=== PATIENT | male | born 1940 | race Caucasian/White ===

== ENCOUNTER 2017-02-18 11:20 | Emergency (ER) | payer MEDICARE, BC ==
[2017-02-18 11:25] VITALS: RESP 18; TEMP 97.9
[2017-02-18] MEDS ORDERED: DIPH,PERTUS(ACELL)TETVAC-LF 0.5 ML VIAL IM ONE (11:29)
--- NOTE | 2017-02-18 11:38 | ED ---
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 Patient states he got up the lost balance and fell onto his left side. Patient states the corner of his head hit the marble table and there is some bleeding. Patient states she does know when he had his last tetanus. Patient states he did not lose consciousness he was not dizzy or lightheaded prior to the fall. Patient denies any chest pain palpitations difficulty breathing or shortness of breath. Patient states he just simply lost his balance. Patient has some left-sided neck pain as well. Patient complains of a little tenderness to his buttocks on the left side. Patient also complains of some mild lower back pain. Patient denies any upper extremity pain. Patient denies any pain to either side. Patient denies any abdominal pain. Patient denies any upper or mid back pain. - Related Data Home Medications Medication Instructions Recorded Confirmed Carvedilol [Carvedilol] 6.25 mg PO BID 01/25/16 02/18/17 Insulin NPH Hum/Reg Insulin Hm 50 units SQ AC-BID 01/25/16 02/18/17 [Humulin 70-30 Vial] Isosorbide Mononitrate [Isosorbide 30 mg PO DAILY 01/25/16 02/18/17 Mononitrate ER] Lisinopril [Prinivil] 10 mg PO BID 01/25/16 02/18/17 Pravastatin Sodium [Pravachol] 10 mg PO HS 01/25/16 02/18/17 ALPRAZolam [Xanax] 1 mg PO BID PRN 02/18/17 02/18/17 Aspirin [Adult Low Dose Aspirin EC] 81 mg PO DAILY 02/18/17 02/18/17 Baclofen 10 mg PO TID 02/18/17 02/18/17 Cholecalciferol [Vitamin D3] 1,000 unit PO DAILY 02/18/17 02/18/17 Ferrous Sulfate [Feosol] 325 mg PO DAILY 02/18/17 02/18/17 HYDROcodone/APAP 10-325MG [Orient 1 tab PO DAILY PRN 02/18/17 02/18/17 10-325] Allergies Allergy/AdvReac Type Severity Reaction Status Date / Time Penicillins Allergy Unknown Verified 02/18/17 12:15 Childhood pregabalin [From Lyrica] Allergy Rapid Verified 02/18/17 12:15 Heart Rate Review of Systems ROS Statement: Those systems with pertinent positive or pertinent negative responses have been documented in the HPI. ROS Other: All systems not noted in ROS Statement are negative. Past Medical History Past Medical History: Coronary Artery Disease (CAD), Chest Pain / Angina, COPD, Diabetes Mellitus, Hyperlipidemia, Hypertension, Myocardial Infarction ([place]), Vascular Disorder Additional Past Medical History / Comment(s): 'bleeding behind eyes" had laser sx Last Myocardial Infarction Date:: 2010 History of Any Multi-Drug Resistant Organisms: None Reported Past Surgical History: Coronary Bypass/CABG, Heart Catheterization With Stent, Tonsillectomy Additional Past Surgical History / Comment(s): blossom bka , blossom carotid endarterectomy, several heart caths stated he has 7 or 8 stents? ,blossom cataracts sx, laser eye sx for bleeding behind eyes, colonoscopyper past medical hx:,angiogram,fem-fem bypass,lt fem pop bypass. Past Anesthesia/Blood Transfusion Reactions: No Reported Reaction Additional Past Anesthesia/Blood Transfusion Reaction / Comment(s): clausterphobia Date of Last Stent Placement:: unk Past Psychological History: Anxiety Smoking Status: Former smoker Past Alcohol Use History: Occasional Additional Past Alcohol Use History / Comment(s): smoked x 40 years, quit 2008 Past Drug Use History: None Reported - Past Family History Father Family Medical History: Diabetes Mellitus Additional Family Medical History / Comment(s): heart problems Mother Family Medical History: Diabetes Mellitus Additional Family Medical History / Comment(s): heart problems General Exam - General Exam Comments Initial Comments: GENERAL: Patient is well-developed and well-nourished. Patient is nontoxic and well- hydrated and is in mild distress. There is a small laceration just above the left ear measuring about 1.5 cm. It appears to be approximated very nicely. ENT: Neck is soft and supple. No significant lymphadenopathy is noted. Oropharynx is clear. Moist mucous membranes. Neck has full range of motion without eliciting any pain. Patient has some slight tenderness to the left side of his neck posteriorly at about C5-C6 EYES: The sclera were anicteric and conjunctiva were pink and moist. Extraocular movements were intact and pupils were equal round and reactive to light. Eyelids were unremarkable. PULMONARY: Unlabored respirations. Good breath sounds bilaterally. No audible rales rhonchi or wheezing was noted. CARDIOVASCULAR: There is a regular rate and rhythm without any murmurs gallops or rubs. ABDOMEN: Soft and nontender with normal bowel sounds. No palpable organomegaly was noted. There is no palpable pulsatile mass. SKIN: Skin is clear with no lesions or rashes and otherwise unremarkable. NEUROLOGIC: Patient is alert and oriented x3. Cranial nerves II through XII are grossly intact. Motor and sensory are also intact. Normal speech, volume and content. Symmetrical smile. MUSCULOSKELETAL: Normal extremities with adequate strength and full range of motion. No lower extremity swelling or edema. No calf tenderness. Patient's left buttocks is tender to palpation but has full range of motion of that hip. LYMPHATICS: No significant lymphadenopathy is noted PSYCHIATRIC: Normal psychiatric evaluation. Normal interpersonal interactions appears functionally intact in deals appropriately with others. No signs of depression. No signs of anxiety. Limitations: no limitations Course Vital Signs 02/18/17 02/18/17 02/18/17 11:22 12:18 12:55 Temperature 97.9 F Pulse Rate 79 78 77 Respiratory 18 18 18 Rate Blood Pressure 246/119 207/90 178/79 O2 Sat by Pulse 94 L 93 L 94 L Oximetry Procedures - Laceration Laceration #1 Consent Obtained: verbal consent Time Out Performed: Yes Indication: laceration Site: scalp Description: flap Depth: simple, single layer Type of Sutures: other (Dermabond was used to close the wound) Medical Decision Making - Medical Decision Making I went back into the room the patient was ambulating at his baseline with a walker. Patient stated he did not want to stay in hospital he wanted to go back home he felt good enough to go home. is concerned he might fall again patient stated that he would be more careful home and stated he would refuse to stay or go to a correction. Disposition Clinical Impression: Scalp laceration, Fall, Contusion, hip, Hypertension Disposition: HOME SELF-CARE Condition: Good Instructions: Fall Prevention for Older Adults (ED), Hypertension (ED) Referrals: Benji Arrington DO [Primary Care Provider] - 1-2 days Time of Disposition: 14:30
--- NOTE | 2017-02-18 12:15 | XR ---
EXAMINATION TYPE: XR lumbosacral spine min 4V DATE OF EXAM: 02/18/2017 12:09 PM COMPARISON: NONE HISTORY: 76-year-old male with back pain for one week after fall TECHNIQUE: 5 views FINDINGS: Moderate to advanced discussion preliminary degenerative change throughout the lumbar spine. There i s minimal anterior wedging of L1 vertebral body. Alignment is maintained. Hypertrophic facet arthropa thy throughout. Some embolization coils are noted in the upper abdomen. Some calcifications may relat e to pancreatic calcifications in the setting of chronic pancreatitis. IMPRESSION: 1. Moderate to advanced multilevel disc/endplate degenerative change and facet arthropathy. 2. Mild anterior wedging of L1, age indeterminate mild compression deformity. Correlate for focal so n at this level. 3. Some calcifications in the upper abdomen could represent pancreatic calcifications in the setting of chronic pancreatitis. Clinically correlate.
--- NOTE | 2017-02-18 12:16 | CT ---
EXAMINATION TYPE: CT brain jose zayas DATE OF EXAM: 02/18/2017 11:59 AM COMPARISON: NONE HISTORY: Patient complains of headache post fall today with blow to head just superior to the left ea r. CT DLP: 487.3 mGycm. Automated Exposure Control for Dose Reduction was Utilized. TECHNIQUE: CT scan of the head and cervical spine are performed without contrast. FINDINGS: There is no acute intracranial hemorrhage or midline shift identified. There is ventricul ar and sulcal prominence consistent with diffuse cerebral atrophy. Low-attenuation in periventricular white matter is present. The globes are intact and the visualized sinuses are clear. The calvarium i s intact. Dense vascular calcification distal internal carotid arteries is present. Cervical spine is visualized in its entirety from C1 through upper thoracic levels and demonstrates s traightened without evidence of acute fracture or dislocation. Prevertebral soft tissue appears with in normal limits. The C1-C2 articulation is within normal limits on the coronal images. Vertebral body heights are maintained. There is moderate disc space narrowing C3-C4, C5-C6, and C6-C7 levels. Disc calcification C5-C6 level is seen. There is moderate to severe multilevel anterior and lateral spurring most prominent in the mid cervical spine. Posterior spur disc complex effaces anteri or thecal sac at C5-C6 and C6-C7 levels. Surgical clips bilateral neck are present near carotid vesse ls. Suspect calcified pleural plaques posteriorly right upper lung on axial image 91 and 84. IMPRESSION: 1. There is no acute fracture or dislocation evident in the cervical spine. 2. No acute intracranial hemorrhage or midline shift is seen. Mild to moderate diffuse cerebral atrop hy and chronic small vessel ischemic change is present.
--- NOTE | 2017-02-18 12:17 | XR ---
EXAMINATION TYPE: XR pelvis AP view DATE OF EXAM: 02/18/2017 12:09 PM COMPARISON: NONE HISTORY: 76 year-old male back pain for one week after fall FINDINGS: SI joints appear symmetric and intact. Bowel content obscures portions of the sacrum but the arcuate lines appear smooth and continuous. There is mild degenerative change at both hips. No displaced frac ture. Osteopenia. Vascular calcifications. Extensive vascular calcifications. IMPRESSION: Mild bilateral hip osteoarthrosis. There is osteopenia without displaced fracture.
[2017-02-18] MEDS ORDERED: hydrALAZINE HCL 20 MG/ML 1 ML VIAL IVP STA (12:32)
[2017-02-18] MEDS ORDERED: HYDROmorphone 1 MG/ML 1 ML SYRINGE IVP STA (13:36)
[2017-02-18 14:49] VITALS: BP 176/75; PULSE 72
== END 2017-02-18 14:50 | disposition home or self-care (01) ==
LOC: EC 11:20
DX: S01.01XA Laceration without foreign body of scalp, initial encounter (principal); S70.02XA Contusion of left hip, initial encounter; I10 Essential (primary) hypertension; E11.9 Type 2 diabetes mellitus without complications; E78.5 Hyperlipidemia, unspecified; Z88.0 Allergy status to penicillin; Z88.8 Allergy status to other drugs, medicaments and biological substances; Z79.82 Long term (current) use of aspirin; Z98.890 Other specified postprocedural states; Z87.891 Personal history of nicotine dependence; Z23 Encounter for immunization; Z79.4 Long term (current) use of insulin; Z79.899 Other long term (current) drug therapy; W18.09XA Striking against other object with subsequent fall, initial encounter
CPT/HCPCS: 99284; 12001; 90471; 96374; 96375; 72110; 72170; 72125; 70450; 90715; J0360; J1170

== ENCOUNTER → 2017-09-03 | Outpatient (CLI) | payer MEDICARE, BC ==
[2017-09-03 16:44] LABS: CH 33.8; CHCM 32.4; HCT 45.7 % (39.0-53.0); HDW 2.79; HGB 14.3 gm/dL (13.0-17.5); MCH 32.8 pg (25.0-35.0); MCHC 31.3 g/dL (31.0-37.0); MCV 104.9 fL (80.0-100.0); Macrocytosis Moderate; Mean Platelet Volume 8.2; RBC 4.35 m/uL (4.30-5.90); WBC 9.3 k/uL (3.8-10.6)
[2017-09-03 16:55] LABS: Anion Gap 6 mmol/L; Blood Urea Nitrogen 16 mg/dL (9-20); Carbon Dioxide 32 mmol/L (22-30); Chloride 103 mmol/L (98-107); Non-African American GFR(MDRD) >60 (>60 ml/min/1.73 sqM); Potassium 4.4 mmol/L (3.5-5.1); Sodium 141 mmol/L (137-145)
== END | disposition home or self-care (01) ==
LOC: LABWHC1 16:14
PROVIDERS: ATTEND Internal Medicine Cardiovascular Disease
DX: R07.2 Precordial pain (principal)
CPT/HCPCS: 36415; 80051; 82565; 84520; 85027

== ENCOUNTER 2017-12-05 13:25 | Inpatient (IN) | payer BC, MEDICARE ==
[2017-12-05] MEDS ORDERED: FAMOTIDINE 20 MG/2 ML VIAL IV STA (13:38)
[2017-12-05] MEDS ORDERED: ONDANSETRON 4 MG/2 ML VIAL IVP STA (13:38)
[2017-12-05] MEDS ORDERED: SODIUM CHLORIDE 0.9% 500 ML IV STA (13:39)
[2017-12-05] MEDS ORDERED: ACETAMINOPHEN IV (For NPO) 1,000 MG in EMPTY BAG 1 BAG IVPB STA (13:41)
--- NOTE | 2017-12-05 13:45 | ED ---
General Adult HPI - General Chief complaint: Weakness Stated complaint: Weakness Time Seen by Provider: 12/05/17 13:31 Source: patient, EMS, RN notes reviewed Mode of arrival: EMS Limitations: physical limitation - History of Present Illness Initial comments: Patient is a pleasant 77-year-old male presenting to emergency Department with generalized weakness. Patient has been vomiting all day today. Patient feels weak all over. No known fever. Patient does complain of some lower back pain which is chronic and unchanged. No constipation or diarrhea. Patient is worried about dehydration. - Related Data Home Medications Medication Instructions Recorded Confirmed Carvedilol [Carvedilol] 6.25 mg PO BID 01/25/16 12/05/17 Insulin NPH Hum/Reg Insulin Hm 55 units SQ AC-BID 01/25/16 12/05/17 [Humulin 70-30 Vial] Isosorbide Mononitrate [Isosorbide 30 mg PO DAILY 01/25/16 12/05/17 Mononitrate ER] Lisinopril [Prinivil] 10 mg PO BID 01/25/16 12/05/17 Pravastatin Sodium [Pravachol] 10 mg PO HS 01/25/16 12/05/17 ALPRAZolam [Xanax] 1 mg PO BID PRN 02/18/17 12/05/17 Aspirin [Adult Low Dose Aspirin EC] 81 mg PO DAILY 02/18/17 12/05/17 Baclofen 10 mg PO TID 02/18/17 12/05/17 Cholecalciferol [Vitamin D3] 1,000 unit PO DAILY 02/18/17 12/05/17 Ferrous Sulfate [Feosol] 325 mg PO DAILY 02/18/17 12/05/17 Allergies Allergy/AdvReac Type Severity Reaction Status Date / Time Penicillins Allergy Unknown Verified 12/05/17 14:23 Childhood pregabalin [From Lyrica] Allergy Rapid Verified 12/05/17 14:23 Heart Rate Review of Systems ROS Statement: Those systems with pertinent positive or pertinent negative responses have been documented in the HPI. ROS Other: All systems not noted in ROS Statement are negative. Constitutional: Denies: fever Eyes: Denies: eye pain ENT: Denies: ear pain Respiratory: Denies: cough Cardiovascular: Denies: chest pain Endocrine: Denies: fatigue Gastrointestinal: Reports: nausea, vomiting. Denies: abdominal pain Genitourinary: Denies: dysuria Musculoskeletal: Reports: back pain (Chronic and unchanged) Skin: Denies: rash Neurological: Denies: weakness Past Medical History Past Medical History: Coronary Artery Disease (CAD), Chest Pain / Angina, COPD, Diabetes Mellitus, Hyperlipidemia, Hypertension, Myocardial Infarction ([place]), Vascular Disorder Additional Past Medical History / Comment(s): 'bleeding behind eyes" had laser sx Last Myocardial Infarction Date:: 2010 History of Any Multi-Drug Resistant Organisms: None Reported Past Surgical History: Coronary Bypass/CABG, Heart Catheterization With Stent, Tonsillectomy Additional Past Surgical History / Comment(s): blossom bka , blossom carotid endarterectomy, several heart caths stated he has 7 or 8 stents? ,blossom cataracts sx, laser eye sx for bleeding behind eyes, colonoscopyper past medical hx:,angiogram,fem-fem bypass,lt fem pop bypass. Past Anesthesia/Blood Transfusion Reactions: No Reported Reaction Additional Past Anesthesia/Blood Transfusion Reaction / Comment(s): clausterphobia Date of Last Stent Placement:: unk Past Psychological History: Anxiety Smoking Status: Former smoker Past Alcohol Use History: Occasional Past Drug Use History: None Reported - Past Family History Father Family Medical History: Diabetes Mellitus Additional Family Medical History / Comment(s): heart problems Mother Family Medical History: Diabetes Mellitus Additional Family Medical History / Comment(s): heart problems General Exam Limitations: physical limitation General appearance: alert, in no apparent distress Head exam: Present: atraumatic Eye exam: Present: normal appearance, PERRL ENT exam: Present: normal oropharynx Neck exam: Present: normal inspection Respiratory exam: Present: normal lung sounds bilaterally Cardiovascular Exam: Present: tachycardia GI/Abdominal exam: Present: soft. Absent: tenderness Extremities exam: Present: other (Bilateral lower extremity amputation) Back exam: Present: normal inspection. Absent: tenderness Neurological exam: Present: alert. 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 IN 136. QRS 98. QT 380. QTC 507. Normal axis. Normal QRS. Lateral and inferior ST depression. Medical Decision Making - Medical Decision Making Patient reevaluated and resting comfortably in bed. Patient again confirms back discomfort is same as chronic back discomfort and no worse. No abdominal pain. Patient is unclear of any possible source of infection except for vomiting. Patient and family are updated on results and plan. Case was discussed in detail with Dr. Arrington, who will admit his patient. Patient has no source of infection and does not meet sepsis criteria at this time. Elevated white blood cell count can be attributed to vomiting. Elevated lactic acid can be attributed to vomiting and dehydration. - Lab Data Result diagrams: 12/05/17 13:50 12/05/17 13:50 Lab Results 12/05/17 12/05/17 12/05/17 Range/Units 13:50 13:50 13:50 WBC 15.1 H (3.8-10.6) k/uL RBC 4.75 (4.30-5.90) m/uL Hgb 15.7 (13.0-17.5) gm/dL Hct 46.5 (39.0-53.0) % MCV 97.9 (80.0-100.0) fL MCH 33.0 (25.0-35.0) pg MCHC 33.7 (31.0-37.0) g/dL RDW 14.0 (11.5-15.5) % Plt Count 236 (150-450) k/uL Neutrophils % 91 % Lymphocytes % 3 % Monocytes % 5 % Eosinophils % 1 % Basophils % 0 % Neutrophils # 13.8 H (1.3-7.7) k/uL Lymphocytes # 0.4 L (1.0-4.8) k/uL Monocytes # 0.7 (0-1.0) k/uL Eosinophils # 0.1 (0-0.7) k/uL Basophils # 0.0 (0-0.2) k/uL PT (9.0-12.0) sec INR (<1.2) APTT (22.0-30.0) sec Sodium 143 (137-145) mmol/L Potassium 4.1 (3.5-5.1) mmol/L Chloride 103 (98-107) mmol/L Carbon Dioxide 29 (22-30) mmol/L Anion Gap 11 mmol/L BUN 23 H (9-20) mg/dL Creatinine 0.98 (0.66-1.25) mg/dL Est GFR (MDRD) Af Amer >60 (>60 ml/min/1.73 sqM) Est GFR (MDRD) Non-Af >60 (>60 ml/min/1.73 sqM) Glucose 52 L (74-99) mg/dL POC Glucose (mg/dL) (75-99) mg/dL POC Glu Application Security Architect ID Plasma Lactic Acid James (0.7-2.0) mmol/L Calcium 9.7 (8.4-10.2) mg/dL Total Bilirubin 0.5 (0.2-1.3) mg/dL AST 34 (17-59) U/L ALT 30 (21-72) U/L Alkaline Phosphatase 75 (38-126) U/L Total Protein 6.3 (6.3-8.2) g/dL Albumin 3.7 (3.5-5.0) g/dL Urine Color Urine Appearance (Clear) Urine pH (5.0-8.0) Ur Specific Isabel (1.001-1.035) Urine Protein (Negative) Urine Glucose (UA) (Negative) Urine Ketones (Negative) Urine Blood (Negative) Urine Nitrite (Negative) Urine Bilirubin (Negative) Urine Urobilinogen (<2.0) mg/dL Ur Leukocyte Esterase (Negative) Urine RBC (0-5) /hpf Urine WBC (0-5) /hpf Amorphous Sediment (None) /hpf Hyaline Casts (0-2) /lpf Urine Mucus (None) /hpf Influenza Type A RNA Not Detected (Not Detectd) Influenza Type B (PCR) Not Detected (Not Detectd) 12/05/17 12/05/17 12/05/17 Range/Units 13:50 13:50 15:00 WBC (3.8-10.6) k/uL RBC (4.30-5.90) m/uL Hgb (13.0-17.5) gm/dL Hct (39.0-53.0) % MCV (80.0-100.0) fL MCH (25.0-35.0) pg MCHC (31.0-37.0) g/dL RDW (11.5-15.5) % Plt Count (150-450) k/uL Neutrophils % % Lymphocytes % % Monocytes % % Eosinophils % % Basophils % % Neutrophils # (1.3-7.7) k/uL Lymphocytes # (1.0-4.8) k/uL Monocytes # (0-1.0) k/uL Eosinophils # (0-0.7) k/uL Basophils # (0-0.2) k/uL PT 10.7 (9.0-12.0) sec INR 1.1 (<1.2) APTT 21.4 L (22.0-30.0) sec Sodium (137-145) mmol/L Potassium (3.5-5.1) mmol/L Chloride (98-107) mmol/L Carbon Dioxide (22-30) mmol/L Anion Gap mmol/L BUN (9-20) mg/dL Creatinine (0.66-1.25) mg/dL Est GFR (MDRD) Af Amer (>60 ml/min/1.73 sqM) Est GFR (MDRD) Non-Af (>60 ml/min/1.73 sqM) Glucose (74-99) mg/dL POC Glucose (mg/dL) (75-99) mg/dL POC Glu Application Security Architect ID Plasma Lactic Acid James 2.8 H* (0.7-2.0) mmol/L Calcium (8.4-10.2) mg/dL Total Bilirubin (0.2-1.3) mg/dL AST (17-59) U/L ALT (21-72) U/L Alkaline Phosphatase (38-126) U/L Total Protein (6.3-8.2) g/dL Albumin (3.5-5.0) g/dL Urine Color Yellow Urine Appearance Cloudy (Clear) Urine pH 5.5 (5.0-8.0) Ur Specific Isabel 1.021 (1.001-1.035) Urine Protein 1+ H (Negative) Urine Glucose (UA) Negative (Negative) Urine Ketones Trace H (Negative) Urine Blood Negative (Negative) Urine Nitrite Negative (Negative) Urine Bilirubin Negative (Negative) Urine Urobilinogen <2.0 (<2.0) mg/dL Ur Leukocyte Esterase Negative (Negative) Urine RBC 8 H (0-5) /hpf Urine WBC 3 (0-5) /hpf Amorphous Sediment Occasional H (None) /hpf Hyaline Casts 32 H (0-2) /lpf Urine Mucus Occasional H (None) /hpf Influenza Type A RNA (Not Detectd) Influenza Type B (PCR) (Not Detectd) 12/05/17 12/05/17 12/05/17 Range/Units 15:37 15:40 15:56 WBC (3.8-10.6) k/uL RBC (4.30-5.90) m/uL Hgb (13.0-17.5) gm/dL Hct (39.0-53.0) % MCV (80.0-100.0) fL MCH (25.0-35.0) pg MCHC (31.0-37.0) g/dL RDW (11.5-15.5) % Plt Count (150-450) k/uL Neutrophils % % Lymphocytes % % Monocytes % % Eosinophils % % Basophils % % Neutrophils # (1.3-7.7) k/uL Lymphocytes # (1.0-4.8) k/uL Monocytes # (0-1.0) k/uL Eosinophils # (0-0.7) k/uL Basophils # (0-0.2) k/uL PT (9.0-12.0) sec INR (<1.2) APTT (22.0-30.0) sec Sodium (137-145) mmol/L Potassium (3.5-5.1) mmol/L Chloride (98-107) mmol/L Carbon Dioxide (22-30) mmol/L Anion Gap mmol/L BUN (9-20) mg/dL Creatinine (0.66-1.25) mg/dL Est GFR (MDRD) Af Amer (>60 ml/min/1.73 sqM) Est GFR (MDRD) Non-Af (>60 ml/min/1.73 sqM) Glucose (74-99) mg/dL POC Glucose (mg/dL) 20 L <20 L 138 H (75-99) mg/dL POC Glu Application Security Architect Conchita Wilkes, Conchita Wright Plasma Lactic Acid James (0.7-2.0) mmol/L Calcium (8.4-10.2) mg/dL Total Bilirubin (0.2-1.3) mg/dL AST (17-59) U/L ALT (21-72) U/L Alkaline Phosphatase (38-126) U/L Total Protein (6.3-8.2) g/dL Albumin (3.5-5.0) g/dL Urine Color Urine Appearance (Clear) Urine pH (5.0-8.0) Ur Specific Isabel (1.001-1.035) Urine Protein (Negative) Urine Glucose (UA) (Negative) Urine Ketones (Negative) Urine Blood (Negative) Urine Nitrite (Negative) Urine Bilirubin (Negative) Urine Urobilinogen (<2.0) mg/dL Ur Leukocyte Esterase (Negative) Urine RBC (0-5) /hpf Urine WBC (0-5) /hpf Amorphous Sediment (None) /hpf Hyaline Casts (0-2) /lpf Urine Mucus (None) /hpf Influenza Type A RNA (Not Detectd) Influenza Type B (PCR) (Not Detectd) 12/05/17 Range/Units 16:09 WBC (3.8-10.6) k/uL RBC (4.30-5.90) m/uL Hgb (13.0-17.5) gm/dL Hct (39.0-53.0) % MCV (80.0-100.0) fL MCH (25.0-35.0) pg MCHC (31.0-37.0) g/dL RDW (11.5-15.5) % Plt Count (150-450) k/uL Neutrophils % % Lymphocytes % % Monocytes % % Eosinophils % % Basophils % % Neutrophils # (1.3-7.7) k/uL Lymphocytes # (1.0-4.8) k/uL Monocytes # (0-1.0) k/uL Eosinophils # (0-0.7) k/uL Basophils # (0-0.2) k/uL PT (9.0-12.0) sec INR (<1.2) APTT (22.0-30.0) sec Sodium (137-145) mmol/L Potassium (3.5-5.1) mmol/L Chloride (98-107) mmol/L Carbon Dioxide (22-30) mmol/L Anion Gap mmol/L BUN (9-20) mg/dL Creatinine (0.66-1.25) mg/dL Est GFR (MDRD) Af Amer (>60 ml/min/1.73 sqM) Est GFR (MDRD) Non-Af (>60 ml/min/1.73 sqM) Glucose (74-99) mg/dL POC Glucose (mg/dL) 99 (75-99) mg/dL POC Glu Application Security Architect ID Melissa Elizabeth Plasma Lactic Acid James (0.7-2.0) mmol/L Calcium (8.4-10.2) mg/dL Total Bilirubin (0.2-1.3) mg/dL AST (17-59) U/L ALT (21-72) U/L Alkaline Phosphatase (38-126) U/L Total Protein (6.3-8.2) g/dL Albumin (3.5-5.0) g/dL Urine Color Urine Appearance (Clear) Urine pH (5.0-8.0) Ur Specific Isabel (1.001-1.035) Urine Protein (Negative) Urine Glucose (UA) (Negative) Urine Ketones (Negative) Urine Blood (Negative) Urine Nitrite (Negative) Urine Bilirubin (Negative) Urine Urobilinogen (<2.0) mg/dL Ur Leukocyte Esterase (Negative) Urine RBC (0-5) /hpf Urine WBC (0-5) /hpf Amorphous Sediment (None) /hpf Hyaline Casts (0-2) /lpf Urine Mucus (None) /hpf Influenza Type A RNA (Not Detectd) Influenza Type B (PCR) (Not Detectd) - Radiology Data Radiology results: image reviewed (Chest x-ray shows no acute abnormality.) Disposition Clinical Impression: Acute vomiting, Fever Disposition: ADMITTED IP TO THIS [facility] Referrals: Benji Arrington DO [Primary Care Provider] - 1-2 days Time of Disposition: 16:30
[2017-12-05 14:09] LABS: Basophils % (A) 0 %; Eosinophils # (A) 0.1 k/uL (0-0.7); Eosinophils % (A) 1 %; HCT 46.5 % (39.0-53.0); HGB 15.7 gm/dL (13.0-17.5); Lymphocytes # (A) 0.4 k/uL (1.0-4.8); Lymphocytes % (A) 3 %; MCHC 33.7 g/dL (31.0-37.0); MCV 97.9 fL (80.0-100.0); Mean Platelet Volume 7.8; Monocytes # (A) 0.7 k/uL (0-1.0); Monocytes % (A) 5 %; Neutrophils # (A) 13.8 k/uL (1.3-7.7); Neutrophils % (A) 91 %; Platelet Count 236 k/uL (150-450); RBC 4.75 m/uL (4.30-5.90); WBC 15.1 k/uL (3.8-10.6)
[2017-12-05 14:19] LABS: ALT 30 U/L (21-72); AST 34 U/L (17-59); Albumin 3.7 g/dL (3.5-5.0); Alkaline Phosphatase 75 U/L (38-126); Anion Gap 11 mmol/L; Blood Urea Nitrogen 23 mg/dL (9-20); Calcium 9.7 mg/dL (8.4-10.2); Carbon Dioxide 29 mmol/L (22-30); Chloride 103 mmol/L (98-107); Glucose 52 mg/dL (74-99); Potassium 4.1 mmol/L (3.5-5.1); Sodium 143 mmol/L (137-145); Total Bilirubin 0.5 mg/dL (0.2-1.3); Total Protein 6.3 g/dL (6.3-8.2)
[2017-12-05 14:25] LABS: INR 1.1 (<1.2); Prothrombin Time 10.7 sec (9.0-12.0)
[2017-12-05 14:33] LABS: Partial Thromboplastin Time 21.4 sec (22.0-30.0)
--- NOTE | 2017-12-05 14:55 | XR ---
EXAMINATION TYPE: XR chest 2V DATE OF EXAM: 12/05/2017 COMPARISON: Prior chest x-ray 01/25/2016 HISTORY: Fever and vomiting TECHNIQUE: Frontal and lateral views of the chest are obtained. FINDINGS: Postprocedural changes are noted in the upper abdomen as on prior exam, patient is post me jamaal sternotomy. Coronary artery calcification and possible stents present. No evident airspace disea se, pneumothorax, or pleural effusion. Patient is rotated. Cardiac mediastinal silhouette, pulmonary vascularity and abby are stable, heart may be enlarged. There are overlying cardiac leads. IMPRESSION: Rotated exam, no acute abnormalities evident. Follow-up as indicated.
[2017-12-05] MEDS ORDERED: SODIUM CHLORIDE 0.9% 1,000 ML IV STA ×2 (15:25)
[2017-12-05] MEDS ORDERED: SODIUM CHLORIDE 0.9% 100 ML IV STA (15:25)
[2017-12-05] MEDS ORDERED: DEXTROSE 50%-WATER 50 ML SYRINGE IVP STA ×2 (15:41→17:59)
[2017-12-05 16:05] LABS: Amorphous Sediment,Urine Occasional /hpf; Appearance,Urine Cloudy (Clear); Bilirubin,Urine Negative (Negative); Blood,Urine Negative (Negative); Color,Urine Yellow; Glucose,Urine (UA) Negative (Negative); Hyaline Casts,Urine 32 /lpf (0-2); Ketones,Urine Trace (Negative); Leukocyte Esterase,Urine Negative (Negative); Mucus,Urine Occasional /hpf; Nitrite,Urine Negative (Negative); PH, Urine 5.5 (5.0-8.0); Protein,Urine 1+ (Negative); RBC,Urine 8 /hpf (0-5); Specific Gravity,Urine 1.021 (1.001-1.035); Urobilinogen,Urine <2.0 mg/dL (<2.0); WBC,Urine 3 /hpf (0-5)
[2017-12-05 16:23] LABS: Glucose,Whole Blood 138 mg/dL (75-99)
[2017-12-05 16:23] LABS: Glucose,Whole Blood <20 mg/dL (75-99)
[2017-12-05 16:23] LABS: Glucose,Whole Blood 99 mg/dL (75-99)
[2017-12-05 16:23] LABS: Glucose,Whole Blood 20 mg/dL (75-99)
[2017-12-05] MEDS ORDERED: ACETAMINOPHEN TAB 325 MG TAB PO PRN (16:30)
[2017-12-05] MEDS ORDERED: NALOXONE 0.4 MG/ML 1 ML VIAL IV PRN (16:30)
[2017-12-05] MEDS ORDERED: SODIUM CHLORIDE 0.9% 1,000 ML IV SCH (16:30)
[2017-12-05] MEDS ORDERED: IBUPROFEN 400 MG TAB PO PRN (16:30)
[2017-12-05] MEDS ORDERED: ONDANSETRON 4 MG/2 ML VIAL IVP PRN (16:30)
[2017-12-05 16:44] LABS: Glucose,Whole Blood 73 mg/dL (75-99)
[2017-12-05 17:12] LABS: Glucose,Whole Blood 74 mg/dL (75-99)
[2017-12-05 17:48] LABS: Glucose,Whole Blood 61 mg/dL (75-99)
[2017-12-05 18:21] LABS: Glucose,Whole Blood 101 mg/dL (75-99)
[2017-12-05 19:25] LABS: Glucose,Whole Blood 102 mg/dL (75-99)
[2017-12-05] MEDS ORDERED: ALPRAZolam 1 MG TAB PO PRN (20:50)
[2017-12-05 21:14] LABS: Glucose,Whole Blood 83 mg/dL (75-99)
[2017-12-05] MEDS: PRAVASTATIN SODIUM 20 MG TAB PO SCH (22:42)
[2017-12-05] MEDS: CARVEDILOL 6.25 MG TAB PO SCH (22:43)
[2017-12-05] MEDS: BACLOFEN 10 MG TAB PO SCH (22:43)
[2017-12-05] MEDS: LISINOPRIL 10 MG TAB PO SCH (22:43)
[2017-12-05 23:02] LABS: Glucose,Whole Blood 72 mg/dL (75-99)
[2017-12-05] MEDS: DEXTROSE 5%-0.45% NACL 1,000 ML IV SCH (23:07)
[2017-12-06 01:28] LABS: Glucose,Whole Blood 82 mg/dL (75-99)
[2017-12-06 01:42] LABS: Hemoglobin A1C 6.4 % (4.0-6.0)
[2017-12-06 06:11] LABS: Glucose,Whole Blood 118 mg/dL (75-99)
[2017-12-06 07:34] LABS: Glucose,Whole Blood 115 mg/dL (75-99)
[2017-12-06] MEDS: INSULIN ASPART 100 UNIT/ML 1 ML 10 ML VIAL SQ SCH ×4 (07:35→22:33)
--- NOTE | 2017-12-06 08:05 | XR ---
EXAMINATION TYPE: XR chest 2V DATE OF EXAM: 12/06/2017 COMPARISON: Chest x-ray from yesterday. HISTORY: Fever and vomiting. TECHNIQUE: Frontal and lateral views of the chest are obtained. FINDINGS: Sternal wires are redemonstrated, superior wire is broken. Mediastinal clips are again seen . There is chronic parenchymal change without suspicious new focal air space opacity, pleural effusio n, or pneumothorax seen. The cardiac silhouette size is stable and enlarged. Several coronary sten ts are identified on lateral view. There is multilevel spurring in the thoracic spine. Metallic coils are seen in the abdomen on lateral view. IMPRESSION: Cardiomegaly and chronic changes without acute pulmonary process. No significant change from prior.
[2017-12-06] MEDS: CHOLECALCIFEROL 1,000 UNIT TAB PO SCH (08:40)
[2017-12-06] MEDS: ISOSORBIDE MONONITRATE ER 30 MG TAB.ER.24H PO SCH (08:40)
[2017-12-06] MEDS: FERROUS SULFATE 325 MG TAB PO SCH (08:40)
[2017-12-06] MEDS: LISINOPRIL 10 MG TAB PO SCH ×2 (08:41→22:29)
[2017-12-06] MEDS: CARVEDILOL 6.25 MG TAB PO SCH ×2 (08:41→17:18)
[2017-12-06] MEDS: BACLOFEN 10 MG TAB PO SCH ×3 (08:41→22:29)
[2017-12-06] MEDS: DEXTROSE 5%-0.45% NACL 1,000 ML IV SCH (08:41)
[2017-12-06] MEDS: ASPIRIN 81 MG PO SCH (08:41)
[2017-12-06] MEDS: PANTOPRAZOLE 40 MG/10 ML VIAL IV SCH (08:41)
[2017-12-06] MEDS ORDERED: RX INFO: IV CONTRAST WAS GIVEN 1 EACH MISC MISCELLANE PRN (08:46)
[2017-12-06 09:11] LABS: Basophils % (A) 0 %; Eosinophils # (A) 0.1 k/uL (0-0.7); Eosinophils % (A) 1 %; HCT 40.1 % (39.0-53.0); HGB 12.9 gm/dL (13.0-17.5); Lymphocytes # (A) 1.2 k/uL (1.0-4.8); Lymphocytes % (A) 10 %; MCH 32.6 pg (25.0-35.0); MCHC 32.1 g/dL (31.0-37.0); MCV 101.3 fL (80.0-100.0); Macrocytosis Slight; Mean Platelet Volume 7.8; Monocytes # (A) 0.7 k/uL (0-1.0); Monocytes % (A) 6 %; Neutrophils # (A) 9.5 k/uL (1.3-7.7); Neutrophils % (A) 81 %; Platelet Count 191 k/uL (150-450); RBC 3.96 m/uL (4.30-5.90); RDW 14.2 % (11.5-15.5); WBC 11.7 k/uL (3.8-10.6)
[2017-12-06 09:33] LABS: ALT 28 U/L (21-72); AST 30 U/L (17-59); Albumin 2.9 g/dL (3.5-5.0); Alkaline Phosphatase 57 U/L (38-126); Anion Gap 7 mmol/L; Blood Urea Nitrogen 18 mg/dL (9-20); Calcium 8.3 mg/dL (8.4-10.2); Carbon Dioxide 28 mmol/L (22-30); Chloride 105 mmol/L (98-107); Glucose 164 mg/dL (74-99); Sodium 140 mmol/L (137-145); Total Bilirubin 0.5 mg/dL (0.2-1.3); Total Protein 5.1 g/dL (6.3-8.2)
--- NOTE | 2017-12-06 09:52 | XR ---
EXAMINATION TYPE: XR abdomen complete w decub DATE OF EXAM: 12/06/2017 CLINICAL HISTORY: Abdominal distention pain and vomiting. TECHNIQUE: Supine, upright, and left side down lateral decubitus views of the abdomen are obtained. COMPARISON: None. FINDINGS: Exam is suboptimal secondary to patient's large body habitus. Gas is seen in nondistended s tomach. There is some paucity of small bowel gas. Visualized gas is noted in nondistended small bowel loops. Gas is seen in non-distended colon. Sternal wires are present. No pneumoperitoneum is seen. I ntravascular Coils left upper quadrant are noted. Lung bases are clear. Moderate joint space loss in both hips is present. IMPRESSION: Overall nonspecific but suspected nonobstructive bowel gas pattern.
[2017-12-06] MEDS: IOHEXOL 350 MG/ML 25 ML BOTTLE (ORAL USE) PO PRN ×2 (09:53→11:32)
--- NOTE | 2017-12-06 10:42 | P.HPIM ---
History of Present Illness H&P Date: 12/06/17 Chief Complaint: vomiting 77-year-old male who presented to the emergency room with a chief complaint of vomiting 24 hours and generalized weakness. Patient denied shortness of breath or coughing. Denies chest pain or pressure. Denies diarrhea or constipation. Denies fever or chills. Family member at the bedside states that multiple family members have had gastroenteritis this week. The patient has a history of coronary artery disease, chronic objective pulmonary disease, diabetes mellitus, hyperlipidemia, hypertension, myocardial infarction with multiple stents, CABG, bilateral below the knee amputations, bilateral carotid enterectomy, and anxiety. He is a former cigarette smoker. Chest x-ray 12/05/2017: no acute abnormalities Chest x-ray 12/06/2017: Whitley chronic changes without acute pulmonary process. No significant change from prior exam Laboratory data: WBC 15.1. Hemoglobin 15.7. Platelet count 236. Sodium 143. Potassium 4.1. BUN 23. Creatinine 0.98. Glucose 52. Lactic acid: 2.8 Testing for influenza A and B was negative Urinalysis reveals: cloudy yellow urine, 1+ proteinuria, trace ketones with 32 hyaline casts, occasional mucus and sediment The patient was admitted to the hospital under the care of Dr. Arrington. Consultations were placed to Dr. Roche. Review of Systems GENERAL: positive for generalized weakness.Patient denies fever. Denies chills. EYES: Denies blurred vision. Denies vision changes. Denies eye pain. EARS, NOSE, MOUTH, & THROAT: Denies headache. Denies sore throat. Denies ear pain. RESPIRATORY: Denies cough. Denies shortness of breath. Denies sputum production. Denies hemoptysis. CARDIOVASCULAR: Denies chest pain or pressure. Denies palpitations. Denies arrhythmias. GASTROINTESTINAL: Positive for nausea and vomiting. Denies abdominal pain. Denies diarrhea. Denies constipation. Denies heartburn. Denies blood in the stool. GENITOURINARY: Denies urinary frequency. Denies burning. Denies dysuria. Denies cloudy urine. Denies blood in the urine. MUSCULOSKELETAL: Positive for bilateral [id number] amputations.Denies myalgias. Denies joint swelling. Denies decreased range of motion beyond patients baseline. INTEGUMENTARY: Denies pruitis. Denies rash. PSYCHIATRIC: Denies suicidal or homicial ideations. ENDOCRINE: Denies weight change. Denies polydipsia. Denies polyuria. HEMATOLOGIC: Denies bleeding disorders. Past Medical History Past Medical History: Coronary Artery Disease (CAD), Chest Pain / Angina, COPD, Diabetes Mellitus, Hyperlipidemia, Hypertension, Memory Impairment, Myocardial Infarction ([place]), Vascular Disorder Additional Past Medical History / Comment(s): falls. uses walker for short distance and w/c.wears blossom leg prothesis. 'bleeding behind eyes" had laser sx Last Myocardial Infarction Date:: 2010 History of Any Multi-Drug Resistant Organisms: None Reported Past Surgical History: Coronary Bypass/CABG, Heart Catheterization With Stent, Tonsillectomy Additional Past Surgical History / Comment(s): blossom bka , blossom carotid endarterectomy, several heart caths stated he has 7 or 8 stents? ,blossom cataracts sx, laser eye sx for bleeding behind eyes, colonoscopyper past medical hx:,angiogram,fem-fem bypass,lt fem pop bypass. Past Anesthesia/Blood Transfusion Reactions: No Reported Reaction Additional Past Anesthesia/Blood Transfusion Reaction / Comment(s): clausterphobia Date of Last Stent Placement:: unk Smoking Status: Former smoker - Past Family History Father Family Medical History: Diabetes Mellitus Additional Family Medical History / Comment(s): heart problems Mother Family Medical History: Diabetes Mellitus Additional Family Medical History / Comment(s): heart problems Medications and Allergies Home Medications Medication Instructions Recorded Confirmed Type Carvedilol [Carvedilol] 6.25 mg PO BID 01/25/16 12/05/17 History Insulin NPH Hum/Reg Insulin Hm 55 units SQ AC-BID 01/25/16 12/05/17 History [Humulin 70-30 Vial] Isosorbide Mononitrate [Isosorbide 30 mg PO DAILY 01/25/16 12/05/17 History Mononitrate ER] Lisinopril [Prinivil] 10 mg PO BID 01/25/16 12/05/17 History Pravastatin Sodium [Pravachol] 10 mg PO HS 01/25/16 12/05/17 History ALPRAZolam [Xanax] 1 mg PO BID PRN 02/18/17 12/05/17 History Aspirin [Adult Low Dose Aspirin EC] 81 mg PO DAILY 02/18/17 12/05/17 History Baclofen 10 mg PO TID 02/18/17 12/05/17 History Cholecalciferol [Vitamin D3] 1,000 unit PO DAILY 02/18/17 12/05/17 History Ferrous Sulfate [Feosol] 325 mg PO DAILY 02/18/17 12/05/17 History Allergies Allergy/AdvReac Type Severity Reaction Status Date / Time Penicillins Allergy Unknown Verified 12/05/17 14:23 Childhood pregabalin [From Lyrica] Allergy Rapid Verified 12/05/17 14:23 Heart Rate Physical Exam Vitals: Vital Signs Temp Pulse Pulse Pulse Resp BP BP 12/06/17 08:34 18 12/06/17 06:01 98.4 F 81 18 130/62 12/05/17 22:41 99.8 F H 82 18 130/68 12/05/17 21:00 98.6 F 99 16 135/78 12/05/17 18:43 97.4 F L 87 18 12/05/17 18:23 99.2 F 78 18 156/76 12/05/17 17:00 87 18 168/89 12/05/17 16:45 100.3 F H 90 18 166/60 12/05/17 16:00 101.0 F H 94 18 164/59 12/05/17 15:51 93 18 165/56 12/05/17 15:00 101.2 F H 92 18 221/101 12/05/17 14:27 104 H 12/05/17 13:30 102 H 18 142/63 12/05/17 13:27 100.6 F H 105 H 18 104/82 BP Pulse Ox 12/06/17 08:34 12/06/17 06:01 96 12/05/17 22:41 93 L 12/05/17 21:00 96 12/05/17 18:43 153/89 12/05/17 18:23 97 12/05/17 17:00 98 12/05/17 16:45 97 12/05/17 16:00 97 12/05/17 15:51 97 12/05/17 15:00 94 L 12/05/17 14:27 12/05/17 13:30 94 L 12/05/17 13:27 94 L Intake and Output 03/01/18 03/02/18 03/02/18 22:59 06:59 14:59 Output Total 300 300 Balance -300 -300 Output: Urine 300 300 Other: Voiding Method Urinal Urinal # Bowel Movements 1 Weight 86.183 kg Patient Weight 12/07/17 06:59 Weight 86.183 kg GENERAL: This is a 77-year-old male in no apparent distress at the time of examination. Pleasant and cooperative. HEENT: Head is atraumatic, normocephalic. Pupils are equal, round, and reactive to light. Sclerae anicteric. Conjunctivae are clear. Mucus membranes of the mouth are moist. Neck is supple. RESPIRATORY: Clear to ausculation, diminished at the bases. No wheezes, rales, or rhonchi. No use of accessory muscles. Patient maintaining oxygen saturation greater than 92%. No chest wall tenderness is noted on palpation or with deep breathing. CARDIOVASCULAR: Regular rate and rhythm. S1 and S2 noted. No JVD noted. No S3 or S4 noted. GASTROINTESTINAL: Obese. Abdomen distended but soft. Bowel sounds auscultated x 4 quadrants. No pain or tenderness noted upon palpation. INTEGUMENTARY: No cyanosis. No jaundice. No rashes noted. No cellulitis noted. EXTREMITIES: Bilateral [id number] amputations. NEUROLOGIC: Cranial nerves II-XII intact. PSYCHIATRIC: Awake, alert, and oriented X 3. Appropriate affect. Intact judgement and insight. Results CBC & Chem 7: 12/06/17 08:44 12/06/17 08:44 Labs: Abnormal Lab Results - Last 24 Hours (Table) 12/05/17 12/05/17 12/05/17 Range/Units 13:50 13:50 13:50 WBC 15.1 H (3.8-10.6) k/uL RBC (4.30-5.90) m/uL Hgb (13.0-17.5) gm/dL MCV (80.0-100.0) fL Neutrophils # 13.8 H (1.3-7.7) k/uL Lymphocytes # 0.4 L (1.0-4.8) k/uL APTT (22.0-30.0) sec BUN 23 H (9-20) mg/dL Glucose 52 L (74-99) mg/dL POC Glucose (mg/dL) (75-99) mg/dL Hemoglobin A1c (4.0-6.0) % Plasma Lactic Acid James 2.8 H* (0.7-2.0) mmol/L Calcium (8.4-10.2) mg/dL Total Protein (6.3-8.2) g/dL Albumin (3.5-5.0) g/dL Urine Protein (Negative) Urine Ketones (Negative) Urine RBC (0-5) /hpf Amorphous Sediment (None) /hpf Hyaline Casts (0-2) /lpf Urine Mucus (None) /hpf 12/05/17 12/05/17 12/05/17 Range/Units 13:50 13:50 15:00 WBC (3.8-10.6) k/uL RBC (4.30-5.90) m/uL Hgb (13.0-17.5) gm/dL MCV (80.0-100.0) fL Neutrophils # (1.3-7.7) k/uL Lymphocytes # (1.0-4.8) k/uL APTT 21.4 L (22.0-30.0) sec BUN (9-20) mg/dL Glucose (74-99) mg/dL POC Glucose (mg/dL) (75-99) mg/dL Hemoglobin A1c 6.4 H (4.0-6.0) % Plasma Lactic Acid James (0.7-2.0) mmol/L Calcium (8.4-10.2) mg/dL Total Protein (6.3-8.2) g/dL Albumin (3.5-5.0) g/dL Urine Protein 1+ H (Negative) Urine Ketones Trace H (Negative) Urine RBC 8 H (0-5) /hpf Amorphous Sediment Occasional H (None) /hpf Hyaline Casts 32 H (0-2) /lpf Urine Mucus Occasional H (None) /hpf 12/05/17 12/05/17 12/05/17 Range/Units 15:37 15:40 15:56 WBC (3.8-10.6) k/uL RBC (4.30-5.90) m/uL Hgb (13.0-17.5) gm/dL MCV (80.0-100.0) fL Neutrophils # (1.3-7.7) k/uL Lymphocytes # (1.0-4.8) k/uL APTT (22.0-30.0) sec BUN (9-20) mg/dL Glucose (74-99) mg/dL POC Glucose (mg/dL) 20 L <20 L 138 H (75-99) mg/dL Hemoglobin A1c (4.0-6.0) % Plasma Lactic Acid James (0.7-2.0) mmol/L Calcium (8.4-10.2) mg/dL Total Protein (6.3-8.2) g/dL Albumin (3.5-5.0) g/dL Urine Protein (Negative) Urine Ketones (Negative) Urine RBC (0-5) /hpf Amorphous Sediment (None) /hpf Hyaline Casts (0-2) /lpf Urine Mucus (None) /hpf 12/05/17 12/05/17 12/05/17 Range/Units 16:42 17:11 17:46 WBC (3.8-10.6) k/uL RBC (4.30-5.90) m/uL Hgb (13.0-17.5) gm/dL MCV (80.0-100.0) fL Neutrophils # (1.3-7.7) k/uL Lymphocytes # (1.0-4.8) k/uL APTT (22.0-30.0) sec BUN (9-20) mg/dL Glucose (74-99) mg/dL POC Glucose (mg/dL) 73 L 74 L 61 L (75-99) mg/dL Hemoglobin A1c (4.0-6.0) % Plasma Lactic Acid James (0.7-2.0) mmol/L Calcium (8.4-10.2) mg/dL Total Protein (6.3-8.2) g/dL Albumin (3.5-5.0) g/dL Urine Protein (Negative) Urine Ketones (Negative) Urine RBC (0-5) /hpf Amorphous Sediment (None) /hpf Hyaline Casts (0-2) /lpf Urine Mucus (None) /hpf 12/05/17 12/05/17 12/05/17 Range/Units 18:14 18:19 19:24 WBC (3.8-10.6) k/uL RBC (4.30-5.90) m/uL Hgb (13.0-17.5) gm/dL MCV (80.0-100.0) fL Neutrophils # (1.3-7.7) k/uL Lymphocytes # (1.0-4.8) k/uL APTT (22.0-30.0) sec BUN (9-20) mg/dL Glucose (74-99) mg/dL POC Glucose (mg/dL) 101 H 102 H (75-99) mg/dL Hemoglobin A1c (4.0-6.0) % Plasma Lactic Acid James 2.5 H* (0.7-2.0) mmol/L Calcium (8.4-10.2) mg/dL Total Protein (6.3-8.2) g/dL Albumin (3.5-5.0) g/dL Urine Protein (Negative) Urine Ketones (Negative) Urine RBC (0-5) /hpf Amorphous Sediment (None) /hpf Hyaline Casts (0-2) /lpf Urine Mucus (None) /hpf 12/05/17 12/06/17 12/06/17 Range/Units 22:49 06:09 07:32 WBC (3.8-10.6) k/uL RBC (4.30-5.90) m/uL Hgb (13.0-17.5) gm/dL MCV (80.0-100.0) fL Neutrophils # (1.3-7.7) k/uL Lymphocytes # (1.0-4.8) k/uL APTT (22.0-30.0) sec BUN (9-20) mg/dL Glucose (74-99) mg/dL POC Glucose (mg/dL) 72 L 118 H 115 H (75-99) mg/dL Hemoglobin A1c (4.0-6.0) % Plasma Lactic Acid James (0.7-2.0) mmol/L Calcium (8.4-10.2) mg/dL Total Protein (6.3-8.2) g/dL Albumin (3.5-5.0) g/dL Urine Protein (Negative) Urine Ketones (Negative) Urine RBC (0-5) /hpf Amorphous Sediment (None) /hpf Hyaline Casts (0-2) /lpf Urine Mucus (None) /hpf 12/06/17 12/06/17 Range/Units 08:44 08:44 WBC 11.7 H (3.8-10.6) k/uL RBC 3.96 L (4.30-5.90) m/uL Hgb 12.9 L (13.0-17.5) gm/dL MCV 101.3 H (80.0-100.0) fL Neutrophils # 9.5 H (1.3-7.7) k/uL Lymphocytes # (1.0-4.8) k/uL APTT (22.0-30.0) sec BUN (9-20) mg/dL Glucose 164 H (74-99) mg/dL POC Glucose (mg/dL) (75-99) mg/dL Hemoglobin A1c (4.0-6.0) % Plasma Lactic Acid James (0.7-2.0) mmol/L Calcium 8.3 L (8.4-10.2) mg/dL Total Protein 5.1 L (6.3-8.2) g/dL Albumin 2.9 L (3.5-5.0) g/dL Urine Protein (Negative) Urine Ketones (Negative) Urine RBC (0-5) /hpf Amorphous Sediment (None) /hpf Hyaline Casts (0-2) /lpf Urine Mucus (None) /hpf Microbiology - Last 24 Hours (Table) 12/05/17 15:00 Urine Culture - Preliminary Urine,Catheterized Thrombosis Risk Factor Assmnt - Choose All That Apply Any of the Below Risk Factors Present?: Yes Each Factor Represents 1 point: Abnormal pulmonary function (COPD), Medical pt on bed rest, Obesity (BMI >25) Other Risk Factors: Yes Each Risk Factor Represents 2 Points: Age 61-74 years Other congenital or acquired thrombophilia - If yes, enter type in comment: No Thrombosis Risk Factor Assessment Total Risk Factor Score: 5 Thrombosis Risk Factor Assessment Level: High Risk Assessment and Plan Plan: ASSESSMENT: Intractable nausea and vomiting with abdominal distention, possible gastroenteritis as multiple family members have had gastroenteritis this week, rule out ileus or obstruction, general surgery following Hypoglycemia, secondary to vomiting and decreased oral intake Leukocytosis and elevated lactic acid, may be secondary to vomiting and dehydration, no evidence of sepsis at this time, improving Coronary artery disease with multiple stent placements and CABG Bilateral below the 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 Roche on consult. appreciate recommendations and input Obtain abdominal x-ray Continue D5.45 at 100 mL an hour. When patient is able to tolerate PO intake better, will discontinue dextrose in IV fluids Capillary blood glucose accu-checks AC/HS NovoLog sliding scale insulin coverage AC/HS Continue clear liquid diet Await results of blood and urine cultures Home meds as appropriate Monitor labs GI prophylaxis: Protonix 40 mg IV Daily DVT prophylaxis: N/A: Patient with bilateral [id number] amputations Monitor vital signs and address as appropriate Discharge planning: Patient to return home when stable Further recommendations pending patient's course Nurse practitioner note has been reviewed by physician. Signing provider agrees with the documented findings, assessment, and plan of care.
[2017-12-06] MEDS: traMADol 50 MG TAB PO PRN ×2 (11:35→18:10)
[2017-12-06 11:54] LABS: Glucose,Whole Blood 167 mg/dL (75-99)
--- NOTE | 2017-12-06 12:48 | CT ---
EXAMINATION TYPE: CT abdomen pelvis w con DATE OF EXAM: 12/06/2017 COMPARISON: NONE HISTORY: Left-sided pain radiating to groin. CT DLP: 1652 mGycm, Automated Exposure Control for Dose Reduction was Utilized. CONTRAST: CT scan of the abdomen and pelvis is performed with oral and with IV Contrast, patient injected with 100 mL of Omnipaque 300. FINDINGS: LUNG BASES: There is tiny right-sided pleural effusion. There is basilar compressive atelectasis. The re is right coronary artery stent or calcification. LIVER/GB: Liver is diffusely low dense consistent with fatty infiltration. PANCREAS: There are some calcifications along mid to distal body of pancreas. There is nonspecific 1. 0 cm thin-walled cyst or cystic lesion anteriorly mid body level axial image 22. SPLEEN: There are surgical clips and lobulation around small spleen consistent with prior surgery or partial splenectomy. Tiny curvilinear fluid on axial image 16 is noted presumed postsurgical. There a re coils near hilum likely from prior vascular surgery possibly for aneurysm. ADRENALS: No significant abnormality is seen. KIDNEYS: There is retroaortic left renal vein which is normal variant. A few scattered pelvic phlebol iths are present. BOWEL: Normal contrast-filled appendix is incidentally seen. Oral contrast reaches level of rectum. T here is mild wall thickening in the rectum. There is no suspicious small or large bowel dilatation PROSTATE/SEMINAL VESICLES: No gross abnormality seen. LYMPH NODES: No greater than 1cm noncalcified abdominal or pelvic lymph nodes are appreciated. Promi nent rim calcified structure posterior to portal vein could reflect calcified lymph nodes. OSSEOUS STRUCTURES: There is moderate to severe multilevel spurring and disc space narrowing in the l umbar spine. Spine is straightened. There is mild height loss superior L1 endplate. There are multile augustin posterior spur disc complexes effacing anterior thecal sac most prominent L4-L5 level. There is m ultilevel facet arthropathy lower lumbar spine. There is moderate to severe axial joint space loss wi th mild spurring in both hips. OTHER: There is moderate calcified plaque in the abdominal aorta extending into pelvic branch vessels . More dense calcified plaque is seen in smaller groin vessels bilaterally. There is asymmetric skin thickening with fat stranding right pelvic anterior abdominal wall could ref lect pannus or scarring, correlate clinically to exclude acute cellulitis. Additional ill-defined par tially calcified fat stranding anterior mid pelvic wall axial image 73 favors scarring or pannus. IMPRESSION: No significant acute finding is seen to account for patient's clinical symptoms of left- sided pain into groin. Surgical changes left upper quadrant near splenic to be correlated clinically. Nonspecific 1.0 cm thin-walled pancreatic cyst or cystic lesion mid pancreatic body is to be correla nelson clinically, and minimally warrants annual surveillance.
--- NOTE | 2017-12-06 13:35 | P.GSCN ---
<Shira Loomis - Last Filed: 12/06/17 13:17> History of Present Illness Consult date: 12/06/17 History of present illness: 77-year-old male being seen by surgical service at the request of the attending for distention with abdominal pain with nausea patient is being seen at the bedside with his . The patient is adamant that he did not have any abdominal pain does not feel nauseated is tolerating a diet. And his abdomen is always "the size" according to the patient on the day of admission to the emergency room he had been trying to transfer from his wheelchair into the bathroom felt generalized weakness and started vomiting could not keep anything down when on all day felt weak all over. Did not have any fever but did not actually check his temperature at home came into the emergency room to be evaluated. Patient states no change in bowel habits. Did have a decrease appetite in the emergency room patient's temp was 100.6 heart rate was in the 100 100s. Blood pressure was elevated systolic 200 influenza a and B was negative. His was admitted to the services of the attending with a request for surgical eval. As mentioned patient is stating this morning he does not have any abdominal pain has resolved there's been no further episodes of nausea vomiting.. Patient does report that he has had symptoms of esophageal reflex at home and has taken [id number] Zantac for relief. Patient states his last colonoscopy was 6-7 years ago was told there were no acute findings CAT scan abdomen and pelvis report reviewed indicate no significant acute findings to account for patient's clinical symptoms . No suspicious small or large bowel dilatation noted. Review of Systems Essentially unremarkable except as mentioned in the present illness Past Medical History Past Medical History: Coronary Artery Disease (CAD), Chest Pain / Angina, COPD, Diabetes Mellitus, Hyperlipidemia, Hypertension, Memory Impairment, Myocardial Infarction ([place]), Vascular Disorder Additional Past Medical History / Comment(s): falls. uses walker for short distance and w/c.wears blossom leg prothesis. 'bleeding behind eyes" had laser sx Last Myocardial Infarction Date:: 2010 History of Any Multi-Drug Resistant Organisms: None Reported Past Surgical History: Coronary Bypass/CABG, Heart Catheterization With Stent, Tonsillectomy Additional Past Surgical History / Comment(s): blossom bka , blossom carotid endarterectomy, several heart caths stated he has 7 or 8 stents? ,blossom cataracts sx, laser eye sx for bleeding behind eyes, colonoscopyper past medical hx:,angiogram,fem-fem bypass,lt fem pop bypass. Past Anesthesia/Blood Transfusion Reactions: No Reported Reaction Additional Past Anesthesia/Blood Transfusion Reaction / Comm: clausterphobia Date of Last Stent Placement:: unk Smoking Status: Former smoker - Past Family History Father Family Medical History: Diabetes Mellitus Additional Family Medical History / Comment(s): heart problems Mother Family Medical History: Diabetes Mellitus Additional Family Medical History / Comment(s): heart problems Medications and Allergies Home Medications Medication Instructions Recorded Confirmed Type Carvedilol [Carvedilol] 6.25 mg PO BID 01/25/16 12/05/17 History Insulin NPH Hum/Reg Insulin Hm 55 units SQ AC-BID 01/25/16 12/05/17 History [Humulin 70-30 Vial] Isosorbide Mononitrate [Isosorbide 30 mg PO DAILY 01/25/16 12/05/17 History Mononitrate ER] Lisinopril [Prinivil] 10 mg PO BID 01/25/16 12/05/17 History Pravastatin Sodium [Pravachol] 10 mg PO HS 01/25/16 12/05/17 History ALPRAZolam [Xanax] 1 mg PO BID PRN 02/18/17 12/05/17 History Aspirin [Adult Low Dose Aspirin EC] 81 mg PO DAILY 02/18/17 12/05/17 History Baclofen 10 mg PO TID 02/18/17 12/05/17 History Cholecalciferol [Vitamin D3] 1,000 unit PO DAILY 02/18/17 12/05/17 History Ferrous Sulfate [Feosol] 325 mg PO DAILY 02/18/17 12/05/17 History Allergies Allergy/AdvReac Type Severity Reaction Status Date / Time Penicillins Allergy Unknown Verified 12/05/17 14:23 Childhood pregabalin [From Lyrica] Allergy Rapid Verified 12/05/17 14:23 Heart Rate Surgical - Exam Vital Signs Temp Pulse Resp BP Pulse Ox 100.6 F H 105 H 18 104/82 94 L 12/05/17 13:27 12/05/17 13:27 12/05/17 13:27 12/05/17 13:27 12/05/17 13:27 GENERAL APPEARANCE: 77-year-old male patient is alert, oriented, in no acute distress. Resting in bed talkative VITAL SIGNS: Reviewed HEENT: Head is normocephalic and atraumatic. Pupils are equal and reactive. The nares are patent. Oropharynx is clear without lesions. NECK: Supple without lymphadenopathy. Traches midline. HEART: S1, S2. Regular rate and rhythm. No murmur noted denying chest pain LUNGS: No crackles or wheezes are heard. Adequate air movement bilaterally ABDOMEN: Soft, nontender, slightly distended with good bowel sounds. No peritoneal signs. No palpable organomegaly or masses. No facial grimacing with palpitation to the abdominal wall well healed surgical scar mid abdomen noted EXTREMITIES: Normal skin color or extremities unremarkable bilateral lower extremity [id number] amputation NEUROLOGICAL: No focal deficits. Strength and sensation are grossly intact. Results - Labs 12/06/17 08:44 12/06/17 08:44 Abnormal Lab Results - Last 24 Hours (Table) 12/05/17 12/05/17 12/05/17 Range/Units 13:50 13:50 13:50 WBC 15.1 H (3.8-10.6) k/uL RBC (4.30-5.90) m/uL Hgb (13.0-17.5) gm/dL MCV (80.0-100.0) fL Neutrophils # 13.8 H (1.3-7.7) k/uL Lymphocytes # 0.4 L (1.0-4.8) k/uL APTT (22.0-30.0) sec BUN 23 H (9-20) mg/dL Glucose 52 L (74-99) mg/dL POC Glucose (mg/dL) (75-99) mg/dL Hemoglobin A1c (4.0-6.0) % Plasma Lactic Acid James 2.8 H* (0.7-2.0) mmol/L Calcium (8.4-10.2) mg/dL Total Protein (6.3-8.2) g/dL Albumin (3.5-5.0) g/dL Urine Protein (Negative) Urine Ketones (Negative) Urine RBC (0-5) /hpf Amorphous Sediment (None) /hpf Hyaline Casts (0-2) /lpf Urine Mucus (None) /hpf 12/05/17 12/05/1712/05/18 Range/Units 13:50 13:50 15:00 WBC (3.8-10.6) k/uL RBC (4.30-5.90) m/uL Hgb (13.0-17.5) gm/dL MCV (80.0-100.0) fL Neutrophils # (1.3-7.7) k/uL Lymphocytes # (1.0-4.8) k/uL APTT 21.4 L (22.0-30.0) sec BUN (9-20) mg/dL Glucose (74-99) mg/dL POC Glucose (mg/dL) (75-99) mg/dL Hemoglobin A1c 6.4 H (4.0-6.0) % Plasma Lactic Acid James (0.7-2.0) mmol/L Calcium (8.4-10.2) mg/dL Total Protein (6.3-8.2) g/dL Albumin (3.5-5.0) g/dL Urine Protein 1+ H (Negative) Urine Ketones Trace H (Negative) Urine RBC 8 H (0-5) /hpf Amorphous Sediment Occasional H (None) /hpf Hyaline Casts 32 H (0-2) /lpf Urine Mucus Occasional H (None) /hpf 12/05/17 12/05/17 12/05/17 Range/Units 15:37 15:40 15:56 WBC (3.8-10.6) k/uL RBC (4.30-5.90) m/uL Hgb (13.0-17.5) gm/dL MCV (80.0-100.0) fL Neutrophils # (1.3-7.7) k/uL Lymphocytes # (1.0-4.8) k/uL APTT (22.0-30.0) sec BUN (9-20) mg/dL Glucose (74-99) mg/dL POC Glucose (mg/dL) 20 L <20 L 138 H (75-99) mg/dL Hemoglobin A1c (4.0-6.0) % Plasma Lactic Acid James (0.7-2.0) mmol/L Calcium (8.4-10.2) mg/dL Total Protein (6.3-8.2) g/dL Albumin (3.5-5.0) g/dL Urine Protein (Negative) Urine Ketones (Negative) Urine RBC (0-5) /hpf Amorphous Sediment (None) /hpf Hyaline Casts (0-2) /lpf Urine Mucus (None) /hpf 12/05/17 12/05/17 12/05/17 Range/Units 16:42 17:11 17:46 WBC (3.8-10.6) k/uL RBC (4.30-5.90) m/uL Hgb (13.0-17.5) gm/dL MCV (80.0-100.0) fL Neutrophils # (1.3-7.7) k/uL Lymphocytes # (1.0-4.8) k/uL APTT (22.0-30.0) sec BUN (9-20) mg/dL Glucose (74-99) mg/dL POC Glucose (mg/dL) 73 L 74 L 61 L (75-99) mg/dL Hemoglobin A1c (4.0-6.0) % Plasma Lactic Acid James (0.7-2.0) mmol/L Calcium (8.4-10.2) mg/dL Total Protein (6.3-8.2) g/dL Albumin (3.5-5.0) g/dL Urine Protein (Negative) Urine Ketones (Negative) Urine RBC (0-5) /hpf Amorphous Sediment (None) /hpf Hyaline Casts (0-2) /lpf Urine Mucus (None) /hpf 12/05/17 12/05/17 12/05/17 Range/Units 18:14 18:19 19:24 WBC (3.8-10.6) k/uL RBC (4.30-5.90) m/uL Hgb (13.0-17.5) gm/dL MCV (80.0-100.0) fL Neutrophils # (1.3-7.7) k/uL Lymphocytes # (1.0-4.8) k/uL APTT (22.0-30.0) sec BUN (9-20) mg/dL Glucose (74-99) mg/dL POC Glucose (mg/dL) 101 H 102 H (75-99) mg/dL Hemoglobin A1c (4.0-6.0) % Plasma Lactic Acid James 2.5 H* (0.7-2.0) mmol/L Calcium (8.4-10.2) mg/dL Total Protein (6.3-8.2) g/dL Albumin (3.5-5.0) g/dL Urine Protein (Negative) Urine Ketones (Negative) Urine RBC (0-5) /hpf Amorphous Sediment (None) /hpf Hyaline Casts (0-2) /lpf Urine Mucus (None) /hpf 12/05/17 12/06/17 12/06/17 Range/Units 22:49 06:09 07:32 WBC (3.8-10.6) k/uL RBC (4.30-5.90) m/uL Hgb (13.0-17.5) gm/dL MCV (80.0-100.0) fL Neutrophils # (1.3-7.7) k/uL Lymphocytes # (1.0-4.8) k/uL APTT (22.0-30.0) sec BUN (9-20) mg/dL Glucose (74-99) mg/dL POC Glucose (mg/dL) 72 L 118 H 115 H (75-99) mg/dL Hemoglobin A1c (4.0-6.0) % Plasma Lactic Acid James (0.7-2.0) mmol/L Calcium (8.4-10.2) mg/dL Total Protein (6.3-8.2) g/dL Albumin (3.5-5.0) g/dL Urine Protein (Negative) Urine Ketones (Negative) Urine RBC (0-5) /hpf Amorphous Sediment (None) /hpf Hyaline Casts (0-2) /lpf Urine Mucus (None) /hpf 12/06/17 12/06/17 12/06/17 Range/Units 08:44 08:44 11:46 WBC 11.7 H (3.8-10.6) k/uL RBC 3.96 L (4.30-5.90) m/uL Hgb 12.9 L (13.0-17.5) gm/dL MCV 101.3 H (80.0-100.0) fL Neutrophils # 9.5 H (1.3-7.7) k/uL Lymphocytes # (1.0-4.8) k/uL APTT (22.0-30.0) sec BUN (9-20) mg/dL Glucose 164 H (74-99) mg/dL POC Glucose (mg/dL) 167 H (75-99) mg/dL Hemoglobin A1c (4.0-6.0) % Plasma Lactic Acid James (0.7-2.0) mmol/L Calcium 8.3 L (8.4-10.2) mg/dL Total Protein 5.1 L (6.3-8.2) g/dL Albumin 2.9 L (3.5-5.0) g/dL Urine Protein (Negative) Urine Ketones (Negative) Urine RBC (0-5) /hpf Amorphous Sediment (None) /hpf Hyaline Casts (0-2) /lpf Urine Mucus (None) /hpf Microbiology - Last 24 Hours (Table) 12/05/17 15:00 Urine Culture - Preliminary Urine,Catheterized Diabetes panel 12/05/17 12/05/17 12/06/17 Range/Units 13:50 13:50 08:44 Sodium 143 140 (137-145) mmol/L Potassium 4.1 4.0 (3.5-5.1) mmol/L Chloride 103 105 (98-107) mmol/L Carbon Dioxide 29 28 (22-30) mmol/L BUN 23 H 18 (9-20) mg/dL Creatinine 0.98 0.80 (0.66-1.25) mg/dL Glucose 52 L 164 H (74-99) mg/dL Hemoglobin A1c 6.4 H (4.0-6.0) % Calcium 9.7 8.3 L (8.4-10.2) mg/dL AST 34 30 (17-59) U/L ALT 30 28 (21-72) U/L Alkaline Phosphatase 75 57 (38-126) U/L Total Protein 6.3 5.1 L (6.3-8.2) g/dL Albumin 3.7 2.9 L (3.5-5.0) g/dL Calcium panel 12/05/17 12/06/17 Range/Units 13:50 08:44 Calcium 9.7 8.3 L (8.4-10.2) mg/dL Albumin 3.7 2.9 L (3.5-5.0) g/dL Pituitary panel 12/05/17 12/06/17 Range/Units 13:50 08:44 Sodium 143 140 (137-145) mmol/L Potassium 4.1 4.0 (3.5-5.1) mmol/L Chloride 103 105 (98-107) mmol/L Carbon Dioxide 29 28 (22-30) mmol/L BUN 23 H 18 (9-20) mg/dL Creatinine 0.98 0.80 (0.66-1.25) mg/dL Glucose 52 L 164 H (74-99) mg/dL Calcium 9.7 8.3 L (8.4-10.2) mg/dL Adrenal panel 12/05/17 12/06/17 Range/Units 13:50 08:44 Sodium 143 140 (137-145) mmol/L Potassium 4.1 4.0 (3.5-5.1) mmol/L Chloride 103 105 (98-107) mmol/L Carbon Dioxide 29 28 (22-30) mmol/L BUN 23 H 18 (9-20) mg/dL Creatinine 0.98 0.80 (0.66-1.25) mg/dL Glucose 52 L 164 H (74-99) mg/dL Calcium 9.7 8.3 L (8.4-10.2) mg/dL Total Bilirubin 0.5 0.5 (0.2-1.3) mg/dL AST 34 30 (17-59) U/L ALT 30 28 (21-72) U/L Alkaline Phosphatase 75 57 (38-126) U/L Total Protein 6.3 5.1 L (6.3-8.2) g/dL Albumin 3.7 2.9 L (3.5-5.0) g/dL Assessment and Plan Assessment: Impression Present on admission persistent nausea vomiting with abdominal pain suspect due to gastroenteritis Present on admission leukocytosis tachycardia suspect due to clinical dehydration CAT scan abdomen pelvis in summary showed no acute findings with no evidence of a small or large bowel obstruction Exposure to multiple family members with recent episode of gastroenteritis History of COPD stable no evidence of an exacerbation Known coronary artery disease with prior coronary artery bypass grafting with prior coronary stenting Bilateral below the knee amputation Esophageal reflux Plan No evidence of an acute surgical abdomen at this time IV fluid for hydration Home meds as appropriate DVT and GI prophylaxis Will follow with you Surgical consultation note dictated for Dr. mora The above impression and plan of care have been discussed and directed by signing physician. Shira Loomis nurse practitioner acting as scribe for signing physician. <Xander Mora - Last Filed: 12/06/17 15:55> Surgical - Exam Vital Signs Temp Pulse Resp BP Pulse Ox 100.6 F H 105 H 18 104/82 94 L 12/05/17 13:27 12/05/17 13:27 12/05/17 13:27 12/05/17 13:27 12/05/17 13:27 Results - Labs 12/06/17 08:44 12/06/17 08:44 Abnormal Lab Results - Last 24 Hours (Table) 12/05/17 12/05/17 12/05/17 Range/Units 13:50 15:00 15:37 WBC (3.8-10.6) k/uL RBC (4.30-5.90) m/uL Hgb (13.0-17.5) gm/dL MCV (80.0-100.0) fL Neutrophils # (1.3-7.7) k/uL Glucose (74-99) mg/dL POC Glucose (mg/dL) 20 L (75-99) mg/dL Hemoglobin A1c 6.4 H (4.0-6.0) % Plasma Lactic Acid James (0.7-2.0) mmol/L Calcium (8.4-10.2) mg/dL Total Protein (6.3-8.2) g/dL Albumin (3.5-5.0) g/dL Urine Protein 1+ H (Negative) Urine Ketones Trace H (Negative) Urine RBC 8 H (0-5) /hpf Amorphous Sediment Occasional H (None) /hpf Hyaline Casts 32 H (0-2) /lpf Urine Mucus Occasional H (None) /hpf 12/05/17 12/05/17 12/05/17 Range/Units 15:40 15:56 16:42 WBC (3.8-10.6) k/uL RBC (4.30-5.90) m/uL Hgb (13.0-17.5) gm/dL MCV (80.0-100.0) fL Neutrophils # (1.3-7.7) k/uL Glucose (74-99) mg/dL POC Glucose (mg/dL) <20 L 138 H 73 L (75-99) mg/dL Hemoglobin A1c (4.0-6.0) % Plasma Lactic Acid James (0.7-2.0) mmol/L Calcium (8.4-10.2) mg/dL Total Protein (6.3-8.2) g/dL Albumin (3.5-5.0) g/dL Urine Protein (Negative) Urine Ketones (Negative) Urine RBC (0-5) /hpf Amorphous Sediment (None) /hpf Hyaline Casts (0-2) /lpf Urine Mucus (None) /hpf 12/05/17 12/05/17 12/05/17 Range/Units 17:11 17:46 18:14 WBC (3.8-10.6) k/uL RBC (4.30-5.90) m/uL Hgb (13.0-17.5) gm/dL MCV (80.0-100.0) fL Neutrophils # (1.3-7.7) k/uL Glucose (74-99) mg/dL POC Glucose (mg/dL) 74 L 61 L (75-99) mg/dL Hemoglobin A1c (4.0-6.0) % Plasma Lactic Acid James 2.5 H* (0.7-2.0) mmol/L Calcium (8.4-10.2) mg/dL Total Protein (6.3-8.2) g/dL Albumin (3.5-5.0) g/dL Urine Protein (Negative) Urine Ketones (Negative) Urine RBC (0-5) /hpf Amorphous Sediment (None) /hpf Hyaline Casts (0-2) /lpf Urine Mucus (None) /hpf 12/05/17 12/05/17 12/05/17 Range/Units 18:19 19:24 22:49 WBC (3.8-10.6) k/uL RBC (4.30-5.90) m/uL Hgb (13.0-17.5) gm/dL MCV (80.0-100.0) fL Neutrophils # (1.3-7.7) k/uL Glucose (74-99) mg/dL POC Glucose (mg/dL) 101 H 102 H 72 L (75-99) mg/dL Hemoglobin A1c (4.0-6.0) % Plasma Lactic Acid James (0.7-2.0) mmol/L Calcium (8.4-10.2) mg/dL Total Protein (6.3-8.2) g/dL Albumin (3.5-5.0) g/dL Urine Protein (Negative) Urine Ketones (Negative) Urine RBC (0-5) /hpf Amorphous Sediment (None) /hpf Hyaline Casts (0-2) /lpf Urine Mucus (None) /hpf 12/06/17 12/06/17 12/06/17 Range/Units 06:09 07:32 08:44 WBC 11.7 H (3.8-10.6) k/uL RBC 3.96 L (4.30-5.90) m/uL Hgb 12.9 L (13.0-17.5) gm/dL MCV 101.3 H (80.0-100.0) fL Neutrophils # 9.5 H (1.3-7.7) k/uL Glucose (74-99) mg/dL POC Glucose (mg/dL) 118 H 115 H (75-99) mg/dL Hemoglobin A1c (4.0-6.0) % Plasma Lactic Acid James (0.7-2.0) mmol/L Calcium (8.4-10.2) mg/dL Total Protein (6.3-8.2) g/dL Albumin (3.5-5.0) g/dL Urine Protein (Negative) Urine Ketones (Negative) Urine RBC (0-5) /hpf Amorphous Sediment (None) /hpf Hyaline Casts (0-2) /lpf Urine Mucus (None) /hpf 12/06/17 12/06/17 Range/Units 08:44 11:46 WBC (3.8-10.6) k/uL RBC (4.30-5.90) m/uL Hgb (13.0-17.5) gm/dL MCV (80.0-100.0) fL Neutrophils # (1.3-7.7) k/uL Glucose 164 H (74-99) mg/dL POC Glucose (mg/dL) 167 H (75-99) mg/dL Hemoglobin A1c (4.0-6.0) % Plasma Lactic Acid James (0.7-2.0) mmol/L Calcium 8.3 L (8.4-10.2) mg/dL Total Protein 5.1 L (6.3-8.2) g/dL Albumin 2.9 L (3.5-5.0) g/dL Urine Protein (Negative) Urine Ketones (Negative) Urine RBC (0-5) /hpf Amorphous Sediment (None) /hpf Hyaline Casts (0-2) /lpf Urine Mucus (None) /hpf Microbiology - Last 24 Hours (Table) 12/05/17 15:00 Urine Culture - Preliminary Urine,Catheterized Diabetes panel 12/05/17 12/06/17 Range/Units 13:50 08:44 Sodium 140 (137-145) mmol/L Potassium 4.0 (3.5-5.1) mmol/L Chloride 105 (98-107) mmol/L Carbon Dioxide 28 (22-30) mmol/L BUN 18 (9-20) mg/dL Creatinine 0.80 (0.66-1.25) mg/dL Glucose 164 H (74-99) mg/dL Hemoglobin A1c 6.4 H (4.0-6.0) % Calcium 8.3 L (8.4-10.2) mg/dL AST 30 (17-59) U/L ALT 28 (21-72) U/L Alkaline Phosphatase 57 (38-126) U/L Total Protein 5.1 L (6.3-8.2) g/dL Albumin 2.9 L (3.5-5.0) g/dL Calcium panel 12/06/17 Range/Units 08:44 Calcium 8.3 L (8.4-10.2) mg/dL Albumin 2.9 L (3.5-5.0) g/dL Pituitary panel 12/06/17 Range/Units 08:44 Sodium 140 (137-145) mmol/L Potassium 4.0 (3.5-5.1) mmol/L Chloride 105 (98-107) mmol/L Carbon Dioxide 28 (22-30) mmol/L BUN 18 (9-20) mg/dL Creatinine 0.80 (0.66-1.25) mg/dL Glucose 164 H (74-99) mg/dL Calcium 8.3 L (8.4-10.2) mg/dL Adrenal panel 12/06/17 Range/Units 08:44 Sodium 140 (137-145) mmol/L Potassium 4.0 (3.5-5.1) mmol/L Chloride 105 (98-107) mmol/L Carbon Dioxide 28 (22-30) mmol/L BUN 18 (9-20) mg/dL Creatinine 0.80 (0.66-1.25) mg/dL Glucose 164 H (74-99) mg/dL Calcium 8.3 L (8.4-10.2) mg/dL Total Bilirubin 0.5 (0.2-1.3) mg/dL AST 30 (17-59) U/L ALT 28 (21-72) U/L Alkaline Phosphatase 57 (38-126) U/L Total Protein 5.1 L (6.3-8.2) g/dL Albumin 2.9 L (3.5-5.0) g/dL Assessment and Plan Plan: The patient's CAT scan shows no evidence of any small bowel traction or inflammatory disease. Patient will start on a full liquid diet. He'll be advanced as tolerated.
[2017-12-06] MEDS: SODIUM CHLORIDE 0.9% 1,000 ML IV SCH (15:23)
[2017-12-06 17:39] LABS: Glucose,Whole Blood 177 mg/dL (75-99)
[2017-12-06 20:50] LABS: Glucose,Whole Blood 161 mg/dL (75-99)
[2017-12-06] MEDS: MORPHINE SULFATE 4 MG/ML SYRINGE IVP PRN (22:27)
[2017-12-06] MEDS: PRAVASTATIN SODIUM 20 MG TAB PO SCH (22:29)
[2017-12-07] MEDS: SODIUM CHLORIDE 0.9% 1,000 ML IV SCH ×3 (06:11→19:10)
[2017-12-07 07:28] LABS: Glucose,Whole Blood 169 mg/dL (75-99)
[2017-12-07] MEDS ORDERED: FUROSEMIDE 10 MG/ML 4 ML VIAL IV STA (07:46)
--- NOTE | 2017-12-07 08:16 | XR ---
EXAMINATION TYPE: XR chest 1V portable DATE OF EXAM: 12/07/2017 COMPARISON: 12/06/2017, 11/21/2011 INDICATION: Dyspnea TECHNIQUE: Single frontal view of the chest is obtained. FINDINGS: The heart size is at the upper limits of normal.. The pulmonary vasculature is normal. There is a rounded density with indistinct borders measuring approximately 5 cm in size. This is an i nterval change from yesterday's exam. Additionally, there is now silhouetting of the left heart borde r. Findings can be compatible with atelectasis and pneumonia. Follow-up to clearing is recommended. IMPRESSION: 1. Interval development of a focal consolidation left perihilar region as well as infiltrate within t he lingula. Correlate for atelectasis and pneumonia. Follow-up to clearing is recommended.
[2017-12-07] MEDS ORDERED: IPRATROPIUM-ALBUTEROL 3 ML NEB INHALATION STA (08:26)
[2017-12-07 08:56] LABS: ABG Base Excess -0.5 mmol/L; ABG HCO3 28 mmol/L (21-25); ABG Oxygen Saturation 96.5 % (94-97); ABG PO2 96 mmHg (83-108); ABG TCO2 30 mmol/L (19-24)
[2017-12-07] MEDS ORDERED: IPRATROPIUM-ALBUTEROL 3 ML NEB INHALATION PRN ×2 (08:58)
[2017-12-07 09:00] LABS: ABG PH 7.17 (7.35-7.45)
[2017-12-07 09:01] LABS: ABG PCO2 76 mmHg (35-45)
[2017-12-07] MEDS ORDERED: PROPOFOL 10 MG/ML 20 ML VIAL IV ONE (09:05)
[2017-12-07] MEDS ORDERED: SUCCINYLCHOLINE CHLORIDE 100 MG/5 ML SYR IV ONE (09:05)
[2017-12-07] MEDS: methylPREDNISolone SOD SUCCI 125 MG/2 ML VIAL IV SCH ×3 (09:29→23:22)
[2017-12-07] MEDS ORDERED: AZITHROMYCIN 500 MG in SODIUM CHLORIDE 0.9% 250 ML IVPB SCH (09:30)
[2017-12-07 09:51] LABS: ALT 37 U/L (21-72); AST 32 U/L (17-59); Albumin 3.1 g/dL (3.5-5.0); Alkaline Phosphatase 64 U/L (38-126); Anion Gap 9 mmol/L; Blood Urea Nitrogen 15 mg/dL (9-20); Calcium 8.2 mg/dL (8.4-10.2); Carbon Dioxide 24 mmol/L (22-30); Chloride 106 mmol/L (98-107); Glucose 218 mg/dL (74-99); Magnesium 1.6 mg/dL (1.6-2.3); Potassium 5.8 mmol/L (3.5-5.1); Sodium 139 mmol/L (137-145); Total Bilirubin 0.5 mg/dL (0.2-1.3); Total Protein 5.4 g/dL (6.3-8.2)
[2017-12-07] MEDS ORDERED: DEXTROSE 50%-WATER 50 ML SYRINGE IVP STA (10:18)
[2017-12-07] MEDS ORDERED: INSULIN REGULAR 100 UNIT/ML VIAL IV ONE (10:18)
[2017-12-07 10:19] LABS: Basophils % (A) 0 %; Eosinophils # (A) 0.1 k/uL (0-0.7); Eosinophils % (A) 1 %; HCT 43.5 % (39.0-53.0); HGB 13.8 gm/dL (13.0-17.5); Lymphocytes # (A) 0.5 k/uL (1.0-4.8); Lymphocytes % (A) 4 %; MCH 32.5 pg (25.0-35.0); MCHC 31.6 g/dL (31.0-37.0); MCV 102.8 fL (80.0-100.0); Macrocytosis Slight; Monocytes # (A) 0.4 k/uL (0-1.0); Monocytes % (A) 4 %; Neutrophils % (A) 91 %; Platelet Count 205 k/uL (150-450); RBC 4.23 m/uL (4.30-5.90); RDW 13.9 % (11.5-15.5); WBC 12.1 k/uL (3.8-10.6)
[2017-12-07 10:25] LABS: Creatine Kinase MB 3.1 ng/mL (0.0-2.4); Troponin I 0.086 ng/mL (0.000-0.034)
--- NOTE | 2017-12-07 10:27 | XR ---
EXAMINATION TYPE: XR chest 1V portable DATE OF EXAM: 12/07/2017 COMPARISON: 12/07/2017 INDICATION: Postintubation, difficulty breathing TECHNIQUE: Single frontal view of the chest is obtained. FINDINGS: The heart size is normal. The pulmonary vasculature is normal. There is continued opacification to the left perihilar region. The lingular infiltrate has improved w ith improved visualization of the left heart border. There is placement of an endotracheal tube with the tip 6.5 cm above the elise. Nasogastric tube tra nsverses the thorax with tip out of the [id number]. IMPRESSION: 1. Persistent perihilar density. Lingular infiltrate has improved. 2. Placement of endotracheal tube and nasogastric tube.
[2017-12-07] MEDS ORDERED: SODIUM CHLORIDE 0.9% 2,000 ML IV ONE (10:57)
[2017-12-07] MEDS: BACLOFEN 10 MG TAB PO SCH ×3 (10:58→22:19)
[2017-12-07] MEDS: INSULIN ASPART 100 UNIT/ML 1 ML 10 ML VIAL SQ SCH ×2 (10:58→13:41)
[2017-12-07] MEDS: CARVEDILOL 6.25 MG TAB PO SCH ×2 (10:58→17:16)
[2017-12-07] MEDS: LISINOPRIL 10 MG TAB PO SCH ×2 (10:59→17:18)
[2017-12-07] MEDS: ISOSORBIDE MONONITRATE ER 30 MG TAB.ER.24H PO SCH ×2 (10:59→17:18)
[2017-12-07] MEDS: PANTOPRAZOLE 40 MG/10 ML VIAL IV SCH (11:00)
[2017-12-07] MEDS: ASPIRIN 81 MG PO SCH (11:00)
[2017-12-07] MEDS: cefTRIAXone IN SWFI 2,000 MG/20 ML SYRINGE IVP SCH (12:04)
[2017-12-07 12:05] LABS: Glucose,Whole Blood 262 mg/dL (75-99)
[2017-12-07] MEDS ORDERED: Magnesium Replacement Protocol 1 EACH MISC MISCELLANE PRN (12:11)
[2017-12-07] MEDS: IPRATROPIUM-ALBUTEROL 3 ML NEB INHALATION SCH ×3 (12:14→20:40)
[2017-12-07] MEDS ORDERED: NALOXONE 0.4 MG/ML 1 ML VIAL IV PRN (12:17)
--- NOTE | 2017-12-07 12:49 | P.CNPUL ---
History of Present Illness Consult date: 12/07/17 Reason for consult: other Chief complaint: Weakness, respiratory failure, pneumonia, History of present illness: Consult dated 12/07/2017 This is a 77-year-old male who apparently presented to the emergency department on December 05 with generalized weakness. He apparently been vomiting all day. Was feeling weak all over. The patient was also complaining of low back pain. The patient sometime today developed some respiratory distress. Arterial blood gases were done and they were poor and the decision was made to intubate the patient. It's really not clear as to what happened to the patient prior to this. The chest x-ray did show a new infiltrate in the left midlung. It could be pneumonia from aspiration or just hospital-acquired pneumonia. Anyway, the arterial blood gases are poor the patient was struggling to breathe he was retaining carbon dioxide and I made a decision to intubate the patient. Patient was managed on the floor by the ICU nurse until ICU bed was made available. I went to the floor to give orders and to evaluate the patient. Orders were put in by the ICU nurse. The patient has a history of CAD, angina, COPD, diabetes mellitus, hyperlipidemia, hypertension, myocardial infarction, peripheral vascular occlusive disease, eye past grafting, heart catheterization with stent, bilateral below the knee amputations, bilateral carotid endarterectomies, multiple heart caths and stents, bilateral cataract surgery, fem-pop bypass, as well as colonoscopy. The patient was started on propofol for sedation updrafts are added. The patient also received GI and DVT prophylaxis. Review of Systems ROS unobtainable: due to endotracheal tube Past Medical History Past Medical History: Coronary Artery Disease (CAD), Chest Pain / Angina, COPD, Diabetes Mellitus, Hyperlipidemia, Hypertension, Memory Impairment, Myocardial Infarction (CT), Vascular Disorder Additional Past Medical History / Comment(s): falls. uses walker for short distance and w/c.wears blossom leg prothesis. 'bleeding behind eyes" had laser sx Last Myocardial Infarction Date:: 2010 History of Any Multi-Drug Resistant Organisms: None Reported Past Surgical History: Coronary Bypass/CABG, Heart Catheterization With Stent, Tonsillectomy Additional Past Surgical History / Comment(s): blossom bka , blossom carotid endarterectomy, several heart caths stated he has 7 or 8 stents? ,blossom cataracts sx, laser eye sx for bleeding behind eyes, colonoscopyper past medical hx:,angiogram,fem-fem bypass,lt fem pop bypass. Past Anesthesia/Blood Transfusion Reactions: No Reported Reaction Additional Past Anesthesia/Blood Transfusion Reaction / Comment(s): clausterphobia Date of Last Stent Placement:: unk Smoking Status: Former smoker - Past Family History Father Family Medical History: Diabetes Mellitus Additional Family Medical History / Comment(s): heart problems Mother Family Medical History: Diabetes Mellitus Additional Family Medical History / Comment(s): heart problems Medications and Allergies Home Medications Medication Instructions Recorded Confirmed Type Carvedilol [Carvedilol] 6.25 mg PO BID 01/25/16 12/05/17 History Insulin NPH Hum/Reg Insulin Hm 55 units SQ AC-BID 01/25/16 12/05/17 History [Humulin 70-30 Vial] Isosorbide Mononitrate [Isosorbide 30 mg PO DAILY 01/25/16 12/05/17 History Mononitrate ER] Lisinopril [Prinivil] 10 mg PO BID 01/25/16 12/05/17 History Pravastatin Sodium [Pravachol] 10 mg PO HS 01/25/16 12/05/17 History ALPRAZolam [Xanax] 1 mg PO BID PRN 02/18/17 12/05/17 History Aspirin [Adult Low Dose Aspirin EC] 81 mg PO DAILY 02/18/17 12/05/17 History Baclofen 10 mg PO TID 02/18/17 12/05/17 History Cholecalciferol [Vitamin D3] 1,000 unit PO DAILY 02/18/17 12/05/17 History Ferrous Sulfate [Feosol] 325 mg PO DAILY 02/18/17 12/05/17 History Allergies Allergy/AdvReac Type Severity Reaction Status Date / Time Penicillins Allergy Unknown Verified 12/05/17 14:23 Childhood pregabalin [From Lyrica] Allergy Rapid Verified 12/05/17 14:23 Heart Rate Physical Exam Osteopathic Statement: *. No significant issues noted on an osteopathic structural exam other than those noted in the History and Physical/Consult. Vitals: Vital Signs Temp Pulse Pulse Pulse Resp BP BP 12/07/17 12:17 64 12/07/17 12:00 98.6 F 69 28 H 107/61 03/03/18 11:56 58 L 12/07/17 10:45 74 24 12/07/17 10:15 73 24 12/07/17 09:59 55 L 24 12/07/17 09:54 47 L 24 12/07/17 09:50 59 L 24 93/49 12/07/17 09:44 62 24 12/07/17 09:36 42 L 24 12/07/17 09:30 39 L 24 68/33 12/07/17 09:23 52 L 24 12/07/17 08:38 118 H 91 44 H 165/95 12/07/17 08:29 121 H 12/07/17 08:27 124 H 92 42 H 265/142 12/07/17 08:20 124 H 89 40 H 261/135 12/07/17 08:15 12/07/17 06:57 97.9 F 84 20 12/06/17 23:00 100.7 F H 85 22 12/06/17 16:19 70 20 12/06/17 15:00 97.8 F 70 20 132/63 BP Pulse Ox 12/07/17 12:17 12/07/17 12:00 99 12/07/17 11:56 98 12/07/17 10:45 108/62 99 12/07/17 10:15 106/54 12/07/17 09:59 87/46 99 12/07/17 09:54 90/44 97 12/07/17 09:50 99 12/07/17 09:44 82/39 97 12/07/17 09:36 78/51 97 12/07/17 09:30 96 12/07/17 09:23 95/59 95 12/07/17 08:38 91 L 12/07/17 08:29 12/07/17 08:27 92 L 12/07/17 08:20 12/07/17 08:15 90 L 12/07/17 06:57 159/82 91 L 12/06/17 23:00 173/84 91 L 12/06/17 16:19 12/06/17 15:00 88 L Intake and Output 12/06/17 12/07/17 12/07/17 22:59 06:59 14:59 Intake Total 2550 Output Total 450 400 Balance -450 -400 2550 Intake: IV 2550 0.9 Nacl 300 0.9 nacl bolus 2000 azithromycin 250 Output: Urine 450 400 Other: Voiding Method Urinal Urinal Urinal Weight 86.183 kg No acute distress. The patient is now sedated, and has orally placed endotracheal tube and NG tube. HEENT examination is grossly unremarkable. Mucous membranes are moist. Neck supple. Full range of motion. No adenopathy thyromegaly or neck vein distention. Cardiovascular examination reveals regular rhythm rate. S1-S2 normal. No S3 or S4. No discernible murmur noted. Lungs reveal coarse rhonchi. Breath sounds are diminished. Breath sounds are equal bilaterally. Some crackles are noted. Abdomen soft bowel sounds are heard. No masses or tenderness. Extremities reveal bilateral below knee amputations. Skin is without rash or lesion. Neurologic examination could not be assessed as the patient's currently sedated. Results - Laboratory Findings CBC and BMP: 12/07/17 09:33 12/07/17 09:33 ABG ABG pH 7.17 (7.35-7.45) L* 12/07/17 08:47 ABG pCO2 76 mmHg (35-45) H* 12/07/17 08:47 ABG pO2 96 mmHg (83-108) 12/07/17 08:47 ABG O2 Saturation 96.5 % (94-97) 12/07/17 08:47 PT/INR, D-dimer PT 10.7 sec (9.0-12.0) 12/05/17 13:50 INR 1.1 (<1.2) 12/05/17 13:50 Abnormal lab findings: Abnormal Labs 12/05/17 12/05/17 12/05/17 13:50 13:50 13:50 WBC 15.1 H RBC Hgb MCV Neutrophils # 13.8 H Lymphocytes # 0.4 L APTT ABG pH ABG pCO2 ABG HCO3 ABG Total CO2 Potassium BUN 23 H Glucose 52 L POC Glucose (mg/dL) Hemoglobin A1c Plasma Lactic Acid James 2.8 H* Calcium CK-MB (CK-2) Troponin I Total Protein Albumin Urine Protein Urine Ketones Urine RBC Amorphous Sediment Hyaline Casts Urine Mucus 12/05/17 12/05/17 12/05/17 13:50 13:50 15:00 WBC RBC Hgb MCV Neutrophils # Lymphocytes # APTT 21.4 L ABG pH ABG pCO2 ABG HCO3 ABG Total CO2 Potassium BUN Glucose POC Glucose (mg/dL) Hemoglobin A1c 6.4 H Plasma Lactic Acid James Calcium CK-MB (CK-2) Troponin I Total Protein Albumin Urine Protein 1+ H Urine Ketones Trace H Urine RBC 8 H Amorphous Sediment Occasional H Hyaline Casts 32 H Urine Mucus Occasional H 12/05/17 12/05/17 12/05/17 15:37 15:40 15:56 WBC RBC Hgb MCV Neutrophils # Lymphocytes # APTT ABG pH ABG pCO2 ABG HCO3 ABG Total CO2 Potassium BUN Glucose POC Glucose (mg/dL) 20 L <20 L 138 H Hemoglobin A1c Plasma Lactic Acid James Calcium CK-MB (CK-2) Troponin I Total Protein Albumin Urine Protein Urine Ketones Urine RBC Amorphous Sediment Hyaline Casts Urine Mucus 12/05/17 12/05/17 12/05/17 16:42 17:11 17:46 WBC RBC Hgb MCV Neutrophils # Lymphocytes # APTT ABG pH ABG pCO2 ABG HCO3 ABG Total CO2 Potassium BUN Glucose POC Glucose (mg/dL) 73 L 74 L 61 L Hemoglobin A1c Plasma Lactic Acid James Calcium CK-MB (CK-2) Troponin I Total Protein Albumin Urine Protein Urine Ketones Urine RBC Amorphous Sediment Hyaline Casts Urine Mucus 12/05/17 12/05/17 12/05/17 18:14 18:19 19:24 WBC RBC Hgb MCV Neutrophils # Lymphocytes # APTT ABG pH ABG pCO2 ABG HCO3 ABG Total CO2 Potassium BUN Glucose POC Glucose (mg/dL) 101 H 102 H Hemoglobin A1c Plasma Lactic Acid James 2.5 H* Calcium CK-MB (CK-2) Troponin I Total Protein Albumin Urine Protein Urine Ketones Urine RBC Amorphous Sediment Hyaline Casts Urine Mucus 12/05/17 12/06/17 12/06/17 22:49 06:09 07:32 WBC RBC Hgb MCV Neutrophils # Lymphocytes # APTT ABG pH ABG pCO2 ABG HCO3 ABG Total CO2 Potassium BUN Glucose POC Glucose (mg/dL) 72 L 118 H 115 H Hemoglobin A1c Plasma Lactic Acid James Calcium CK-MB (CK-2) Troponin I Total Protein Albumin Urine Protein Urine Ketones Urine RBC Amorphous Sediment Hyaline Casts Urine Mucus 12/06/17 12/06/17 12/06/17 08:44 08:44 11:46 WBC 11.7 H RBC 3.96 L Hgb 12.9 L MCV 101.3 H Neutrophils # 9.5 H Lymphocytes # APTT ABG pH ABG pCO2 ABG HCO3 ABG Total CO2 Potassium BUN Glucose 164 H POC Glucose (mg/dL) 167 H Hemoglobin A1c Plasma Lactic Acid James Calcium 8.3 L CK-MB (CK-2) Troponin I Total Protein 5.1 L Albumin 2.9 L Urine Protein Urine Ketones Urine RBC Amorphous Sediment Hyaline Casts Urine Mucus 12/06/17 12/06/17 12/07/17 17:37 20:49 07:24 WBC RBC Hgb MCV Neutrophils # Lymphocytes # APTT ABG pH ABG pCO2 ABG HCO3 ABG Total CO2 Potassium BUN Glucose POC Glucose (mg/dL) 177 H 161 H 169 H Hemoglobin A1c Plasma Lactic Acid James Calcium CK-MB (CK-2) Troponin I Total Protein Albumin Urine Protein Urine Ketones Urine RBC Amorphous Sediment Hyaline Casts Urine Mucus 12/07/17 12/07/17 12/07/17 08:47 09:33 09:33 WBC 12.1 H RBC 4.23 L Hgb MCV 102.8 H Neutrophils # 11.0 H Lymphocytes # 0.5 L APTT ABG pH 7.17 L* ABG pCO2 76 H* ABG HCO3 28 H ABG Total CO2 30 H Potassium BUN Glucose POC Glucose (mg/dL) Hemoglobin A1c Plasma Lactic Acid James Calcium CK-MB (CK-2) 3.1 H* Troponin I 0.086 H* Total Protein Albumin Urine Protein Urine Ketones Urine RBC Amorphous Sediment Hyaline Casts Urine Mucus 12/07/17 12/07/17 09:33 12:03 WBC RBC Hgb MCV Neutrophils # Lymphocytes # APTT ABG pH ABG pCO2 ABG HCO3 ABG Total CO2 Potassium 5.8 H BUN Glucose 218 H POC Glucose (mg/dL) 262 H Hemoglobin A1c Plasma Lactic Acid James Calcium 8.2 L CK-MB (CK-2) Troponin I Total Protein 5.4 L Albumin 3.1 L Urine Protein Urine Ketones Urine RBC Amorphous Sediment Hyaline Casts Urine Mucus - Diagnostic Findings Chest x-ray: image reviewed (Chest x-ray labs and medications are all reviewed. Many orders were written given to the nurse.) Assessment and Plan Assessment: Assessment Hypoxemic respiratory failure, possibly secondary to aspiration. New infiltrate, representing pneumonia, and the left midlung History of CAD with previous bypass grafting COPD by history Diabetes mellitus by history History of peripheral vascular occlusive disease History of myocardial infarction History of hypertension History of hyperlipidemia Multiple vascular procedures Plan: Plan dated 12/07/2017 Labs x-rays a medications are reviewed. The mechanical ventilator was properly manipulated and change. Updrafts were added. DVT and GI prophylaxis were added. Antibiotics were added. The patient's chest x-ray shows a new infiltrate in the left midlung likely representing pneumonia. There may have been aspiration as well. Cultures will be done. Tube feeds were restarted. Additional recommendations and suggestions are forthcoming. Prognosis is guarded. Time with Patient: Greater than 30
--- NOTE | 2017-12-07 13:31 | P.PN ---
Subjective Patient is a 77-year-old gentleman who presented to the emergency department on December 05 with some generalized weakness. There was some question as to some abdominal discomfort and a surgical consultation was obtained. At that time the patient was felt to have a benign abdomen with no evidence of acute surgical problems. Prior to intubation this morning the patient denied abdominal pain. The patient began developing some respiratory distress while on the regular surgical floor and it was determined that the patient should be intubated. Chest x-ray showed a new infiltrate in the left mid lung. The arterial blood gases were noted to be poor with the patient retaining carbon dioxide. The patient has a history of coronary artery disease, angina, COPD, diabetes, hyperlipidemia, hypertension, myocardial infarction, peripheral vascular occlusive disease, heart cath with stent, bilateral [id number] amputations, bilateral carotid endarterectomies, multiple hard cast, fem-pop bypass, as per the patient's chart. Objective - Vital Signs Vital signs: Vital Signs Temp 98.6 F 12/07/17 12:00 Pulse 65 12/07/17 12:46 Resp 28 H 12/07/17 12:00 BP 107/61 12/07/17 12:00 Pulse Ox 99 12/07/17 12:00 Intake & Output 12/06/17 12/07/17 12/07/17 18:59 06:59 18:59 Intake Total 950 2550 Output Total 600 850 Balance 350 -850 2550 Weight 86.183 kg Intake: IV 2550 0.9 Nacl 300 0.9 nacl bolus 2000 azithromycin 250 Intake, IV Titration 800 Amount Dextrose 5%-0.45% NaCl 1, 800 000 ml @ 100 mls/hr IV . Q10H [facility] Rx#:[id number] Oral 150 Output: Urine 600 850 Other: Voiding Method Urinal Urinal Urinal # Bowel Movements 1 - Constitutional General appearance: Present: obese - Respiratory Details: Markedly decreased breath sounds at the bases with rhonchi - Cardiovascular Rhythm: regular Heart sounds: normal: S1, S2 - Gastrointestinal Gastrointestinal Comment(s): Mildly distended No guarding or rebound Decreased bowel sounds General gastrointestinal: Present: soft - Psychiatric Psychiatric Comment(s): Patient anxious when evaluated with respiratory decompensation - Labs CBC & Chem 7: 12/07/17 09:33 12/07/17 09:33 Labs: Abnormal Lab Results - Last 24 Hours (Table) 03/11/2412/06/17 12/07/17 Range/Units 17:37 20:49 07:24 WBC (3.8-10.6) k/uL RBC (4.30-5.90) m/uL MCV (80.0-100.0) fL Neutrophils # (1.3-7.7) k/uL Lymphocytes # (1.0-4.8) k/uL ABG pH (7.35-7.45) ABG pCO2 (35-45) mmHg ABG HCO3 (21-25) mmol/L ABG Total CO2 (19-24) mmol/L Potassium (3.5-5.1) mmol/L Glucose (74-99) mg/dL POC Glucose (mg/dL) 177 H 161 H 169 H (75-99) mg/dL Calcium (8.4-10.2) mg/dL CK-MB (CK-2) (0.0-2.4) ng/mL Troponin I (0.000-0.034) ng/mL Total Protein (6.3-8.2) g/dL Albumin (3.5-5.0) g/dL 12/07/17 12/07/17 12/07/17 Range/Units 08:47 09:33 09:33 WBC 12.1 H (3.8-10.6) k/uL RBC 4.23 L (4.30-5.90) m/uL MCV 102.8 H (80.0-100.0) fL Neutrophils # 11.0 H (1.3-7.7) k/uL Lymphocytes # 0.5 L (1.0-4.8) k/uL ABG pH 7.17 L* (7.35-7.45) ABG pCO2 76 H* (35-45) mmHg ABG HCO3 28 H (21-25) mmol/L ABG Total CO2 30 H (19-24) mmol/L Potassium (3.5-5.1) mmol/L Glucose (74-99) mg/dL POC Glucose (mg/dL) (75-99) mg/dL Calcium (8.4-10.2) mg/dL CK-MB (CK-2) 3.1 H* (0.0-2.4) ng/mL Troponin I 0.086 H* (0.000-0.034) ng/mL Total Protein (6.3-8.2) g/dL Albumin (3.5-5.0) g/dL 12/07/17 12/07/17 Range/Units 09:33 12:03 WBC (3.8-10.6) k/uL RBC (4.30-5.90) m/uL MCV (80.0-100.0) fL Neutrophils # (1.3-7.7) k/uL Lymphocytes # (1.0-4.8) k/uL ABG pH (7.35-7.45) ABG pCO2 (35-45) mmHg ABG HCO3 (21-25) mmol/L ABG Total CO2 (19-24) mmol/L Potassium 5.8 H (3.5-5.1) mmol/L Glucose 218 H (74-99) mg/dL POC Glucose (mg/dL) 262 H (75-99) mg/dL Calcium 8.2 L (8.4-10.2) mg/dL CK-MB (CK-2) (0.0-2.4) ng/mL Troponin I (0.000-0.034) ng/mL Total Protein 5.4 L (6.3-8.2) g/dL Albumin 3.1 L (3.5-5.0) g/dL Microbiology - Last 24 Hours (Table) 12/05/17 15:00 Urine Culture - Final Urine,Catheterized 12/05/17 15:15 Blood Culture - Preliminary Blood No Growth after 24 hours 12/05/17 13:50 Blood Culture - Preliminary Blood No Growth after 24 hours Assessment and Plan Assessment: Impression/plan: 1. Acute exacerbation of respiratory compromise requiring intubation 2. Present on admission nausea and vomiting which appeared to have resolved 3. CAT scan performed which did not reveal any acute findings of small or large bowel obstruction 4. Possible pneumonia 5. Bilateral below the knee amputations 6. Peripheral vascular disease 7. History of coronary artery disease/angina 8. Diabetes 9. Hyperlipidemia 10. Hypertension Plan: 1. This time patient does not appear to have an acute surgical abdomen. We will follow as needed
[2017-12-07] MEDS: MAGNESIUM SULFATE-D5W PMX 1 GM in DEXTROSE/WATER 1 100ML.BAG IVPB SCH ×2 (13:41→15:05)
[2017-12-07] MEDS: CHOLECALCIFEROL 1,000 UNIT TAB PO SCH (13:41)
[2017-12-07] MEDS: PROPOFOL 1,000 MG in EMPTY BAG 1 BAG IV SCH ×2 (14:07→20:36)
[2017-12-07 16:08] LABS: Creatine Kinase MB 3.2 ng/mL (0.0-2.4); Troponin I 0.315 ng/mL (0.000-0.034)
[2017-12-07] MEDS: HEPARIN SODIUM,PORCINE 5,000 UNIT/ML 1 ML VIAL SQ SCH ×2 (17:19→23:22)
[2017-12-07 17:39] LABS: Glucose,Whole Blood 237 mg/dL (75-99)
[2017-12-07] MEDS ORDERED: INSULIN REGULAR BOLUS (FROM DRIP BAG) IV PRN (17:40)
[2017-12-07] MEDS: MORPHINE SULFATE 4 MG/ML SYRINGE IVP PRN ×2 (17:57→22:34)
[2017-12-07 18:13] LABS: Glucose,Whole Blood 241 mg/dL (75-99)
--- NOTE | 2017-12-07 18:15 | PN ---
PROGRESS NOTE DATE OF SERVICE: 12/07/2017 on the I am covering for Dr. Arrington. HISTORY OF PRESENT ILLNESS: This 77-year-old gentleman who was admitted with intractable nausea, abdominal distention, also has features of gastroenteritis. The patient also had evidence of pneumonia in the chest x-ray, the left upper lobe area. The possibility of aspiration is considered. This morning the patient had taken a turn for the worse and the patient had acute respiratory failure. Patient was , cold and subsequently transferred to ICU and patient mechanically intubated and ICU consultation has been sought. The pneumonic lesion is more prominent in the chest x-ray today. The patient started on broad-spectrum IV antibiotics. PAST MEDICAL HISTORY: Reviewed. REVIEW OF SYSTEM: Could not be taken because of the patient is mechanically ventilated and sedated at this time. CURRENT MEDICATIONS: 1. Tylenol 650 q.6h p.r.n. 2. DuoNeb q.i.d. and p.r.n. 3. Aspirin 81 mg. 4. Lioresal. 5. Coreg 6.25 mg b.i.d. 6. Peridex 15 mL. 7. Vitamin D3. 8. Heparin. 9. Imdur. 10.Zestril. 11.Solu-Medrol. 12.Narcan. 13.Protonix. 14.Propofol. PHYSICAL EXAM: Patient is mechanically ventilated and sedated. Pulse 59, blood pressure 170/77 , respiration 20, temperature normal, pulse ox 99% on mechanical ventilation, 80% FIO2. HEENT: Conjunctivae normal. Oral mucosa moist. NECK: No jugular venous distention. No carotid bruit. No lymph node enlargement. CARDIOVASCULAR: S1, S2. RESPIRATORY: Breath sounds diminished in the bases. A few scattered rhonchi and crackles. ABDOMEN: Soft, nontender. LEGS: No edema. NERVOUS SYSTEM: Patient mechanically ventilated and sedated. SKIN: No ulcers, rash, bleeding. LAB STUDIES: WBC 12.2, hemoglobin 13.8, 7.17. ASSESSMENT: 1. Acute left lower pneumonia possibly aspiration with sepsis and acute hypoxic hypercarbic respiratory failure on mechanical ventilation. 2. Troponin 0.0315 indeterminate. 3. Increased WBC. 4. History of chronic obstructive pulmonary disease. 5. Diabetes mellitus type 2. 6. Hyperlipidemia. 7. Hypertension. 8. History of myocardial infarction. 9. History of asthma. 10.History of coronary artery disease, CABG, stent. 11.History of anxiety. 12.Bilateral below-knee amputations because of peripheral vascular disease. RECOMMENDATION AND DISCUSSION: In this 77-year-old woman gentleman who presented with multiple complex medical issues, will monitor the patient closely. Continue the current management and symptomatic treatment. Otherwise at this time, I recommend to continue with mechanical ventilation, broad-spectrum IV antibiotics. Follow the cultures and continue the rest of medications. Bronchodilators. I would recommend to continue current medications. Prognosis guarded because of multiple complex medical issues. Further recommendations to follow. MMODL / IJN: [id number] / MTDD
[2017-12-07] MEDS: INSULIN REGULAR 100 UNIT in SODIUM CHLORIDE 0.9% 100 ML IV SCH (18:36)
[2017-12-07 19:11] LABS: Glucose,Whole Blood 207 mg/dL (75-99)
[2017-12-07 20:23] LABS: Glucose,Whole Blood 261 mg/dL (75-99)
[2017-12-07 20:23] LABS: Glucose,Whole Blood 192 mg/dL (75-99)
[2017-12-07] MEDS: CHLORHEXIDINE GLUCONATE 15 ML CUP MUCOUS MEM SCH (20:33)
[2017-12-07 21:37] LABS: Glucose,Whole Blood 177 mg/dL (75-99)
[2017-12-07] MEDS: LISINOPRIL 20 MG TAB PO SCH (22:19)
[2017-12-07 22:21] LABS: Creatine Kinase MB 2.2 ng/mL (0.0-2.4)
[2017-12-07 22:23] LABS: Troponin I 0.297 ng/mL (0.000-0.034)
[2017-12-07 22:31] LABS: Glucose,Whole Blood 172 mg/dL (75-99)
[2017-12-07 23:20] LABS: Glucose,Whole Blood 169 mg/dL (75-99)
[2017-12-08 00:36] LABS: Glucose,Whole Blood 174 mg/dL (75-99)
[2017-12-08] MEDS: IPRATROPIUM-ALBUTEROL 3 ML NEB INHALATION SCH ×6 (00:54→20:15)
[2017-12-08 01:39] LABS: Glucose,Whole Blood 189 mg/dL (75-99)
--- NOTE | 2017-12-08 01:44 | XR ---
EXAMINATION TYPE: XR chest 1V portable DATE OF EXAM: 12/08/2017 COMPARISON: Yesterday HISTORY: Check tube placement TECHNIQUE: Single frontal view of the chest is obtained. FINDINGS: There is patchy consolidation in the left lower lobe. There is blunting of left costophren ic angle. There is no gross heart failure. Endotracheal tube appears in good position. Nasogastric tu be appears to have tip in the stomach. There are chest leads. Endotracheal tube is 7 cm from the elise. IMPRESSION: Tubing is in fairly good position and unchanged compared to yesterday. There is increasi ng consolidation and pleural fluid in the left lower lobe compared to yesterday.
[2017-12-08] MEDS: hydrALAZINE HCL 20 MG/ML 1 ML VIAL IVP PRN ×2 (02:10→19:27)
[2017-12-08 02:18] LABS: Glucose,Whole Blood 166 mg/dL (75-99)
[2017-12-08] MEDS: PROPOFOL 1,000 MG in EMPTY BAG 1 BAG IV SCH ×4 (03:28→22:25)
[2017-12-08 03:36] LABS: Glucose,Whole Blood 190 mg/dL (75-99)
[2017-12-08 04:28] LABS: Glucose,Whole Blood 187 mg/dL (75-99)
[2017-12-08 04:40] LABS: ABG Base Excess -0.9 mmol/L; ABG HCO3 23 mmol/L (21-25); ABG Oxygen Saturation 96.7 % (94-97); ABG PCO2 32 mmHg (35-45); ABG PH 7.47 (7.35-7.45); ABG PO2 79 mmHg (83-108); ABG TCO2 24 mmol/L (19-24)
[2017-12-08 04:50] LABS: Basophils % (A) 0 %; Eosinophils % (A) 0 %; HCT 40.2 % (39.0-53.0); HGB 12.7 gm/dL (13.0-17.5); Lymphocytes # (A) 0.5 k/uL (1.0-4.8); Lymphocytes % (A) 5 %; MCH 32.2 pg (25.0-35.0); MCHC 31.5 g/dL (31.0-37.0); MCV 102.2 fL (80.0-100.0); Macrocytosis Slight; Mean Platelet Volume 7.9; Monocytes # (A) 0.4 k/uL (0-1.0); Monocytes % (A) 4 %; Neutrophils # (A) 8.8 k/uL (1.3-7.7); Neutrophils % (A) 91 %; Platelet Count 191 k/uL (150-450); RBC 3.93 m/uL (4.30-5.90); WBC 9.8 k/uL (3.8-10.6)
[2017-12-08 05:04] LABS: Anion Gap 11 mmol/L; Blood Urea Nitrogen 17 mg/dL (9-20); Carbon Dioxide 21 mmol/L (22-30); Chloride 109 mmol/L (98-107); Glucose 198 mg/dL (74-99); Phosphorus 2.3 mg/dL (2.5-4.5); Potassium 3.8 mmol/L (3.5-5.1); Sodium 141 mmol/L (137-145)
[2017-12-08] MEDS: methylPREDNISolone SOD SUCCI 125 MG/2 ML VIAL IV SCH ×3 (05:15→18:24)
[2017-12-08] MEDS: SODIUM CHLORIDE 0.9% 1,000 ML IV SCH ×2 (05:15→16:17)
[2017-12-08 05:18] LABS: Glucose,Whole Blood 195 mg/dL (75-99)
[2017-12-08] MEDS ORDERED: POTASSIUM PHOSPHATE 10 MMOL in SODIUM CHLORIDE 0.9% 250 ML IV ONE (05:42)
[2017-12-08 06:22] LABS: Glucose,Whole Blood 170 mg/dL (75-99)
[2017-12-08 07:05] LABS: Glucose,Whole Blood 184 mg/dL (75-99)
[2017-12-08 08:25] LABS: Glucose,Whole Blood 195 mg/dL (75-99)
[2017-12-08 09:28] LABS: Glucose,Whole Blood 196 mg/dL (75-99)
[2017-12-08] MEDS: HEPARIN SODIUM,PORCINE 5,000 UNIT/ML 1 ML VIAL SQ SCH ×2 (09:29→16:17)
[2017-12-08] MEDS: ISOSORBIDE MONONITRATE ER 30 MG TAB.ER.24H PO SCH (09:30)
[2017-12-08] MEDS: BACLOFEN 10 MG TAB PO SCH ×3 (09:30→20:26)
[2017-12-08] MEDS: CHLORHEXIDINE GLUCONATE 15 ML CUP MUCOUS MEM SCH ×2 (09:30→20:26)
[2017-12-08] MEDS: cefTRIAXone IN SWFI 2,000 MG/20 ML SYRINGE IVP SCH (09:30)
[2017-12-08] MEDS: ASPIRIN 81 MG PO SCH (09:30)
[2017-12-08] MEDS: PANTOPRAZOLE 40 MG/10 ML VIAL IV SCH (09:31)
[2017-12-08] MEDS: LISINOPRIL 20 MG TAB PO SCH ×2 (09:31→20:26)
[2017-12-08 11:12] LABS: Glucose,Whole Blood 226 mg/dL (75-99)
--- NOTE | 2017-12-08 11:43 | P.PN ---
Subjective Progress Note Date: 12/08/17 Patient is a 77-year-old gentleman who presented to the emergency department on December 05 with some generalized weakness. There was some question as to some abdominal discomfort and a surgical consultation was obtained. At that time the patient was felt to have a benign abdomen with no evidence of acute surgical problems. The patient subsequently developed respiratory distress and was intubated and transferred to the intensive care unit. The patient appears to be awake although intubated and when asked if he has abdominal discomfort denies it. Objective - Vital Signs Vital signs: Vital Signs Temp 97.7 F 12/08/17 08:00 Pulse 60 12/08/17 11:00 Resp 27 H 12/08/17 11:00 BP 180/76 12/08/17 11:00 Pulse Ox 96 12/08/17 11:00 Intake & Output 12/07/17 12/08/17 12/08/17 18:59 06:59 18:59 Intake Total 3250 1884.964 752.790 Output Total 450 404 290 Balance 2800 1480.964 462.790 Weight 86.183 kg 100.5 kg Intake: IV 3250 1230 500 0.9 Nacl 800 1230 500 0.9 nacl bolus 2000 azithromycin 250 magnesium 200 Intake, IV Titration 234.964 117.790 Amount Insulin Regular 100 unit 34.964 18.590 In Sodium Chloride 0.9% 100 ml @ Per Protocol IV .Q0M JAMES Rx#:[id number] Propofol 1,000 mg In 200 99.200 Empty Bag 1 bag @ Titrate IV .Q0M JAMES Rx#: [id number] Tube Feeding 420 135 Output: Urine 450 404 290 Other: Voiding Method Indwelling Catheter Indwelling Catheter # Bowel Movements 1 1 - Constitutional General appearance: Present: obese - Respiratory Details: Decreased breath sounds bilaterally - Cardiovascular Heart sounds: normal: S1, S2 - Gastrointestinal Gastrointestinal Comment(s): No guarding or rebound General gastrointestinal: Present: distended, soft - Labs CBC & Chem 7: 12/08/17 04:24 12/08/17 04:24 Labs: Abnormal Lab Results - Last 24 Hours (Table) 12/07/17 12/07/17 12/07/17 Range/Units 12:03 15:20 17:37 RBC (4.30-5.90) m/uL Hgb (13.0-17.5) gm/dL MCV (80.0-100.0) fL Neutrophils # (1.3-7.7) k/uL Lymphocytes # (1.0-4.8) k/uL ABG pH (7.35-7.45) ABG pCO2 (35-45) mmHg ABG pO2 (83-108) mmHg Chloride (98-107) mmol/L Carbon Dioxide (22-30) mmol/L Glucose (74-99) mg/dL POC Glucose (mg/dL) 262 H 237 H (75-99) mg/dL Calcium (8.4-10.2) mg/dL Phosphorus (2.5-4.5) mg/dL CK-MB (CK-2) 3.2 H* (0.0-2.4) ng/mL Troponin I 0.315 H* (0.000-0.034) ng/mL 12/07/17 12/07/17 12/07/17 Range/Units 18:11 19:08 20:20 RBC (4.30-5.90) m/uL Hgb (13.0-17.5) gm/dL MCV (80.0-100.0) fL Neutrophils # (1.3-7.7) k/uL Lymphocytes # (1.0-4.8) k/uL ABG pH (7.35-7.45) ABG pCO2 (35-45) mmHg ABG pO2 (83-108) mmHg Chloride (98-107) mmol/L Carbon Dioxide (22-30) mmol/L Glucose (74-99) mg/dL POC Glucose (mg/dL) 241 H 207 H 261 H (75-99) mg/dL Calcium (8.4-10.2) mg/dL Phosphorus (2.5-4.5) mg/dL CK-MB (CK-2) (0.0-2.4) ng/mL Troponin I (0.000-0.034) ng/mL 12/07/17 12/07/17 12/07/17 Range/Units 20:21 21:32 21:36 RBC (4.30-5.90) m/uL Hgb (13.0-17.5) gm/dL MCV (80.0-100.0) fL Neutrophils # (1.3-7.7) k/uL Lymphocytes # (1.0-4.8) k/uL ABG pH (7.35-7.45) ABG pCO2 (35-45) mmHg ABG pO2 (83-108) mmHg Chloride (98-107) mmol/L Carbon Dioxide (22-30) mmol/L Glucose (74-99) mg/dL POC Glucose (mg/dL) 192 H 177 H (75-99) mg/dL Calcium (8.4-10.2) mg/dL Phosphorus (2.5-4.5) mg/dL CK-MB (CK-2) (0.0-2.4) ng/mL Troponin I 0.297 H* (0.000-0.034) ng/mL 12/07/17 12/07/17 12/08/17 Range/Units 22:29 23:19 00:10 RBC (4.30-5.90) m/uL Hgb (13.0-17.5) gm/dL MCV (80.0-100.0) fL Neutrophils # (1.3-7.7) k/uL Lymphocytes # (1.0-4.8) k/uL ABG pH (7.35-7.45) ABG pCO2 (35-45) mmHg ABG pO2 (83-108) mmHg Chloride (98-107) mmol/L Carbon Dioxide (22-30) mmol/L Glucose (74-99) mg/dL POC Glucose (mg/dL) 172 H 169 H 174 H (75-99) mg/dL Calcium (8.4-10.2) mg/dL Phosphorus (2.5-4.5) mg/dL CK-MB (CK-2) (0.0-2.4) ng/mL Troponin I (0.000-0.034) ng/mL 12/08/17 12/08/17 12/08/17 Range/Units 01:25 02:15 03:33 RBC (4.30-5.90) m/uL Hgb (13.0-17.5) gm/dL MCV (80.0-100.0) fL Neutrophils # (1.3-7.7) k/uL Lymphocytes # (1.0-4.8) k/uL ABG pH (7.35-7.45) ABG pCO2 (35-45) mmHg ABG pO2 (83-108) mmHg Chloride (98-107) mmol/L Carbon Dioxide (22-30) mmol/L Glucose (74-99) mg/dL POC Glucose (mg/dL) 189 H 166 H 190 H (75-99) mg/dL Calcium (8.4-10.2) mg/dL Phosphorus (2.5-4.5) mg/dL CK-MB (CK-2) (0.0-2.4) ng/mL Troponin I (0.000-0.034) ng/mL 12/08/17 12/08/17 12/08/17 Range/Units 04:24 04:24 04:27 RBC 3.93 L (4.30-5.90) m/uL Hgb 12.7 L (13.0-17.5) gm/dL MCV 102.2 H (80.0-100.0) fL Neutrophils # 8.8 H (1.3-7.7) k/uL Lymphocytes # 0.5 L (1.0-4.8) k/uL ABG pH (7.35-7.45) ABG pCO2 (35-45) mmHg ABG pO2 (83-108) mmHg Chloride 109 H (98-107) mmol/L Carbon Dioxide 21 L (22-30) mmol/L Glucose 198 H (74-99) mg/dL POC Glucose (mg/dL) 187 H (75-99) mg/dL Calcium 8.0 L (8.4-10.2) mg/dL Phosphorus 2.3 L (2.5-4.5) mg/dL CK-MB (CK-2) (0.0-2.4) ng/mL Troponin I (0.000-0.034) ng/mL 12/08/17 12/08/17 12/08/17 Range/Units 04:38 05:17 06:20 RBC (4.30-5.90) m/uL Hgb (13.0-17.5) gm/dL MCV (80.0-100.0) fL Neutrophils # (1.3-7.7) k/uL Lymphocytes # (1.0-4.8) k/uL ABG pH 7.47 H (7.35-7.45) ABG pCO2 32 L (35-45) mmHg ABG pO2 79 L (83-108) mmHg Chloride (98-107) mmol/L Carbon Dioxide (22-30) mmol/L Glucose (74-99) mg/dL POC Glucose (mg/dL) 195 H 170 H (75-99) mg/dL Calcium (8.4-10.2) mg/dL Phosphorus (2.5-4.5) mg/dL CK-MB (CK-2) (0.0-2.4) ng/mL Troponin I (0.000-0.034) ng/mL 12/08/17 12/08/17 12/08/17 Range/Units 07:03 08:24 09:26 RBC (4.30-5.90) m/uL Hgb (13.0-17.5) gm/dL MCV (80.0-100.0) fL Neutrophils # (1.3-7.7) k/uL Lymphocytes # (1.0-4.8) k/uL ABG pH (7.35-7.45) ABG pCO2 (35-45) mmHg ABG pO2 (83-108) mmHg Chloride (98-107) mmol/L Carbon Dioxide (22-30) mmol/L Glucose (74-99) mg/dL POC Glucose (mg/dL) 184 H 195 H 196 H (75-99) mg/dL Calcium (8.4-10.2) mg/dL Phosphorus (2.5-4.5) mg/dL CK-MB (CK-2) (0.0-2.4) ng/mL Troponin I (0.000-0.034) ng/mL 12/08/17 Range/Units 11:10 RBC (4.30-5.90) m/uL Hgb (13.0-17.5) gm/dL MCV (80.0-100.0) fL Neutrophils # (1.3-7.7) k/uL Lymphocytes # (1.0-4.8) k/uL ABG pH (7.35-7.45) ABG pCO2 (35-45) mmHg ABG pO2 (83-108) mmHg Chloride (98-107) mmol/L Carbon Dioxide (22-30) mmol/L Glucose (74-99) mg/dL POC Glucose (mg/dL) 226 H (75-99) mg/dL Calcium (8.4-10.2) mg/dL Phosphorus (2.5-4.5) mg/dL CK-MB (CK-2) (0.0-2.4) ng/mL Troponin I (0.000-0.034) ng/mL Microbiology - Last 24 Hours (Table) 12/05/17 15:15 Blood Culture - Preliminary Blood No Growth after 48 hours 12/05/17 13:50 Blood Culture - Preliminary Blood No Growth after 48 hours - Imaging and Cardiology Chest x-ray: report reviewed Assessment and Plan Assessment: Impression/plan: 1. Acute exacerbation of respiratory compromise requiring intubation 2. Present on admission nausea and vomiting which appeared to have resolved 3. CAT scan performed which did not reveal any acute findings of small or large bowel obstruction 4. Possible pneumonia 5. Bilateral below the knee amputations 6. Peripheral vascular disease 7. History of coronary artery disease/angina 8. Diabetes 9. Hyperlipidemia 10. Hypertension Plan: 1. This time patient does not appear to have an acute surgical abdomen. We will follow as needed
--- NOTE | 2017-12-08 11:46 | P.PN ---
Subjective Progress Note Date: 12/08/17 Principal diagnosis: Acute hypoxic respiratory failure secondary to left lung pneumonia. Consult dated 12/07/2017 This is a 77-year-old male who apparently presented to the emergency department on December 05 with generalized weakness. He apparently been vomiting all day. Was feeling weak all over. The patient was also complaining of low back pain. The patient sometime today developed some respiratory distress. Arterial blood gases were done and they were poor and the decision was made to intubate the patient. It's really not clear as to what happened to the patient prior to this. The chest x-ray did show a new infiltrate in the left midlung. It could be pneumonia from aspiration or just hospital-acquired pneumonia. Anyway, the arterial blood gases are poor the patient was struggling to breathe he was retaining carbon dioxide and I made a decision to intubate the patient. Patient was managed on the floor by the ICU nurse until ICU bed was made available. I went to the floor to give orders and to evaluate the patient. Orders were put in by the ICU nurse. The patient has a history of CAD, angina, COPD, diabetes mellitus, hyperlipidemia, hypertension, myocardial infarction, peripheral vascular occlusive disease, eye past grafting, heart catheterization with stent, bilateral below the knee amputations, bilateral carotid endarterectomies, multiple heart caths and stents, bilateral cataract surgery, fem-pop bypass, as well as colonoscopy. The patient was started on propofol for sedation updrafts are added. The patient also received GI and DVT prophylaxis. The patient is seen again today 12/08/2017 in follow-up in the intensive care unit. He remains intubated on mechanical ventilator settings are assist- control 28, tidal volume 500, FiO2 50% and a PEEP of 8. Morning blood gases reveal pO2 79, pCO2 32 pH 7.47. Her chest x-ray shows left midlung pneumonia along with a new left lower lobe pneumonia. He is currently on ceftriaxone. He has a 0.9 normal saline at 100 MLS per hour. Propofol at 25 mcg/kg/m, insulin drip at 3.5 units per hour. He is being nourished with Vital HP at 45 mL per hour which is his goal. Blood and urine cultures reveal no growth to date. White count 9.8. Hemoglobin 12.7. Creatinine 0.77. Objective - Vital Signs Vital signs: Vital Signs Temp 97.7 F 12/08/17 08:00 Pulse 60 12/08/17 11:00 Resp 27 H 12/08/17 11:00 BP 180/76 12/08/17 11:00 Pulse Ox 96 12/08/17 11:00 Intake & Output 12/07/17 12/08/17 12/08/17 18:59 06:59 18:59 Intake Total 3250 1884.964 752.790 Output Total 450 404 290 Balance 2800 1480.964 462.790 Weight 86.183 kg 100.5 kg Intake: IV 3250 1230 500 0.9 Nacl 800 1230 500 0.9 nacl bolus 2000 azithromycin 250 magnesium 200 Intake, IV Titration 234.964 117.790 Amount Insulin Regular 100 unit 34.964 18.590 In Sodium Chloride 0.9% 100 ml @ Per Protocol IV .Q0M JAMES Rx#:[id number] Propofol 1,000 mg In 200 99.200 Empty Bag 1 bag @ Titrate IV .Q0M JAMES Rx#: [id number] Tube Feeding 420 135 Output: Urine 450 404 290 Other: Voiding Method Indwelling Catheter Indwelling Catheter # Bowel Movements 1 1 - Exam No acute distress. The patient is now sedated, and has orally placed endotracheal tube and NG tube. HEENT examination is grossly unremarkable. Mucous membranes are moist. Neck supple. Full range of motion. No adenopathy thyromegaly or neck vein distention. Cardiovascular examination reveals regular rhythm rate. S1-S2 normal. No S3 or S4. No discernible murmur noted. Lungs reveal coarse rhonchi. Breath sounds are diminished. Breath sounds are equal bilaterally. Some crackles are noted. Abdomen soft bowel sounds are heard. No masses or tenderness. Extremities reveal bilateral below knee amputations. Skin is without rash or lesion. Neurologic examination could not be assessed as the patient's currently sedated. - Labs CBC & Chem 7: 12/08/17 04:24 12/08/17 04:24 Labs: Abnormal Lab Results - Last 24 Hours (Table) 12/07/17 12/07/17 12/07/17 Range/Units 12:03 15:20 17:37 RBC (4.30-5.90) m/uL Hgb (13.0-17.5) gm/dL MCV (80.0-100.0) fL Neutrophils # (1.3-7.7) k/uL Lymphocytes # (1.0-4.8) k/uL ABG pH (7.35-7.45) ABG pCO2 (35-45) mmHg ABG pO2 (83-108) mmHg Chloride (98-107) mmol/L Carbon Dioxide (22-30) mmol/L Glucose (74-99) mg/dL POC Glucose (mg/dL) 262 H 237 H (75-99) mg/dL Calcium (8.4-10.2) mg/dL Phosphorus (2.5-4.5) mg/dL CK-MB (CK-2) 3.2 H* (0.0-2.4) ng/mL Troponin I 0.315 H* (0.000-0.034) ng/mL 12/07/17 12/07/17 12/07/17 Range/Units 18:11 19:08 20:20 RBC (4.30-5.90) m/uL Hgb (13.0-17.5) gm/dL MCV (80.0-100.0) fL Neutrophils # (1.3-7.7) k/uL Lymphocytes # (1.0-4.8) k/uL ABG pH (7.35-7.45) ABG pCO2 (35-45) mmHg ABG pO2 (83-108) mmHg Chloride (98-107) mmol/L Carbon Dioxide (22-30) mmol/L Glucose (74-99) mg/dL POC Glucose (mg/dL) 241 H 207 H 261 H (75-99) mg/dL Calcium (8.4-10.2) mg/dL Phosphorus (2.5-4.5) mg/dL CK-MB (CK-2) (0.0-2.4) ng/mL Troponin I (0.000-0.034) ng/mL 12/07/17 12/07/17 12/07/17 Range/Units 20:21 21:32 21:36 RBC (4.30-5.90) m/uL Hgb (13.0-17.5) gm/dL MCV (80.0-100.0) fL Neutrophils # (1.3-7.7) k/uL Lymphocytes # (1.0-4.8) k/uL ABG pH (7.35-7.45) ABG pCO2 (35-45) mmHg ABG pO2 (83-108) mmHg Chloride (98-107) mmol/L Carbon Dioxide (22-30) mmol/L Glucose (74-99) mg/dL POC Glucose (mg/dL) 192 H 177 H (75-99) mg/dL Calcium (8.4-10.2) mg/dL Phosphorus (2.5-4.5) mg/dL CK-MB (CK-2) (0.0-2.4) ng/mL Troponin I 0.297 H* (0.000-0.034) ng/mL 12/07/17 12/07/17 12/08/17 Range/Units 22:29 23:19 00:10 RBC (4.30-5.90) m/uL Hgb (13.0-17.5) gm/dL MCV (80.0-100.0) fL Neutrophils # (1.3-7.7) k/uL Lymphocytes # (1.0-4.8) k/uL ABG pH (7.35-7.45) ABG pCO2 (35-45) mmHg ABG pO2 (83-108) mmHg Chloride (98-107) mmol/L Carbon Dioxide (22-30) mmol/L Glucose (74-99) mg/dL POC Glucose (mg/dL) 172 H 169 H 174 H (75-99) mg/dL Calcium (8.4-10.2) mg/dL Phosphorus (2.5-4.5) mg/dL CK-MB (CK-2) (0.0-2.4) ng/mL Troponin I (0.000-0.034) ng/mL 12/08/17 12/08/17 12/08/17 Range/Units 01:25 02:15 03:33 RBC (4.30-5.90) m/uL Hgb (13.0-17.5) gm/dL MCV (80.0-100.0) fL Neutrophils # (1.3-7.7) k/uL Lymphocytes # (1.0-4.8) k/uL ABG pH (7.35-7.45) ABG pCO2 (35-45) mmHg ABG pO2 (83-108) mmHg Chloride (98-107) mmol/L Carbon Dioxide (22-30) mmol/L Glucose (74-99) mg/dL POC Glucose (mg/dL) 189 H 166 H 190 H (75-99) mg/dL Calcium (8.4-10.2) mg/dL Phosphorus (2.5-4.5) mg/dL CK-MB (CK-2) (0.0-2.4) ng/mL Troponin I (0.000-0.034) ng/mL 12/08/17 12/08/17 12/08/17 Range/Units 04:24 04:24 04:27 RBC 3.93 L (4.30-5.90) m/uL Hgb 12.7 L (13.0-17.5) gm/dL MCV 102.2 H (80.0-100.0) fL Neutrophils # 8.8 H (1.3-7.7) k/uL Lymphocytes # 0.5 L (1.0-4.8) k/uL ABG pH (7.35-7.45) ABG pCO2 (35-45) mmHg ABG pO2 (83-108) mmHg Chloride 109 H (98-107) mmol/L Carbon Dioxide 21 L (22-30) mmol/L Glucose 198 H (74-99) mg/dL POC Glucose (mg/dL) 187 H (75-99) mg/dL Calcium 8.0 L (8.4-10.2) mg/dL Phosphorus 2.3 L (2.5-4.5) mg/dL CK-MB (CK-2) (0.0-2.4) ng/mL Troponin I (0.000-0.034) ng/mL 12/08/17 12/08/17 12/08/17 Range/Units 04:38 05:17 06:20 RBC (4.30-5.90) m/uL Hgb (13.0-17.5) gm/dL MCV (80.0-100.0) fL Neutrophils # (1.3-7.7) k/uL Lymphocytes # (1.0-4.8) k/uL ABG pH 7.47 H (7.35-7.45) ABG pCO2 32 L (35-45) mmHg ABG pO2 79 L (83-108) mmHg Chloride (98-107) mmol/L Carbon Dioxide (22-30) mmol/L Glucose (74-99) mg/dL POC Glucose (mg/dL) 195 H 170 H (75-99) mg/dL Calcium (8.4-10.2) mg/dL Phosphorus (2.5-4.5) mg/dL CK-MB (CK-2) (0.0-2.4) ng/mL Troponin I (0.000-0.034) ng/mL 12/08/17 12/08/17 12/08/17 Range/Units 07:03 08:24 09:26 RBC (4.30-5.90) m/uL Hgb (13.0-17.5) gm/dL MCV (80.0-100.0) fL Neutrophils # (1.3-7.7) k/uL Lymphocytes # (1.0-4.8) k/uL ABG pH (7.35-7.45) ABG pCO2 (35-45) mmHg ABG pO2 (83-108) mmHg Chloride (98-107) mmol/L Carbon Dioxide (22-30) mmol/L Glucose (74-99) mg/dL POC Glucose (mg/dL) 184 H 195 H 196 H (75-99) mg/dL Calcium (8.4-10.2) mg/dL Phosphorus (2.5-4.5) mg/dL CK-MB (CK-2) (0.0-2.4) ng/mL Troponin I (0.000-0.034) ng/mL 12/08/17 Range/Units 11:10 RBC (4.30-5.90) m/uL Hgb (13.0-17.5) gm/dL MCV (80.0-100.0) fL Neutrophils # (1.3-7.7) k/uL Lymphocytes # (1.0-4.8) k/uL ABG pH (7.35-7.45) ABG pCO2 (35-45) mmHg ABG pO2 (83-108) mmHg Chloride (98-107) mmol/L Carbon Dioxide (22-30) mmol/L Glucose (74-99) mg/dL POC Glucose (mg/dL) 226 H (75-99) mg/dL Calcium (8.4-10.2) mg/dL Phosphorus (2.5-4.5) mg/dL CK-MB (CK-2) (0.0-2.4) ng/mL Troponin I (0.000-0.034) ng/mL Microbiology - Last 24 Hours (Table) 12/05/17 15:15 Blood Culture - Preliminary Blood No Growth after 48 hours 12/05/17 13:50 Blood Culture - Preliminary Blood No Growth after 48 hours Assessment and Plan Assessment: Assessment Hypoxemic respiratory failure, possibly secondary to aspiration. New infiltrate, representing pneumonia, and the left midlung History of CAD with previous bypass grafting COPD by history Diabetes mellitus by history History of peripheral vascular occlusive disease History of myocardial infarction History of hypertension History of hyperlipidemia Multiple vascular procedures Plan: The patient was seen and evaluated by Dr. Espana. His chest x-ray ABGs and labs were all reviewed. We will continue with daily interruption of sedation. We' ll continue with bronchodilators. Continue IV Solu-Medrol. We'll change his antibiotics from ceftriaxone over to vancomycin and Levaquin. He remains on heparin for DVT prophylaxis. We'll repeat his chest x-ray ABGs and labs in the a.m. We'll continue to follow make further recommendations based on his clinical status. Critical care time 38 minutes. I, the cosigning physician, performed a history & physical examination of the patient. Lungs sounds have bilateral crackles more so on the left with scattered rhonchi.. Maintaining good O2 saturations in the 90s on 50% FiO2 and a PEEP of 8. I discussed the assessment and plan of care with my nurse practitioner, Holly Justice. I attest to the above note as dictated by her.
--- NOTE | 2017-12-08 11:52 | CONS ---
CONSULTATION Mr. Real is a 77-year-old gentleman who is seen for the cardiac evaluation. The history was mostly obtained from the chart. The patient is currently intermittent. Patient was admitted to the hospital with a complaint of generalized weakness and fever and vomiting and subsequently patient developed acute respiratory distress. The patient was probably had aspirated pneumonia and has been intubated. The patient has a very complex cardiac history with coronary artery bypass surgery. Multiple stents and history of peripheral vascular disease as well as a history of bilateral below-knee amputation. The patient was not having any chest pain, during current admissions. We have been requested to see the patient because of mildly elevated troponin. PAST MEDICAL HISTORY: Includes a history of diabetes, history of coronary artery disease. Peripheral artery disease. Multiple stents, bilateral carotid endarterectomies history of fem-fem bypass. HOME MEDICATIONS: 1. Coreg twice a day. 2. Insulin. 3. Prinivil 10 mg b.i.d. 4. Xanax. 5. Pravachol 10 mg daily. 6. Ferrous sulfate. PHYSICAL EXAMINATION: At present reveals a 77-year-old gentleman who is intubated. Blood pressure is 159/65 mmHg. Heart rate is 76 per minute, intermittent patient has episodes of sinus bradycardia. HEENT examination is negative. NECK: Supple. There is no increase in jugular venous pressure. Heart: First and second heart sounds are normal. Lungs examination reveals bilateral scattered rhonchi. ABDOMEN: Soft. EXTREMITIES: There is evidence of bilateral below-knee amputation. LABORATORY DATA: The patient's initial blood gases yesterday showed pH of 7.17, pCO2 was 76. Arterial blood gases are improved. Chest x-ray suggestive of worsening pneumonia. Creatinine is 0.3. The patient's troponins are 0.086, 0.315 and 0.297. FINAL IMPRESSION: 1. This patient has developed acute respiratory distress and respiratory failure secondary to pneumonia. The patient was quite hypoxic. The mild elevation in the troponin is probably type 2 myocardial injury due to supply and demand mismatch. 2. The patient is status post coronary artery bypass surgery and multiple stents. Patient is stable cardiac sidhu. At present, we will order echo and Doppler study. Continue the current medications. The patient's Coreg has been on hold because of intermittent sinus bradycardia and junctional rhythm. MMODL / IJN: [id number] /
[2017-12-08] MEDS ORDERED: VANCOMYCIN IV PER PHARMACY 1 EACH MISC MISCELLANE PRN (11:56)
[2017-12-08] MEDS ORDERED: LEVOFLOXACIN 750MG-D5W PMX 750 MG in DEXTROSE/WATER 1 150ML.BAG IVPB SCH (12:00)
[2017-12-08 12:22] LABS: Glucose,Whole Blood 236 mg/dL (75-99)
[2017-12-08] MEDS ORDERED: VANCOMYCIN 2,000 MG in SODIUM CHLORIDE 0.9% 500 ML IVPB ONE (13:00)
[2017-12-08 13:29] LABS: Glucose,Whole Blood 226 mg/dL (75-99)
--- NOTE | 2017-12-08 13:29 | ECHOF ---
Referral Reason:elevated troponin MEASUREMENTS -------- HEIGHT: 182.9 cm WEIGHT: 100.2 kg BP: 159/65 IVSd: 1.5 cm (0.6 - 1.1) LVIDd: 4.7 cm (3.9 - 5.3) LVPWd: 1.5 cm (0.6 - 1.1) IVSs: 1.9 cm LVIDs: 2.7 cm LVPWs: 2.0 cm LAESV Index (A-L): 26.92 ml/m Ao Diam: 3.2 cm (2.0 - 3.7) AV Cusp: 1.6 cm (1.5 - 2.6) LA Diam: 3.3 cm (2.7 - 3.8) EPSS: 0.6 cm MV E Arash: 1.10 m/s MV DecT: 312 ms MV A Arash: 1.12 m/s MV E/A Ratio: 0.98 RAP: 5.00 mmHg RVSP: 11.62 mmHg MV EF SLOPE: 74.17 mm/s (70 - 150) MV EXCURSION: 1.43 cm (> 18.000) FINDINGS -------- Sinus rhythm. This was a technically adequate study. The left ventricular size is normal. There is moderate concentric left ventricular hypertrophy. O verall left ventricular systolic function is normal with, an EF between 55 - 60 %. The right ventricle is normal in size and function. Normal LA size by volume 22+/-6 ml/m2. The right atrium is normal in size. Aortic valve is trileaflet and is mildly thickened. There is no evidence of aortic regurgitation. There is no evidence of aortic stenosis. Mild mitral annular calcification present. There is trace to mild mitral regurgitation. Trace tricuspid regurgitation present. Right ventricular systolic pressure is normal at < 35 mmHg. There is no evidence of pulmonary hypertension. The pulmonic valve was not well visualized. The aortic root size is normal. Normal inferior vena cava with normal inspiratory collapse consistent with estimated right atrial pre ssure of 5 mmHg. There is a trivial pericardial effusion present. Small Pleural Effusion. CONCLUSIONS -------- 1. Sinus rhythm. 2. This was a technically adequate study. 3. The left ventricular size is normal. 4. There is moderate concentric left ventricular hypertrophy. 5. Overall left ventricular systolic function is normal with, an EF between 55 - 60 %. 6. Normal LA size by volume 22+/-6 ml/m2. 7. Aortic valve is trileaflet and is mildly thickened. 8. Mild mitral annular calcification present. 9. There is trace to mild mitral regurgitation. 10. Trace tricuspid regurgitation present. 11. Right ventricular systolic pressure is normal at < 35 mmHg. 12. There is no evidence of pulmonary hypertension. 13. The pulmonic valve was not well visualized. 14. The aortic root size is normal. 15. There is a trivial pericardial effusion present. 16. Small Pleural Effusion. LADLE HANDLER: Tom Harris RDCS
[2017-12-08] MEDS: CHOLECALCIFEROL 1,000 UNIT TAB PO SCH (13:33)
[2017-12-08] MEDS: INSULIN REGULAR 100 UNIT in SODIUM CHLORIDE 0.9% 100 ML IV SCH (15:11)
[2017-12-08 15:12] LABS: Glucose,Whole Blood 239 mg/dL (75-99)
[2017-12-08 16:14] LABS: Glucose,Whole Blood 195 mg/dL (75-99)
[2017-12-08] MEDS: MORPHINE SULFATE 4 MG/ML SYRINGE IVP PRN ×2 (17:10→22:26)
[2017-12-08 17:17] LABS: Glucose,Whole Blood 215 mg/dL (75-99)
[2017-12-08] MEDS: amLODIPine 5 MG TAB PO SCH (18:24)
[2017-12-08 18:36] LABS: Glucose,Whole Blood 175 mg/dL (75-99)
--- NOTE | 2017-12-08 18:58 | PN ---
PROGRESS NOTE DATE OF SERVICE: 12/08/2017 I am covering for Dr. Arrington. This 77-year-old gentleman who was admitted with acute left lower pneumonia possibly aspiration sepsis which is acute hypoxic respiratory failure. The patient is on mechanical ventilation this time. The patient is on broad-spectrum IV antibiotics. The patient will be monitored in ICU. PAST MEDICAL HISTORY: Reviewed. REVIEW OF SYSTEMS: Could not be taken. The patient mechanically ventilated and sedated. CURRENT MEDICATIONS: Reviewed and include: 1. Tylenol 650 q.6h p.r.n. 2. DuoNeb q.i.d. and p.r.n. 3. Aspirin 81 mg. 4. Lioresal 10 mg daily. 5. Cefepime 2 g b.i.d. 6. Peridex. 7. Vitamin D. 8. Heparin 5000 subcu q.8. 9. Apresoline 10 mg q.4. 10.Imdur 30 mg p.o. daily. 11.Zestril 20 mg p.o. daily. 12.Solu-Medrol 60 IV q.6. 13.Narcan 0.2 q.2h p.r.n. 14.Protonix 40 mg daily. 15.Propofol. 16.Vancomycin. PHYSICAL EXAM: Patient is alert. Patient is mechanically ventilated and sedated. Pulse 69, blood pressure 170/62, respiration 29, temperature 98 degrees, pulse ox 97% on 50% mechanical ventilation. HEENT: Conjunctivae normal. Oral mucosa moist. NECK: No jugular venous distention. No carotid bruit. No lymph node enlargement. CARDIOVASCULAR: S1, S2. No S3, no S4. RESPIRATORY: Breath sounds diminished in the bases. Bilateral scattered rhonchi and crackles. ABDOMEN: Soft, nontender. No mass palpable. LEGS: No edema. NERVOUS SYSTEM: Patient mechanically sedated. LABS: WBC 9.8, hemoglobin 12.7. PH of 7.47, otherwise troponin 0.297. Influenza is negative twice. Otherwise, cultures are negative so far. ASSESSMENT: 1. Acute left lower lobe pneumonia with possibly aspiration with sepsis and acute hypoxic respiratory failure on mechanical ventilation. 2. Troponin 0.0315 indeterminate. 3. Increased WBC. 4. History of chronic obstructive pulmonary disease. 5. Diabetes mellitus type 2. 6. Hyperlipidemia. 7. Hypertension. 8. History of myocardial infarction. 9. History of asthma. 10.History of coronary artery disease, CABG, stent. 11.Anxiety. 12.Bilateral below-knee amputation because of peripheral vascular disease. RECOMMENDATIONS AND DISCUSSION: I recommend to continue current management and symptomatic treatment. Otherwise at this time I recommend continue with broad-spectrum IV antibiotics. Otherwise closely follow with surgery and as well as Cardiology. The patient was vomiting and GI symptoms on presentation, which is improving at this time. A 2D echo was done which showed ejection fraction 50 to 60%. Cardiac arrhythmia also noted at this time too. Possible type 2 myocardial infarction due to supply demand mismatch is considered. The patient has history of coronary artery disease and stent. I also recommend infectious Disease evaluation. Closely follow. Dr. Arrington will follow. MMBURAKL / IJN: [id number] /
[2017-12-08 19:18] LABS: Glucose,Whole Blood 169 mg/dL (75-99)
[2017-12-08 19:58] LABS: Glucose,Whole Blood 188 mg/dL (75-99)
[2017-12-08] MEDS: CEFEPIME 2 GM in SODIUM CHLORIDE 0.9% 50 ML IVPB SCH (20:25)
[2017-12-08] MEDS: VANCOMYCIN 1,750 MG in SODIUM CHLORIDE 0.9% 250 ML IVPB SCH (20:25)
[2017-12-08] MEDS: ATORVASTATIN 40 MG TAB PO SCH (20:26)
[2017-12-08 20:55] LABS: Glucose,Whole Blood 171 mg/dL (75-99)
--- NOTE | 2017-12-08 21:09 | XR ---
EXAMINATION TYPE: XR chest 1V portable DATE OF EXAM: 12/08/2017 COMPARISON: NONE HISTORY: Intubation TECHNIQUE: Single frontal view of the chest is obtained. FINDINGS: There is mild pulmonary vascular congestion. There are chest leads. There is nasogastric t ube with the tip in the stomach. Endotracheal tube appears in good position and is 4.3 cm from the ca omar. There are sternal wires. IMPRESSION: There is improved aeration of the left lung compared to exam earlier today and consisten t with some clearing of atelectasis. There is probably mild heart failure.
[2017-12-08 21:58] LABS: Glucose,Whole Blood 181 mg/dL (75-99)
[2017-12-08 23:23] LABS: Glucose,Whole Blood 154 mg/dL (75-99)
--- NOTE | 2017-12-09 00:10 | CONS ---
CONSULTATION DATE OF CONSULTATION: 12/08/17. REASON FOR THE CONSULT: Sepsis and possible aspiration pneumonia. HISTORY OF PRESENT ILLNESS: The patient is a 77-year-old male who initially presented to the ER at [facility] on 12/05/2017 with a chief complaint of vomiting that has been going on for 24 hours. The patient did have multiple episodes of vomiting. The stated that he was having some cough and was vomiting bilious secretions, bilious like fluid with no hematemesis. The patient is feeling weak and tired, unable to stand up or move around with concern for possible dehydration. The patient was brought into the ER. There is no clear history of any fever or chills at home. However, on presentation to the ER, the patient was febrile with a fever of 101.2 degrees Fahrenheit. Subsequently down to 100.7 on 12/06/2017. The patient did have chest x-ray x2, which did not show any acute pulmonary process. CT abdomen and pelvis was negative as well. Yesterday morning while the patient was on the floor the patient became unresponsive for which the A team was called in on the floor. The patient has to be intubated to protect his airways. However, the RN who participated in the A-Team call did mention at the time of intubation the patient having some frothy secretion but not a lot of the purulent secretion. The patient did have slight hypotension that responded to the fluid and subsequent not required any pressor support or fluid. A x-ray repeating did shows increasing consolidation and pleural fluid in the left lower lobe compared to the day before. The patient however was on Rocephin initially. Antibiotic was adjusted to vancomycin and Levaquin today because of his PENICILLIN ALLERGY. Infectious Disease was consulted for further recommendation regarding antibiotic therapy. All of this information has been obtained from thorough review of the chart and talking to the present at bedside as the patient is currently intubated on the vent unable to provide any reliable history. REVIEW OF SYSTEMS: Could not be reliably obtained though the positive points have been mentioned in HPI. PAST MEDICAL HISTORY: Significant for coronary artery disease, COPD, diabetes mellitus, hypertension, hyperlipidemia, memory impairment, PAD. PAST SURGICAL HISTORY: Coronary artery bypass grafting, PTCA, stent, tonsillectomy, bilateral below-knee amputation, bilateral carotid endarterectomy. SOCIAL HISTORY: He is . Former smoker. No drinking or drug use. FAMILY HISTORY: Father history of diabetes and heart problems, same for the mother. ALLERGIES: PENICILLIN with no history of anaphylaxis, tolerated Rocephin without any problem, also ALLERGIC TO LYRICA. MEDICATIONS: Medication include the patient is currently on Tylenol, DuoNeb, Norvasc, aspirin, Lipitor, baclofen, Levaquin, vitamin D3, heparin, hydralazine, NovoLog sliding scale, Imdur, Zestril, morphine sulfate, Narcan, Zofran, Protonix, propofol and vancomycin pharmacy to dose. EXAMINATION: Blood pressure is a 120/54 with a pulse of 67, temperature is 97.7. He is 95% on 50% FiO2. General description is an elderly male lying in bed in no distress. No tachypnea or accessory muscles of respiration use. HEENT: Shows no pallor or scleral icterus. The patient is orally intubated. Unable to examine oral cavity. Neck trachea central. No thyromegaly. Lungs unlabored breathing, decreased breath sounds in the bases. No wheeze or crackles. Heart S1, S2. Regular rate and rhythm. No murmur. ABDOMEN: Soft, no tenderness. No organomegaly. Extremities: The patient did have bilateral BKA with looks clean with no evidence of any cellulitis or wound. Examination of the skin no rash or mass palpable. Neurologically: The patient is currently sedated on the vent. Neuro exam could not be completed. LABS: Hemoglobin 12.7, white count 9.8, admission white count 15.1 with a BUN of 17, creatinine 0.77, and electrolytes have been normal. Urine has been negative. Influenza serology was negative x2. Chest x-ray report as mentioned above. CT report as mentioned above. DIAGNOSTIC IMPRESSION AND PLAN: 1. Patient acute vent dependent respiratory failure which is likely multifactorial in a patient in the hospital with significant vomiting and dehydration with the patient initial chest x-ray reported to be negative for any acute infiltrate. However, the x-ray repeated this morning showed worsening left lower lobe consolidation likely pointing towards pneumonia of aspiration etiology with possible cirrhotic and worsening while in the hospital need to cover for resistant gram positive as well as gram-negative pathogen. 2. Patient do have PENICILLIN ALLERGY and that will limit number of antibiotic that could be safely used. PLAN: 1. Sputum has been obtained and blood cultures will be followed. 2. We will discontinue Levaquin and start the patient on cefepime and Flagyl to cover for possible gram-negative pneumonia and vancomycin pharmacy to dose target of 15. 3. Depending upon his clinical response as well as cultures we will adjust the medication further. However, we will need to monitor his kidney function very closely while on vancomycin to prevent any nephrotoxicity. 4. Plan of care discussed with the RN as well as the present at bedside, all her questions were answered. RADHA / ELISEO: [id number] /
[2017-12-09 00:27] LABS: Glucose,Whole Blood 161 mg/dL (75-99)
[2017-12-09] MEDS: IPRATROPIUM-ALBUTEROL 3 ML NEB INHALATION SCH ×6 (00:35→19:45)
[2017-12-09 02:16] LABS: Glucose,Whole Blood 159 mg/dL (75-99)
[2017-12-09] MEDS: SODIUM CHLORIDE 0.9% 1,000 ML IV SCH ×3 (02:18→23:39)
[2017-12-09] MEDS: MORPHINE SULFATE 4 MG/ML SYRINGE IVP PRN ×2 (04:03→21:03)
[2017-12-09 04:10] LABS: Glucose,Whole Blood 192 mg/dL (75-99)
[2017-12-09 04:32] LABS: ABG Base Excess -2.4 mmol/L; ABG HCO3 22 mmol/L (21-25); ABG PCO2 32 mmHg (35-45); ABG PH 7.44 (7.35-7.45); ABG PO2 79 mmHg (83-108); ABG TCO2 23 mmol/L (19-24)
[2017-12-09 05:18] LABS: Glucose,Whole Blood 170 mg/dL (75-99)
[2017-12-09] MEDS: PROPOFOL 1,000 MG in EMPTY BAG 1 BAG IV SCH ×3 (05:20→10:00)
[2017-12-09] MEDS: methylPREDNISolone SOD SUCCI 125 MG/2 ML VIAL IV SCH ×5 (05:21→23:35)
[2017-12-09 05:36] LABS: Basophils % (A) 0 %; Eosinophils # (A) 0.1 k/uL (0-0.7); Eosinophils % (A) 1 %; HCT 38.2 % (39.0-53.0); HGB 12.2 gm/dL (13.0-17.5); Lymphocytes # (A) 0.4 k/uL (1.0-4.8); Lymphocytes % (A) 3 %; MCHC 31.9 g/dL (31.0-37.0); MCV 100.2 fL (80.0-100.0); Macrocytosis Slight; Mean Platelet Volume 8.2; Monocytes # (A) 0.4 k/uL (0-1.0); Monocytes % (A) 4 %; Neutrophils # (A) 11.2 k/uL (1.3-7.7); Neutrophils % (A) 91 %; Platelet Count 206 k/uL (150-450); RBC 3.81 m/uL (4.30-5.90); RDW 14.2 % (11.5-15.5); WBC 12.3 k/uL (3.8-10.6)
[2017-12-09 05:46] LABS: Anion Gap 10 mmol/L; Blood Urea Nitrogen 27 mg/dL (9-20); Calcium 7.7 mg/dL (8.4-10.2); Carbon Dioxide 19 mmol/L (22-30); Chloride 113 mmol/L (98-107); Glucose 191 mg/dL (74-99); Phosphorus 2.3 mg/dL (2.5-4.5); Potassium 3.4 mmol/L (3.5-5.1); Sodium 142 mmol/L (137-145)
[2017-12-09] MEDS: amLODIPine 5 MG TAB PO SCH ×2 (06:29→17:03)
[2017-12-09 06:33] LABS: Glucose,Whole Blood 176 mg/dL (75-99)
[2017-12-09] MEDS ORDERED: POTASSIUM CHLORIDE 10 MEQ in SODIUM CHLORIDE 0.9% 100 ML IVPB SCH (07:00)
[2017-12-09] MEDS ORDERED: POTASSIUM PHOSPHATE 10 MMOL in SODIUM CHLORIDE 0.9% 250 ML IV ONE (07:00)
[2017-12-09] MEDS ORDERED: Potassium Replacement Protocol 1 EACH MISC MISCELLANE PRN (07:42)
[2017-12-09] MEDS: INSULIN ASPART 100 UNIT/ML 1 ML 10 ML VIAL SQ SCH (07:45)
[2017-12-09] MEDS: FERROUS SULFATE 325 MG TAB PO SCH (07:45)
[2017-12-09] MEDS: HEPARIN SODIUM,PORCINE 5,000 UNIT/ML 1 ML VIAL SQ SCH ×4 (07:47→23:38)
--- NOTE | 2017-12-09 08:13 | XR ---
EXAMINATION TYPE: XR chest 1V portable DATE OF EXAM: 12/09/2017 COMPARISON: 12/08/2017 HISTORY: Ventilatory dependent respiratory failure TECHNIQUE: Single frontal view of the chest is obtained. FINDINGS: Endotracheal tube and enteric tube are stable in position and satisfactory. Post CABG mac ges are seen of the chest with dehiscence of the most superior median sternotomy wire. There remains obscuration of the left hemidiaphragm and blunting of the left costophrenic angle with patchy left hi lar airspace disease. Remainder the lungs are clear. Cardiac silhouette is mildly enlarged. IMPRESSION: 1. Persistent retrocardiac opacity and patchy left perihilar opacity that may represent atelectasis o r pneumonia in the appropriate clinical setting. 2. Persistent trace pleural effusion. 3. Stable line and tube.
[2017-12-09 08:20] LABS: Glucose,Whole Blood 176 mg/dL (75-99)
[2017-12-09] MEDS: POTASSIUM BICARBONATE/CIT AC 20 MEQ TABLET.EFF NG-TUBE SCH ×2 (08:23→09:58)
[2017-12-09] MEDS: metroNIDAZOLE-NS PMX 500 MG in SALINE 1 100ML.BAG IVPB SCH ×3 (08:23→17:03)
[2017-12-09] MEDS: BACLOFEN 10 MG TAB PO SCH ×3 (08:23→21:02)
[2017-12-09] MEDS: CHLORHEXIDINE GLUCONATE 15 ML CUP MUCOUS MEM SCH ×2 (08:23→20:47)
[2017-12-09] MEDS: PANTOPRAZOLE 40 MG/10 ML VIAL IV SCH (08:24)
[2017-12-09] MEDS: LISINOPRIL 20 MG TAB PO SCH ×2 (08:24→21:02)
[2017-12-09] MEDS: CHOLECALCIFEROL 1,000 UNIT TAB PO SCH (08:24)
[2017-12-09] MEDS: ISOSORBIDE MONONITRATE ER 30 MG TAB.ER.24H PO SCH (08:24)
[2017-12-09] MEDS: ASPIRIN 81 MG PO SCH (08:24)
[2017-12-09] MEDS: CEFEPIME 2 GM in SODIUM CHLORIDE 0.9% 50 ML IVPB SCH ×2 (08:27→23:41)
[2017-12-09] MEDS: VANCOMYCIN 1,750 MG in SODIUM CHLORIDE 0.9% 250 ML IVPB SCH ×2 (09:58→21:12)
[2017-12-09] MEDS: NITROGLYCERIN OINT 1 INCH/GM PACKET TOPICAL SCH ×3 (10:00→23:41)
[2017-12-09 10:23] LABS: Glucose,Whole Blood 167 mg/dL (75-99)
--- NOTE | 2017-12-09 11:05 | P.PN ---
Subjective Progress Note Date: 12/09/17 A 77-year-old male patient, quite debilitated with multiple medical problems and comorbidities including coronary artery disease, bilateral above-knee amputation, diabetes mellitus, COPD, hypertension, hyperlipidemia, and peripheral vascular disease. The patient came into the hospital because of generalized weakness And respiratory distress. The patient had an extensive left lung pneumonia. Subsequently the patient went into respiratory failure. Apparently the patient had a D and I CODE STATUS. He never wanted to be intubated or placed on a mechanical ventilator. On the emergency conditions, the patient was intubated and the patient got moved to the intensive care unit. This morning, the patient is awake and alert. He is off sedation. He is still intubated. The chest x-ray showing clearing of the left lung pneumonia. The patient is a combination of cefepime and Flagyl and vancomycin. He is afebrile hemodynamically stable. I was able to cut down the PEEP down to 5 and drop the FiO2 down to 40%. Family came to the bedside. With a lengthy discussion with the family and they are very clear that the patient never want to be intubated and they insisted on extubating him and let nature take its course. I think the patient may fair well knowing that he has adequate clearing of the left lung pneumonia. He remains in sinus rhythm with multiple PACs. The patient is afebrile. Objective - Vital Signs Vital signs: Vital Signs Temp 98.7 F 12/09/17 08:00 Pulse 81 12/09/17 10:00 Resp 28 H 12/09/17 10:00 BP 129/51 12/09/17 10:00 Pulse Ox 95 12/09/17 10:00 Intake & Output 12/08/17 12/09/17 12/09/17 18:59 06:59 18:59 Intake Total 2431.109 2230.615 126.708 Output Total 790 630 Balance 5414.941 8262.615 126.708 Weight 101.4 kg Intake: IV 1850 1380 0.9 Nacl 1200 1030 levaquin 150 metroNIDAZOLE-NS PMX 500 100 mg In Saline 1 100ml.bag @ 100 mls/hr IVPB Q8HR JAMES Rx#:[id number] vancomysicn 500 250 Intake, IV Titration 311.109 175.615 81.708 Amount Insulin Regular 100 unit 61.384 67.782 In Sodium Chloride 0.9% 100 ml @ Per Protocol IV .Q0M JAMES Rx#:[id number] Propofol 1,000 mg In 249.725 107.833 81.708 Empty Bag 1 bag @ Titrate IV .Q0M JAMES Rx#: [id number] Tube Feeding 270 675 45 Output: Urine 790 630 Other: Voiding Method Indwelling Catheter Indwelling Catheter Indwelling Catheter # Bowel Movements 1 - Exam No acute distress. The patient is off sedation and the patient is following simple commands. He has 2 point restraints, and has orally placed endotracheal tube and NG tube. HEENT examination is grossly unremarkable. Mucous membranes are moist. Neck supple. Full range of motion. No adenopathy thyromegaly or neck vein distention. Cardiovascular examination reveals regular rhythm rate. S1-S2 normal. No S3 or S4. No discernible murmur noted. Lungs reveal coarse rhonchi. Breath sounds are diminished. Breath sounds are equal bilaterally. Some crackles are noted. Abdomen soft bowel sounds are heard. No masses or tenderness. Extremities reveal bilateral below knee amputations. Skin is without rash or lesion. Neurologic awake and moving upper extremities and following simple commands without any major difficulties. - Labs CBC & Chem 7: 12/09/17 05:23 12/09/17 05:23 Labs: Abnormal Lab Results - Last 24 Hours (Table) 12/08/17 12/08/17 12/08/17 Range/Units 11:10 12:21 13:17 WBC (3.8-10.6) k/uL RBC (4.30-5.90) m/uL Hgb (13.0-17.5) gm/dL Hct (39.0-53.0) % MCV (80.0-100.0) fL Neutrophils # (1.3-7.7) k/uL Lymphocytes # (1.0-4.8) k/uL ABG pCO2 (35-45) mmHg ABG pO2 (83-108) mmHg Potassium (3.5-5.1) mmol/L Chloride (98-107) mmol/L Carbon Dioxide (22-30) mmol/L BUN (9-20) mg/dL Glucose (74-99) mg/dL POC Glucose (mg/dL) 226 H 236 H 226 H (75-99) mg/dL Calcium (8.4-10.2) mg/dL Phosphorus (2.5-4.5) mg/dL 12/08/17 12/08/17 12/08/17 Range/Units 15:09 16:12 17:15 WBC (3.8-10.6) k/uL RBC (4.30-5.90) m/uL Hgb (13.0-17.5) gm/dL Hct (39.0-53.0) % MCV (80.0-100.0) fL Neutrophils # (1.3-7.7) k/uL Lymphocytes # (1.0-4.8) k/uL ABG pCO2 (35-45) mmHg ABG pO2 (83-108) mmHg Potassium (3.5-5.1) mmol/L Chloride (98-107) mmol/L Carbon Dioxide (22-30) mmol/L BUN (9-20) mg/dL Glucose (74-99) mg/dL POC Glucose (mg/dL) 239 H 195 H 215 H (75-99) mg/dL Calcium (8.4-10.2) mg/dL Phosphorus (2.5-4.5) mg/dL 12/08/17 12/08/17 12/08/17 Range/Units 18:33 19:17 19:56 WBC (3.8-10.6) k/uL RBC (4.30-5.90) m/uL Hgb (13.0-17.5) gm/dL Hct (39.0-53.0) % MCV (80.0-100.0) fL Neutrophils # (1.3-7.7) k/uL Lymphocytes # (1.0-4.8) k/uL ABG pCO2 (35-45) mmHg ABG pO2 (83-108) mmHg Potassium (3.5-5.1) mmol/L Chloride (98-107) mmol/L Carbon Dioxide (22-30) mmol/L BUN (9-20) mg/dL Glucose (74-99) mg/dL POC Glucose (mg/dL) 175 H 169 H 188 H (75-99) mg/dL Calcium (8.4-10.2) mg/dL Phosphorus (2.5-4.5) mg/dL 12/08/17 12/08/17 12/08/17 Range/Units 20:53 21:56 23:21 WBC (3.8-10.6) k/uL RBC (4.30-5.90) m/uL Hgb (13.0-17.5) gm/dL Hct (39.0-53.0) % MCV (80.0-100.0) fL Neutrophils # (1.3-7.7) k/uL Lymphocytes # (1.0-4.8) k/uL ABG pCO2 (35-45) mmHg ABG pO2 (83-108) mmHg Potassium (3.5-5.1) mmol/L Chloride (98-107) mmol/L Carbon Dioxide (22-30) mmol/L BUN (9-20) mg/dL Glucose (74-99) mg/dL POC Glucose (mg/dL) 171 H 181 H 154 H (75-99) mg/dL Calcium (8.4-10.2) mg/dL Phosphorus (2.5-4.5) mg/dL 12/09/17 12/09/17 12/09/17 Range/Units 00:25 02:14 04:08 WBC (3.8-10.6) k/uL RBC (4.30-5.90) m/uL Hgb (13.0-17.5) gm/dL Hct (39.0-53.0) % MCV (80.0-100.0) fL Neutrophils # (1.3-7.7) k/uL Lymphocytes # (1.0-4.8) k/uL ABG pCO2 (35-45) mmHg ABG pO2 (83-108) mmHg Potassium (3.5-5.1) mmol/L Chloride (98-107) mmol/L Carbon Dioxide (22-30) mmol/L BUN (9-20) mg/dL Glucose (74-99) mg/dL POC Glucose (mg/dL) 161 H 159 H 192 H (75-99) mg/dL Calcium (8.4-10.2) mg/dL Phosphorus (2.5-4.5) mg/dL 12/09/17 12/09/17 12/09/17 Range/Units 04:30 05:17 05:23 WBC 12.3 H (3.8-10.6) k/uL RBC 3.81 L (4.30-5.90) m/uL Hgb 12.2 L (13.0-17.5) gm/dL Hct 38.2 L (39.0-53.0) % MCV 100.2 H (80.0-100.0) fL Neutrophils # 11.2 H (1.3-7.7) k/uL Lymphocytes # 0.4 L (1.0-4.8) k/uL ABG pCO2 32 L (35-45) mmHg ABG pO2 79 L (83-108) mmHg Potassium (3.5-5.1) mmol/L Chloride (98-107) mmol/L Carbon Dioxide (22-30) mmol/L BUN (9-20) mg/dL Glucose (74-99) mg/dL POC Glucose (mg/dL) 170 H (75-99) mg/dL Calcium (8.4-10.2) mg/dL Phosphorus (2.5-4.5) mg/dL 12/09/17 12/09/17 12/09/17 Range/Units 05:23 06:31 08:18 WBC (3.8-10.6) k/uL RBC (4.30-5.90) m/uL Hgb (13.0-17.5) gm/dL Hct (39.0-53.0) % MCV (80.0-100.0) fL Neutrophils # (1.3-7.7) k/uL Lymphocytes # (1.0-4.8) k/uL ABG pCO2 (35-45) mmHg ABG pO2 (83-108) mmHg Potassium 3.4 L (3.5-5.1) mmol/L Chloride 113 H (98-107) mmol/L Carbon Dioxide 19 L (22-30) mmol/L BUN 27 H (9-20) mg/dL Glucose 191 H (74-99) mg/dL POC Glucose (mg/dL) 176 H 176 H (75-99) mg/dL Calcium 7.7 L (8.4-10.2) mg/dL Phosphorus 2.3 L (2.5-4.5) mg/dL 12/09/17 Range/Units 10:21 WBC (3.8-10.6) k/uL RBC (4.30-5.90) m/uL Hgb (13.0-17.5) gm/dL Hct (39.0-53.0) % MCV (80.0-100.0) fL Neutrophils # (1.3-7.7) k/uL Lymphocytes # (1.0-4.8) k/uL ABG pCO2 (35-45) mmHg ABG pO2 (83-108) mmHg Potassium (3.5-5.1) mmol/L Chloride (98-107) mmol/L Carbon Dioxide (22-30) mmol/L BUN (9-20) mg/dL Glucose (74-99) mg/dL POC Glucose (mg/dL) 167 H (75-99) mg/dL Calcium (8.4-10.2) mg/dL Phosphorus (2.5-4.5) mg/dL Microbiology - Last 24 Hours (Table) 12/05/17 15:15 Blood Culture - Preliminary Blood No Growth after 72 hours 12/08/17 01:21 Gram Stain - Preliminary Sputum Sputum Culture - Preliminary 12/05/17 13:50 Blood Culture - Preliminary Blood No Growth after 72 hours Assessment and Plan Plan: Assessment 1 acute left lung pneumonia with secondary acute hypoxic respiratory failure, intubation mechanical ventilation. The patient has a DNR/DNI CODE STATUS. The family is at the bedside and they are insisting to extubate the patient knowing that the intubation was again his wishes. We are going to proceed with extubation and consider comfort care only if he goes into respiratory distress or respiratory failure. He is currently on 50% FiO2 and 5 of PEEP and he'll be extubated to 100% nonrebreather facemask. On today's chest x-ray there is clearing of the left lung pulmonary infiltrates/pneumonia. 2 History of CAD with previous bypass grafting 3 COPD by history 4 Diabetes mellitus by history 5 History of peripheral vascular occlusive disease, with bilateral lower extremity amputations 6 History of myocardial infarction 7 History of hypertension 8 history of hyperlipidemia 9 Multiple vascular procedures Plan Extubated the patient on the percent nonrebreather facemask. Discussion was done with the family including the mother and brothers aggressive the family members. We are going to proceed with extubation with the intention of no reintubation should the patient go into respiratory failure. We'll titrate FiO2 to maintain a saturation above 90%. Continue antibiotic coverage. Continue aggressive supportive care. DO NOT RESUSCITATE per DO NOT INTUBATE CODE STATUS will be reinstated. We'll continue to follow. There is a critically care evaluation that was done in 31 minutes. Time with Patient: Greater than 30
[2017-12-09] MEDS: hydrALAZINE HCL 20 MG/ML 1 ML VIAL IVP PRN ×2 (12:17→23:37)
[2017-12-09 12:27] LABS: Glucose,Whole Blood 172 mg/dL (75-99)
[2017-12-09] MEDS: POTASSIUM CHLORIDE ER 20 MEQ TAB.ER PO SCH ×2 (12:27→13:48)
--- NOTE | 2017-12-09 14:41 | P.PN ---
Subjective Progress Note Date: 12/09/17 77-year-old male who presented to the emergency room with a chief complaint of vomiting 24 hours and generalized weakness. Patient denied shortness of breath or coughing. Denies chest pain or pressure. Denies diarrhea or constipation. Denies fever or chills. Family member at the bedside states that multiple family members have had gastroenteritis this week. The patient has a history of coronary artery disease, chronic objective pulmonary disease, diabetes mellitus, hyperlipidemia, hypertension, myocardial infarction with multiple stents, CABG, bilateral below the knee amputations, bilateral carotid enterectomy, and anxiety. He is a former cigarette smoker. Chest x-ray 12/05/2017: no acute abnormalities Chest x-ray 12/06/2017: Whitley chronic changes without acute pulmonary process. No significant change from prior exam Laboratory data: WBC 15.1. Hemoglobin 15.7. Platelet count 236. Sodium 143. Potassium 4.1. BUN 23. Creatinine 0.98. Glucose 52. Lactic acid: 2.8 Testing for influenza A and B was negative Urinalysis reveals: cloudy yellow urine, 1+ proteinuria, trace ketones with 32 hyaline casts, occasional mucus and sediment The patient was admitted to the hospital under the care of Dr. Arrington. Consultations were placed to Dr. Roche. 12/07/2017-Notes per covering provider 12/08/2017-Notes per covering provider 12/09/2017 Patient seen and examined at the bedside on rounds with Dr. Arrington. The patient went into respiratory distress and was intubated on 12/06/2017. He remains intubated in the intensive care unit. Chest x-ray from this morning reveals persistent retrocardiac opacity and patchy left perihilar opacity that may represent atelectasis or pneumonia and persistent trace pleural effusions. Infectious disease remains on consult. The patient is currently receiving cefepime, Flagyl, and vancomycin. Patient is a DNR and family is requesting to extubate patient. Objective - Vital Signs Vital signs: Vital Signs Temp 98.7 F 12/09/17 08:00 Pulse 100 12/09/17 12:11 Resp 28 H 12/09/17 11:00 BP 167/68 12/09/17 11:00 Pulse Ox 96 12/09/17 11:00 Intake & Output 12/08/17 12/09/17 12/09/17 18:59 06:59 18:59 Intake Total 2431.109 2230.615 1227.483 Output Total 790 630 140 Balance 9441.819 1300.615 1087.483 Weight 101.4 kg Intake: IV 1850 1380 500 0.9 Nacl 1200 1030 400 levaquin 150 metroNIDAZOLE-NS PMX 500 100 100 mg In Saline 1 100ml.bag @ 100 mls/hr IVPB Q8HR JAMES Rx#:[id number] vancomysicn 500 250 Intake, IV Titration 311.109 175.615 382.483 Amount Cefepime 2 gm In Sodium 50 Chloride 0.9% 50 ml @ 100 mls/hr IVPB Q12HR JAMES Rx #:[id number] Insulin Regular 100 unit 61.384 67.782 In Sodium Chloride 0.9% 100 ml @ Per Protocol IV .Q0M JAMES Rx#:[id number] Propofol 1,000 mg In 249.725 107.833 82.483 Empty Bag 1 bag @ Titrate IV .Q0M JAMES Rx#: [id number] Vancomycin 1,750 mg In 250 Sodium Chloride 0.9% 250 ml @ 125 mls/hr IVPB BID JAMES Rx#:[id number] Tube Feeding 270 675 225 Other 120 Output: Urine 790 630 140 Other: Voiding Method Indwelling Catheter Indwelling Catheter Indwelling Catheter # Bowel Movements 1 - Exam GENERAL: This is a 77-year-old male who remains on mechanical ventilation in the intensive care unit. HEENT: ET tube noted. Head is atraumatic, normocephalic. Pupils are equal, round, and reactive to light. Sclerae anicteric. Conjunctivae are clear. Mucus membranes of the mouth are moist. Neck is supple. RESPIRATORY: ET tube noted. Lungs coarse throughout with scattered rhonchi. Patient maintaining oxygen saturation greater than 92% on mechanical ventilation. CARDIOVASCULAR: Regular rate and rhythm. S1 and S2 noted. No systolic or diastolic murmur auscultated. No JVD noted. No S3 or S4 noted. GASTROINTESTINAL: NG tube in place. No distention noted. Abdomen soft and round. Normal active bowel sounds auscultated x 4 quadrants. No pain or tenderness noted upon palpation. INTEGUMENTARY: No cyanosis. No jaundice. No rashes noted. No cellulitis noted. EXTREMITIES: Patient with bilateral below the knee amputations. NEUROLOGIC/PSYCHIATRIC: Patient able to follow simple commands. Unable to complete thorough neurologic and psychiatric evaluation secondary to mechanical ventilation. - Labs CBC & Chem 7: 12/10/17 07:38 12/10/17 07:38 Labs: Abnormal Lab Results - Last 24 Hours (Table) 12/08/17 12/08/17 12/08/17 Range/Units 12:21 13:17 15:09 WBC (3.8-10.6) k/uL RBC (4.30-5.90) m/uL Hgb (13.0-17.5) gm/dL Hct (39.0-53.0) % MCV (80.0-100.0) fL Neutrophils # (1.3-7.7) k/uL Lymphocytes # (1.0-4.8) k/uL ABG pCO2 (35-45) mmHg ABG pO2 (83-108) mmHg Potassium (3.5-5.1) mmol/L Chloride (98-107) mmol/L Carbon Dioxide (22-30) mmol/L BUN (9-20) mg/dL Glucose (74-99) mg/dL POC Glucose (mg/dL) 236 H 226 H 239 H (75-99) mg/dL Calcium (8.4-10.2) mg/dL Phosphorus (2.5-4.5) mg/dL 12/08/17 12/08/17 12/08/17 Range/Units 16:12 17:15 18:33 WBC (3.8-10.6) k/uL RBC (4.30-5.90) m/uL Hgb (13.0-17.5) gm/dL Hct (39.0-53.0) % MCV (80.0-100.0) fL Neutrophils # (1.3-7.7) k/uL Lymphocytes # (1.0-4.8) k/uL ABG pCO2 (35-45) mmHg ABG pO2 (83-108) mmHg Potassium (3.5-5.1) mmol/L Chloride (98-107) mmol/L Carbon Dioxide (22-30) mmol/L BUN (9-20) mg/dL Glucose (74-99) mg/dL POC Glucose (mg/dL) 195 H 215 H 175 H (75-99) mg/dL Calcium (8.4-10.2) mg/dL Phosphorus (2.5-4.5) mg/dL 12/08/17 12/08/17 12/08/17 Range/Units 19:17 19:56 20:53 WBC (3.8-10.6) k/uL RBC (4.30-5.90) m/uL Hgb (13.0-17.5) gm/dL Hct (39.0-53.0) % MCV (80.0-100.0) fL Neutrophils # (1.3-7.7) k/uL Lymphocytes # (1.0-4.8) k/uL ABG pCO2 (35-45) mmHg ABG pO2 (83-108) mmHg Potassium (3.5-5.1) mmol/L Chloride (98-107) mmol/L Carbon Dioxide (22-30) mmol/L BUN (9-20) mg/dL Glucose (74-99) mg/dL POC Glucose (mg/dL) 169 H 188 H 171 H (75-99) mg/dL Calcium (8.4-10.2) mg/dL Phosphorus (2.5-4.5) mg/dL 12/08/17 12/08/17 12/09/17 Range/Units 21:56 23:21 00:25 WBC (3.8-10.6) k/uL RBC (4.30-5.90) m/uL Hgb (13.0-17.5) gm/dL Hct (39.0-53.0) % MCV (80.0-100.0) fL Neutrophils # (1.3-7.7) k/uL Lymphocytes # (1.0-4.8) k/uL ABG pCO2 (35-45) mmHg ABG pO2 (83-108) mmHg Potassium (3.5-5.1) mmol/L Chloride (98-107) mmol/L Carbon Dioxide (22-30) mmol/L BUN (9-20) mg/dL Glucose (74-99) mg/dL POC Glucose (mg/dL) 181 H 154 H 161 H (75-99) mg/dL Calcium (8.4-10.2) mg/dL Phosphorus (2.5-4.5) mg/dL 12/09/17 12/09/1712/09/18 Range/Units 02:14 04:08 04:30 WBC (3.8-10.6) k/uL RBC (4.30-5.90) m/uL Hgb (13.0-17.5) gm/dL Hct (39.0-53.0) % MCV (80.0-100.0) fL Neutrophils # (1.3-7.7) k/uL Lymphocytes # (1.0-4.8) k/uL ABG pCO2 32 L (35-45) mmHg ABG pO2 79 L (83-108) mmHg Potassium (3.5-5.1) mmol/L Chloride (98-107) mmol/L Carbon Dioxide (22-30) mmol/L BUN (9-20) mg/dL Glucose (74-99) mg/dL POC Glucose (mg/dL) 159 H 192 H (75-99) mg/dL Calcium (8.4-10.2) mg/dL Phosphorus (2.5-4.5) mg/dL 12/09/17 12/09/17 12/09/17 Range/Units 05:17 05:23 05:23 WBC 12.3 H (3.8-10.6) k/uL RBC 3.81 L (4.30-5.90) m/uL Hgb 12.2 L (13.0-17.5) gm/dL Hct 38.2 L (39.0-53.0) % MCV 100.2 H (80.0-100.0) fL Neutrophils # 11.2 H (1.3-7.7) k/uL Lymphocytes # 0.4 L (1.0-4.8) k/uL ABG pCO2 (35-45) mmHg ABG pO2 (83-108) mmHg Potassium 3.4 L (3.5-5.1) mmol/L Chloride 113 H (98-107) mmol/L Carbon Dioxide 19 L (22-30) mmol/L BUN 27 H (9-20) mg/dL Glucose 191 H (74-99) mg/dL POC Glucose (mg/dL) 170 H (75-99) mg/dL Calcium 7.7 L (8.4-10.2) mg/dL Phosphorus 2.3 L (2.5-4.5) mg/dL 12/09/17 12/09/17 12/09/17 Range/Units 06:31 08:18 10:21 WBC (3.8-10.6) k/uL RBC (4.30-5.90) m/uL Hgb (13.0-17.5) gm/dL Hct (39.0-53.0) % MCV (80.0-100.0) fL Neutrophils # (1.3-7.7) k/uL Lymphocytes # (1.0-4.8) k/uL ABG pCO2 (35-45) mmHg ABG pO2 (83-108) mmHg Potassium (3.5-5.1) mmol/L Chloride (98-107) mmol/L Carbon Dioxide (22-30) mmol/L BUN (9-20) mg/dL Glucose (74-99) mg/dL POC Glucose (mg/dL) 176 H 176 H 167 H (75-99) mg/dL Calcium (8.4-10.2) mg/dL Phosphorus (2.5-4.5) mg/dL 12/09/17 Range/Units 11:12 WBC (3.8-10.6) k/uL RBC (4.30-5.90) m/uL Hgb (13.0-17.5) gm/dL Hct (39.0-53.0) % MCV (80.0-100.0) fL Neutrophils # (1.3-7.7) k/uL Lymphocytes # (1.0-4.8) k/uL ABG pCO2 (35-45) mmHg ABG pO2 (83-108) mmHg Potassium 3.4 L (3.5-5.1) mmol/L Chloride (98-107) mmol/L Carbon Dioxide (22-30) mmol/L BUN (9-20) mg/dL Glucose (74-99) mg/dL POC Glucose (mg/dL) (75-99) mg/dL Calcium (8.4-10.2) mg/dL Phosphorus (2.5-4.5) mg/dL Microbiology - Last 24 Hours (Table) 12/05/17 15:15 Blood Culture - Preliminary Blood No Growth after 72 hours 12/08/17 01:21 Gram Stain - Preliminary Sputum Sputum Culture - Preliminary 03/01/18 13:50 Blood Culture - Preliminary Blood No Growth after 72 hours Assessment and Plan Plan: ASSESSMENT: Acute hypoxic respiratory failure requiring mechanical ventilation secondary to left lung pneumonia Intractable nausea and vomiting with abdominal distention, possible gastroenteritis as multiple family members have had gastroenteritis this week, ileus and obstruction ruled out Hypoglycemia, secondary to vomiting and decreased oral intake, improved with supplemental feeding Leukocytosis and elevated lactic acid, may be secondary to vomiting and dehydration and left lung pneumonia Coronary artery disease with multiple stent placements and CABG Bilateral below the 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 Lam Family is wishing to extubate patient as patients wishes were not to be on a ventilator Patient is a DNR Home meds as appropriate Monitor labs Monitor vital signs and address as appropriate Further recommendations pending patient's course Nurse practitioner note has been reviewed by physician. Signing provider agrees with the documented findings, assessment, and plan of care.
[2017-12-09] MEDS: INSULIN REGULAR 100 UNIT in SODIUM CHLORIDE 0.9% 100 ML IV SCH (15:46)
[2017-12-09 15:47] LABS: Glucose,Whole Blood 131 mg/dL (75-99)
[2017-12-09] MEDS ORDERED: POTASSIUM CHLORIDE ER 20 MEQ TAB.ER PO STA (15:57)
[2017-12-09] MEDS: CARVEDILOL 6.25 MG TAB PO SCH (17:02)
[2017-12-09 17:13] LABS: Glucose,Whole Blood 100 mg/dL (75-99)
[2017-12-09 18:05] LABS: Glucose,Whole Blood 152 mg/dL (75-99)
[2017-12-09 19:29] LABS: Glucose,Whole Blood 146 mg/dL (75-99)
[2017-12-09] MEDS: ATORVASTATIN 40 MG TAB PO SCH (21:02)
[2017-12-09 21:15] LABS: Glucose,Whole Blood 129 mg/dL (75-99)
[2017-12-09 22:30] LABS: Glucose,Whole Blood 165 mg/dL (75-99)
--- NOTE | 2017-12-09 23:02 | PN ---
PROGRESS NOTE DATE OF SERVICE: 12/09/2017. REASON FOR FOLLOWUP: Aspiration pneumonia. INTERVAL HISTORY: The patient is afebrile. He was extubated this morning. Hemodynamically stable. Not on any pressor support. No nausea, no vomiting or any diarrhea. EXAMINATION: Blood pressure 116/69 with a pulse of 100, temperature 97.9, he is 92% on 50% Ventimask. GENERAL DESCRIPTION: An elderly male lying in bed in no distress. Respiratory system, unlabored breathing. Some coarse breath sounds in the bases. No wheeze. Heart S1, S2. Regular rate and rhythm. Abdomen soft no tenderness. LABS: Hemoglobin 12.2, white count of 12.2. BUN is 27, creatinine 0.70. Sputum culture currently pending. Blood culture so far negative. DIAGNOSTIC IMPRESSION AND PLAN: Patient with acute dependent respiratory failure which is likely multifactorial, possible component of pneumonia aspiration in etiology. Currently covered with broad- spectrum antibiotics in the form of cefepime and vanc because of his PENICILLIN ALLERGY. That will be continued, adjusting it further based on the cultures. Continue supportive care. MMODL / IJN: [id number] /
[2017-12-10 00:18] LABS: Glucose,Whole Blood 143 mg/dL (75-99)
[2017-12-10] MEDS: IPRATROPIUM-ALBUTEROL 3 ML NEB INHALATION SCH ×6 (00:20→19:08)
[2017-12-10] MEDS: metroNIDAZOLE-NS PMX 500 MG in SALINE 1 100ML.BAG IVPB SCH ×4 (00:39→23:59)
[2017-12-10 02:08] LABS: Glucose,Whole Blood 130 mg/dL (75-99)
[2017-12-10 03:56] LABS: Glucose,Whole Blood 203 mg/dL (75-99)
[2017-12-10] MEDS ORDERED: FUROSEMIDE 10 MG/ML 2 ML VIAL IV STA (05:56)
[2017-12-10] MEDS ORDERED: SODIUM CHLORIDE 0.9% 1,000 ML IV SCH (06:00)
[2017-12-10] MEDS ORDERED: FUROSEMIDE 10 MG/ML 4 ML VIAL ONE ×2 (06:01→19:22)
[2017-12-10] MEDS: methylPREDNISolone SOD SUCCI 125 MG/2 ML VIAL IV SCH (06:05)
[2017-12-10] MEDS: CARVEDILOL 6.25 MG TAB PO SCH ×2 (06:05→17:31)
[2017-12-10] MEDS: amLODIPine 5 MG TAB PO SCH ×2 (06:05→17:31)
[2017-12-10 06:16] LABS: Glucose,Whole Blood 161 mg/dL (75-99)
[2017-12-10 07:57] LABS: Glucose,Whole Blood 143 mg/dL (75-99)
[2017-12-10] MEDS: CEFEPIME 2 GM in SODIUM CHLORIDE 0.9% 50 ML IVPB SCH ×2 (07:57→20:02)
[2017-12-10 07:58] LABS: Basophils # (A) 0.1 k/uL (0-0.2); Basophils % (A) 0 %; Eosinophils % (A) 0 %; HCT 41.1 % (39.0-53.0); HGB 13.2 gm/dL (13.0-17.5); Hypochromasia Slight; Lymphocytes # (A) 0.4 k/uL (1.0-4.8); Lymphocytes % (A) 3 %; MCH 32.9 pg (25.0-35.0); MCHC 32.2 g/dL (31.0-37.0); MCV 102.1 fL (80.0-100.0); Macrocytosis Slight; Monocytes # (A) 0.7 k/uL (0-1.0); Monocytes % (A) 5 %; Neutrophils # (A) 12.2 k/uL (1.3-7.7); Neutrophils % (A) 90 %; Platelet Count 206 k/uL (150-450); RBC 4.02 m/uL (4.30-5.90); RDW 14.5 % (11.5-15.5); WBC 13.6 k/uL (3.8-10.6)
[2017-12-10] MEDS ORDERED: VANCOMYCIN TROUGH DUE 1 EACH MISC MISCELLANE ONE (08:00)
[2017-12-10] MEDS: CHLORHEXIDINE GLUCONATE 15 ML CUP MUCOUS MEM SCH ×2 (08:06→19:56)
[2017-12-10] MEDS: ASPIRIN 81 MG PO SCH (08:06)
[2017-12-10] MEDS: BACLOFEN 10 MG TAB PO SCH ×3 (08:06→21:05)
[2017-12-10] MEDS: LISINOPRIL 20 MG TAB PO SCH ×2 (08:07→21:05)
[2017-12-10] MEDS: HEPARIN SODIUM,PORCINE 5,000 UNIT/ML 1 ML VIAL SQ SCH ×2 (08:07→15:29)
[2017-12-10] MEDS: PANTOPRAZOLE 40 MG/10 ML VIAL IV SCH (08:07)
[2017-12-10] MEDS: NITROGLYCERIN OINT 1 INCH/GM PACKET TOPICAL SCH ×3 (08:15→23:59)
[2017-12-10 08:18] LABS: Anion Gap 9 mmol/L; Blood Urea Nitrogen 29 mg/dL (9-20); Calcium 7.6 mg/dL (8.4-10.2); Carbon Dioxide 21 mmol/L (22-30); Chloride 116 mmol/L (98-107); Glucose 149 mg/dL (74-99); Magnesium 1.9 mg/dL (1.6-2.3); Sodium 146 mmol/L (137-145)
[2017-12-10 08:43] LABS: Potassium 4.3 mmol/L (3.5-5.1)
[2017-12-10] MEDS: VANCOMYCIN 1,750 MG in SODIUM CHLORIDE 0.9% 250 ML IVPB SCH (09:53)
[2017-12-10 10:03] LABS: Glucose,Whole Blood 123 mg/dL (75-99)
--- NOTE | 2017-12-10 11:13 | P.PN ---
Subjective Progress Note Date: 12/10/17 A 77-year-old male patient, quite debilitated with multiple medical problems and comorbidities including coronary artery disease, bilateral above-knee amputation, diabetes mellitus, COPD, hypertension, hyperlipidemia, and peripheral vascular disease. The patient came into the hospital because of generalized weakness and respiratory distress. The patient had an extensive left lung pneumonia. Subsequently the patient went into respiratory failure. Apparently the patient had a D and I CODE STATUS. He never wanted to be intubated or placed on a mechanical ventilator. On the emergency conditions, the patient was intubated and the patient got moved to the intensive care unit. This morning, the patient is awake and alert. He is off sedation. He is still intubated. The chest x-ray showing clearing of the left lung pneumonia. The patient is a combination of cefepime and Flagyl and vancomycin. He is afebrile hemodynamically stable. I was able to cut down the PEEP down to 5 and drop the FiO2 down to 40%. Family came to the bedside. With a lengthy discussion with the family and they are very clear that the patient never want to be intubated and they insisted on extubating him and let nature take its course. I think the patient may fair well knowing that he has adequate clearing of the left lung pneumonia. He remains in sinus rhythm with multiple PACs. The patient is afebrile. On 12/10/2017 I'm seeing this patient for a follow-up. As mentioned earlier the patient was being treated for a left lung pneumonia and acute respiratory failure requiring intubation mechanical ventilation. The patient was improving and upon the family's request the patient was extubated yesterday. Currently he is doing well. He is on the medical floor with telemetry. He is on 18th of oxygen by nasal cannula. He has a congested cough. No significant sputum production. He is taking some oral intake including some soft pudding. No fever. No chills. He remains on the same antibiotic coverage and the patient is on a combination of IV cefepime and Flagyl and vancomycin. He is on IV Solu Medrol which will be obviously tapered. His mental status is appropriate. He is following simple commands and answering questions. Final sputum sample that was collected in the intensive care unit while the patient was a intubated was negative. The blood cultures also negative. The white cell count from today 13.6. Hemoglobin stable at 13.2. Rest of the blood work shows no significant abnormalities. Objective - Vital Signs Vital signs: Vital Signs Temp 97.3 F L 12/10/17 07:44 Pulse 96 12/10/17 08:14 Resp 20 12/10/17 07:47 BP 179/85 12/10/17 07:44 Pulse Ox 91 L 12/10/17 07:44 Intake & Output 12/09/17 12/10/17 12/10/17 18:59 06:59 18:59 Intake Total 1740.000 33.041 134.257 Output Total 330 1200 850 Balance 1410.000 -1166.959 -715.743 Weight 101 kg Intake: IV 1000 0.9 Nacl 900 metroNIDAZOLE-NS PMX 500 100 mg In Saline 1 100ml.bag @ 100 mls/hr IVPB Q8HR JAMES Rx#:[id number] Intake, IV Titration 395.000 33.041 14.257 Amount Cefepime 2 gm In Sodium 50 Chloride 0.9% 50 ml @ 100 mls/hr IVPB Q12HR JAMES Rx #:[id number] Insulin Regular 100 unit 12.517 33.041 14.257 In Sodium Chloride 0.9% 100 ml @ Per Protocol IV .Q0M JAMES Rx#:[id number] Propofol 1,000 mg In 82.483 Empty Bag 1 bag @ Titrate IV .Q0M JAMES Rx#: [id number] Vancomycin 1,750 mg In 250 Sodium Chloride 0.9% 250 ml @ 125 mls/hr IVPB BID JAMES Rx#:[id number] Oral 120 Tube Feeding 225 Other 120 Output: Urine 330 1200 850 Straight 750 Other: Voiding Method Indwelling Catheter # Voids 2 # Bowel Movements 5 - Exam No acute distress. Patient is awake and alert. The patient is on 8 L of oxygen high flow. No apparent respirator distress. Communicating. Conversing.. HEENT examination is grossly unremarkable. Mucous membranes are moist. Neck supple. Full range of motion. No adenopathy thyromegaly or neck vein distention. Cardiovascular examination reveals regular rhythm rate. S1-S2 normal. No S3 or S4. No discernible murmur noted. Lungs reveal coarse rhonchi. Breath sounds are diminished. Breath sounds are equal bilaterally. Some crackles are noted. Abdomen soft bowel sounds are heard. No masses or tenderness. Extremities reveal bilateral below knee amputations. Skin is without rash or lesion. Neurologic awake and moving upper extremities and there is no focal neurological deficits. - Labs CBC & Chem 7: 12/10/17 07:38 12/10/17 07:38 Labs: Abnormal Lab Results - Last 24 Hours (Table) 12/09/17 12/09/17 12/09/17 Range/Units 11:12 12:25 15:45 WBC (3.8-10.6) k/uL RBC (4.30-5.90) m/uL MCV (80.0-100.0) fL Neutrophils # (1.3-7.7) k/uL Lymphocytes # (1.0-4.8) k/uL Sodium (137-145) mmol/L Potassium 3.4 L (3.5-5.1) mmol/L Chloride (98-107) mmol/L Carbon Dioxide (22-30) mmol/L BUN (9-20) mg/dL Glucose (74-99) mg/dL POC Glucose (mg/dL) 172 H 131 H (75-99) mg/dL Calcium (8.4-10.2) mg/dL 12/09/17 12/09/17 12/09/17 Range/Units 17:10 18:02 19:17 WBC (3.8-10.6) k/uL RBC (4.30-5.90) m/uL MCV (80.0-100.0) fL Neutrophils # (1.3-7.7) k/uL Lymphocytes # (1.0-4.8) k/uL Sodium (137-145) mmol/L Potassium (3.5-5.1) mmol/L Chloride (98-107) mmol/L Carbon Dioxide (22-30) mmol/L BUN (9-20) mg/dL Glucose (74-99) mg/dL POC Glucose (mg/dL) 100 H 152 H 146 H (75-99) mg/dL Calcium (8.4-10.2) mg/dL 12/09/17 12/09/17 12/10/17 Range/Units 21:07 22:10 00:11 WBC (3.8-10.6) k/uL RBC (4.30-5.90) m/uL MCV (80.0-100.0) fL Neutrophils # (1.3-7.7) k/uL Lymphocytes # (1.0-4.8) k/uL Sodium (137-145) mmol/L Potassium (3.5-5.1) mmol/L Chloride (98-107) mmol/L Carbon Dioxide (22-30) mmol/L BUN (9-20) mg/dL Glucose (74-99) mg/dL POC Glucose (mg/dL) 129 H 165 H 143 H (75-99) mg/dL Calcium (8.4-10.2) mg/dL 12/10/17 12/10/17 12/10/17 Range/Units 02:03 03:55 06:08 WBC (3.8-10.6) k/uL RBC (4.30-5.90) m/uL MCV (80.0-100.0) fL Neutrophils # (1.3-7.7) k/uL Lymphocytes # (1.0-4.8) k/uL Sodium (137-145) mmol/L Potassium (3.5-5.1) mmol/L Chloride (98-107) mmol/L Carbon Dioxide (22-30) mmol/L BUN (9-20) mg/dL Glucose (74-99) mg/dL POC Glucose (mg/dL) 130 H 203 H 161 H (75-99) mg/dL Calcium (8.4-10.2) mg/dL 12/10/17 12/10/17 12/10/17 Range/Units 07:38 07:38 07:53 WBC 13.6 H (3.8-10.6) k/uL RBC 4.02 L (4.30-5.90) m/uL MCV 102.1 H (80.0-100.0) fL Neutrophils # 12.2 H (1.3-7.7) k/uL Lymphocytes # 0.4 L (1.0-4.8) k/uL Sodium 146 H (137-145) mmol/L Potassium (3.5-5.1) mmol/L Chloride 116 H (98-107) mmol/L Carbon Dioxide 21 L (22-30) mmol/L BUN 29 H (9-20) mg/dL Glucose 149 H (74-99) mg/dL POC Glucose (mg/dL) 143 H (75-99) mg/dL Calcium 7.6 L (8.4-10.2) mg/dL 12/10/17 Range/Units 09:50 WBC (3.8-10.6) k/uL RBC (4.30-5.90) m/uL MCV (80.0-100.0) fL Neutrophils # (1.3-7.7) k/uL Lymphocytes # (1.0-4.8) k/uL Sodium (137-145) mmol/L Potassium (3.5-5.1) mmol/L Chloride (98-107) mmol/L Carbon Dioxide (22-30) mmol/L BUN (9-20) mg/dL Glucose (74-99) mg/dL POC Glucose (mg/dL) 123 H (75-99) mg/dL Calcium (8.4-10.2) mg/dL Microbiology - Last 24 Hours (Table) 12/08/17 01:21 Gram Stain - Final Sputum Sputum Culture - Final 12/05/17 15:15 Blood Culture - Preliminary Blood No Growth after 96 hours 12/05/17 13:50 Blood Culture - Preliminary Blood No Growth after 96 hours Assessment and Plan Plan: Assessment 1 acute left lung pneumonia with secondary acute hypoxic respiratory failure, intubation mechanical ventilation. The patient has a DNR/DNI CODE STATUS. The patient was extubated yesterday and today he is on 8 L high flow oxygen to maintain a saturation above 90%. No apparent respiratory distress. He has a decent cough. He is covered with triple antibiotic coverage including a combination of cefepime, Flagyl and vancomycin. No fever. No chills no significant leukocytosis. 2 History of CAD with previous bypass grafting 3 COPD by history 4 Diabetes mellitus by history 5 History of peripheral vascular occlusive disease, with bilateral lower extremity amputations 6 History of myocardial infarction 7 History of hypertension 8 history of hyperlipidemia 9 Multiple vascular procedures Plan Continue same antibiotic coverage. Wean down the FiO2 as tolerated to maintain a saturation above 90%. Repeat chest x-ray in the morning. Advance diet as tolerated. He remains a DNR/DNI CODE STATUS. We'll continue to follow make further recommendations based on his overall progress. The Solu-Medrol will be tapered to 40 mg every 12 hours. Continue the bronchodilators.
[2017-12-10] MEDS: CHOLECALCIFEROL 1,000 UNIT TAB PO SCH (11:18)
--- NOTE | 2017-12-10 11:36 | P.PN ---
Subjective Progress Note Date: 12/10/17 77-year-old male who presented to the emergency room with a chief complaint of vomiting 24 hours and generalized weakness. Patient denied shortness of breath or coughing. Denies chest pain or pressure. Denies diarrhea or constipation. Denies fever or chills. Family member at the bedside states that multiple family members have had gastroenteritis this week. The patient has a history of coronary artery disease, chronic objective pulmonary disease, diabetes mellitus, hyperlipidemia, hypertension, myocardial infarction with multiple stents, CABG, bilateral below the knee amputations, bilateral carotid enterectomy, and anxiety. He is a former cigarette smoker. Chest x-ray 12/05/2017: no acute abnormalities Chest x-ray 12/06/2017: Whitley chronic changes without acute pulmonary process. No significant change from prior exam Laboratory data: WBC 15.1. Hemoglobin 15.7. Platelet count 236. Sodium 143. Potassium 4.1. BUN 23. Creatinine 0.98. Glucose 52. Lactic acid: 2.8 Testing for influenza A and B was negative Urinalysis reveals: cloudy yellow urine, 1+ proteinuria, trace ketones with 32 hyaline casts, occasional mucus and sediment The patient was admitted to the hospital under the care of Dr. Arrington. Consultations were placed to Dr. Roche. 12/07/2017-Notes per covering provider 12/08/2017-Notes per covering provider 12/09/2017 Patient seen and examined at the bedside on rounds with Dr. Arrington. The patient went into respiratory distress and was intubated on 12/06/2017. He remains intubated in the intensive care unit. Chest x-ray from this morning reveals persistent retrocardiac opacity and patchy left perihilar opacity that may represent atelectasis or pneumonia and persistent trace pleural effusions. Infectious disease remains on consult. The patient is currently receiving cefepime, Flagyl, and vancomycin. Patient is a DNR and family is requesting to extubate patient. 12/10/2017 Patient seen and examined at the bedside. Family at the bedside. Patient was extubated yesterday and transferred to selective care unit. Patient remains DO NOT RESUSCITATE. Patient is on 8 L high flow nasal cannula. Oxygen saturation 91%. Patient remains on IV steroids per pulmonology. Dose decreased to 40 mg every 12 hours. Patient has been on an insulin drip secondary to hyperglycemia. Most recent blood sugar is 123. Previous glucose is 143. Patient did receive a dose of IV Lasix this morning per Dr. Arrington. Patient states he has been diuresing well. Patient is tolerating a full liquid diet and requesting his diet to be advanced. Patient also is requesting medication for insomnia tonight. Objective - Vital Signs Vital signs: Vital Signs Temp 97.3 F L 12/10/17 11:13 Pulse 92 12/10/17 11:13 Resp 18 12/10/17 11:13 BP 151/67 12/10/17 11:13 Pulse Ox 91 L 12/10/17 11:13 Intake & Output 12/09/17 12/10/17 12/10/17 18:59 06:59 18:59 Intake Total 1740.000 33.041 134.257 Output Total 330 1200 850 Balance 1410.000 -1166.959 -715.743 Weight 101 kg 101 kg Intake: IV 1000 0.9 Nacl 900 metroNIDAZOLE-NS PMX 500 100 mg In Saline 1 100ml.bag @ 100 mls/hr IVPB Q8HR JAMES Rx#:[id number] Intake, IV Titration 395.000 33.041 14.257 Amount Cefepime 2 gm In Sodium 50 Chloride 0.9% 50 ml @ 100 mls/hr IVPB Q12HR JAMES Rx #:[id number] Insulin Regular 100 unit 12.517 33.041 14.257 In Sodium Chloride 0.9% 100 ml @ Per Protocol IV .Q0M JAMES Rx#:[id number] Propofol 1,000 mg In 82.483 Empty Bag 1 bag @ Titrate IV .Q0M JAMES Rx#: [id number] Vancomycin 1,750 mg In 250 Sodium Chloride 0.9% 250 ml @ 125 mls/hr IVPB BID JAMES Rx#:[id number] Oral 120 Tube Feeding 225 Other 120 Output: Urine 330 1200 850 Straight 750 Other: Voiding Method Indwelling Catheter # Voids 2 # Bowel Movements 5 - Exam GENERAL: This is a 77-year-old male who appears in no acute distress. HEENT: Head is atraumatic, normocephalic. Pupils are equal, round, and reactive to light. Sclerae anicteric. Conjunctivae are clear. Mucus membranes of the mouth are moist. Neck is supple. RESPIRATORY: Lungs coarse throughout with scattered rhonchi. Rales present to bilateral bases. Patient remains on 8 L high flow nasal cannula with oxygen saturations around 90-92%. CARDIOVASCULAR: Regular rate and rhythm. S1 and S2 noted. No systolic or diastolic murmur auscultated. No JVD noted. No S3 or S4 noted. GASTROINTESTINAL: No distention noted. Abdomen soft and round. Normal active bowel sounds auscultated x 4 quadrants. No pain or tenderness noted upon palpation. INTEGUMENTARY: No cyanosis. No jaundice. No rashes noted. No cellulitis noted. EXTREMITIES: Patient with bilateral [id number]-[id number] amputations NEUROLOGIC: Cranial nerves intact. No deficits noted. PSYCHIATRIC: Patient is alert and oriented 2. Patient confused at times but reorients well. Affect appropriate. - Labs CBC & Chem 7: 12/10/17 07:38 12/10/17 07:38 Labs: Abnormal Lab Results - Last 24 Hours (Table) 12/09/17 12/09/17 12/09/17 Range/Units 11:12 12:25 15:45 WBC (3.8-10.6) k/uL RBC (4.30-5.90) m/uL MCV (80.0-100.0) fL Neutrophils # (1.3-7.7) k/uL Lymphocytes # (1.0-4.8) k/uL Sodium (137-145) mmol/L Potassium 3.4 L (3.5-5.1) mmol/L Chloride (98-107) mmol/L Carbon Dioxide (22-30) mmol/L BUN (9-20) mg/dL Glucose (74-99) mg/dL POC Glucose (mg/dL) 172 H 131 H (75-99) mg/dL Calcium (8.4-10.2) mg/dL 12/09/17 12/09/17 12/09/17 Range/Units 17:10 18:02 19:17 WBC (3.8-10.6) k/uL RBC (4.30-5.90) m/uL MCV (80.0-100.0) fL Neutrophils # (1.3-7.7) k/uL Lymphocytes # (1.0-4.8) k/uL Sodium (137-145) mmol/L Potassium (3.5-5.1) mmol/L Chloride (98-107) mmol/L Carbon Dioxide (22-30) mmol/L BUN (9-20) mg/dL Glucose (74-99) mg/dL POC Glucose (mg/dL) 100 H 152 H 146 H (75-99) mg/dL Calcium (8.4-10.2) mg/dL 12/09/17 12/09/17 12/10/17 Range/Units 21:07 22:10 00:11 WBC (3.8-10.6) k/uL RBC (4.30-5.90) m/uL MCV (80.0-100.0) fL Neutrophils # (1.3-7.7) k/uL Lymphocytes # (1.0-4.8) k/uL Sodium (137-145) mmol/L Potassium (3.5-5.1) mmol/L Chloride (98-107) mmol/L Carbon Dioxide (22-30) mmol/L BUN (9-20) mg/dL Glucose (74-99) mg/dL POC Glucose (mg/dL) 129 H 165 H 143 H (75-99) mg/dL Calcium (8.4-10.2) mg/dL 12/10/17 12/10/17 12/10/17 Range/Units 02:03 03:55 06:08 WBC (3.8-10.6) k/uL RBC (4.30-5.90) m/uL MCV (80.0-100.0) fL Neutrophils # (1.3-7.7) k/uL Lymphocytes # (1.0-4.8) k/uL Sodium (137-145) mmol/L Potassium (3.5-5.1) mmol/L Chloride (98-107) mmol/L Carbon Dioxide (22-30) mmol/L BUN (9-20) mg/dL Glucose (74-99) mg/dL POC Glucose (mg/dL) 130 H 203 H 161 H (75-99) mg/dL Calcium (8.4-10.2) mg/dL 12/10/17 12/10/17 12/10/17 Range/Units 07:38 07:38 07:53 WBC 13.6 H (3.8-10.6) k/uL RBC 4.02 L (4.30-5.90) m/uL MCV 102.1 H (80.0-100.0) fL Neutrophils # 12.2 H (1.3-7.7) k/uL Lymphocytes # 0.4 L (1.0-4.8) k/uL Sodium 146 H (137-145) mmol/L Potassium (3.5-5.1) mmol/L Chloride 116 H (98-107) mmol/L Carbon Dioxide 21 L (22-30) mmol/L BUN 29 H (9-20) mg/dL Glucose 149 H (74-99) mg/dL POC Glucose (mg/dL) 143 H (75-99) mg/dL Calcium 7.6 L (8.4-10.2) mg/dL 12/10/17 Range/Units 09:50 WBC (3.8-10.6) k/uL RBC (4.30-5.90) m/uL MCV (80.0-100.0) fL Neutrophils # (1.3-7.7) k/uL Lymphocytes # (1.0-4.8) k/uL Sodium (137-145) mmol/L Potassium (3.5-5.1) mmol/L Chloride (98-107) mmol/L Carbon Dioxide (22-30) mmol/L BUN (9-20) mg/dL Glucose (74-99) mg/dL POC Glucose (mg/dL) 123 H (75-99) mg/dL Calcium (8.4-10.2) mg/dL Microbiology - Last 24 Hours (Table) 12/08/17 01:21 Gram Stain - Final Sputum Sputum Culture - Final 12/05/17 15:15 Blood Culture - Preliminary Blood No Growth after 96 hours 12/05/17 13:50 Blood Culture - Preliminary Blood No Growth after 96 hours Assessment and Plan Plan: ASSESSMENT: Acute hypoxic respiratory failure requiring mechanical ventilation secondary to left lung pneumonia, s/p extubation on 12/09/2017 Intractable nausea and vomiting with abdominal distention, possible gastroenteritis as multiple family members have had gastroenteritis this week, ileus and obstruction ruled out, resolved Hypoglycemia, secondary to vomiting and decreased oral intake, resolved Leukocytosis and elevated lactic acid, may be secondary to vomiting and dehydration and left lung pneumonia Coronary artery disease with multiple stent placements and CABG Bilateral below the knee amputations secondary to vascular disease Diabetes mellitus, type II, hemoglobin A1c 6.4% History of bilateral carotid endarterectomy Chronic obstructive coronary disease, no evidence of acute exacerbation Essential hypertension Hyperlipidemia Anxiety, unspecified History of nicotine dependence, in remission, patient quit smoking in 2008 PLAN: Pulmonology on consult. Appreciate recommendations and input Continue IV steroids. Dose has been decreased to 40 mg every 12 hours Infectious disease on consult. Appreciate recommendations and input Antibiotic regimen per ID: Patient currently on Flagyl and cefepime Discontinue insulin drip Blood glucose Accu-Cheks before meals and at bedtime NovoLog sliding scale coverage before meals and at bedtime Resume patient's home dose of 70/30 insulin 55 units twice a day Advance diet to consistent carbohydrate and heart healthy Accurate I&O Repeat chest x-ray in a.m. Restoril 15 mg PRN at bedtime for insomnia per Dr. Arrington Patient is a DNR Home meds as appropriate GI prophylaxis: Protonix 40 mg PO daily DVT prophylaxis: Heparin 5000 units subcu every 8 hours Monitor labs Monitor vital signs and address as appropriate Further recommendations pending patient's course Nurse practitioner note has been reviewed by physician. Signing provider agrees with the documented findings, assessment, and plan of care.
[2017-12-10 12:10] LABS: Glucose,Whole Blood 159 mg/dL (75-99)
[2017-12-10] MEDS: INSULIN ASPART 100 UNIT/ML 1 ML 10 ML VIAL SQ SCH ×3 (12:47→21:07)
--- NOTE | 2017-12-10 15:22 | P.PN ---
Subjective Progress Note Date: 12/10/17 Principal diagnosis: Weakness, respiratory failure, pneumonia This is a 77-year-old male who apparently presented to the emergency department on December 05 with generalized weakness. Patient has a history of COPD, diabetes, hyperlipidemia, hypertension, peripheral vascular disease, coronary artery disease with prior bypass surgery and prior stent placement, bilateral below the knee amputations, bilateral carotid endarterectomies, fem-pop bypass. Prior to admission to the hospital,he apparently been vomiting all day. He was feeling weak all over. The patient was also complaining of low back pain. Patient apparently had gone into respiratory distress, the chest x-ray revealed a new infiltrate in the left midlung. Patient is currently receiving treatment for pneumonia. Neurologic consultation was initially requested because of abnormal troponin values. Echocardiogram with Doppler study was performed which revealed an ejection fraction of 55-60%. Upon review of the patient's rhythm strips it does appear that he had 1 episode of atrial fibrillation, we will not initiate anticoagulation unless the patient has any further episodes. Objective - Vital Signs Vital signs: Vital Signs Temp 97.3 F L 12/10/17 11:13 Pulse 92 12/10/17 12:00 Resp 18 12/10/17 12:00 BP 151/67 12/10/17 11:13 Pulse Ox 91 L 12/10/17 11:13 Intake & Output 12/09/17 12/10/17 12/10/17 18:59 06:59 18:59 Intake Total 1740.000 33.041 374.257 Output Total 330 1200 850 Balance 1410.000 -1166.959 -475.743 Weight 101 kg 101 kg Intake: IV 1000 0.9 Nacl 900 metroNIDAZOLE-NS PMX 500 100 mg In Saline 1 100ml.bag @ 100 mls/hr IVPB Q8HR JAMES Rx#:[id number] Intake, IV Titration 395.000 33.041 14.257 Amount Cefepime 2 gm In Sodium 50 Chloride 0.9% 50 ml @ 100 mls/hr IVPB Q12HR JAMES Rx #:[id number] Insulin Regular 100 unit 12.517 33.041 14.257 In Sodium Chloride 0.9% 100 ml @ Per Protocol IV .Q0M JAMES Rx#:[id number] Propofol 1,000 mg In 82.483 Empty Bag 1 bag @ Titrate IV .Q0M JAMES Rx#: [id number] Vancomycin 1,750 mg In 250 Sodium Chloride 0.9% 250 ml @ 125 mls/hr IVPB BID JAMES Rx#:[id number] Oral 360 Tube Feeding 225 Other 120 Output: Urine 330 1200 850 Straight 750 Other: Voiding Method Indwelling Catheter Indwelling Catheter # Voids 2 # Bowel Movements 5 - Exam No acute distress. The patient is now sedated, and has orally placed endotracheal tube and NG tube. HEENT examination is grossly unremarkable. Mucous membranes are moist. Neck supple. Full range of motion. No adenopathy thyromegaly or neck vein distention. Cardiovascular examination reveals regular rhythm rate. S1-S2 normal. No S3 or S4. No discernible murmur noted. Lungs reveal coarse rhonchi. Breath sounds are diminished. Breath sounds are equal bilaterally. Some crackles are noted. Abdomen soft bowel sounds are heard. No masses or tenderness. Extremities reveal bilateral below knee amputations. Skin is without rash or lesion. Neurologic examination could not be assessed as the patient's currently sedated. - Labs CBC & Chem 7: 12/10/17 07:38 12/10/17 07:38 Labs: Abnormal Lab Results - Last 24 Hours (Table) 12/09/17 12/09/17 12/09/17 Range/Units 15:45 17:10 18:02 WBC (3.8-10.6) k/uL RBC (4.30-5.90) m/uL MCV (80.0-100.0) fL Neutrophils # (1.3-7.7) k/uL Lymphocytes # (1.0-4.8) k/uL Sodium (137-145) mmol/L Chloride (98-107) mmol/L Carbon Dioxide (22-30) mmol/L BUN (9-20) mg/dL Glucose (74-99) mg/dL POC Glucose (mg/dL) 131 H 100 H 152 H (75-99) mg/dL Calcium (8.4-10.2) mg/dL 12/09/17 12/09/17 12/09/17 Range/Units 19:17 21:07 22:10 WBC (3.8-10.6) k/uL RBC (4.30-5.90) m/uL MCV (80.0-100.0) fL Neutrophils # (1.3-7.7) k/uL Lymphocytes # (1.0-4.8) k/uL Sodium (137-145) mmol/L Chloride (98-107) mmol/L Carbon Dioxide (22-30) mmol/L BUN (9-20) mg/dL Glucose (74-99) mg/dL POC Glucose (mg/dL) 146 H 129 H 165 H (75-99) mg/dL Calcium (8.4-10.2) mg/dL 12/10/17 12/10/17 12/10/17 Range/Units 00:11 02:03 03:55 WBC (3.8-10.6) k/uL RBC (4.30-5.90) m/uL MCV (80.0-100.0) fL Neutrophils # (1.3-7.7) k/uL Lymphocytes # (1.0-4.8) k/uL Sodium (137-145) mmol/L Chloride (98-107) mmol/L Carbon Dioxide (22-30) mmol/L BUN (9-20) mg/dL Glucose (74-99) mg/dL POC Glucose (mg/dL) 143 H 130 H 203 H (75-99) mg/dL Calcium (8.4-10.2) mg/dL 12/10/17 12/10/17 12/10/17 Range/Units 06:08 07:38 07:38 WBC 13.6 H (3.8-10.6) k/uL RBC 4.02 L (4.30-5.90) m/uL MCV 102.1 H (80.0-100.0) fL Neutrophils # 12.2 H (1.3-7.7) k/uL Lymphocytes # 0.4 L (1.0-4.8) k/uL Sodium 146 H (137-145) mmol/L Chloride 116 H (98-107) mmol/L Carbon Dioxide 21 L (22-30) mmol/L BUN 29 H (9-20) mg/dL Glucose 149 H (74-99) mg/dL POC Glucose (mg/dL) 161 H (75-99) mg/dL Calcium 7.6 L (8.4-10.2) mg/dL 12/10/17 12/10/17 12/10/17 Range/Units 07:53 09:50 11:59 WBC (3.8-10.6) k/uL RBC (4.30-5.90) m/uL MCV (80.0-100.0) fL Neutrophils # (1.3-7.7) k/uL Lymphocytes # (1.0-4.8) k/uL Sodium (137-145) mmol/L Chloride (98-107) mmol/L Carbon Dioxide (22-30) mmol/L BUN (9-20) mg/dL Glucose (74-99) mg/dL POC Glucose (mg/dL) 143 H 123 H 159 H (75-99) mg/dL Calcium (8.4-10.2) mg/dL Microbiology - Last 24 Hours (Table) 12/08/17 01:21 Gram Stain - Final Sputum Sputum Culture - Final 12/05/17 15:15 Blood Culture - Preliminary Blood No Growth after 96 hours 12/05/17 13:50 Blood Culture - Preliminary Blood No Growth after 96 hours Assessment and Plan Plan: Assessment Hypoxemic respiratory failure, possibly secondary to aspiration. New infiltrate, representing pneumonia, and the left midlung History of CAD with previous bypass grafting and stent placement COPD by history Diabetes mellitus by history History of peripheral vascular occlusive disease History of myocardial infarction History of hypertension History of hyperlipidemia Multiple vascular procedures Abnormal troponins, not consistent with acute coronary syndrome. Echo revealed normal left ventricular systolic function. Plan Cardiology's perspective, we'll follow this patient with you now on an as- needed basis only, please don't hesitate to call with any questions. We will not initiate anticoagulation as the patient only had 1 episode of atrial fibrillation. If he does have further episodes of A. fib we may consider anticoagulation at that time. Please don't hesitate to call us with any questions. DNP note has been reviewed, I agree with a documented findings and plan of care. Patient was seen and examined.
[2017-12-10] MEDS ORDERED: methylPREDNISolone SOD SUCCI 125 MG/2 ML VIAL IV SCH (16:00)
[2017-12-10 16:44] LABS: Glucose,Whole Blood 241 mg/dL (75-99)
[2017-12-10] MEDS: INSULIN NPH/REG INSULIN 70/30 300 UNIT/3 ML VIAL SQ SCH (17:30)
[2017-12-10] MEDS ORDERED: FUROSEMIDE 10 MG/ML 4 ML VIAL IV STA (19:21)
--- NOTE | 2017-12-10 20:02 | XR ---
EXAMINATION: XR chest 1V portable DATE AND TIME: 12/10/2017 7:36 PM ORDERING PROVIDER: Markell Lam CLINICAL INDICATION: LAMINE TECHNIQUE: AP upright portable COMPARISON: 12/09/2017 6:21 AM DESCRIPTION: Since the prior study the patient has been extubated and the NG tube is been removed. Sternal sutures and mediastinal clips and EKG leads are noted. The right lung appears clear and the right pleural space is negative. The left pleural space is negative for pneumothorax, but appears positive for pleural effusion depend ently. The left mid and lower lung zone shows partial airlessness, reasonably representing multifocal atelectasis. Mediastinum is midline. IMPRESSION: POST EXTUBATION.
[2017-12-10 20:14] LABS: Glucose,Whole Blood 270 mg/dL (75-99)
[2017-12-10 20:57] LABS: Glucose,Whole Blood 237 mg/dL (75-99)
[2017-12-10] MEDS ORDERED: LORazepam 2 MG/ML INJ IV PRN (20:59)
[2017-12-10] MEDS: ATORVASTATIN 40 MG TAB PO SCH (21:05)
[2017-12-10] MEDS: methylPREDNISolone SOD SUCCI 40 MG/ML 1 ML VIAL IV SCH (21:07)
--- NOTE | 2017-12-10 21:21 | PN ---
PROGRESS NOTE DATE OF SERVICE: 12/10/2017 REASON FOR FOLLOW UP: Pneumonia, aspiration etiology. INTERVAL HISTORY: The patient is afebrile. He seems to be breathing more comfortably. Denies having any chest pain. He did have some cough but did not bring up any sputum. No nausea, vomiting. No abdominal pain or diarrhea. PHYSICAL EXAMINATION: Blood pressure 187/85 with a pulse of 103, temperature of 98. He is 96% on 10 L high- flow oxygen. General description is an elderly male lying in bed in no distress. RESPIRATORY SYSTEM: Unlabored breathing. Decreased breath sounds in the bases. No wheeze. HEART: S1, S2. Regular rate and rhythm. ABDOMEN: Soft. No tenderness. LABS: Hemoglobin is 13.2, white count 13.6 with a BUN of 29, creatinine 0.67. Blood and sputum cultures so far negative for any resistant pathogen. DIAGNOSTIC IMPRESSION AND PLAN: Patient with acute vent-dependent respiratory failure, multifactorial, likely a component of pneumonia with a question of aspiration etiology. So far sputum has been negative for any resistant pathogen. Will discontinue the vancomycin to decrease the risk of nephrotoxicity. Keep the patient on cefepime and Flagyl with a plan to finish therapy with oral antibiotics. Continue with supportive care. MMODL / IJN: [id number] /
[2017-12-10] MEDS ORDERED: VANCOMYCIN 1,750 MG in SODIUM CHLORIDE 0.9% 250 ML IVPB SCH (22:00)
[2017-12-10] MEDS: TEMAZEPAM 15 MG CAP PO PRN (23:59)
[2017-12-11] MEDS: hydrALAZINE HCL 20 MG/ML 1 ML VIAL IVP PRN ×2 (00:26→21:24)
[2017-12-11] MEDS: HEPARIN SODIUM,PORCINE 5,000 UNIT/ML 1 ML VIAL SQ SCH ×4 (00:26→23:43)
[2017-12-11 06:30] LABS: Anion Gap 8 mmol/L; Blood Urea Nitrogen 33 mg/dL (9-20); Calcium 7.9 mg/dL (8.4-10.2); Carbon Dioxide 30 mmol/L (22-30); Chloride 108 mmol/L (98-107); Glucose 98 mg/dL (74-99); Magnesium 1.9 mg/dL (1.6-2.3); Phosphorus 3.1 mg/dL (2.5-4.5); Potassium 3.7 mmol/L (3.5-5.1); Sodium 146 mmol/L (137-145)
[2017-12-11 06:35] LABS: Glucose,Whole Blood 97 mg/dL (75-99)
[2017-12-11 06:43] LABS: Basophils % (A) 0 %; Eosinophils % (A) 0 %; HCT 38.9 % (39.0-53.0); HGB 13.1 gm/dL (13.0-17.5); Lymphocytes # (A) 0.5 k/uL (1.0-4.8); Lymphocytes % (A) 4 %; MCH 32.8 pg (25.0-35.0); MCHC 33.6 g/dL (31.0-37.0); MCV 97.7 fL (80.0-100.0); Monocytes # (A) 0.8 k/uL (0-1.0); Monocytes % (A) 7 %; Neutrophils # (A) 10.2 k/uL (1.3-7.7); Neutrophils % (A) 88 %; Platelet Count 216 k/uL (150-450); RBC 3.99 m/uL (4.30-5.90); RDW 14.1 % (11.5-15.5); WBC 11.6 k/uL (3.8-10.6)
[2017-12-11] MEDS: CARVEDILOL 6.25 MG TAB PO SCH ×2 (07:10→17:36)
[2017-12-11] MEDS: PANTOPRAZOLE 40 MG TABLET PO SCH (07:10)
[2017-12-11] MEDS: CEFEPIME 2 GM in SODIUM CHLORIDE 0.9% 50 ML IVPB SCH ×2 (07:10→17:56)
[2017-12-11] MEDS: amLODIPine 5 MG TAB PO SCH ×2 (07:11→17:36)
[2017-12-11] MEDS: INSULIN ASPART 100 UNIT/ML 1 ML 10 ML VIAL SQ SCH ×5 (07:26→21:18)
[2017-12-11] MEDS: metroNIDAZOLE-NS PMX 500 MG in SALINE 1 100ML.BAG IVPB SCH ×3 (08:16→23:43)
[2017-12-11] MEDS: IPRATROPIUM-ALBUTEROL 3 ML NEB INHALATION SCH ×4 (08:16→19:59)
[2017-12-11] MEDS: BACLOFEN 10 MG TAB PO SCH ×3 (08:17→19:57)
[2017-12-11] MEDS: CHLORHEXIDINE GLUCONATE 15 ML CUP MUCOUS MEM SCH ×2 (08:17→19:54)
[2017-12-11] MEDS: ASPIRIN 81 MG PO SCH (08:17)
[2017-12-11] MEDS: LISINOPRIL 20 MG TAB PO SCH ×2 (08:17→19:57)
[2017-12-11] MEDS: methylPREDNISolone SOD SUCCI 40 MG/ML 1 ML VIAL IV SCH (08:17)
[2017-12-11] MEDS: NITROGLYCERIN OINT 1 INCH/GM PACKET TOPICAL SCH ×3 (08:17→23:43)
[2017-12-11] MEDS: TAMSULOSIN 0.4 MG CAP.ER.24H PO SCH (09:15)
--- NOTE | 2017-12-11 09:30 | XR ---
EXAMINATION TYPE: XR chest 1V DATE OF EXAM: 12/11/2017 COMPARISON: 12/10/2017 HISTORY: 77-year-old male follow-up pneumonia TECHNIQUE: Single frontal view of the chest is obtained. FINDINGS: Median sternotomy wires are present with post-CABG clips. Heart upper limits of normal in size. Mild diffuse interstitial prominence relatively similar. Continued small left effusion and patchy airspace opacity left mid and lower lung. No significant change in this density. IMPRESSION: Continued small left effusion with prominent airspace disease left mid and lower lung.
--- NOTE | 2017-12-11 10:29 | P.PN ---
Subjective Progress Note Date: 12/11/17 77-year-old male who presented to the emergency room with a chief complaint of vomiting 24 hours and generalized weakness. Patient denied shortness of breath or coughing. Denies chest pain or pressure. Denies diarrhea or constipation. Denies fever or chills. Family member at the bedside states that multiple family members have had gastroenteritis this week. The patient has a history of coronary artery disease, chronic objective pulmonary disease, diabetes mellitus, hyperlipidemia, hypertension, myocardial infarction with multiple stents, CABG, bilateral below the knee amputations, bilateral carotid enterectomy, and anxiety. He is a former cigarette smoker. Chest x-ray 12/05/2017: no acute abnormalities Chest x-ray 12/06/2017: [place] chronic changes without acute pulmonary process. No significant change from prior exam Laboratory data: WBC 15.1. Hemoglobin 15.7. Platelet count 236. Sodium 143. Potassium 4.1. BUN 23. Creatinine 0.98. Glucose 52. Lactic acid: 2.8 Testing for influenza A and B was negative Urinalysis reveals: cloudy yellow urine, 1+ proteinuria, trace ketones with 32 hyaline casts, occasional mucus and sediment The patient was admitted to the hospital under the care of Dr. Arrington. Consultations were placed to Dr. Roche. 12/07/2017-Notes per covering provider 12/08/2017-Notes per covering provider 12/09/2017 Patient seen and examined at the bedside on rounds with Dr. Arrington. The patient went into respiratory distress and was intubated on 12/06/2017. He remains intubated in the intensive care unit. Chest x-ray from this morning reveals persistent retrocardiac opacity and patchy left perihilar opacity that may represent atelectasis or pneumonia and persistent trace pleural effusions. Infectious disease remains on consult. The patient is currently receiving cefepime, Flagyl, and vancomycin. Patient is a DNR and family is requesting to extubate patient. 12/10/2017 Patient seen and examined at the bedside. Family at the bedside. Patient was extubated yesterday and transferred to selective care unit. Patient remains DO NOT RESUSCITATE. Patient is on 8 L high flow nasal cannula. Oxygen saturation 91%. Patient remains on IV steroids per pulmonology. Dose decreased to 40 mg every 12 hours. Patient has been on an insulin drip secondary to hyperglycemia. Most recent blood sugar is 123. Previous glucose is 143. Patient did receive a dose of IV Lasix this morning per Dr. Arrington. Patient states he has been diuresing well. Patient is tolerating a full liquid diet and requesting his diet to be advanced. Patient also is requesting medication for insomnia tonight. 12/11/2017 Patient evaluated at the bedside on rounds with Dr. Arrington. Family at the bedside. Patient remains on 8 L high flow nasal cannula. Oxygen saturations are greater than 92%. Patient states he was short of breath last night. BiPAP was attempted but patient did not tolerate well. He did receive Lasix 40 mg IV per pulmonology. Chest x-ray was completed yesterday evening. Right lung appears clear. Left pleural space positive for pleural effusion dependently. Left mid and lower zone shows multifocal atelectasis. Nursing states patient has had 2 episodes of urinary retention that required straight cath for greater than 500 mL of urine. Blood pressure this morning is elevated at 200/87. Patient's blood pressures have been running on the higher side with systolics of 170s to 180s. Dr. Arrington did speak with the patient and his spouse regarding the possibility of hospice if the patient does improve or the possibility of subacute rehab at [facility]. Objective - Vital Signs Vital signs: Vital Signs Temp 97.6 F 12/11/17 08:00 Pulse 90 12/11/17 08:26 Resp 16 12/11/17 08:00 BP 200/87 12/11/17 08:00 Pulse Ox 94 L 12/11/17 08:00 Intake & Output 12/10/17 12/11/17 12/11/17 18:59 06:59 18:59 Intake Total 596.257 Output Total 1850 1750 Balance -1253.743 -1750 Weight 101 kg 91.5 kg Intake: Intake, IV Titration 14.257 Amount Insulin Regular 100 unit 14.257 In Sodium Chloride 0.9% 100 ml @ Per Protocol IV .Q0M [facility] Rx#:[id number] Oral 582 Output: Urine 1850 1750 Straight 600 Other: Voiding Method Indwelling Catheter Urinal Urinal # Voids 2 1 # Bowel Movements 1 - Exam GENERAL: This is a 77-year-old male who appears in no acute distress. HEENT: Head is atraumatic, normocephalic. Pupils are equal, round, and reactive to light. Sclerae anicteric. Conjunctivae are clear. Mucus membranes of the mouth are moist. Neck is supple. RESPIRATORY: Lungs coarse throughout with scattered rhonchi. Rales present to bilateral bases. Patient remains on 8 L high flow nasal cannula with oxygen saturations around 90-92%. CARDIOVASCULAR: Regular rate and rhythm. S1 and S2 noted. No systolic or diastolic murmur auscultated. No JVD noted. No S3 or S4 noted. GASTROINTESTINAL: No distention noted. Abdomen soft and round. Normal active bowel sounds auscultated x 4 quadrants. No pain or tenderness noted upon palpation. INTEGUMENTARY: No cyanosis. No jaundice. No rashes noted. No cellulitis noted. EXTREMITIES: Patient with bilateral [id number] amputations NEUROLOGIC: Cranial nerves intact. No deficits noted. PSYCHIATRIC: Patient is alert and oriented 2. Patient confused at times but reorients well. Affect appropriate. - Labs CBC & Chem 7: 12/11/17 05:47 12/11/17 05:47 Labs: Abnormal Lab Results - Last 24 Hours (Table) 12/10/17 12/10/17 12/10/17 Range/Units 07:38 09:50 11:59 WBC (3.8-10.6) k/uL RBC (4.30-5.90) m/uL Hct (39.0-53.0) % Neutrophils # (1.3-7.7) k/uL Lymphocytes # (1.0-4.8) k/uL Sodium 146 H (137-145) mmol/L Chloride 116 H (98-107) mmol/L Carbon Dioxide 21 L (22-30) mmol/L BUN 29 H (9-20) mg/dL Glucose 149 H (74-99) mg/dL POC Glucose (mg/dL) 123 H 159 H (75-99) mg/dL Calcium 7.6 L (8.4-10.2) mg/dL 12/10/17 12/10/17 12/10/17 Range/Units 16:30 19:49 20:46 WBC (3.8-10.6) k/uL RBC (4.30-5.90) m/uL Hct (39.0-53.0) % Neutrophils # (1.3-7.7) k/uL Lymphocytes # (1.0-4.8) k/uL Sodium (137-145) mmol/L Chloride (98-107) mmol/L Carbon Dioxide (22-30) mmol/L BUN (9-20) mg/dL Glucose (74-99) mg/dL POC Glucose (mg/dL) 241 H 270 H 237 H (75-99) mg/dL Calcium (8.4-10.2) mg/dL 12/11/17 12/11/17 Range/Units 05:47 05:47 WBC 11.6 H (3.8-10.6) k/uL RBC 3.99 L (4.30-5.90) m/uL Hct 38.9 L (39.0-53.0) % Neutrophils # 10.2 H (1.3-7.7) k/uL Lymphocytes # 0.5 L (1.0-4.8) k/uL Sodium 146 H (137-145) mmol/L Chloride 108 H (98-107) mmol/L Carbon Dioxide (22-30) mmol/L BUN 33 H (9-20) mg/dL Glucose (74-99) mg/dL POC Glucose (mg/dL) (75-99) mg/dL Calcium 7.9 L (8.4-10.2) mg/dL Microbiology - Last 24 Hours (Table) 12/05/17 15:15 Blood Culture - Preliminary Blood No Growth after 120 hours 12/05/17 13:50 Blood Culture - Preliminary Blood No Growth after 120 hours 12/08/17 01:21 Gram Stain - Final Sputum Sputum Culture - Final Assessment and Plan Plan: ASSESSMENT: Acute hypoxic respiratory failure requiring mechanical ventilation secondary to left lung pneumonia, s/p extubation on 12/09/2017 Intractable nausea and vomiting with abdominal distention, possible gastroenteritis as multiple family members have had gastroenteritis recently, ileus and obstruction ruled out, resolved Hypoglycemia, secondary to vomiting and decreased oral intake, resolved Leukocytosis and elevated lactic acid, may be secondary to vomiting and dehydration and left lung pneumonia Coronary artery disease with multiple stent placements and CABG 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 Appreciate recommendations and input Continue IV steroids. Dose has been decreased to 40 mg every 12 hours Infectious disease on consult. Appreciate recommendations and input Antibiotic regimen per ID: Patient currently on Flagyl and cefepime Continue Blood glucose Accu-Cheks before meals and at bedtime Continue NovoLog sliding scale coverage before meals and at bedtime Continue patient's home dose of 70/30 insulin 55 units twice a day Patient is a DNR Home meds as appropriate GI prophylaxis: Protonix 40 mg PO daily DVT prophylaxis: Bilateral BKA, patient on heparin subcu per pulmonary Monitor labs Monitor vital signs and address as appropriate Further recommendations pending patient's course Dr. Arrington did discuss the possibility of subacute rehab at [facility] or hospice if patient's condition does not improve Nurse practitioner note has been reviewed by physician. Signing provider agrees with the documented findings, assessment, and plan of care.
[2017-12-11] MEDS: hydrALAZINE HCL 25 MG TAB PO SCH ×3 (11:19→19:56)
[2017-12-11] MEDS: CHOLECALCIFEROL 1,000 UNIT TAB PO SCH (11:20)
[2017-12-11 11:35] LABS: Glucose,Whole Blood 137 mg/dL (75-99)
--- NOTE | 2017-12-11 14:01 | PN ---
PROGRESS NOTE DATE OF SERVICE: 12/11/2017 REASON FOR FOLLOWUP: Pneumonia, possible aspiration etiology. INTERVAL HISTORY: The patient is afebrile. Apparently, he did have a problem with shortness of breath last night for which the patient did have x-rays repeated this morning that shows pleural effusion with left airspace disease. Patient did mention a cough decreased in intensity and dry in nature. No chills. No nausea, no vomiting. No abdominal pain and no diarrhea. PHYSICAL EXAMINATION: Blood pressure is 188/80 with a pulse of 91, temperature 97.7, he is 93% on 8 L high- flow oxygen. General description is an elderly male lying in bed, in no distress. RESPIRATORY SYSTEM: Unlabored breathing. Decreased breath sounds at the base, no wheeze. HEART: S1, S2. Regular rate and rhythm. ABDOMEN: Soft, no tenderness. LABS: Hemoglobin is 13.1, white count of 11.6, with a BUN of 33, creatinine 0.70. DIAGNOSTIC IMPRESSION AND PLAN: Patient with left lobe pneumonia and likely from aspiration pneumonia which has been negative for resistant pathogen, currently cefepime and Flagyl. Will continue to transfer oral Avelox on discharge. Continue supportive care. MMODL / IJN: [id number] /
[2017-12-11] MEDS: FUROSEMIDE 10 MG/ML 4 ML VIAL IV SCH ×2 (14:03→19:54)
[2017-12-11] MEDS: methylPREDNISolone SOD SUCCI 125 MG/2 ML VIAL IV SCH ×3 (14:04→23:43)
[2017-12-11] MEDS: INSULIN NPH/REG INSULIN 70/30 300 UNIT/3 ML VIAL SQ SCH ×2 (14:05→21:11)
--- NOTE | 2017-12-11 15:51 | P.PN ---
Subjective Progress Note Date: 12/11/17 A 77-year-old male patient, quite debilitated with multiple medical problems and comorbidities including coronary artery disease, bilateral above-knee amputation, diabetes mellitus, COPD, hypertension, hyperlipidemia, and peripheral vascular disease. The patient came into the hospital because of generalized weakness and respiratory distress. The patient had an extensive left lung pneumonia. Subsequently the patient went into respiratory failure. Apparently the patient had a D and I CODE STATUS. He never wanted to be intubated or placed on a mechanical ventilator. On the emergency conditions, the patient was intubated and the patient got moved to the intensive care unit. This morning, the patient is awake and alert. He is off sedation. He is still intubated. The chest x-ray showing clearing of the left lung pneumonia. The patient is a combination of cefepime and Flagyl and vancomycin. He is afebrile hemodynamically stable. I was able to cut down the PEEP down to 5 and drop the FiO2 down to 40%. Family came to the bedside. With a lengthy discussion with the family and they are very clear that the patient never want to be intubated and they insisted on extubating him and let nature take its course. I think the patient may fair well knowing that he has adequate clearing of the left lung pneumonia. He remains in sinus rhythm with multiple PACs. The patient is afebrile. On 12/10/2017 I'm seeing this patient for a follow-up. As mentioned earlier the patient was being treated for a left lung pneumonia and acute respiratory failure requiring intubation mechanical ventilation. The patient was improving and upon the family's request the patient was extubated yesterday. Currently he is doing well. He is on the medical floor with telemetry. He is on 18th of oxygen by nasal cannula. He has a congested cough. No significant sputum production. He is taking some oral intake including some soft pudding. No fever. No chills. He remains on the same antibiotic coverage and the patient is on a combination of IV cefepime and Flagyl and vancomycin. He is on IV Solu Medrol which will be obviously tapered. His mental status is appropriate. He is following simple commands and answering questions. Final sputum sample that was collected in the intensive care unit while the patient was a intubated was negative. The blood cultures also negative. The white cell count from today 13.6. Hemoglobin stable at 13.2. Rest of the blood work shows no significant abnormalities. On 12/11/2017 I'm seeing this patient for a follow-up. Overnight the patient developed some increased shortness of breath. A repeat chest x-ray was done and it showed that the left pleural space was positive for a dependent effusion. There was a left mid and left lower lobe infiltrate and areas of multifocal atelectasis. Based on that, the patient was briefly placed on BiPAP and the patient was placed on a BiPAP pressure of 10/5. He was given Ativan to help him tolerate the BiPAP treatment. The patient was also given Lasix IV. The patient improved and this afternoon he is on 18th of oxygen nasal cannula. A repeat chest x-ray was done and showed stable findings. There is a small left -sided pleural effusion and continued airspace disease in the left midlung area. The patient was seen by infectious disease and the patient is on the same antibiotic coverage. No aspiration. He is taking some soft diet. No fever chills or night sweats. He is noted to be more broken spastic and wheezy on today's evaluation. Note that he has declared himself as a DNR/DNI CODE STATUS. The white cell count is 11.6. All of the cultures of been negative. Objective - Vital Signs Vital signs: Vital Signs Temp 97.1 F L 12/11/17 15:24 Pulse 100 12/11/17 15:44 Resp 18 12/11/17 15:44 BP 165/80 12/11/17 15:24 Pulse Ox 96 12/11/17 15:24 Intake & Output 12/10/17 12/11/17 12/11/17 18:59 06:59 18:59 Intake Total 596.257 570 Output Total 1850 1750 1100 Balance -1253.743 -1750 -530 Weight 101 kg 91.5 kg Intake: IV 150 0.9 Nacl 50 metroNIDAZOLE-NS PMX 500 100 mg In Saline 1 100ml.bag @ 100 mls/hr IVPB Q8HR [facility] Rx#:[id number] Intake, IV Titration 14.257 Amount Insulin Regular 100 unit 14.257 In Sodium Chloride 0.9% 100 ml @ Per Protocol IV .Q0M [facility] Rx#:[id number] Oral 582 420 Output: Urine 1850 1750 1100 Straight 600 Other: Voiding Method Indwelling Catheter Urinal Indwelling Catheter # Voids 2 1 # Bowel Movements 1 - Exam No acute distress. Patient is awake and alert. The patient is on 8 L of oxygen high flow. No apparent respirator distress. Communicating. Conversing.. HEENT examination is grossly unremarkable. Mucous membranes are moist. Neck supple. Full range of motion. No adenopathy thyromegaly or neck vein distention. Cardiovascular examination reveals regular rhythm rate. S1-S2 normal. No S3 or S4. No discernible murmur noted. Lungs reveal coarse rhonchi. Breath sounds are diminished. Breath sounds are equal bilaterally. Some crackles are noted. Abdomen soft bowel sounds are heard. No masses or tenderness. Extremities reveal bilateral below knee amputations. Skin is without rash or lesion. Neurologic awake and moving upper extremities and there is no focal neurological deficits. - Labs CBC & Chem 7: 12/11/17 05:47 12/11/17 05:47 Labs: Abnormal Lab Results - Last 24 Hours (Table) 12/10/17 12/10/17 12/10/17 Range/Units 16:30 19:49 20:46 WBC (3.8-10.6) k/uL RBC (4.30-5.90) m/uL Hct (39.0-53.0) % Neutrophils # (1.3-7.7) k/uL Lymphocytes # (1.0-4.8) k/uL Sodium (137-145) mmol/L Chloride (98-107) mmol/L BUN (9-20) mg/dL POC Glucose (mg/dL) 241 H 270 H 237 H (75-99) mg/dL Calcium (8.4-10.2) mg/dL 12/11/17 12/11/17 12/11/17 Range/Units 05:47 05:47 11:18 WBC 11.6 H (3.8-10.6) k/uL RBC 3.99 L (4.30-5.90) m/uL Hct 38.9 L (39.0-53.0) % Neutrophils # 10.2 H (1.3-7.7) k/uL Lymphocytes # 0.5 L (1.0-4.8) k/uL Sodium 146 H (137-145) mmol/L Chloride 108 H (98-107) mmol/L BUN 33 H (9-20) mg/dL POC Glucose (mg/dL) 137 H (75-99) mg/dL Calcium 7.9 L (8.4-10.2) mg/dL Microbiology - Last 24 Hours (Table) 12/05/17 15:15 Blood Culture - Preliminary Blood No Growth after 120 hours 12/05/17 13:50 Blood Culture - Preliminary Blood No Growth after 120 hours Assessment and Plan Plan: Assessment 1 acute left lung pneumonia with secondary acute hypoxic respiratory failure, intubation mechanical ventilation. The patient has a DNR/DNI CODE STATUS. The patient was extubated yesterday and today he is on 8 L high flow oxygen to maintain a saturation above 90%. No apparent respiratory distress. He has a decent cough. He is covered with triple antibiotic coverage including a combination of cefepime, Flagyl and vancomycin. No fever. No chills no significant leukocytosis. On 12/12/2007 and the patient is still having some difficulties in breathing. His COPD seems to have exacerbated. Based on that the patient was requiring high dose of steroids per chest x-ray findings are stable. There is small left- sided pleural effusion and persistent consolidation of the left midlung. The patient would benefit from further antibiotics and steroids and diuretics. He is currently off the BiPAP. 2 History of CAD with previous bypass grafting 3 COPD by history 4 Diabetes mellitus by history 5 History of peripheral vascular occlusive disease, with bilateral lower extremity amputations 6 History of myocardial infarction 7 History of hypertension 8 history of hyperlipidemia 9 Multiple vascular procedures Plan Continue same antibiotic coverage. Wean down the FiO2 as tolerated to maintain a saturation above 90%. Increase the Solu Medrol to 60 mg every 6 hours. Give the patient dose of Lasix 40 mg IV push every 12 hours. Repeat chest x-ray in the morning. Wean down the FiO2 as tolerated. BiPAP as needed overnight. We' ll continue to follow. We'll continue the antibiotic coverage. DNR/DNI CODE STATUS. ID is on the case.
[2017-12-11 16:37] LABS: Glucose,Whole Blood 272 mg/dL (75-99)
[2017-12-11] MEDS ORDERED: MORPHINE ORAL SOLN 10 MG/5 ML CUP PO PRN (17:22)
[2017-12-11] MEDS: ATORVASTATIN 40 MG TAB PO SCH (19:56)
[2017-12-11 20:54] LABS: Glucose,Whole Blood 224 mg/dL (75-99)
[2017-12-11] MEDS: TEMAZEPAM 15 MG CAP PO PRN (20:56)
[2017-12-12 05:57] LABS: Glucose,Whole Blood 199 mg/dL (75-99)
[2017-12-12] MEDS: amLODIPine 5 MG TAB PO SCH ×2 (06:14→19:15)
[2017-12-12] MEDS: INSULIN ASPART 100 UNIT/ML 1 ML 10 ML VIAL SQ SCH ×4 (06:15→21:06)
[2017-12-12] MEDS: CARVEDILOL 6.25 MG TAB PO SCH ×2 (06:15→17:58)
[2017-12-12] MEDS: CEFEPIME 2 GM in SODIUM CHLORIDE 0.9% 50 ML IVPB SCH ×2 (06:15→20:10)
[2017-12-12] MEDS: methylPREDNISolone SOD SUCCI 125 MG/2 ML VIAL IV SCH ×4 (06:15→23:34)
[2017-12-12] MEDS: PANTOPRAZOLE 40 MG TABLET PO SCH (06:16)
[2017-12-12 06:25] LABS: Basophils % (A) 0 %; Eosinophils % (A) 0 %; HCT 39.5 % (39.0-53.0); HGB 13.5 gm/dL (13.0-17.5); Lymphocytes # (A) 0.4 k/uL (1.0-4.8); Lymphocytes % (A) 5 %; MCHC 34.1 g/dL (31.0-37.0); MCV 96.7 fL (80.0-100.0); Mean Platelet Volume 7.5; Monocytes # (A) 0.4 k/uL (0-1.0); Monocytes % (A) 5 %; Neutrophils # (A) 7.1 k/uL (1.3-7.7); Neutrophils % (A) 89 %; Platelet Count 199 k/uL (150-450); RBC 4.08 m/uL (4.30-5.90); RDW 13.7 % (11.5-15.5)
[2017-12-12 06:38] LABS: Anion Gap 6 mmol/L; Blood Urea Nitrogen 40 mg/dL (9-20); Calcium 7.6 mg/dL (8.4-10.2); Carbon Dioxide 31 mmol/L (22-30); Chloride 105 mmol/L (98-107); Glucose 214 mg/dL (74-99); Phosphorus 3.5 mg/dL (2.5-4.5); Potassium 4.1 mmol/L (3.5-5.1); Sodium 142 mmol/L (137-145)
--- NOTE | 2017-12-12 08:01 | XR ---
EXAMINATION TYPE: XR chest 1V DATE OF EXAM: 12/12/2017 COMPARISON: 12/11/2017 INDICATION: Pneumonia TECHNIQUE: Single frontal view of the chest is obtained. FINDINGS: The heart size is normal. The pulmonary vasculature is normal. In the left lower lobe infiltrate. Some left perihilar infiltrate may be improving. Remaining portion s of the lungs are clear. IMPRESSION: 1. Slight improvement on the left perihilar infiltrate. Left lower lobe pneumonia is stable. Continue d follow-up is recommended.
--- NOTE | 2017-12-12 08:40 | P.PN ---
Subjective Progress Note Date: 12/12/17 77-year-old male who presented to the emergency room with a chief complaint of vomiting 24 hours and generalized weakness. Patient denied shortness of breath or coughing. Denies chest pain or pressure. Denies diarrhea or constipation. Denies fever or chills. Family member at the bedside states that multiple family members have had gastroenteritis this week. The patient has a history of coronary artery disease, chronic objective pulmonary disease, diabetes mellitus, hyperlipidemia, hypertension, myocardial infarction with multiple stents, CABG, bilateral below the knee amputations, bilateral carotid enterectomy, and anxiety. He is a former cigarette smoker. Chest x-ray 12/05/2017: no acute abnormalities Chest x-ray 12/06/2017: [place] chronic changes without acute pulmonary process. No significant change from prior exam Laboratory data: WBC 15.1. Hemoglobin 15.7. Platelet count 236. Sodium 143. Potassium 4.1. BUN 23. Creatinine 0.98. Glucose 52. Lactic acid: 2.8 Testing for influenza A and B was negative Urinalysis reveals: cloudy yellow urine, 1+ proteinuria, trace ketones with 32 hyaline casts, occasional mucus and sediment The patient was admitted to the hospital under the care of Dr. Arrington. Consultations were placed to Dr. Roche. 12/07/2017-Notes per covering provider 12/08/2017-Notes per covering provider 12/09/2017 Patient seen and examined at the bedside on rounds with Dr. Arrington. The patient went into respiratory distress and was intubated on 12/06/2017. He remains intubated in the intensive care unit. Chest x-ray from this morning reveals persistent retrocardiac opacity and patchy left perihilar opacity that may represent atelectasis or pneumonia and persistent trace pleural effusions. Infectious disease remains on consult. The patient is currently receiving cefepime, Flagyl, and vancomycin. Patient is a DNR and family is requesting to extubate patient. 12/10/2017 Patient seen and examined at the bedside. Family at the bedside. Patient was extubated yesterday and transferred to selective care unit. Patient remains DO NOT RESUSCITATE. Patient is on 8 L high flow nasal cannula. Oxygen saturation 91%. Patient remains on IV steroids per pulmonology. Dose decreased to 40 mg every 12 hours. Patient has been on an insulin drip secondary to hyperglycemia. Most recent blood sugar is 123. Previous glucose is 143. Patient did receive a dose of IV Lasix this morning per Dr. Arrington. Patient states he has been diuresing well. Patient is tolerating a full liquid diet and requesting his diet to be advanced. Patient also is requesting medication for insomnia tonight. 12/11/2017 Patient evaluated at the bedside on rounds with Dr. Arrington. Family at the bedside. Patient remains on 8 L high flow nasal cannula. Oxygen saturations are greater than 92%. Patient states he was short of breath last night. BiPAP was attempted but patient did not tolerate well. He did receive Lasix 40 mg IV per pulmonology. Chest x-ray was completed yesterday evening. Right lung appears clear. Left pleural space positive for pleural effusion dependently. Left mid and lower zone shows multifocal atelectasis. Nursing states patient has had 2 episodes of urinary retention that required straight cath for greater than 500 mL of urine. Blood pressure this morning is elevated at 200/87. Patient's blood pressures have been running on the higher side with systolics of 170s to 180s. Dr. Arrington did speak with the patient and his spouse regarding the possibility of hospice if the patient does improve or the possibility of subacute rehab at [facility]. 12/12/2017 Patient evaluated at the bedside on rounds with Dr. Arrington. Patient is awake and alert. The patient's mentation also seems to have improved. This morning he is oriented 3. Remains on 8L high flow nasal cannula. Oxygen saturations are greater than 92%. Chest x-ray reveals slight improvement on the left perihilar infiltrate. Left lower lobe pneumonia stable. Patient states he is using his incentive spirometer 10 times an hour. Patient was started on Lasix 40 mg IV every 12 hours per pulmonary. Patient steroids were also increased to 60 mg IV every 6 hours. Patient remains on Flagyl and cefepime. Blood sugars have been elevated in the 200s. Patient has 70/30 insulin 55 units ordered twice a day. Nursing states the patient only received 25 units last night because the patient 's appetite has been decreased and patient has not received his morning dose at this time. Objective - Vital Signs Vital signs: Vital Signs Temp 98.4 F 12/12/17 03:23 Pulse 80 12/12/17 03:23 Resp 16 12/12/17 03:23 BP 161/74 12/12/17 04:11 Pulse Ox 94 L 12/12/17 03:23 Intake & Output 12/11/17 12/12/17 12/12/17 18:59 06:59 18:59 Intake Total 690 190 0 Output Total 1100 2550 Balance -410 -2360 0 Weight 100.5 kg Intake: IV 150 190 0.9 10 0.9 Nacl 50 80 metroNIDAZOLE-NS PMX 500 100 100 mg In Saline 1 100ml.bag @ 100 mls/hr IVPB Q8HR JAMES Rx#:[id number] Oral 540 0 Output: Urine 1100 2550 Other: Voiding Method Indwelling Catheter Indwelling Catheter # Voids 1 # Bowel Movements 1 - Exam GENERAL: This is a 77-year-old male who appears in no acute distress. HEENT: Head is atraumatic, normocephalic. Pupils are equal, round, and reactive to light. Sclerae anicteric. Conjunctivae are clear. Mucus membranes of the mouth are moist. Neck is supple. RESPIRATORY: Lung sounds improved since yesterday. Diminished throughout with rhonchi present. No rales noted. Patient remains on 8 L high flow nasal cannula with oxygen saturations greater than 92%. CARDIOVASCULAR: Regular rate and rhythm. S1 and S2 noted. No systolic or diastolic murmur auscultated. No JVD noted. No S3 or S4 noted. GASTROINTESTINAL: No distention noted. Abdomen soft and round. Normal active bowel sounds auscultated x 4 quadrants. No pain or tenderness noted upon palpation. INTEGUMENTARY: No cyanosis. No jaundice. No rashes noted. No cellulitis noted. EXTREMITIES: Patient with bilateral hadcw-sax-ntmi amputations NEUROLOGIC: Cranial nerves intact. No deficits noted. PSYCHIATRIC: Patient is alert and oriented 3. Affect appropriate. - Labs CBC & Chem 7: 12/12/17 05:49 12/12/17 05:49 Labs: Abnormal Lab Results - Last 24 Hours (Table) 12/11/17 12/11/17 12/11/17 Range/Units 11:18 16:30 20:48 RBC (4.30-5.90) m/uL Lymphocytes # (1.0-4.8) k/uL Carbon Dioxide (22-30) mmol/L BUN (9-20) mg/dL Glucose (74-99) mg/dL POC Glucose (mg/dL) 137 H 272 H 224 H (75-99) mg/dL Calcium (8.4-10.2) mg/dL 12/12/17 12/12/17 12/12/17 Range/Units 05:49 05:49 05:54 RBC 4.08 L (4.30-5.90) m/uL Lymphocytes # 0.4 L (1.0-4.8) k/uL Carbon Dioxide 31 H (22-30) mmol/L BUN 40 H (9-20) mg/dL Glucose 214 H (74-99) mg/dL POC Glucose (mg/dL) 199 H (75-99) mg/dL Calcium 7.6 L (8.4-10.2) mg/dL Microbiology - Last 24 Hours (Table) 12/05/17 15:15 Blood Culture - Final Blood No Growth after 144 hours 12/05/17 13:50 Blood Culture - Final Blood No Growth after 144 hours Assessment and Plan Plan: ASSESSMENT: Acute left lung pneumonia, x-ray reveals persistent consolidation of left midlung, sputum culture negative Acute exacerbation of chronic obstructive pulmonary disease Acute hypoxic respiratory failure requiring mechanical ventilation secondary to left lung pneumonia, s/p extubation on 12/09/2017 Intractable nausea and vomiting with abdominal distention, possible gastroenteritis as multiple family members have had gastroenteritis recently, ileus and obstruction ruled out, resolved Hypoglycemia, secondary to vomiting and decreased oral intake, resolved Hyperglycemia, likely secondary to IV steroids Leukocytosis and elevated lactic acid, may be secondary to vomiting and dehydration and left lung pneumonia, resolved Coronary artery disease with multiple stent placements and CABG 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 Appreciate recommendations and input Continue IV steroids: Currently 60 mg every 6 hours. Taper per pulmonology Patient started on Lasix 40 mg every 12 hours yesterday per pulmonary. Continue indwelling urinary catheter Monitor blood pressure Infectious disease on consult. Appreciate recommendations and input Antibiotic regimen per ID: Patient currently on Flagyl and cefepime Continue Blood glucose Accu-Cheks before meals and at bedtime Continue NovoLog sliding scale coverage before meals and at bedtime Continue patient's home dose of 70/30 insulin 55 units twice a day Please give patient's full dose of scheduled insulin as he remains hyperglycemic even with decreased appetite secondary to high-dose IV steroids. If patient has hypoglycemic episodes will decrease dose and adjust accordingly. Patient is a DNR Home meds as appropriate GI prophylaxis: Protonix 40 mg PO daily DVT prophylaxis: Bilateral BKA, patient on heparin subcu per pulmonary Monitor labs Monitor vital signs and address as appropriate Further recommendations pending patient's course Dr. Arrington did discuss the possibility of subacute rehab at [facility] or hospice if patient's condition does not improve If patient continues to make improvements, possible discharge to subacute rehab early next week. Patient requesting [facility] Nurse practitioner note has been reviewed by physician. Signing provider agrees with the documented findings, assessment, and plan of care.
[2017-12-12 08:41] LABS: Glucose,Whole Blood 212 mg/dL (75-99)
[2017-12-12] MEDS: IPRATROPIUM-ALBUTEROL 3 ML NEB INHALATION SCH ×5 (08:55→20:00)
[2017-12-12] MEDS: INSULIN NPH/REG INSULIN 70/30 300 UNIT/3 ML VIAL SQ SCH ×2 (09:39→17:59)
[2017-12-12] MEDS: HEPARIN SODIUM,PORCINE 5,000 UNIT/ML 1 ML VIAL SQ SCH ×3 (09:40→23:33)
[2017-12-12] MEDS: NITROGLYCERIN OINT 1 INCH/GM PACKET TOPICAL SCH ×3 (09:40→23:34)
[2017-12-12] MEDS: metroNIDAZOLE-NS PMX 500 MG in SALINE 1 100ML.BAG IVPB SCH ×3 (09:40→23:34)
[2017-12-12] MEDS: ASPIRIN 81 MG PO SCH (09:41)
[2017-12-12] MEDS: BACLOFEN 10 MG TAB PO SCH ×3 (09:41→21:07)
[2017-12-12] MEDS: LISINOPRIL 20 MG TAB PO SCH ×2 (09:41→21:06)
[2017-12-12] MEDS: hydrALAZINE HCL 25 MG TAB PO SCH ×3 (09:41→21:07)
[2017-12-12] MEDS: TAMSULOSIN 0.4 MG CAP.ER.24H PO SCH (09:42)
[2017-12-12] MEDS: FUROSEMIDE 10 MG/ML 4 ML VIAL IV SCH (09:48)
[2017-12-12 11:57] LABS: Glucose,Whole Blood 260 mg/dL (75-99)
[2017-12-12] MEDS ORDERED: INSULIN ASPART 100 UNIT/ML 1 ML 10 ML VIAL SQ SCH (12:30)
[2017-12-12] MEDS: CHOLECALCIFEROL 1,000 UNIT TAB PO SCH (12:59)
--- NOTE | 2017-12-12 14:42 | P.PN ---
Subjective Progress Note Date: 12/12/17 A 77-year-old male patient, quite debilitated with multiple medical problems and comorbidities including coronary artery disease, bilateral above-knee amputation, diabetes mellitus, COPD, hypertension, hyperlipidemia, and peripheral vascular disease. The patient came into the hospital because of generalized weakness and respiratory distress. The patient had an extensive left lung pneumonia. Subsequently the patient went into respiratory failure. Apparently the patient had a D and I CODE STATUS. He never wanted to be intubated or placed on a mechanical ventilator. On the emergency conditions, the patient was intubated and the patient got moved to the intensive care unit. This morning, the patient is awake and alert. He is off sedation. He is still intubated. The chest x-ray showing clearing of the left lung pneumonia. The patient is a combination of cefepime and Flagyl and vancomycin. He is afebrile hemodynamically stable. I was able to cut down the PEEP down to 5 and drop the FiO2 down to 40%. Family came to the bedside. With a lengthy discussion with the family and they are very clear that the patient never want to be intubated and they insisted on extubating him and let nature take its course. I think the patient may fair well knowing that he has adequate clearing of the left lung pneumonia. He remains in sinus rhythm with multiple PACs. The patient is afebrile. On 12/10/2017 I'm seeing this patient for a follow-up. As mentioned earlier the patient was being treated for a left lung pneumonia and acute respiratory failure requiring intubation mechanical ventilation. The patient was improving and upon the family's request the patient was extubated yesterday. Currently he is doing well. He is on the medical floor with telemetry. He is on 18th of oxygen by nasal cannula. He has a congested cough. No significant sputum production. He is taking some oral intake including some soft pudding. No fever. No chills. He remains on the same antibiotic coverage and the patient is on a combination of IV cefepime and Flagyl and vancomycin. He is on IV Solu Medrol which will be obviously tapered. His mental status is appropriate. He is following simple commands and answering questions. Final sputum sample that was collected in the intensive care unit while the patient was a intubated was negative. The blood cultures also negative. The white cell count from today 13.6. Hemoglobin stable at 13.2. Rest of the blood work shows no significant abnormalities. On 12/11/2017 I'm seeing this patient for a follow-up. Overnight the patient developed some increased shortness of breath. A repeat chest x-ray was done and it showed that the left pleural space was positive for a dependent effusion. There was a left mid and left lower lobe infiltrate and areas of multifocal atelectasis. Based on that, the patient was briefly placed on BiPAP and the patient was placed on a BiPAP pressure of 10/5. He was given Ativan to help him tolerate the BiPAP treatment. The patient was also given Lasix IV. The patient improved and this afternoon he is on 18th of oxygen nasal cannula. A repeat chest x-ray was done and showed stable findings. There is a small left -sided pleural effusion and continued airspace disease in the left midlung area. The patient was seen by infectious disease and the patient is on the same antibiotic coverage. No aspiration. He is taking some soft diet. No fever chills or night sweats. He is noted to be more broken spastic and wheezy on today's evaluation. Note that he has declared himself as a DNR/DNI CODE STATUS. The white cell count is 11.6. All of the cultures of been negative. On 12/12/2017, I'm seeing this patient for a follow-up. Clinically improved compared to yesterday. Chest x-ray showing improvement in the left upper lobe consolidation and pneumonia. The patient is less focused spastic and wheezy compared to yesterday. Earlier this morning he was an 8 L and he was pulse oxing 96%. Based on that I was able to cut down his FiO2 down to 5 L/m nasal cannula. He is on IV steroids. He is also taking Lasix 40 g every 12 hours. Is producing adequate amount of urine output. No significant leukocytosis and the white cell count has dropped. Cultures of been all negative. He seems to be more interactive and awake. He is breathing has improved and is less focused spastic and wheezy compared to yesterday. He is still a DNR/DNI CODE STATUS. He is ultimately looking for an ECF transfer for further rehabilitation. Objective - Vital Signs Vital signs: Vital Signs Temp 98.4 F 12/12/17 03:23 Pulse 96 12/12/17 12:29 Resp 16 12/12/17 03:23 BP 161/74 12/12/17 04:11 Pulse Ox 95 12/12/17 08:57 Intake & Output 12/11/17 12/12/17 12/12/17 18:59 06:59 18:59 Intake Total 690 190 0 Output Total 1100 2550 Balance -410 -2360 0 Weight 100.5 kg 100.5 kg Intake: IV 150 190 0.9 10 0.9 Nacl 50 80 metroNIDAZOLE-NS PMX 500 100 100 mg In Saline 1 100ml.bag @ 100 mls/hr IVPB Q8HR JAMES Rx#:[id number] Oral 540 0 Output: Urine 1100 2550 Other: Voiding Method Indwelling Catheter Indwelling Catheter # Voids 1 # Bowel Movements 1 - Exam No acute distress. Patient is awake and alert. The patient is on 8 L of oxygen high flow. No apparent respirator distress. Communicating. Conversing.. HEENT examination is grossly unremarkable. Mucous membranes are moist. Neck supple. Full range of motion. No adenopathy thyromegaly or neck vein distention. Cardiovascular examination reveals regular rhythm rate. S1-S2 normal. No S3 or S4. No discernible murmur noted. Lungs reveal coarse rhonchi. Breath sounds are diminished. Breath sounds are equal bilaterally. Some crackles are noted. Abdomen soft bowel sounds are heard. No masses or tenderness. Extremities reveal bilateral below knee amputations. Skin is without rash or lesion. Neurologic awake and moving upper extremities and there is no focal neurological deficits. - Labs CBC & Chem 7: 12/12/17 05:49 12/12/17 05:49 Labs: Abnormal Lab Results - Last 24 Hours (Table) 12/11/17 12/11/17 12/12/17 Range/Units 16:30 20:48 05:49 RBC 4.08 L (4.30-5.90) m/uL Lymphocytes # 0.4 L (1.0-4.8) k/uL Carbon Dioxide (22-30) mmol/L BUN (9-20) mg/dL Glucose (74-99) mg/dL POC Glucose (mg/dL) 272 H 224 H (75-99) mg/dL Calcium (8.4-10.2) mg/dL 12/12/17 12/12/17 12/12/17 Range/Units 05:49 05:54 08:38 RBC (4.30-5.90) m/uL Lymphocytes # (1.0-4.8) k/uL Carbon Dioxide 31 H (22-30) mmol/L BUN 40 H (9-20) mg/dL Glucose 214 H (74-99) mg/dL POC Glucose (mg/dL) 199 H 212 H (75-99) mg/dL Calcium 7.6 L (8.4-10.2) mg/dL 12/12/17 Range/Units 11:55 RBC (4.30-5.90) m/uL Lymphocytes # (1.0-4.8) k/uL Carbon Dioxide (22-30) mmol/L BUN (9-20) mg/dL Glucose (74-99) mg/dL POC Glucose (mg/dL) 260 H (75-99) mg/dL Calcium (8.4-10.2) mg/dL Microbiology - Last 24 Hours (Table) 12/05/17 15:15 Blood Culture - Final Blood No Growth after 144 hours 12/05/17 13:50 Blood Culture - Final Blood No Growth after 144 hours Assessment and Plan Plan: Assessment 1 acute left lung pneumonia with secondary acute hypoxic respiratory failure, intubation mechanical ventilation. The patient has a DNR/DNI CODE STATUS. The patient was extubated yesterday and today he is on 8 L high flow oxygen to maintain a saturation above 90%. No apparent respiratory distress. He has a decent cough. He is covered with triple antibiotic coverage including a combination of cefepime, Flagyl and vancomycin. No fever. No chills no significant leukocytosis. On 12/12/2007 and the patient is still having some difficulties in breathing. His COPD seems to have exacerbated. Based on that the patient was requiring high dose of steroids per chest x-ray findings are stable. There is small left- sided pleural effusion and persistent consolidation of the left midlung. The patient would benefit from further antibiotics and steroids and diuretics. He is currently off the BiPAP. On 12/12/2017, patient is less short of breath compared to yesterday and the chest x-ray is showing improvement in the left upper lobe consolidation. We'll continue the bronchodilators. Continue steroids. Cut down the Lasix dose. Patient is off the BiPAP. Condition is been essentially stable and the family is at the bedside. 2 History of CAD with previous bypass grafting 3 COPD by history 4 Diabetes mellitus by history 5 History of peripheral vascular occlusive disease, with bilateral lower extremity amputations 6 History of myocardial infarction 7 History of hypertension 8 history of hyperlipidemia 9 Multiple vascular procedures Plan Continue same antibiotic coverage. Wean down the FiO2 as the patient has been able to tolerate 5 L of oxygen by nasal cannula. Continue same antibiotic coverage. Continued IV Solu Medrol. Kept on the Lasix to 40 mg every 24 hours. White cell count is not elevated. Cultures of been negative. We'll continue to follow and make further recommendations based on his overall progress.
[2017-12-12 16:52] LABS: Glucose,Whole Blood 277 mg/dL (75-99)
[2017-12-12 20:52] LABS: Glucose,Whole Blood 258 mg/dL (75-99)
[2017-12-12] MEDS ORDERED: INSULIN DETEMIR 100 UNIT/ML 10 ML VIAL SQ SCH (21:00)
[2017-12-12] MEDS: INSULIN DETEMIR 100 UNIT/ML 10 ML VIAL SQ SCH (21:06)
[2017-12-12] MEDS: ATORVASTATIN 40 MG TAB PO SCH (21:06)
[2017-12-12] MEDS: TEMAZEPAM 15 MG CAP PO PRN (21:07)
--- NOTE | 2017-12-12 23:08 | PN ---
PROGRESS NOTE DATE OF SERVICE: 12/12/2017 REASON FOR FOLLOWUP: Left lower lobe pneumonia, likely aspiration etiology. INTERVAL HISTORY: The patient is afebrile. He seems to be breathing more comfortably. The cough has decreased in intensity and is mostly dry in nature. No further nausea, vomiting or any diarrhea and no abdominal pain. FiO2 is down to 5 L nasal cannula. On examination, blood pressure is 173/77 with a pulse of 96, temperature of 98.3. He is 93% on 5 L nasal cannula. General description is an elderly male up in the bed in no distress. RESPIRATORY SYSTEM: Unlabored breathing with decreased breath sounds in the bases. No wheeze. HEART: S1, S2. Regular rate and rhythm. ABDOMEN: Soft. No tenderness. LABS: Hemoglobin is 13.5, white count 8.0 with a BUN of 40, creatinine 0.67. Blood and sputum culture has been negative. DIAGNOSTIC IMPRESSION AND PLAN: Patient admitted to hospital with sepsis with likely component of pneumonia, likely aspiration in etiology, currently responding to cefepime and Flagyl. Recommend finishing therapy with oral Avelox daily for another 7 to 10 days with close outpatient followup. Family was present at the bedside. Their questions were answered. MMODL / IJN: [id number] /
[2017-12-13 05:46] LABS: Glucose,Whole Blood 148 mg/dL (75-99)
[2017-12-13] MEDS: CARVEDILOL 6.25 MG TAB PO SCH ×2 (06:18→17:05)
[2017-12-13] MEDS: methylPREDNISolone SOD SUCCI 125 MG/2 ML VIAL IV SCH ×4 (06:18→23:36)
[2017-12-13] MEDS: amLODIPine 5 MG TAB PO SCH ×2 (06:18→17:05)
[2017-12-13] MEDS: INSULIN ASPART 100 UNIT/ML 1 ML 10 ML VIAL SQ SCH ×4 (06:19→21:14)
[2017-12-13] MEDS: PANTOPRAZOLE 40 MG TABLET PO SCH (06:19)
[2017-12-13] MEDS: CEFEPIME 2 GM in SODIUM CHLORIDE 0.9% 50 ML IVPB SCH ×2 (06:19→20:05)
[2017-12-13 06:45] LABS: Basophils % (A) 0 %; Eosinophils % (A) 0 %; HCT 40.5 % (39.0-53.0); HGB 13.3 gm/dL (13.0-17.5); Lymphocytes # (A) 0.4 k/uL (1.0-4.8); Lymphocytes % (A) 4 %; MCH 32.2 pg (25.0-35.0); MCHC 32.9 g/dL (31.0-37.0); Mean Platelet Volume 8.1; Monocytes # (A) 0.6 k/uL (0-1.0); Monocytes % (A) 6 %; Neutrophils # (A) 9.1 k/uL (1.3-7.7); Neutrophils % (A) 89 %; Platelet Count 209 k/uL (150-450); RBC 4.13 m/uL (4.30-5.90); RDW 13.4 % (11.5-15.5); WBC 10.3 k/uL (3.8-10.6)
[2017-12-13 06:52] LABS: Anion Gap 6 mmol/L; Blood Urea Nitrogen 41 mg/dL (9-20); Carbon Dioxide 38 mmol/L (22-30); Chloride 101 mmol/L (98-107); Glucose 147 mg/dL (74-99); Potassium 4.1 mmol/L (3.5-5.1); Sodium 145 mmol/L (137-145)
[2017-12-13] MEDS: metroNIDAZOLE-NS PMX 500 MG in SALINE 1 100ML.BAG IVPB SCH (08:14)
[2017-12-13] MEDS: INSULIN NPH/REG INSULIN 70/30 300 UNIT/3 ML VIAL SQ SCH ×2 (08:15→17:07)
[2017-12-13] MEDS: HEPARIN SODIUM,PORCINE 5,000 UNIT/ML 1 ML VIAL SQ SCH ×3 (08:15→23:38)
[2017-12-13] MEDS: hydrALAZINE HCL 25 MG TAB PO SCH ×3 (08:15→20:05)
[2017-12-13] MEDS: TAMSULOSIN 0.4 MG CAP.ER.24H PO SCH (08:15)
[2017-12-13] MEDS: BACLOFEN 10 MG TAB PO SCH ×3 (08:16→20:05)
[2017-12-13] MEDS: LISINOPRIL 20 MG TAB PO SCH ×2 (08:16→20:05)
[2017-12-13] MEDS: NITROGLYCERIN OINT 1 INCH/GM PACKET TOPICAL SCH ×3 (08:16→23:37)
[2017-12-13] MEDS: ASPIRIN 81 MG PO SCH (08:16)
[2017-12-13] MEDS: IPRATROPIUM-ALBUTEROL 3 ML NEB INHALATION SCH ×4 (08:18→19:56)
[2017-12-13] MEDS ORDERED: FUROSEMIDE 10 MG/ML 4 ML VIAL IV SCH (09:00)
[2017-12-13 11:16] LABS: Glucose,Whole Blood 213 mg/dL (75-99)
--- NOTE | 2017-12-13 11:26 | CDI ---
Last Revision, September 2017 Documentation Clarification Form Date: 12/13/2017 11:22 AM From: [place] [place] Admit Date: 12/05/2017 4:30:00 PM Patient Name: Brayan Real Visit Number: [id number] Discharge Date: ATTENTION: The Clinical Documentation Specialists (CDI) and [facility] Coding Staff appreciate your assistance in clarifying documentation. Please respond to the clarification below the line at the bottom and electronically sign. The CDI & [facility] Coding staff will review the response and follow-up if needed. Please note: Queries are made part of the Legal Health Record. If you have any questions, please contact the author of this message via ITS. Dr. Benji Arrington: Per the 12/06 H/P: "Leukocytosis and elevated lactic acid, may be secondary to vomiting and dehydration, no evidence of sepsis at this time, improving." Per Dr. Mireles's progress note on 12/08: "This 77-year-old gentleman who was admitted with acute left lower pneumonia possibly aspiration sepsis which is acute hypoxic respiratory failure." History: CAD, COPD, DM, Hyperlipidemia, Hypertension, [place] w/multi stents & CABG, former smoker. Clinical Indicators: Presented with gastroenteritis. Admitting VS: T 100.6, P 105, R 18, BP 104/82, PO 94 2Lnc LAB: WBC 15.1, Neut 13.8, Lactic Acid 2.8. Blood cultures x2 12/05: negative. Urine culture 12/05: negative. Treatment: IV fluid bolus x4, IV Zofran x2, IV Tylenol. IV antibiotics started 12/07. Consults: 12/06 Surgery. 12/07 Pulmonary, Cardiology. 12/08 ID In your professional opinion, please clarify if these findings signify one of the following conditions, whether the condition is POA, and cause, if known: Sepsis Severe Sepsis Septic Shock Other, please specify Unable to determine Present on Admission: Yes or No Please link any organ failure and/or shock. Please continue to document in your progress notes and discharge summary in order to capture severity of illness and risk of mortality. Include clinical findings that support your diagnosis. MTDD
[2017-12-13] MEDS: CHOLECALCIFEROL 1,000 UNIT TAB PO SCH (12:29)
[2017-12-13] MEDS: hydrALAZINE HCL 20 MG/ML 1 ML VIAL IVP PRN (12:31)
--- NOTE | 2017-12-13 14:38 | P.PN ---
Subjective Progress Note Date: 12/13/17 77-year-old male who presented to the emergency room with a chief complaint of vomiting 24 hours and generalized weakness. Patient denied shortness of breath or coughing. Denies chest pain or pressure. Denies diarrhea or constipation. Denies fever or chills. Family member at the bedside states that multiple family members have had gastroenteritis this week. The patient has a history of coronary artery disease, chronic objective pulmonary disease, diabetes mellitus, hyperlipidemia, hypertension, myocardial infarction with multiple stents, CABG, bilateral below the knee amputations, bilateral carotid enterectomy, and anxiety. He is a former cigarette smoker. Chest x-ray 12/05/2017: no acute abnormalities Chest x-ray 12/06/2017: [place] chronic changes without acute pulmonary process. No significant change from prior exam Laboratory data: WBC 15.1. Hemoglobin 15.7. Platelet count 236. Sodium 143. Potassium 4.1. BUN 23. Creatinine 0.98. Glucose 52. Lactic acid: 2.8 Testing for influenza A and B was negative Urinalysis reveals: cloudy yellow urine, 1+ proteinuria, trace ketones with 32 hyaline casts, occasional mucus and sediment The patient was admitted to the hospital under the care of Dr. Arrington. Consultations were placed to Dr. Roche. 12/07/2017-Notes per covering provider 12/08/2017-Notes per covering provider 12/09/2017 Patient seen and examined at the bedside on rounds with Dr. Arrington. The patient went into respiratory distress and was intubated on 12/06/2017. He remains intubated in the intensive care unit. Chest x-ray from this morning reveals persistent retrocardiac opacity and patchy left perihilar opacity that may represent atelectasis or pneumonia and persistent trace pleural effusions. Infectious disease remains on consult. The patient is currently receiving cefepime, Flagyl, and vancomycin. Patient is a DNR and family is requesting to extubate patient. 12/10/2017 Patient seen and examined at the bedside. Family at the bedside. Patient was extubated yesterday and transferred to selective care unit. Patient remains DO NOT RESUSCITATE. Patient is on 8 L high flow nasal cannula. Oxygen saturation 91%. Patient remains on IV steroids per pulmonology. Dose decreased to 40 mg every 12 hours. Patient has been on an insulin drip secondary to hyperglycemia. Most recent blood sugar is 123. Previous glucose is 143. Patient did receive a dose of IV Lasix this morning per Dr. Arrington. Patient states he has been diuresing well. Patient is tolerating a full liquid diet and requesting his diet to be advanced. Patient also is requesting medication for insomnia tonight. 12/11/2017 Patient evaluated at the bedside on rounds with Dr. Arrington. Family at the bedside. Patient remains on 8 L high flow nasal cannula. Oxygen saturations are greater than 92%. Patient states he was short of breath last night. BiPAP was attempted but patient did not tolerate well. He did receive Lasix 40 mg IV per pulmonology. Chest x-ray was completed yesterday evening. Right lung appears clear. Left pleural space positive for pleural effusion dependently. Left mid and lower zone shows multifocal atelectasis. Nursing states patient has had 2 episodes of urinary retention that required straight cath for greater than 500 mL of urine. Blood pressure this morning is elevated at 200/87. Patient's blood pressures have been running on the higher side with systolics of 170s to 180s. Dr. Arrington did speak with the patient and his spouse regarding the possibility of hospice if the patient does improve or the possibility of subacute rehab at [facility]. 12/12/2017 Patient evaluated at the bedside on rounds with Dr. Arrington. Patient is awake and alert. The patient's mentation also seems to have improved. This morning he is oriented 3. Remains on 8L high flow nasal cannula. Oxygen saturations are greater than 92%. Chest x-ray reveals slight improvement on the left perihilar infiltrate. Left lower lobe pneumonia stable. Patient states he is using his incentive spirometer 10 times an hour. Patient was started on Lasix 40 mg IV every 12 hours per pulmonary. Patient steroids were also increased to 60 mg IV every 6 hours. Patient remains on Flagyl and cefepime. Blood sugars have been elevated in the 200s. Patient has 70/30 insulin 55 units ordered twice a day. Nursing states the patient only received 25 units last night because the patient 's appetite has been decreased and patient has not received his morning dose at this time. 12/13/2017 Patient evaluated at the bedside on rounds with Dr. Arrington. Patient is awake and alert. patient is on 4 L nasal cannula with oxygen saturations greater than 92% . Patient states his breathing has significantly improved. He denies shortness of breath at this time. Blood pressure this morning is elevated at 190/84, but patient has not received his morning antihypertensives. patient's Lasix has been decreased to 40 mg IV daily. He remains on IV steroids 60 mg every 6 hours. patient's blood sugar this morning is 147. he was started on Levemir 25 units at at bedtime in addition to his 70/30 55 units twice a day. Objective - Vital Signs Vital signs: Vital Signs Temp 97.0 F L 12/13/17 08:00 Pulse 96 12/13/17 08:35 Resp 18 12/13/17 08:00 BP 190/84 12/13/17 08:00 Pulse Ox 95 12/13/17 08:00 Intake & Output 12/12/17 12/13/17 12/13/17 18:59 06:59 18:59 Intake Total 1200 360 360 Output Total 1800 850 Balance -600 -490 360 Weight 100.5 kg 98.5 kg Intake: IV 360 0.9 160 Cefepime 2 gm In Sodium 100 Chloride 0.9% 50 ml @ 100 mls/hr IVPB Q12H JAMES Rx# :[id number] metroNIDAZOLE-NS PMX 500 100 mg In Saline 1 100ml.bag @ 100 mls/hr IVPB Q8HR JAMES Rx#:[id number] Oral 1200 360 Output: Urine 1800 850 Other: Voiding Method Indwelling Catheter Indwelling Catheter # Voids 1 # Bowel Movements 1 1 - Exam GENERAL: This is a 77-year-old male who appears in no acute distress. HEENT: Head is atraumatic, normocephalic. Pupils are equal, round, and reactive to light. Sclerae anicteric. Conjunctivae are clear. Mucus membranes of the mouth are moist. Neck is supple. RESPIRATORY: Lung sounds improved since yesterday. Diminished throughout with rhonchi present. No rales noted. Patient remains on 4 L nasal cannula with oxygen saturations greater than 92%. CARDIOVASCULAR: Regular rate and rhythm. S1 and S2 noted. No systolic or diastolic murmur auscultated. No JVD noted. No S3 or S4 noted. GASTROINTESTINAL: No distention noted. Abdomen soft and round. Normal active bowel sounds auscultated x 4 quadrants. No pain or tenderness noted upon palpation. INTEGUMENTARY: No cyanosis. No jaundice. No rashes noted. No cellulitis noted. EXTREMITIES: Patient with bilateral [id number] amputations NEUROLOGIC: Cranial nerves intact. No deficits noted. PSYCHIATRIC: Patient is alert and oriented 3. Affect appropriate. - Labs CBC & Chem 7: 12/13/17 05:47 12/13/17 05:47 Labs: Abnormal Lab Results - Last 24 Hours (Table) 12/12/17 12/12/17 12/12/17 Range/Units 11:55 16:50 20:49 RBC (4.30-5.90) m/uL Neutrophils # (1.3-7.7) k/uL Lymphocytes # (1.0-4.8) k/uL Carbon Dioxide (22-30) mmol/L BUN (9-20) mg/dL Glucose (74-99) mg/dL POC Glucose (mg/dL) 260 H 277 H 258 H (75-99) mg/dL Calcium (8.4-10.2) mg/dL 12/13/17 12/13/17 12/13/17 Range/Units 05:44 05:47 05:47 RBC 4.13 L (4.30-5.90) m/uL Neutrophils # 9.1 H (1.3-7.7) k/uL Lymphocytes # 0.4 L (1.0-4.8) k/uL Carbon Dioxide 38 H (22-30) mmol/L BUN 41 H (9-20) mg/dL Glucose 147 H (74-99) mg/dL POC Glucose (mg/dL) 148 H (75-99) mg/dL Calcium 8.0 L (8.4-10.2) mg/dL Assessment and Plan Plan: ASSESSMENT: Acute left lung pneumonia, x-ray reveals persistent consolidation of left midlung, sputum culture negative Acute exacerbation of chronic obstructive pulmonary disease Acute hypoxic respiratory failure requiring mechanical ventilation secondary to left lung pneumonia, s/p extubation on 12/09/2017 Intractable nausea and vomiting with abdominal distention, possible gastroenteritis as multiple family members have had gastroenteritis recently, ileus and obstruction ruled out, resolved Hypoglycemia, secondary to vomiting and decreased oral intake, resolved Hyperglycemia, likely secondary to IV steroids, improving Leukocytosis and elevated lactic acid, may be secondary to vomiting and dehydration and left lung pneumonia, resolved Coronary artery disease with multiple stent placements and CABG 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 Appreciate recommendations and input Continue IV steroids: Currently 60 mg every 6 hours. Taper per pulmonology continue Lasix 40 mg IV daily. Wean per pulmonary Continue indwelling urinary catheter Monitor blood pressure Infectious disease on consult. Appreciate recommendations and input Antibiotic regimen per ID: Patient currently on Flagyl and cefepime Continue Blood glucose Accu-Cheks before meals and at bedtime Continue NovoLog sliding scale coverage before meals and at bedtime Continue patient's home dose of 70/30 insulin 55 units twice a day continue Levemir 25 units at night Patient is a DNR Home meds as appropriate GI prophylaxis: Protonix 40 mg PO daily DVT prophylaxis: Bilateral BKA, patient on heparin subcu per pulmonary Monitor labs Monitor vital signs and address as appropriate Further recommendations pending patient's course if patient remains stable, anticipate discharge to ECF on Saturday. Patient is requesting [facility] Nurse practitioner note has been reviewed by physician. Signing provider agrees with the documented findings, assessment, and plan of care.
--- NOTE | 2017-12-13 16:09 | PN ---
PROGRESS NOTE DATE OF SERVICE: 12/13/2017. REASON FOR FOLLOWUP: Pneumonia possible aspiration etiology. INTERVAL HISTORY: The patient is afebrile. He seems to be breathing comfortably. Denies having any chest pain or shortness of breath. Cough decreased in intensity. No nausea, vomiting, or abdominal pain and no diarrhea. EXAMINATION: Blood pressure 183/81 with a pulse of 83, temperature 97.1. She is 94% on 4 L nasal cannula. General description is an elderly male lying in bed in no distress. RESPIRATORY SYSTEM: Unlabored breathing with decreased breath sounds at the bases. No wheeze. HEART: S1, S2. Regular rate and rhythm. ABDOMEN: Soft, no tenderness. LABS: Hemoglobin 13.2, white count 10.3, BUN of 41, creatinine 0.81. DIAGNOSTIC IMPRESSION AND PLAN: Patient with left-sided pneumonia and concern for possible aspiration etiology. Currently responding to cefepime and Flagyl. Plan to finish therapy with oral. discharge. Continue supportive care. MMODL / IJN: [id number] /
[2017-12-13 16:30] LABS: Glucose,Whole Blood 134 mg/dL (75-99)
--- NOTE | 2017-12-13 16:46 | P.PN ---
Subjective Progress Note Date: 12/13/17 A 77-year-old male patient, quite debilitated with multiple medical problems and comorbidities including coronary artery disease, bilateral above-knee amputation, diabetes mellitus, COPD, hypertension, hyperlipidemia, and peripheral vascular disease. The patient came into the hospital because of generalized weakness and respiratory distress. The patient had an extensive left lung pneumonia. Subsequently the patient went into respiratory failure. Apparently the patient had a D and I CODE STATUS. He never wanted to be intubated or placed on a mechanical ventilator. On the emergency conditions, the patient was intubated and the patient got moved to the intensive care unit. This morning, the patient is awake and alert. He is off sedation. He is still intubated. The chest x-ray showing clearing of the left lung pneumonia. The patient is a combination of cefepime and Flagyl and vancomycin. He is afebrile hemodynamically stable. I was able to cut down the PEEP down to 5 and drop the FiO2 down to 40%. Family came to the bedside. With a lengthy discussion with the family and they are very clear that the patient never want to be intubated and they insisted on extubating him and let nature take its course. I think the patient may fair well knowing that he has adequate clearing of the left lung pneumonia. He remains in sinus rhythm with multiple PACs. The patient is afebrile. On 12/10/2017 I'm seeing this patient for a follow-up. As mentioned earlier the patient was being treated for a left lung pneumonia and acute respiratory failure requiring intubation mechanical ventilation. The patient was improving and upon the family's request the patient was extubated yesterday. Currently he is doing well. He is on the medical floor with telemetry. He is on 18th of oxygen by nasal cannula. He has a congested cough. No significant sputum production. He is taking some oral intake including some soft pudding. No fever. No chills. He remains on the same antibiotic coverage and the patient is on a combination of IV cefepime and Flagyl and vancomycin. He is on IV Solu Medrol which will be obviously tapered. His mental status is appropriate. He is following simple commands and answering questions. Final sputum sample that was collected in the intensive care unit while the patient was a intubated was negative. The blood cultures also negative. The white cell count from today 13.6. Hemoglobin stable at 13.2. Rest of the blood work shows no significant abnormalities. On 12/11/2017 I'm seeing this patient for a follow-up. Overnight the patient developed some increased shortness of breath. A repeat chest x-ray was done and it showed that the left pleural space was positive for a dependent effusion. There was a left mid and left lower lobe infiltrate and areas of multifocal atelectasis. Based on that, the patient was briefly placed on BiPAP and the patient was placed on a BiPAP pressure of 10/5. He was given Ativan to help him tolerate the BiPAP treatment. The patient was also given Lasix IV. The patient improved and this afternoon he is on 18th of oxygen nasal cannula. A repeat chest x-ray was done and showed stable findings. There is a small left -sided pleural effusion and continued airspace disease in the left midlung area. The patient was seen by infectious disease and the patient is on the same antibiotic coverage. No aspiration. He is taking some soft diet. No fever chills or night sweats. He is noted to be more broken spastic and wheezy on today's evaluation. Note that he has declared himself as a DNR/DNI CODE STATUS. The white cell count is 11.6. All of the cultures of been negative. On 12/12/2017, I'm seeing this patient for a follow-up. Clinically improved compared to yesterday. Chest x-ray showing improvement in the left upper lobe consolidation and pneumonia. The patient is less focused spastic and wheezy compared to yesterday. Earlier this morning he was an 8 L and he was pulse oxing 96%. Based on that I was able to cut down his FiO2 down to 5 L/m nasal cannula. He is on IV steroids. He is also taking Lasix 40 g every 12 hours. Is producing adequate amount of urine output. No significant leukocytosis and the white cell count has dropped. Cultures of been all negative. He seems to be more interactive and awake. He is breathing has improved and is less focused spastic and wheezy compared to yesterday. He is still a DNR/DNI CODE STATUS. He is ultimately looking for an ECF transfer for further rehabilitation. On 12/13/2017 I'm seeing this patient for a follow-up. Doing well. Still on same antibiotic coverage. FiO2 has been drop down to 3 L of oxygen nasal cannula. No active bronchospasm or wheezing at this point. The patient's white cell count is at 10.3. The patient is on IV Solu-Medrol. The patient is also receiving Lasix 40 mg IV every 24 hours. The neck fluid balance -2.7 L 4 yesterday and 2.9 L for today. The patient is producing adequate amount of urine output. The patient has developed some degree of metabolic alkalosis. Bicarb level is up to 38. The BUN is up to 41 with a creatinine of 0.8. I'm going to stop the IV Lasix. Otherwise, the patient is weak and he is looking to go to [facility] for further rehabilitation. All of the cultures of been negative. We'll repeat a chest x-ray in a.m. Objective - Vital Signs Vital signs: Vital Signs Temp 97.1 F L 12/13/17 12:00 Pulse 90 12/13/17 16:00 Resp 18 12/13/17 12:00 BP 183/81 12/13/17 12:00 Pulse Ox 94 L 12/13/17 12:00 Intake & Output 12/12/17 12/13/17 12/13/17 18:59 06:59 18:59 Intake Total 1200 360 600 Output Total 3650 850 2300 Balance -2450 -490 -1700 Weight 100.5 kg 98.5 kg Intake: IV 360 0.9 160 Cefepime 2 gm In Sodium 100 Chloride 0.9% 50 ml @ 100 mls/hr IVPB Q12H JAMES Rx# :[id number] metroNIDAZOLE-NS PMX 500 100 mg In Saline 1 100ml.bag @ 100 mls/hr IVPB Q8HR JAMES Rx#:[id number] Oral 1200 600 Output: Urine 3650 850 2300 Straight 1850 1100 Other: Voiding Method Indwelling Catheter Indwelling Catheter Indwelling Catheter # Voids 1 # Bowel Movements 1 1 - Exam No acute distress. Patient is awake and alert. The patient is on 8 L of oxygen high flow. No apparent respirator distress. Communicating. Conversing.. HEENT examination is grossly unremarkable. Mucous membranes are moist. Neck supple. Full range of motion. No adenopathy thyromegaly or neck vein distention. Cardiovascular examination reveals regular rhythm rate. S1-S2 normal. No S3 or S4. No discernible murmur noted. Lungs reveal coarse rhonchi. Breath sounds are diminished. Breath sounds are equal bilaterally. Some crackles are noted. Abdomen soft bowel sounds are heard. No masses or tenderness. Extremities reveal bilateral below knee amputations. Skin is without rash or lesion. Neurologic awake and moving upper extremities and there is no focal neurological deficits. - Labs CBC & Chem 7: 12/13/17 05:47 12/13/17 05:47 Labs: Abnormal Lab Results - Last 24 Hours (Table) 12/12/17 12/12/17 12/13/17 Range/Units 16:50 20:49 05:44 RBC (4.30-5.90) m/uL Neutrophils # (1.3-7.7) k/uL Lymphocytes # (1.0-4.8) k/uL Carbon Dioxide (22-30) mmol/L BUN (9-20) mg/dL Glucose (74-99) mg/dL POC Glucose (mg/dL) 277 H 258 H 148 H (75-99) mg/dL Calcium (8.4-10.2) mg/dL 12/13/17 12/13/17 12/13/17 Range/Units 05:47 05:47 11:09 RBC 4.13 L (4.30-5.90) m/uL Neutrophils # 9.1 H (1.3-7.7) k/uL Lymphocytes # 0.4 L (1.0-4.8) k/uL Carbon Dioxide 38 H (22-30) mmol/L BUN 41 H (9-20) mg/dL Glucose 147 H (74-99) mg/dL POC Glucose (mg/dL) 213 H (75-99) mg/dL Calcium 8.0 L (8.4-10.2) mg/dL 12/13/17 Range/Units 16:08 RBC (4.30-5.90) m/uL Neutrophils # (1.3-7.7) k/uL Lymphocytes # (1.0-4.8) k/uL Carbon Dioxide (22-30) mmol/L BUN (9-20) mg/dL Glucose (74-99) mg/dL POC Glucose (mg/dL) 134 H (75-99) mg/dL Calcium (8.4-10.2) mg/dL Assessment and Plan Plan: Assessment 1 acute left lung pneumonia with secondary acute hypoxic respiratory failure, intubation mechanical ventilation. The patient has a DNR/DNI CODE STATUS. The patient was extubated yesterday and today he is on 8 L high flow oxygen to maintain a saturation above 90%. No apparent respiratory distress. He has a decent cough. He is covered with triple antibiotic coverage including a combination of cefepime, Flagyl and vancomycin. No fever. No chills no significant leukocytosis. On 12/12/2007 and the patient is still having some difficulties in breathing. His COPD seems to have exacerbated. Based on that the patient was requiring high dose of steroids per chest x-ray findings are stable. There is small left- sided pleural effusion and persistent consolidation of the left midlung. The patient would benefit from further antibiotics and steroids and diuretics. He is currently off the BiPAP. On 12/12/2017, patient is less short of breath compared to yesterday and the chest x-ray is showing improvement in the left upper lobe consolidation. We'll continue the bronchodilators. Continue steroids. Cut down the Lasix dose. Patient is off the BiPAP. Condition is been essentially stable and the family is at the bedside. On 12/13/2017, there has been further improvement in the patient's breathing status. Patient is on weaned down to 3 L of oxygen nasal cannula. He is on the same combination antibiotics which included vancomycin cefepime and Flagyl. The patient has been diuresed and the neck fluid balance is negative more than 5 L. The patient is also on IV Solu Medrol. 2 History of CAD with previous bypass grafting 3 COPD by history 4 Diabetes mellitus by history 5 History of peripheral vascular occlusive disease, with bilateral lower extremity amputations 6 History of myocardial infarction 7 History of hypertension 8 history of hyperlipidemia 9 Multiple vascular procedures Plan Continue same antibiotic coverage. Wean down the FiO2 below 3 L if possible. Patient has been on antibiotics. I'm going to stop the IV Lasix. Continued IV Solu-Medrol. Repeat chest x-ray in the morning. ECF transfer once again by the rest of the consultants.
[2017-12-13] MEDS: metroNIDAZOLE 500 MG TAB PO SCH ×2 (17:30→20:06)
[2017-12-13] MEDS: ATORVASTATIN 40 MG TAB PO SCH (20:05)
[2017-12-13 20:47] LABS: Glucose,Whole Blood 145 mg/dL (75-99)
[2017-12-13] MEDS: INSULIN DETEMIR 100 UNIT/ML 10 ML VIAL SQ SCH (21:16)
[2017-12-13] MEDS: TEMAZEPAM 15 MG CAP PO PRN (23:38)
[2017-12-14 05:43] LABS: Glucose,Whole Blood 32 mg/dL (75-99)
[2017-12-14] MEDS: INSULIN ASPART 100 UNIT/ML 1 ML 10 ML VIAL SQ SCH ×4 (05:48→21:03)
[2017-12-14] MEDS: INSULIN NPH/REG INSULIN 70/30 300 UNIT/3 ML VIAL SQ SCH ×2 (05:49→17:55)
[2017-12-14 06:02] LABS: Glucose,Whole Blood 37 mg/dL (75-99)
[2017-12-14] MEDS ORDERED: DEXTROSE 50%-WATER 50 ML SYRINGE IVP ONE (06:04)
[2017-12-14] MEDS: methylPREDNISolone SOD SUCCI 125 MG/2 ML VIAL IV SCH ×2 (06:14→15:52)
[2017-12-14] MEDS: amLODIPine 5 MG TAB PO SCH ×2 (06:14→17:56)
[2017-12-14] MEDS: PANTOPRAZOLE 40 MG TABLET PO SCH (06:14)
[2017-12-14] MEDS: CARVEDILOL 6.25 MG TAB PO SCH ×2 (06:14→17:56)
[2017-12-14] MEDS: CEFEPIME 2 GM in SODIUM CHLORIDE 0.9% 50 ML IVPB SCH ×2 (06:17→18:46)
[2017-12-14 06:41] LABS: Glucose,Whole Blood 150 mg/dL (75-99)
[2017-12-14] MEDS: IPRATROPIUM-ALBUTEROL 3 ML NEB INHALATION SCH ×4 (08:17→20:21)
[2017-12-14] MEDS: metroNIDAZOLE 500 MG TAB PO SCH ×3 (08:37→19:52)
[2017-12-14] MEDS: hydrALAZINE HCL 25 MG TAB PO SCH ×3 (08:37→19:52)
[2017-12-14] MEDS: LISINOPRIL 20 MG TAB PO SCH ×2 (08:37→19:52)
[2017-12-14] MEDS: HEPARIN SODIUM,PORCINE 5,000 UNIT/ML 1 ML VIAL SQ SCH ×3 (08:37→22:36)
[2017-12-14] MEDS: ASPIRIN 81 MG PO SCH (08:37)
[2017-12-14] MEDS: NITROGLYCERIN OINT 1 INCH/GM PACKET TOPICAL SCH ×3 (08:37→22:35)
[2017-12-14] MEDS: TAMSULOSIN 0.4 MG CAP.ER.24H PO SCH (08:38)
[2017-12-14] MEDS: BACLOFEN 10 MG TAB PO SCH ×3 (08:38→19:52)
[2017-12-14] MEDS: CHOLECALCIFEROL 1,000 UNIT TAB PO SCH (08:39)
--- NOTE | 2017-12-14 09:05 | XR ---
EXAMINATION TYPE: XR chest 1V DATE OF EXAM: 12/14/2017 CLINICAL HISTORY: Difficulty breathing and pneumonia progress study. TECHNIQUE: Single AP portable upright view of the chest is obtained. COMPARISON: Chest x-ray from 2 days earlier and older studies. FINDINGS: Sternal wires and mediastinal clips are redemonstrated. There is cardiomegaly with atheros clerotic thoracic aorta. There is chronic parenchymal change with persistent left basilar opacity. Ri ght lung is clear. No pleural effusion or pneumothorax is seen bilaterally. Osseous structures are in tact. IMPRESSION: Overall stable findings, chronic parenchymal change and cardiomegaly with persistent le ft basilar atelectasis and/or infiltrate.
[2017-12-14 11:46] LABS: Glucose,Whole Blood 179 mg/dL (75-99)
[2017-12-14] MEDS ORDERED: FUROSEMIDE 40 MG TAB PO STA (15:26)
--- NOTE | 2017-12-14 15:26 | P.PN ---
Subjective Progress Note Date: 12/14/17 A 77-year-old male patient, quite debilitated with multiple medical problems and comorbidities including coronary artery disease, bilateral above-knee amputation, diabetes mellitus, COPD, hypertension, hyperlipidemia, and peripheral vascular disease. The patient came into the hospital because of generalized weakness and respiratory distress. The patient had an extensive left lung pneumonia. Subsequently the patient went into respiratory failure. Apparently the patient had a D and I CODE STATUS. He never wanted to be intubated or placed on a mechanical ventilator. On the emergency conditions, the patient was intubated and the patient got moved to the intensive care unit. This morning, the patient is awake and alert. He is off sedation. He is still intubated. The chest x-ray showing clearing of the left lung pneumonia. The patient is a combination of cefepime and Flagyl and vancomycin. He is afebrile hemodynamically stable. I was able to cut down the PEEP down to 5 and drop the FiO2 down to 40%. Family came to the bedside. With a lengthy discussion with the family and they are very clear that the patient never want to be intubated and they insisted on extubating him and let nature take its course. I think the patient may fair well knowing that he has adequate clearing of the left lung pneumonia. He remains in sinus rhythm with multiple PACs. The patient is afebrile. On 12/10/2017 I'm seeing this patient for a follow-up. As mentioned earlier the patient was being treated for a left lung pneumonia and acute respiratory failure requiring intubation mechanical ventilation. The patient was improving and upon the family's request the patient was extubated yesterday. Currently he is doing well. He is on the medical floor with telemetry. He is on 18th of oxygen by nasal cannula. He has a congested cough. No significant sputum production. He is taking some oral intake including some soft pudding. No fever. No chills. He remains on the same antibiotic coverage and the patient is on a combination of IV cefepime and Flagyl and vancomycin. He is on IV Solu Medrol which will be obviously tapered. His mental status is appropriate. He is following simple commands and answering questions. Final sputum sample that was collected in the intensive care unit while the patient was a intubated was negative. The blood cultures also negative. The white cell count from today 13.6. Hemoglobin stable at 13.2. Rest of the blood work shows no significant abnormalities. On 12/11/2017 I'm seeing this patient for a follow-up. Overnight the patient developed some increased shortness of breath. A repeat chest x-ray was done and it showed that the left pleural space was positive for a dependent effusion. There was a left mid and left lower lobe infiltrate and areas of multifocal atelectasis. Based on that, the patient was briefly placed on BiPAP and the patient was placed on a BiPAP pressure of 10/5. He was given Ativan to help him tolerate the BiPAP treatment. The patient was also given Lasix IV. The patient improved and this afternoon he is on 18th of oxygen nasal cannula. A repeat chest x-ray was done and showed stable findings. There is a small left -sided pleural effusion and continued airspace disease in the left midlung area. The patient was seen by infectious disease and the patient is on the same antibiotic coverage. No aspiration. He is taking some soft diet. No fever chills or night sweats. He is noted to be more broken spastic and wheezy on today's evaluation. Note that he has declared himself as a DNR/DNI CODE STATUS. The white cell count is 11.6. All of the cultures of been negative. On 12/12/2017, I'm seeing this patient for a follow-up. Clinically improved compared to yesterday. Chest x-ray showing improvement in the left upper lobe consolidation and pneumonia. The patient is less focused spastic and wheezy compared to yesterday. Earlier this morning he was an 8 L and he was pulse oxing 96%. Based on that I was able to cut down his FiO2 down to 5 L/m nasal cannula. He is on IV steroids. He is also taking Lasix 40 g every 12 hours. Is producing adequate amount of urine output. No significant leukocytosis and the white cell count has dropped. Cultures of been all negative. He seems to be more interactive and awake. He is breathing has improved and is less focused spastic and wheezy compared to yesterday. He is still a DNR/DNI CODE STATUS. He is ultimately looking for an ECF transfer for further rehabilitation. On 12/13/2017 I'm seeing this patient for a follow-up. Doing well. Still on same antibiotic coverage. FiO2 has been drop down to 3 L of oxygen nasal cannula. No active bronchospasm or wheezing at this point. The patient's white cell count is at 10.3. The patient is on IV Solu-Medrol. The patient is also receiving Lasix 40 mg IV every 24 hours. The neck fluid balance -2.7 L 4 yesterday and 2.9 L for today. The patient is producing adequate amount of urine output. The patient has developed some degree of metabolic alkalosis. Bicarb level is up to 38. The BUN is up to 41 with a creatinine of 0.8. I'm going to stop the IV Lasix. Otherwise, the patient is weak and he is looking to go to [facility] for further rehabilitation. All of the cultures of been negative. We'll repeat a chest x-ray in a.m. On 12/14/2017, the patient is looking much improved. As mentioned earlier the chest x-ray from yesterday shows significant improvement of the left upper lobe consolidation/pneumonia. Patient is awake and alert and following commands and answering questions. No significant respiratory distress. Cough and congestion is improved and the patient is doing better on incentive spirometer. He is still on IV cefepime and Flagyl. IV Lasix was discontinued and despite that the patient is still producing adequate amount of urine output and he remains in a negative fluid balance. The white cell count is not elevated at 10.3. Renal function is stable with a creatinine of 0.8 and these are labs from yesterday. Objective - Vital Signs Vital signs: Vital Signs Temp 96.8 F L 12/14/17 08:00 Pulse 82 12/14/17 12:12 Resp 18 12/14/17 12:00 BP 146/67 12/14/17 12:00 Pulse Ox 90 L 12/14/17 12:00 Intake & Output 12/13/17 12/14/17 12/14/17 18:59 06:59 18:59 Intake Total 840 260 780 Output Total 2300 450 0 Balance -1460 -190 780 Weight 99 kg Intake: IV 260 0.9 160 Cefepime 2 gm In Sodium 100 Chloride 0.9% 50 ml @ 100 mls/hr IVPB Q12H [facility] Rx# :[id number] Oral 840 780 Output: Urine 2300 450 0 Straight 1100 Stool 0 Other: Voiding Method Indwelling Catheter Indwelling Catheter Indwelling Catheter # Voids 0 # Bowel Movements 0 - Exam No acute distress. Patient is awake and alert. The patient is on 8 L of oxygen high flow. No apparent respirator distress. Communicating. Conversing.. HEENT examination is grossly unremarkable. Mucous membranes are moist. Neck supple. Full range of motion. No adenopathy thyromegaly or neck vein distention. Cardiovascular examination reveals regular rhythm rate. S1-S2 normal. No S3 or S4. No discernible murmur noted. Lungs reveal coarse rhonchi. Breath sounds are diminished. Breath sounds are equal bilaterally. Some crackles are noted. Abdomen soft bowel sounds are heard. No masses or tenderness. Extremities reveal bilateral below knee amputations. Skin is without rash or lesion. Neurologic awake and moving upper extremities and there is no focal neurological deficits. - Labs CBC & Chem 7: 12/13/17 05:47 12/13/17 05:47 Labs: Abnormal Lab Results - Last 24 Hours (Table) 12/13/17 12/13/17 12/14/17 Range/Units 16:08 20:42 05:41 POC Glucose (mg/dL) 134 H 145 H 32 L (75-99) mg/dL 12/14/17 12/14/17 12/14/17 Range/Units 06:01 06:24 11:37 POC Glucose (mg/dL) 37 L 150 H 179 H (75-99) mg/dL Assessment and Plan Plan: Assessment 1 acute left lung pneumonia with secondary acute hypoxic respiratory failure, intubation mechanical ventilation. The patient has a DNR/DNI CODE STATUS. The patient was extubated yesterday and today he is on 8 L high flow oxygen to maintain a saturation above 90%. No apparent respiratory distress. He has a decent cough. He is covered with triple antibiotic coverage including a combination of cefepime, Flagyl and vancomycin. No fever. No chills no significant leukocytosis. On 12/12/2007 and the patient is still having some difficulties in breathing. His COPD seems to have exacerbated. Based on that the patient was requiring high dose of steroids per chest x-ray findings are stable. There is small left- sided pleural effusion and persistent consolidation of the left midlung. The patient would benefit from further antibiotics and steroids and diuretics. He is currently off the BiPAP. On 12/12/2017, patient is less short of breath compared to yesterday and the chest x-ray is showing improvement in the left upper lobe consolidation. We'll continue the bronchodilators. Continue steroids. Cut down the Lasix dose. Patient is off the BiPAP. Condition is been essentially stable and the family is at the bedside. On 12/13/2017, there has been further improvement in the patient's breathing status. Patient is on weaned down to 3 L of oxygen nasal cannula. He is on the same combination antibiotics which included vancomycin cefepime and Flagyl. The patient has been diuresed and the neck fluid balance is negative more than 5 L. The patient is also on IV Solu Medrol. On 12/14/2017, the patient is looking well and has no specific complaints of these of oxygen by nasal cannula. Current antibiotic coverage continued to be combination of cefepime and Flagyl. IV Solu Medrol will be tapered down to oral prednisone. He has noticed to be improving and there is no significant respiratory distress at this point. 2 History of CAD with previous bypass grafting 3 COPD by history 4 Diabetes mellitus by history 5 History of peripheral vascular occlusive disease, with bilateral lower extremity amputations 6 History of myocardial infarction 7 History of hypertension 8 history of hyperlipidemia 9 Multiple vascular procedures Plan Continue same antibiotic coverage. Wean down the FiO2 below 3 L if possible. Patient has been on antibiotics. Put the patient on oral Lasix 40 mg on a daily basis. Put the patient on IV prednisone and stop the IV Solu-Medrol. ECF transfer with the next 24-48 hours and the patient is looking forward to go to monitor with manner. Cultures of been all negative. Repeat labs in a.m. We 'll continue to follow.
[2017-12-14] MEDS: predniSONE 20 MG TAB PO SCH (16:18)
[2017-12-14 16:59] LABS: Glucose,Whole Blood 226 mg/dL (75-99)
[2017-12-14] MEDS: ATORVASTATIN 40 MG TAB PO SCH (19:52)
[2017-12-14] MEDS: INSULIN DETEMIR 100 UNIT/ML 10 ML VIAL SQ SCH (20:42)
[2017-12-14 21:01] LABS: Glucose,Whole Blood 208 mg/dL (75-99)
--- NOTE | 2017-12-14 21:30 | P.PN ---
Subjective Progress Note Date: 12/14/17 Principal diagnosis: Pneumonia 77-year-old male who presented to the emergency room with a chief complaint of vomiting 24 hours and generalized weakness. Patient denied shortness of breath or coughing. Denies chest pain or pressure. Denies diarrhea or constipation. Denies fever or chills. Family member at the bedside states that multiple family members have had gastroenteritis this week. The patient has a history of coronary artery disease, chronic objective pulmonary disease, diabetes mellitus, hyperlipidemia, hypertension, myocardial infarction with multiple stents, CABG, bilateral below the knee amputations, bilateral carotid enterectomy, and anxiety. He is a former cigarette smoker. Chest x-ray 12/05/2017: no acute abnormalities Chest x-ray 12/06/2017: [place] chronic changes without acute pulmonary process. No significant change from prior exam Laboratory data: WBC 15.1. Hemoglobin 15.7. Platelet count 236. Sodium 143. Potassium 4.1. BUN 23. Creatinine 0.98. Glucose 52. Lactic acid: 2.8 Testing for influenza A and B was negative Urinalysis reveals: cloudy yellow urine, 1+ proteinuria, trace ketones with 32 hyaline casts, occasional mucus and sediment The patient was admitted to the hospital under the care of Dr. Arrington. Consultations were placed to Dr. Roche. 12/07/2017-Notes per covering provider 12/08/2017-Notes per covering provider 12/09/2017 Patient seen and examined at the bedside on rounds with Dr. Arrington. The patient went into respiratory distress and was intubated on 12/06/2017. He remains intubated in the intensive care unit. Chest x-ray from this morning reveals persistent retrocardiac opacity and patchy left perihilar opacity that may represent atelectasis or pneumonia and persistent trace pleural effusions. Infectious disease remains on consult. The patient is currently receiving cefepime, Flagyl, and vancomycin. Patient is a DNR and family is requesting to extubate patient. 12/10/2017 Patient seen and examined at the bedside. Family at the bedside. Patient was extubated yesterday and transferred to selective care unit. Patient remains DO NOT RESUSCITATE. Patient is on 8 L high flow nasal cannula. Oxygen saturation 91%. Patient remains on IV steroids per pulmonology. Dose decreased to 40 mg every 12 hours. Patient has been on an insulin drip secondary to hyperglycemia. Most recent blood sugar is 123. Previous glucose is 143. Patient did receive a dose of IV Lasix this morning per Dr. Arrington. Patient states he has been diuresing well. Patient is tolerating a full liquid diet and requesting his diet to be advanced. Patient also is requesting medication for insomnia tonight. 12/11/2017 Patient evaluated at the bedside on rounds with Dr. Arrington. Family at the bedside. Patient remains on 8 L high flow nasal cannula. Oxygen saturations are greater than 92%. Patient states he was short of breath last night. BiPAP was attempted but patient did not tolerate well. He did receive Lasix 40 mg IV per pulmonology. Chest x-ray was completed yesterday evening. Right lung appears clear. Left pleural space positive for pleural effusion dependently. Left mid and lower zone shows multifocal atelectasis. Nursing states patient has had 2 episodes of urinary retention that required straight cath for greater than 500 mL of urine. Blood pressure this morning is elevated at 200/87. Patient's blood pressures have been running on the higher side with systolics of 170s to 180s. Dr. Arrington did speak with the patient and his spouse regarding the possibility of hospice if the patient does improve or the possibility of subacute rehab at [facility]. 12/12/2017 Patient evaluated at the bedside on rounds with Dr. Arrington. Patient is awake and alert. The patient's mentation also seems to have improved. This morning he is oriented 3. Remains on 8L high flow nasal cannula. Oxygen saturations are greater than 92%. Chest x-ray reveals slight improvement on the left perihilar infiltrate. Left lower lobe pneumonia stable. Patient states he is using his incentive spirometer 10 times an hour. Patient was started on Lasix 40 mg IV every 12 hours per pulmonary. Patient steroids were also increased to 60 mg IV every 6 hours. Patient remains on Flagyl and cefepime. Blood sugars have been elevated in the 200s. Patient has 70/30 insulin 55 units ordered twice a day. Nursing states the patient only received 25 units last night because the patient 's appetite has been decreased and patient has not received his morning dose at this time. 12/13/2017 Patient evaluated at the bedside on rounds with Dr. Arrington. Patient is awake and alert. patient is on 4 L nasal cannula with oxygen saturations greater than 92% . Patient states his breathing has significantly improved. He denies shortness of breath at this time. Blood pressure this morning is elevated at 190/84, but patient has not received his morning antihypertensives. patient's Lasix has been decreased to 40 mg IV daily. He remains on IV steroids 60 mg every 6 hours. patient's blood sugar this morning is 147. he was started on Levemir 25 units at at bedtime in addition to his 70/30 55 units twice a day. 12/14/2017 Patient says that he is feeling better. Chest x-ray showed stable findings with left basilar infiltrate/atelectasis. Otherwise patient is being continued on incentive spirometry and continue with antibiotics in the form of Vanco plus cefepime plus Flagyl. Lasix discontinued. Continue the prednisone. Pulmonary is following. Overall patient is clinically improving. Discussed with his at bedside in detail. All other review of systems negative except the above Active Medications Acetaminophen (Tylenol Tab) 650 mg PO Q6HR PRN PRN Reason: Mild Pain or Fever > 100.5 Last Admin: 12/06/17 22:32 Dose: 650 mg Albuterol/Ipratropium (Duoneb 0.5 Mg-3 Mg/3 Ml Soln) 3 ml INHALATION RT-Q1H PRN PRN Reason: Shortness Of Breath Or Wheezing Last Admin: 12/10/17 23:22 Dose: 3 ml Albuterol/Ipratropium (Duoneb 0.5 Mg-3 Mg/3 Ml Soln) 3 ml INHALATION RT-QID [facility] Last Admin: 12/14/17 20:21 Dose: Not Given Amlodipine Besylate (Norvasc) 5 mg PO Q12H [facility] Last Admin: 12/14/17 17:56 Dose: 5 mg Aspirin (Aspirin) 81 mg PO DAILY [facility] Last Admin: 12/14/17 08:37 Dose: 81 mg Atorvastatin Calcium (Lipitor) 40 mg PO HS [facility] Last Admin: 12/14/17 19:52 Dose: 40 mg Baclofen (Lioresal) 10 mg PO TID [facility] Last Admin: 12/14/17 19:52 Dose: 10 mg Carvedilol (Coreg) 6.25 mg PO BID-W/MEALS [facility] Last Admin: 12/14/17 17:56 Dose: 6.25 mg Cholecalciferol (Vitamin D3) 1,000 unit PO 1200 [facility] Last Admin: 12/14/17 08:39 Dose: 1,000 unit Heparin Sodium (Porcine) (Heparin) 5,000 unit SQ Q8HR [facility] Last Admin: 12/14/17 16:19 Dose: 5,000 unit Hydralazine HCl (Apresoline) 10 mg IVP Q4HR PRN PRN Reason: Blood Pressure - High Last Admin: 12/13/17 12:31 Dose: 10 mg Hydralazine HCl (Apresoline) 25 mg PO TID [facility] Last Admin: 12/14/17 19:52 Dose: 25 mg Cefepime HCl 2 gm/ Sodium (Chloride) 50 mls @ 100 mls/hr IVPB Q12H [facility] Last Admin: 12/14/17 18:46 Dose: 100 mls/hr Insulin Aspart (Novolog) 0 unit SQ ACHS [facility] PRN Reason: Protocol Last Admin: 12/14/17 21:03 Dose: 6 unit Insulin Detemir (Levemir) 25 unit SQ HS [facility] Last Admin: 12/14/17 20:42 Dose: Not Given Insulin Human Isoph/Insulin Regular (Humulin 70/30 Vial) 55 unit SQ AC-BID [facility] Last Admin: 12/14/17 17:55 Dose: 55 unit Lisinopril (Zestril) 20 mg PO BID [facility] Last Admin: 12/14/17 19:52 Dose: 20 mg Lorazepam (Ativan) 1 mg IV Q4HR PRN PRN Reason: Anxiety Last Admin: 12/10/17 21:08 Dose: 1 mg Metronidazole (Flagyl) 500 mg PO TID [facility] Last Admin: 12/14/17 19:52 Dose: 500 mg Miscellaneous Information (Magnesium Per Protocol) 1 each MISCELLANE DAILY PRN ; Protocol PRN Reason: Per Protocol Miscellaneous Information (Potassium Per Protocol) 1 each MISCELLANE DAILY PRN ; Protocol PRN Reason: Per Protocol Morphine Sulfate (Morphine Oral Roxana 2mg/Ml) 6 mg PO Q4HR PRN PRN Reason: Pain Naloxone HCl (Narcan) 0.2 mg IV Q2M PRN PRN Reason: Opioid Reversal Nitroglycerin (Nitro-Bid Oint) 0.5 inch TOPICAL Q8HR [facility] Last Admin: 12/14/17 16:19 Dose: 0.5 inch Ondansetron HCl (Zofran) 4 mg IVP Q8HR PRN PRN Reason: Nausea And Vomiting Pantoprazole Sodium (Protonix) 40 mg PO AC-BRKFST [facility] Last Admin: 12/14/17 06:14 Dose: 40 mg Prednisone () 40 mg PO DAILY [facility] Last Admin: 12/14/17 16:18 Dose: 40 mg Sodium Chloride (Saline Flush) 10 ml IV Q12HR [facility] Last Admin: 12/14/17 19:45 Dose: Not Given Tamsulosin HCl (Flomax) 0.4 mg PO PC-BRKFST [facility] Last Admin: 12/14/17 08:38 Dose: 0.4 mg Temazepam (Restoril) 15 mg PO HS PRN PRN Reason: Insomnia Last Admin: 12/13/17 23:38 Dose: 15 mg Objective - Vital Signs Vital signs: Vital Signs Temp 98.5 F 12/14/17 19:46 Pulse 102 H 12/14/17 19:46 Resp 16 12/14/17 19:46 BP 162/72 12/14/17 19:46 Pulse Ox 92 L 12/14/17 19:46 Intake & Output 12/14/17 12/14/17 12/15/17 06:59 18:59 07:59 Intake Total 260 1120 Output Total 450 600 Balance -190 520 Weight 99 kg Intake: IV 260 0.9 160 Cefepime 2 gm In Sodium 100 Chloride 0.9% 50 ml @ 100 mls/hr IVPB Q12H [facility] Rx# :[id number] Intake, IV Titration 100 Amount Cefepime 2 gm In Sodium 100 Chloride 0.9% 50 ml @ 100 mls/hr IVPB Q12H [facility] Rx# :[id number] Oral 1020 Output: Urine 450 600 Stool 0 Other: Voiding Method Indwelling Catheter Indwelling Catheter Indwelling Catheter # Voids 0 # Bowel Movements 1 - Exam GENERAL: This is a 77-year-old male who appears in no acute distress. HEENT: Head is atraumatic, normocephalic. Pupils are equal, round, and reactive to light. Sclerae anicteric. Conjunctivae are clear. Mucus membranes of the mouth are moist. Neck is supple. RESPIRATORY: Lung sounds improved since yesterday. Diminished throughout with rhonchi present. No rales noted. Patient remains on 4 L nasal cannula with oxygen saturations greater than 92%. CARDIOVASCULAR: Regular rate and rhythm. S1 and S2 noted. No systolic or diastolic murmur auscultated. No JVD noted. No S3 or S4 noted. GASTROINTESTINAL: No distention noted. Abdomen soft and round. Normal active bowel sounds auscultated x 4 quadrants. No pain or tenderness noted upon palpation. INTEGUMENTARY: No cyanosis. No jaundice. No rashes noted. No cellulitis noted. EXTREMITIES: Patient with bilateral [id number] amputations NEUROLOGIC: Cranial nerves intact. No deficits noted. PSYCHIATRIC: Patient is alert and oriented 3. Affect appropriate. - Labs CBC & Chem 7: 12/13/17 05:47 12/13/17 05:47 Labs: Abnormal Lab Results - Last 24 Hours (Table) 12/14/17 12/14/17 12/14/17 Range/Units 05:41 06:01 06:24 POC Glucose (mg/dL) 32 L 37 L 150 H (75-99) mg/dL 12/14/17 12/14/17 12/14/17 Range/Units 11:37 16:57 20:26 POC Glucose (mg/dL) 179 H 226 H 208 H (75-99) mg/dL Assessment and Plan Assessment: Acute left lung pneumonia, x-ray reveals persistent consolidation of left midlung, sputum culture negative. Acute exacerbation of chronic obstructive pulmonary disease Acute hypoxic respiratory failure requiring mechanical ventilation secondary to left lung pneumonia, s/p extubation on 12/09/2017 Intractable nausea and vomiting with abdominal distention, possible gastroenteritis as multiple family members have had gastroenteritis recently, ileus and obstruction ruled out, resolved Hypoglycemia, secondary to vomiting and decreased oral intake, resolved Hyperglycemia, likely secondary to IV steroids, improving Leukocytosis and elevated lactic acid, may be secondary to vomiting and dehydration and left lung pneumonia, resolved Coronary artery disease with multiple stent placements and CABG Bilateral below the knee 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 IV steroids changed to prednisone 40 mg daily. Lasix has been discontinued. Continue with insulin dose. PT OT Continue with current management and follow closely GI prophylaxis: Protonix 40 mg PO daily DVT prophylaxis: Bilateral BKA, patient on heparin subcu per pulmonary Further recommendations based on clinical course. Time with Patient: Greater than 30
[2017-12-14] MEDS: TEMAZEPAM 15 MG CAP PO PRN (22:35)
[2017-12-15 04:26] LABS: Glucose,Whole Blood 109 mg/dL (75-99)
[2017-12-15] MEDS: amLODIPine 5 MG TAB PO SCH ×2 (06:07→17:36)
[2017-12-15] MEDS: CARVEDILOL 6.25 MG TAB PO SCH ×2 (06:07→17:35)
[2017-12-15] MEDS: INSULIN ASPART 100 UNIT/ML 1 ML 10 ML VIAL SQ SCH ×4 (06:07→22:35)
[2017-12-15] MEDS: PANTOPRAZOLE 40 MG TABLET PO SCH (06:08)
[2017-12-15] MEDS: CEFEPIME 2 GM in SODIUM CHLORIDE 0.9% 50 ML IVPB SCH ×2 (06:09→20:50)
[2017-12-15] MEDS: INSULIN NPH/REG INSULIN 70/30 300 UNIT/3 ML VIAL SQ SCH ×2 (06:13→17:34)
[2017-12-15 06:17] LABS: Glucose,Whole Blood 99 mg/dL (75-99)
[2017-12-15 06:26] LABS: Basophils % (A) 0 %; Eosinophils % (A) 0 %; HCT 41.1 % (39.0-53.0); Lymphocytes # (A) 0.6 k/uL (1.0-4.8); Lymphocytes % (A) 4 %; MCH 32.5 pg (25.0-35.0); MCHC 34.2 g/dL (31.0-37.0); MCV 95.2 fL (80.0-100.0); Monocytes # (A) 0.7 k/uL (0-1.0); Monocytes % (A) 5 %; Neutrophils # (A) 12.8 k/uL (1.3-7.7); Neutrophils % (A) 90 %; Platelet Count 187 k/uL (150-450); RBC 4.32 m/uL (4.30-5.90); RDW 13.1 % (11.5-15.5); WBC 14.2 k/uL (3.8-10.6)
[2017-12-15 06:52] LABS: Anion Gap 6 mmol/L; Blood Urea Nitrogen 43 mg/dL (9-20); Calcium 7.9 mg/dL (8.4-10.2); Carbon Dioxide 37 mmol/L (22-30); Chloride 100 mmol/L (98-107); Glucose 114 mg/dL (74-99); Potassium 3.4 mmol/L (3.5-5.1); Sodium 143 mmol/L (137-145)
[2017-12-15] MEDS: IPRATROPIUM-ALBUTEROL 3 ML NEB INHALATION SCH ×5 (06:59→19:57)
[2017-12-15] MEDS: TAMSULOSIN 0.4 MG CAP.ER.24H PO SCH (08:29)
[2017-12-15] MEDS: NITROGLYCERIN OINT 1 INCH/GM PACKET TOPICAL SCH ×3 (08:29→23:59)
[2017-12-15] MEDS: metroNIDAZOLE 500 MG TAB PO SCH ×3 (08:29→22:34)
[2017-12-15] MEDS: LISINOPRIL 20 MG TAB PO SCH ×2 (08:29→22:34)
[2017-12-15] MEDS: HEPARIN SODIUM,PORCINE 5,000 UNIT/ML 1 ML VIAL SQ SCH ×3 (08:29→23:59)
[2017-12-15] MEDS: ASPIRIN 81 MG PO SCH (08:30)
[2017-12-15] MEDS: CHOLECALCIFEROL 1,000 UNIT TAB PO SCH (08:30)
[2017-12-15] MEDS: BACLOFEN 10 MG TAB PO SCH ×3 (08:30→22:34)
[2017-12-15] MEDS: predniSONE 20 MG TAB PO SCH (08:30)
[2017-12-15] MEDS: hydrALAZINE HCL 25 MG TAB PO SCH ×3 (08:30→22:33)
[2017-12-15 12:27] LABS: Glucose,Whole Blood 151 mg/dL (75-99)
--- NOTE | 2017-12-15 15:10 | P.PN ---
Subjective Progress Note Date: 12/15/17 A 77-year-old male patient, quite debilitated with multiple medical problems and comorbidities including coronary artery disease, bilateral above-knee amputation, diabetes mellitus, COPD, hypertension, hyperlipidemia, and peripheral vascular disease. The patient came into the hospital because of generalized weakness and respiratory distress. The patient had an extensive left lung pneumonia. Subsequently the patient went into respiratory failure. Apparently the patient had a D and I CODE STATUS. He never wanted to be intubated or placed on a mechanical ventilator. On the emergency conditions, the patient was intubated and the patient got moved to the intensive care unit. This morning, the patient is awake and alert. He is off sedation. He is still intubated. The chest x-ray showing clearing of the left lung pneumonia. The patient is a combination of cefepime and Flagyl and vancomycin. He is afebrile hemodynamically stable. I was able to cut down the PEEP down to 5 and drop the FiO2 down to 40%. Family came to the bedside. With a lengthy discussion with the family and they are very clear that the patient never want to be intubated and they insisted on extubating him and let nature take its course. I think the patient may fair well knowing that he has adequate clearing of the left lung pneumonia. He remains in sinus rhythm with multiple PACs. The patient is afebrile. On 12/10/2017 I'm seeing this patient for a follow-up. As mentioned earlier the patient was being treated for a left lung pneumonia and acute respiratory failure requiring intubation mechanical ventilation. The patient was improving and upon the family's request the patient was extubated yesterday. Currently he is doing well. He is on the medical floor with telemetry. He is on 18th of oxygen by nasal cannula. He has a congested cough. No significant sputum production. He is taking some oral intake including some soft pudding. No fever. No chills. He remains on the same antibiotic coverage and the patient is on a combination of IV cefepime and Flagyl and vancomycin. He is on IV Solu Medrol which will be obviously tapered. His mental status is appropriate. He is following simple commands and answering questions. Final sputum sample that was collected in the intensive care unit while the patient was a intubated was negative. The blood cultures also negative. The white cell count from today 13.6. Hemoglobin stable at 13.2. Rest of the blood work shows no significant abnormalities. On 12/11/2017 I'm seeing this patient for a follow-up. Overnight the patient developed some increased shortness of breath. A repeat chest x-ray was done and it showed that the left pleural space was positive for a dependent effusion. There was a left mid and left lower lobe infiltrate and areas of multifocal atelectasis. Based on that, the patient was briefly placed on BiPAP and the patient was placed on a BiPAP pressure of 10/5. He was given Ativan to help him tolerate the BiPAP treatment. The patient was also given Lasix IV. The patient improved and this afternoon he is on 18th of oxygen nasal cannula. A repeat chest x-ray was done and showed stable findings. There is a small left -sided pleural effusion and continued airspace disease in the left midlung area. The patient was seen by infectious disease and the patient is on the same antibiotic coverage. No aspiration. He is taking some soft diet. No fever chills or night sweats. He is noted to be more broken spastic and wheezy on today's evaluation. Note that he has declared himself as a DNR/DNI CODE STATUS. The white cell count is 11.6. All of the cultures of been negative. On 12/12/2017, I'm seeing this patient for a follow-up. Clinically improved compared to yesterday. Chest x-ray showing improvement in the left upper lobe consolidation and pneumonia. The patient is less focused spastic and wheezy compared to yesterday. Earlier this morning he was an 8 L and he was pulse oxing 96%. Based on that I was able to cut down his FiO2 down to 5 L/m nasal cannula. He is on IV steroids. He is also taking Lasix 40 g every 12 hours. Is producing adequate amount of urine output. No significant leukocytosis and the white cell count has dropped. Cultures of been all negative. He seems to be more interactive and awake. He is breathing has improved and is less focused spastic and wheezy compared to yesterday. He is still a DNR/DNI CODE STATUS. He is ultimately looking for an ECF transfer for further rehabilitation. On 12/13/2017 I'm seeing this patient for a follow-up. Doing well. Still on same antibiotic coverage. FiO2 has been drop down to 3 L of oxygen nasal cannula. No active bronchospasm or wheezing at this point. The patient's white cell count is at 10.3. The patient is on IV Solu-Medrol. The patient is also receiving Lasix 40 mg IV every 24 hours. The neck fluid balance -2.7 L 4 yesterday and 2.9 L for today. The patient is producing adequate amount of urine output. The patient has developed some degree of metabolic alkalosis. Bicarb level is up to 38. The BUN is up to 41 with a creatinine of 0.8. I'm going to stop the IV Lasix. Otherwise, the patient is weak and he is looking to go to [facility] for further rehabilitation. All of the cultures of been negative. We'll repeat a chest x-ray in a.m. On 12/14/2017, the patient is looking much improved. As mentioned earlier the chest x-ray from yesterday shows significant improvement of the left upper lobe consolidation/pneumonia. Patient is awake and alert and following commands and answering questions. No significant respiratory distress. Cough and congestion is improved and the patient is doing better on incentive spirometer. He is still on IV cefepime and Flagyl. IV Lasix was discontinued and despite that the patient is still producing adequate amount of urine output and he remains in a negative fluid balance. The white cell count is not elevated at 10.3. Renal function is stable with a creatinine of 0.8 and these are labs from yesterday. On 12/15/2017, the patient is doing well and the patient has no specific complaints. He is progressively getting more strong and active. He hasn't ambulated as the patient has bilateral amputation the lower extremities and the patient has prosthesis which we are going to obtain from home. The patient is still on same antibiotic coverage. No fever chills or night sweats. There is on oxygen at 3 L/m nasal cannula. All of the cultures of been negative. The patient is still on a combination of cefepime and Flagyl. We will discuss with infectious disease the possibility of simplifying the patient antibiotics. IV fluids are being cut down. Renal function is stable. The patient is on a prednisone burst taper. We'll continue to follow. Objective - Vital Signs Vital signs: Vital Signs Temp 98 F 12/15/17 08:00 Pulse 92 12/15/17 12:00 Resp 18 12/15/17 12:00 BP 161/74 12/15/17 12:00 Pulse Ox 91 L 12/15/17 12:00 Intake & Output 12/14/17 12/15/17 12/15/17 17:59 06:59 18:59 Intake Total 200 Output Total 500 Balance -300 Weight Intake: IV 0.9 Cefepime 2 gm In Sodium Chloride 0.9% 50 ml @ 100 mls/hr IVPB Q12H JAMES Rx# :[id number] Intake, IV Titration Amount Cefepime 2 gm In Sodium Chloride 0.9% 50 ml @ 100 mls/hr IVPB Q12H JAMES Rx# :[id number] Oral 200 Output: Urine 500 Stool Other: Voiding Method Indwelling Catheter # Voids # Bowel Movements - Exam No acute distress. Patient is awake and alert. The patient is on 8 L of oxygen high flow. No apparent respirator distress. Communicating. Conversing.. HEENT examination is grossly unremarkable. Mucous membranes are moist. Neck supple. Full range of motion. No adenopathy thyromegaly or neck vein distention. Cardiovascular examination reveals regular rhythm rate. S1-S2 normal. No S3 or S4. No discernible murmur noted. Lungs reveal coarse rhonchi. Breath sounds are diminished. Breath sounds are equal bilaterally. Some crackles are noted. Abdomen soft bowel sounds are heard. No masses or tenderness. Extremities reveal bilateral below knee amputations. Skin is without rash or lesion. Neurologic awake and moving upper extremities and there is no focal neurological deficits. - Labs CBC & Chem 7: 12/15/17 05:52 12/15/17 05:52 Labs: Abnormal Lab Results - Last 24 Hours (Table) 12/14/17 12/14/17 12/15/17 Range/Units 16:57 20:26 04:14 WBC (3.8-10.6) k/uL Neutrophils # (1.3-7.7) k/uL Lymphocytes # (1.0-4.8) k/uL Potassium (3.5-5.1) mmol/L Carbon Dioxide (22-30) mmol/L BUN (9-20) mg/dL Glucose (74-99) mg/dL POC Glucose (mg/dL) 226 H 208 H 109 H (75-99) mg/dL Calcium (8.4-10.2) mg/dL 12/15/17 12/15/17 12/15/17 Range/Units 05:52 05:52 12:11 WBC 14.2 H (3.8-10.6) k/uL Neutrophils # 12.8 H (1.3-7.7) k/uL Lymphocytes # 0.6 L (1.0-4.8) k/uL Potassium 3.4 L (3.5-5.1) mmol/L Carbon Dioxide 37 H (22-30) mmol/L BUN 43 H (9-20) mg/dL Glucose 114 H (74-99) mg/dL POC Glucose (mg/dL) 151 H (75-99) mg/dL Calcium 7.9 L (8.4-10.2) mg/dL Assessment and Plan Plan: Assessment 1 acute left lung pneumonia with secondary acute hypoxic respiratory failure, intubation mechanical ventilation. The patient has a DNR/DNI CODE STATUS. The patient was extubated yesterday and today he is on 8 L high flow oxygen to maintain a saturation above 90%. No apparent respiratory distress. He has a decent cough. He is covered with triple antibiotic coverage including a combination of cefepime, Flagyl and vancomycin. No fever. No chills no significant leukocytosis. On 12/12/2007 and the patient is still having some difficulties in breathing. His COPD seems to have exacerbated. Based on that the patient was requiring high dose of steroids per chest x-ray findings are stable. There is small left- sided pleural effusion and persistent consolidation of the left midlung. The patient would benefit from further antibiotics and steroids and diuretics. He is currently off the BiPAP. On 12/12/2017, patient is less short of breath compared to yesterday and the chest x-ray is showing improvement in the left upper lobe consolidation. We'll continue the bronchodilators. Continue steroids. Cut down the Lasix dose. Patient is off the BiPAP. Condition is been essentially stable and the family is at the bedside. On 12/13/2017, there has been further improvement in the patient's breathing status. Patient is on weaned down to 3 L of oxygen nasal cannula. He is on the same combination antibiotics which included vancomycin cefepime and Flagyl. The patient has been diuresed and the neck fluid balance is negative more than 5 L. The patient is also on IV Solu Medrol. On 12/14/2017, the patient is looking well and has no specific complaints of these of oxygen by nasal cannula. Current antibiotic coverage continued to be combination of cefepime and Flagyl. IV Solu Medrol will be tapered down to oral prednisone. He has noticed to be improving and there is no significant respiratory distress at this point. On 12/15/2017, the patient's condition is stable and the patient is improving and that the pneumonia and sepsis improved considerably to the point where the patient states of oxygen by nasal cannula and does not have any respiratory distress. At the same time the patient is getting stronger and more interactive and his cough and her breathing is also improved. 2 History of CAD with previous bypass grafting 3 COPD by history 4 Diabetes mellitus by history 5 History of peripheral vascular occlusive disease, with bilateral lower extremity amputations 6 History of myocardial infarction 7 History of hypertension 8 history of hyperlipidemia 9 Multiple vascular procedures Plan Continue same antibiotic coverage. Wean down the FiO2 below 3 L if possible. Patient has been on antibiotics. Put the patient on oral Lasix 40 mg on a daily basis. Continue prednisone burst taper. Allow this patient to get his prosthesis for lower extremities from home to help with a combination of mobility. Monitor blood sugars. Advance diet. ECF transfer possibly by Saturday.
[2017-12-15] MEDS ORDERED: Potassium Replacement Protocol 1 EACH MISC MISCELLANE PRN (16:27)
[2017-12-15 17:13] LABS: Glucose,Whole Blood 246 mg/dL (75-99)
[2017-12-15] MEDS: POTASSIUM CHLORIDE ER 20 MEQ TAB.ER PO SCH ×2 (17:33→18:57)
[2017-12-15 20:53] LABS: Glucose,Whole Blood 242 mg/dL (75-99)
[2017-12-15] MEDS: ATORVASTATIN 40 MG TAB PO SCH (22:33)
[2017-12-15] MEDS: TEMAZEPAM 15 MG CAP PO PRN (22:34)
[2017-12-15] MEDS: INSULIN DETEMIR 100 UNIT/ML 10 ML VIAL SQ SCH (22:35)
--- NOTE | 2017-12-16 00:17 | P.PN ---
Subjective Progress Note Date: 12/15/17 Principal diagnosis: Pneumonia 77-year-old male who presented to the emergency room with a chief complaint of vomiting 24 hours and generalized weakness. Patient denied shortness of breath or coughing. Denies chest pain or pressure. Denies diarrhea or constipation. Denies fever or chills. Family member at the bedside states that multiple family members have had gastroenteritis this week. The patient has a history of coronary artery disease, chronic objective pulmonary disease, diabetes mellitus, hyperlipidemia, hypertension, myocardial infarction with multiple stents, CABG, bilateral below the knee amputations, bilateral carotid enterectomy, and anxiety. He is a former cigarette smoker. Chest x-ray 12/05/2017: no acute abnormalities Chest x-ray 12/06/2017: [place] chronic changes without acute pulmonary process. No significant change from prior exam Laboratory data: WBC 15.1. Hemoglobin 15.7. Platelet count 236. Sodium 143. Potassium 4.1. BUN 23. Creatinine 0.98. Glucose 52. Lactic acid: 2.8 Testing for influenza A and B was negative Urinalysis reveals: cloudy yellow urine, 1+ proteinuria, trace ketones with 32 hyaline casts, occasional mucus and sediment The patient was admitted to the hospital under the care of Dr. Arrington. Consultations were placed to Dr. Roche. 12/07/2017-Notes per covering provider 12/08/2017-Notes per covering provider 12/09/2017 Patient seen and examined at the bedside on rounds with Dr. Arrington. The patient went into respiratory distress and was intubated on 12/06/2017. He remains intubated in the intensive care unit. Chest x-ray from this morning reveals persistent retrocardiac opacity and patchy left perihilar opacity that may represent atelectasis or pneumonia and persistent trace pleural effusions. Infectious disease remains on consult. The patient is currently receiving cefepime, Flagyl, and vancomycin. Patient is a DNR and family is requesting to extubate patient. 12/10/2017 Patient seen and examined at the bedside. Family at the bedside. Patient was extubated yesterday and transferred to selective care unit. Patient remains DO NOT RESUSCITATE. Patient is on 8 L high flow nasal cannula. Oxygen saturation 91%. Patient remains on IV steroids per pulmonology. Dose decreased to 40 mg every 12 hours. Patient has been on an insulin drip secondary to hyperglycemia. Most recent blood sugar is 123. Previous glucose is 143. Patient did receive a dose of IV Lasix this morning per Dr. Arrington. Patient states he has been diuresing well. Patient is tolerating a full liquid diet and requesting his diet to be advanced. Patient also is requesting medication for insomnia tonight. 12/11/2017 Patient evaluated at the bedside on rounds with Dr. Arrington. Family at the bedside. Patient remains on 8 L high flow nasal cannula. Oxygen saturations are greater than 92%. Patient states he was short of breath last night. BiPAP was attempted but patient did not tolerate well. He did receive Lasix 40 mg IV per pulmonology. Chest x-ray was completed yesterday evening. Right lung appears clear. Left pleural space positive for pleural effusion dependently. Left mid and lower zone shows multifocal atelectasis. Nursing states patient has had 2 episodes of urinary retention that required straight cath for greater than 500 mL of urine. Blood pressure this morning is elevated at 200/87. Patient's blood pressures have been running on the higher side with systolics of 170s to 180s. Dr. Arrington did speak with the patient and his spouse regarding the possibility of hospice if the patient does improve or the possibility of subacute rehab at [facility]. 12/12/2017 Patient evaluated at the bedside on rounds with Dr. Arrington. Patient is awake and alert. The patient's mentation also seems to have improved. This morning he is oriented 3. Remains on 8L high flow nasal cannula. Oxygen saturations are greater than 92%. Chest x-ray reveals slight improvement on the left perihilar infiltrate. Left lower lobe pneumonia stable. Patient states he is using his incentive spirometer 10 times an hour. Patient was started on Lasix 40 mg IV every 12 hours per pulmonary. Patient steroids were also increased to 60 mg IV every 6 hours. Patient remains on Flagyl and cefepime. Blood sugars have been elevated in the 200s. Patient has 70/30 insulin 55 units ordered twice a day. Nursing states the patient only received 25 units last night because the patient 's appetite has been decreased and patient has not received his morning dose at this time. 12/13/2017 Patient evaluated at the bedside on rounds with Dr. Arrington. Patient is awake and alert. patient is on 4 L nasal cannula with oxygen saturations greater than 92% . Patient states his breathing has significantly improved. He denies shortness of breath at this time. Blood pressure this morning is elevated at 190/84, but patient has not received his morning antihypertensives. patient's Lasix has been decreased to 40 mg IV daily. He remains on IV steroids 60 mg every 6 hours. patient's blood sugar this morning is 147. he was started on Levemir 25 units at at bedtime in addition to his 70/30 55 units twice a day. 12/14/2017 Patient says that he is feeling better. Chest x-ray showed stable findings with left basilar infiltrate/atelectasis. Otherwise patient is being continued on incentive spirometry and continue with antibiotics in the form of cefepime plus Flagyl. Lasix discontinued. Continue the prednisone. Pulmonary is following. Overall patient is clinically improving. Discussed with his at bedside in detail. 12/15/2017 Patient is more awake and oriented today. Says he feels much better. Patient got his prosthetic legs from home. Otherwise patient is being continued on cefepime and Flagyl. No other acute overnight issues. No fever no chills. Patient is tolerating oral diet. All other review of systems negative except the above Active Medications Acetaminophen (Tylenol Tab) 650 mg PO Q6HR PRN PRN Reason: Mild Pain or Fever > 100.5 Last Admin: 12/06/17 22:32 Dose: 650 mg Albuterol/Ipratropium (Duoneb 0.5 Mg-3 Mg/3 Ml Soln) 3 ml INHALATION RT-Q1H PRN PRN Reason: Shortness Of Breath Or Wheezing Last Admin: 12/10/17 23:22 Dose: 3 ml Albuterol/Ipratropium (Duoneb 0.5 Mg-3 Mg/3 Ml Soln) 3 ml INHALATION RT-QID [facility] Last Admin: 12/14/17 20:21 Dose: Not Given Amlodipine Besylate (Norvasc) 5 mg PO Q12H [facility] Last Admin: 12/14/17 17:56 Dose: 5 mg Aspirin (Aspirin) 81 mg PO DAILY [facility] Last Admin: 12/14/17 08:37 Dose: 81 mg Atorvastatin Calcium (Lipitor) 40 mg PO HS [facility] Last Admin: 12/14/17 19:52 Dose: 40 mg Baclofen (Lioresal) 10 mg PO TID [facility] Last Admin: 12/14/17 19:52 Dose: 10 mg Carvedilol (Coreg) 6.25 mg PO BID-W/MEALS [facility] Last Admin: 12/14/17 17:56 Dose: 6.25 mg Cholecalciferol (Vitamin D3) 1,000 unit PO 1200 [facility] Last Admin: 12/14/17 08:39 Dose: 1,000 unit Heparin Sodium (Porcine) (Heparin) 5,000 unit SQ Q8HR [facility] Last Admin: 12/14/17 16:19 Dose: 5,000 unit Hydralazine HCl (Apresoline) 10 mg IVP Q4HR PRN PRN Reason: Blood Pressure - High Last Admin: 12/13/17 12:31 Dose: 10 mg Hydralazine HCl (Apresoline) 25 mg PO TID [facility] Last Admin: 12/14/17 19:52 Dose: 25 mg Cefepime HCl 2 gm/ Sodium (Chloride) 50 mls @ 100 mls/hr IVPB Q12H [facility] Last Admin: 12/14/17 18:46 Dose: 100 mls/hr Insulin Aspart (Novolog) 0 unit SQ ACHS [facility] PRN Reason: Protocol Last Admin: 12/14/17 21:03 Dose: 6 unit Insulin Detemir (Levemir) 25 unit SQ HS [facility] Last Admin: 12/14/17 20:42 Dose: Not Given Insulin Human Isoph/Insulin Regular (Humulin 70/30 Vial) 55 unit SQ AC-BID [facility] Last Admin: 12/14/17 17:55 Dose: 55 unit Lisinopril (Zestril) 20 mg PO BID [facility] Last Admin: 12/14/17 19:52 Dose: 20 mg Lorazepam (Ativan) 1 mg IV Q4HR PRN PRN Reason: Anxiety Last Admin: 12/10/17 21:08 Dose: 1 mg Metronidazole (Flagyl) 500 mg PO TID [facility] Last Admin: 12/14/17 19:52 Dose: 500 mg Miscellaneous Information (Magnesium Per Protocol) 1 each MISCELLANE DAILY PRN ; Protocol PRN Reason: Per Protocol Miscellaneous Information (Potassium Per Protocol) 1 each MISCELLANE DAILY PRN ; Protocol PRN Reason: Per Protocol Morphine Sulfate (Morphine Oral Roxana 2mg/Ml) 6 mg PO Q4HR PRN PRN Reason: Pain Naloxone HCl (Narcan) 0.2 mg IV Q2M PRN PRN Reason: Opioid Reversal Nitroglycerin (Nitro-Bid Oint) 0.5 inch TOPICAL Q8HR [facility] Last Admin: 12/14/17 16:19 Dose: 0.5 inch Ondansetron HCl (Zofran) 4 mg IVP Q8HR PRN PRN Reason: Nausea And Vomiting Pantoprazole Sodium (Protonix) 40 mg PO AC-BRKFST [facility] Last Admin: 12/14/17 06:14 Dose: 40 mg Prednisone () 40 mg PO DAILY [facility] Last Admin: 12/14/17 16:18 Dose: 40 mg Sodium Chloride (Saline Flush) 10 ml IV Q12HR [facility] Last Admin: 12/14/17 19:45 Dose: Not Given Tamsulosin HCl (Flomax) 0.4 mg PO PC-BRKFST [facility] Last Admin: 12/14/17 08:38 Dose: 0.4 mg Temazepam (Restoril) 15 mg PO HS PRN PRN Reason: Insomnia Last Admin: 12/13/17 23:38 Dose: 15 mg Objective - Vital Signs Vital signs: Vital Signs Temp 97.8 F 12/15/17 20:25 Pulse 97 12/15/17 20:25 Resp 19 12/15/17 20:25 BP 147/69 12/15/17 20:25 Pulse Ox 95 12/15/17 20:25 Intake & Output 12/15/17 12/15/17 12/16/17 06:59 18:59 06:59 Intake Total 740 Output Total 1200 Balance -460 Weight Intake: IV 100 0.9 Cefepime 2 gm In Sodium 100 Chloride 0.9% 50 ml @ 100 mls/hr IVPB Q12H [facility] Rx# :[id number] Oral 640 Output: Urine 1200 Other: Voiding Method Indwelling Catheter Indwelling Catheter # Voids 2 - Exam GENERAL: This is a 77-year-old male who appears in no acute distress. HEENT: Head is atraumatic, normocephalic. Pupils are equal, round, and reactive to light. Sclerae anicteric. Conjunctivae are clear. Mucus membranes of the mouth are moist. Neck is supple. RESPIRATORY: Lung sounds improved since yesterday. Diminished throughout with rhonchi present. No rales noted. Patient remains on 4 L nasal cannula with oxygen saturations greater than 92%. CARDIOVASCULAR: Regular rate and rhythm. S1 and S2 noted. No systolic or diastolic murmur auscultated. No JVD noted. No S3 or S4 noted. GASTROINTESTINAL: No distention noted. Abdomen soft and round. Normal active bowel sounds auscultated x 4 quadrants. No pain or tenderness noted upon palpation. INTEGUMENTARY: No cyanosis. No jaundice. No rashes noted. No cellulitis noted. EXTREMITIES: Patient with bilateral [id number] amputations NEUROLOGIC: Cranial nerves intact. No deficits noted. PSYCHIATRIC: Patient is alert and oriented 3. Affect appropriate. - Labs CBC & Chem 7: 12/15/17 05:52 12/15/17 05:52 Labs: Abnormal Lab Results - Last 24 Hours (Table) 12/14/17 12/15/17 12/15/17 Range/Units 20:26 04:14 05:52 WBC 14.2 H (3.8-10.6) k/uL Neutrophils # 12.8 H (1.3-7.7) k/uL Lymphocytes # 0.6 L (1.0-4.8) k/uL Potassium (3.5-5.1) mmol/L Carbon Dioxide (22-30) mmol/L BUN (9-20) mg/dL Glucose (74-99) mg/dL POC Glucose (mg/dL) 208 H 109 H (75-99) mg/dL Calcium (8.4-10.2) mg/dL 12/15/17 12/15/17 12/15/17 Range/Units 05:52 12:11 17:09 WBC (3.8-10.6) k/uL Neutrophils # (1.3-7.7) k/uL Lymphocytes # (1.0-4.8) k/uL Potassium 3.4 L (3.5-5.1) mmol/L Carbon Dioxide 37 H (22-30) mmol/L BUN 43 H (9-20) mg/dL Glucose 114 H (74-99) mg/dL POC Glucose (mg/dL) 151 H 246 H (75-99) mg/dL Calcium 7.9 L (8.4-10.2) mg/dL 12/15/17 Range/Units 20:35 WBC (3.8-10.6) k/uL Neutrophils # (1.3-7.7) k/uL Lymphocytes # (1.0-4.8) k/uL Potassium (3.5-5.1) mmol/L Carbon Dioxide (22-30) mmol/L BUN (9-20) mg/dL Glucose (74-99) mg/dL POC Glucose (mg/dL) 242 H (75-99) mg/dL Calcium (8.4-10.2) mg/dL Assessment and Plan Assessment: Acute left lung pneumonia, x-ray reveals persistent consolidation of left midlung, sputum culture negative. Acute exacerbation of chronic obstructive pulmonary disease Acute hypoxic respiratory failure requiring mechanical ventilation secondary to left lung pneumonia, s/p extubation on 12/09/2017 Intractable nausea and vomiting with abdominal distention, possible gastroenteritis as multiple family members have had gastroenteritis recently, ileus and obstruction ruled out, resolved Hypoglycemia, secondary to vomiting and decreased oral intake, resolved Hyperglycemia, likely secondary to IV steroids, improving Leukocytosis and elevated lactic acid, may be secondary to vomiting and dehydration and left lung pneumonia, resolved Coronary artery disease with multiple stent placements and CABG Bilateral below the knee 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 IV steroids changed to prednisone 40 mg daily. Lasix has been discontinued. Continue with insulin dose. PT OT Continue with current management and follow closely GI prophylaxis: Protonix 40 mg PO daily DVT prophylaxis: Bilateral BKA, patient on heparin subcu per pulmonary Further recommendations based on clinical course. Time with Patient: Greater than 30
--- NOTE | 2017-12-16 05:20 | PN ---
PROGRESS NOTE DATE OF SERVICE: 12/15/2017. REASON FOR FOLLOW UP: Aspiration pneumonia. INTERVAL HISTORY: The patient is afebrile. He seems to be breathing comfortably. Denies having any chest pain. Did have some cough not bringing up any sputum. No nausea, no vomiting. No abdominal pain. No diarrhea. EXAMINATION: Blood pressure 147/69 with a pulse of 97, temperature 97.8. He is 95% on 3 L nasal cannula. General description is an elderly male lying in bed in no distress. Respiratory system unlabored, , decreased breath sounds. No wheeze. Heart S1, S2. Regular rate and rhythm. Abdomen soft. No tenderness. No organomegaly. LABS: Hemoglobin is 14, white count 14.2 with a BUN of 43, creatinine 0.70. Blood culture has been negative. Sputum is so far negative. DIAGNOSTIC IMPRESSION AND PLAN: Patient with a component of aspiration pneumonia. Sputum has been negative for resistant pathogen. Currently on cefepime and Flagyl. We will transition. Will recommend Avelox on discharge for another 5-7 days because of his PENICILLIN ALLERGY. Continue supportive care. MMODL / IJN: [id number] /
[2017-12-16 06:11] LABS: Basophils % (A) 0 %; Eosinophils % (A) 0 %; HCT 39.3 % (39.0-53.0); HGB 13.3 gm/dL (13.0-17.5); Lymphocytes # (A) 1.3 k/uL (1.0-4.8); Lymphocytes % (A) 9 %; MCH 32.9 pg (25.0-35.0); MCHC 33.9 g/dL (31.0-37.0); Mean Platelet Volume 8.5; Monocytes # (A) 0.7 k/uL (0-1.0); Monocytes % (A) 5 %; Neutrophils # (A) 11.7 k/uL (1.3-7.7); Neutrophils % (A) 84 %; Platelet Count 162 k/uL (150-450); RBC 4.06 m/uL (4.30-5.90); RDW 13.3 % (11.5-15.5); WBC 13.9 k/uL (3.8-10.6)
[2017-12-16] MEDS: INSULIN ASPART 100 UNIT/ML 1 ML 10 ML VIAL SQ SCH ×2 (06:27→12:06)
[2017-12-16 06:39] LABS: Anion Gap 4 mmol/L; Blood Urea Nitrogen 38 mg/dL (9-20); Carbon Dioxide 36 mmol/L (22-30); Chloride 103 mmol/L (98-107); Glucose 72 mg/dL (74-99); Potassium 3.7 mmol/L (3.5-5.1); Sodium 143 mmol/L (137-145)
[2017-12-16 06:51] LABS: Glucose,Whole Blood 61 mg/dL (75-99)
[2017-12-16 06:51] LABS: Glucose,Whole Blood 61 mg/dL (75-99)
[2017-12-16] MEDS: CARVEDILOL 6.25 MG TAB PO SCH (07:03)
[2017-12-16] MEDS: amLODIPine 5 MG TAB PO SCH (07:03)
[2017-12-16] MEDS: PANTOPRAZOLE 40 MG TABLET PO SCH (07:03)
[2017-12-16] MEDS: CEFEPIME 2 GM in SODIUM CHLORIDE 0.9% 50 ML IVPB SCH (07:03)
[2017-12-16] MEDS: IPRATROPIUM-ALBUTEROL 3 ML NEB INHALATION SCH ×3 (07:04→15:14)
[2017-12-16 07:09] LABS: Glucose,Whole Blood 96 mg/dL (75-99)
[2017-12-16] MEDS: TAMSULOSIN 0.4 MG CAP.ER.24H PO SCH (08:17)
[2017-12-16] MEDS: metroNIDAZOLE 500 MG TAB PO SCH ×2 (08:17→16:51)
[2017-12-16] MEDS: BACLOFEN 10 MG TAB PO SCH ×2 (08:17→16:51)
[2017-12-16] MEDS: INSULIN NPH/REG INSULIN 70/30 300 UNIT/3 ML VIAL SQ SCH (08:18)
[2017-12-16] MEDS: NITROGLYCERIN OINT 1 INCH/GM PACKET TOPICAL SCH ×2 (08:18→16:44)
[2017-12-16] MEDS: ASPIRIN 81 MG PO SCH (08:18)
[2017-12-16] MEDS: LISINOPRIL 20 MG TAB PO SCH (08:18)
[2017-12-16] MEDS: predniSONE 20 MG TAB PO SCH (08:18)
[2017-12-16] MEDS: hydrALAZINE HCL 25 MG TAB PO SCH ×2 (08:18→16:51)
[2017-12-16] MEDS: HEPARIN SODIUM,PORCINE 5,000 UNIT/ML 1 ML VIAL SQ SCH ×2 (08:18→16:43)
[2017-12-16] MEDS ORDERED: BISACODYL 10 MG SUPP RECTAL STA (08:35)
--- NOTE | 2017-12-16 08:52 | P.PN ---
Subjective Progress Note Date: 12/16/17 77-year-old male who presented to the emergency room with a chief complaint of vomiting 24 hours and generalized weakness. Patient denied shortness of breath or coughing. Denies chest pain or pressure. Denies diarrhea or constipation. Denies fever or chills. Family member at the bedside states that multiple family members have had gastroenteritis this week. The patient has a history of coronary artery disease, chronic objective pulmonary disease, diabetes mellitus, hyperlipidemia, hypertension, myocardial infarction with multiple stents, CABG, bilateral below the knee amputations, bilateral carotid enterectomy, and anxiety. He is a former cigarette smoker. Chest x-ray 12/05/2017: no acute abnormalities Chest x-ray 12/06/2017: [place] chronic changes without acute pulmonary process. No significant change from prior exam Laboratory data: WBC 15.1. Hemoglobin 15.7. Platelet count 236. Sodium 143. Potassium 4.1. BUN 23. Creatinine 0.98. Glucose 52. Lactic acid: 2.8 Testing for influenza A and B was negative Urinalysis reveals: cloudy yellow urine, 1+ proteinuria, trace ketones with 32 hyaline casts, occasional mucus and sediment The patient was admitted to the hospital under the care of Dr. Arrington. Consultations were placed to Dr. Roche. 12/07/2017-Notes per covering provider 12/08/2017-Notes per covering provider 12/09/2017 Patient seen and examined at the bedside on rounds with Dr. Arrington. The patient went into respiratory distress and was intubated on 12/06/2017. He remains intubated in the intensive care unit. Chest x-ray from this morning reveals persistent retrocardiac opacity and patchy left perihilar opacity that may represent atelectasis or pneumonia and persistent trace pleural effusions. Infectious disease remains on consult. The patient is currently receiving cefepime, Flagyl, and vancomycin. Patient is a DNR and family is requesting to extubate patient. 12/10/2017 Patient seen and examined at the bedside. Family at the bedside. Patient was extubated yesterday and transferred to selective care unit. Patient remains DO NOT RESUSCITATE. Patient is on 8 L high flow nasal cannula. Oxygen saturation 91%. Patient remains on IV steroids per pulmonology. Dose decreased to 40 mg every 12 hours. Patient has been on an insulin drip secondary to hyperglycemia. Most recent blood sugar is 123. Previous glucose is 143. Patient did receive a dose of IV Lasix this morning per Dr. Arrington. Patient states he has been diuresing well. Patient is tolerating a full liquid diet and requesting his diet to be advanced. Patient also is requesting medication for insomnia tonight. 12/11/2017 Patient evaluated at the bedside on rounds with Dr. Arrington. Family at the bedside. Patient remains on 8 L high flow nasal cannula. Oxygen saturations are greater than 92%. Patient states he was short of breath last night. BiPAP was attempted but patient did not tolerate well. He did receive Lasix 40 mg IV per pulmonology. Chest x-ray was completed yesterday evening. Right lung appears clear. Left pleural space positive for pleural effusion dependently. Left mid and lower zone shows multifocal atelectasis. Nursing states patient has had 2 episodes of urinary retention that required straight cath for greater than 500 mL of urine. Blood pressure this morning is elevated at 200/87. Patient's blood pressures have been running on the higher side with systolics of 170s to 180s. Dr. Arrington did speak with the patient and his spouse regarding the possibility of hospice if the patient does improve or the possibility of subacute rehab at [facility]. 12/12/2017 Patient evaluated at the bedside on rounds with Dr. Arrington. Patient is awake and alert. The patient's mentation also seems to have improved. This morning he is oriented 3. Remains on 8L high flow nasal cannula. Oxygen saturations are greater than 92%. Chest x-ray reveals slight improvement on the left perihilar infiltrate. Left lower lobe pneumonia stable. Patient states he is using his incentive spirometer 10 times an hour. Patient was started on Lasix 40 mg IV every 12 hours per pulmonary. Patient steroids were also increased to 60 mg IV every 6 hours. Patient remains on Flagyl and cefepime. Blood sugars have been elevated in the 200s. Patient has 70/30 insulin 55 units ordered twice a day. Nursing states the patient only received 25 units last night because the patient 's appetite has been decreased and patient has not received his morning dose at this time. 12/13/2017 Patient evaluated at the bedside on rounds with Dr. Arrington. Patient is awake and alert. patient is on 4 L nasal cannula with oxygen saturations greater than 92% . Patient states his breathing has significantly improved. He denies shortness of breath at this time. Blood pressure this morning is elevated at 190/84, but patient has not received his morning antihypertensives. patient's Lasix has been decreased to 40 mg IV daily. He remains on IV steroids 60 mg every 6 hours. patient's blood sugar this morning is 147. he was started on Levemir 25 units at at bedtime in addition to his 70/30 55 units twice a day. 12/14/2017-Notes per covering provider 12/15/2017-Notes per covering provider 12/16/2017 Patient evaluated at the bedside on rounds with Dr. Arrington. Patient awake and alert. Complains of constipation and mild sore throat. Encouraged patient to drink prune juice this AM. Infectious disease recommends Avelox at the time of discharge for 5-7 days. His IV steroids have been transitioned to oral per pulmonary. he was hypoglycemic this morning which may be secondary to Levemir administration of 25 units. Patient was previously hyperglycemic secondary to IV steroids. Objective - Vital Signs Vital signs: Vital Signs Temp 98.1 F 12/16/17 03:57 Pulse 84 12/16/17 07:19 Resp 19 12/16/17 03:59 BP 142/73 12/16/17 03:57 Pulse Ox 93 L 12/16/17 07:04 Intake & Output 12/15/17 12/16/17 12/16/17 18:59 06:59 18:59 Intake Total 740 1090 180 Output Total 1200 450 Balance -460 640 180 Weight 103 kg Intake: IV 100 370 0.9 320 Cefepime 2 gm In Sodium 100 50 Chloride 0.9% 50 ml @ 100 mls/hr IVPB Q12H [facility] Rx# :[id number] Oral 640 720 180 Output: Urine 1200 450 Stool 0 Other: Voiding Method Indwelling Catheter Indwelling Catheter # Voids 2 - Exam GENERAL: This is a 77-year-old male who appears in no acute distress. HEENT: Head is atraumatic, normocephalic. Pupils are equal, round, and reactive to light. Sclerae anicteric. Conjunctivae are clear. Mucus membranes of the mouth are moist. Mild oral thrush noted. Neck is supple. RESPIRATORY: Lung sounds diminished throughout. No rales noted. Patient remains on 3 L nasal cannula with oxygen saturations greater than 92%. CARDIOVASCULAR: Regular rate and rhythm. S1 and S2 noted. No systolic or diastolic murmur auscultated. No JVD noted. No S3 or S4 noted. GASTROINTESTINAL: No distention noted. Abdomen soft and round. Normal active bowel sounds auscultated x 4 quadrants. No pain or tenderness noted upon palpation. INTEGUMENTARY: No cyanosis. No jaundice. No rashes noted. No cellulitis noted. EXTREMITIES: Patient with bilateral [id number] amputations NEUROLOGIC: Cranial nerves intact. No deficits noted. PSYCHIATRIC: Patient is alert and oriented 3. Affect appropriate. - Labs CBC & Chem 7: 12/16/17 05:22 12/16/17 05:22 Labs: Abnormal Lab Results - Last 24 Hours (Table) 12/15/17 12/15/17 12/15/17 Range/Units 12:11 17:09 20:35 WBC (3.8-10.6) k/uL RBC (4.30-5.90) m/uL Neutrophils # (1.3-7.7) k/uL Carbon Dioxide (22-30) mmol/L BUN (9-20) mg/dL Creatinine (0.66-1.25) mg/dL Glucose (74-99) mg/dL POC Glucose (mg/dL) 151 H 246 H 242 H (75-99) mg/dL Calcium (8.4-10.2) mg/dL 12/16/17 12/16/17 12/16/17 Range/Units 05:22 05:22 06:15 WBC 13.9 H (3.8-10.6) k/uL RBC 4.06 L (4.30-5.90) m/uL Neutrophils # 11.7 H (1.3-7.7) k/uL Carbon Dioxide 36 H (22-30) mmol/L BUN 38 H (9-20) mg/dL Creatinine 0.64 L (0.66-1.25) mg/dL Glucose 72 L (74-99) mg/dL POC Glucose (mg/dL) 61 L (75-99) mg/dL Calcium 8.0 L (8.4-10.2) mg/dL 12/16/17 Range/Units 06:39 WBC (3.8-10.6) k/uL RBC (4.30-5.90) m/uL Neutrophils # (1.3-7.7) k/uL Carbon Dioxide (22-30) mmol/L BUN (9-20) mg/dL Creatinine (0.66-1.25) mg/dL Glucose (74-99) mg/dL POC Glucose (mg/dL) 61 L (75-99) mg/dL Calcium (8.4-10.2) mg/dL Assessment and Plan Plan: ASSESSMENT: Acute left lung pneumonia, x-ray reveals persistent consolidation of left midlung, sputum culture negative Acute exacerbation of chronic obstructive pulmonary disease Acute hypoxic respiratory failure requiring mechanical ventilation secondary to left lung pneumonia, s/p extubation on 12/09/2017 Intractable nausea and vomiting with abdominal distention, possible gastroenteritis as multiple family members have had gastroenteritis recently, ileus and obstruction ruled out, resolved Hypoglycemia, secondary to vomiting and decreased oral intake, resolved Hyperglycemia, likely secondary to IV steroids, improving Leukocytosis and elevated lactic acid, may be secondary to vomiting and dehydration and left lung pneumonia, resolved Coronary artery disease with multiple stent placements and CABG 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 Patient also encouraged to drink prune juice this morning Continue indwelling urinary catheter. May remove next week at ECF Possible discharge this afternoon to ECF Nurse practitioner note has been reviewed by physician. Signing provider agrees with the documented findings, assessment, and plan of care.
[2017-12-16 10:58] VITALS: RESP 18
--- NOTE | 2017-12-16 11:45 | XR ---
EXAMINATION TYPE: XR abdomen 1V DATE OF EXAM: 12/16/2017 CLINICAL DATA: 77 year-old male abdominal distention, [facility] COMPARISON: None FINDINGS: Supine imaging limited for assessment of free air. RF vascular calcifications right paramedian upper abdomen. Surgical material in the expected region of the pancreatic tail. No significant stool burden. Mild stool is present in the cecum. No dilated small bowel loops. Vascular calcifications in the pelvis. IMPRESSION: Nonobstructive bowel gas pattern. Mild stool in the cecum. Vascular calcifications and surgical mater ial in the mid abdomen.
[2017-12-16] MEDS: CHOLECALCIFEROL 1,000 UNIT TAB PO SCH (12:06)
[2017-12-16] MEDS: NYSTATIN 100,000 UNIT/ML SUSP 500,000 UNIT/5 ML CUP PO SCH ×2 (12:06→12:09)
[2017-12-16 12:09] LABS: Glucose,Whole Blood 129 mg/dL (75-99)
[2017-12-16 13:21] VITALS: BP 148/78; PULSE 78; TEMP 97.8
--- NOTE | 2017-12-16 14:29 | P.PN ---
Subjective Progress Note Date: 12/16/17 Principal diagnosis: Acute left lung pneumonia and secondary hypoxic respiratory failure, acute. A 77-year-old male patient, quite debilitated with multiple medical problems and comorbidities including coronary artery disease, bilateral above-knee amputation, diabetes mellitus, COPD, hypertension, hyperlipidemia, and peripheral vascular disease. The patient came into the hospital because of generalized weakness and respiratory distress. The patient had an extensive left lung pneumonia. Subsequently the patient went into respiratory failure. Apparently the patient had a D and I CODE STATUS. He never wanted to be intubated or placed on a mechanical ventilator. On the emergency conditions, the patient was intubated and the patient got moved to the intensive care unit. This morning, the patient is awake and alert. He is off sedation. He is still intubated. The chest x-ray showing clearing of the left lung pneumonia. The patient is a combination of cefepime and Flagyl and vancomycin. He is afebrile hemodynamically stable. I was able to cut down the PEEP down to 5 and drop the FiO2 down to 40%. Family came to the bedside. With a lengthy discussion with the family and they are very clear that the patient never want to be intubated and they insisted on extubating him and let nature take its course. I think the patient may fair well knowing that he has adequate clearing of the left lung pneumonia. He remains in sinus rhythm with multiple PACs. The patient is afebrile. On 12/10/2017 I'm seeing this patient for a follow-up. As mentioned earlier the patient was being treated for a left lung pneumonia and acute respiratory failure requiring intubation mechanical ventilation. The patient was improving and upon the family's request the patient was extubated yesterday. Currently he is doing well. He is on the medical floor with telemetry. He is on 18th of oxygen by nasal cannula. He has a congested cough. No significant sputum production. He is taking some oral intake including some soft pudding. No fever. No chills. He remains on the same antibiotic coverage and the patient is on a combination of IV cefepime and Flagyl and vancomycin. He is on IV Solu Medrol which will be obviously tapered. His mental status is appropriate. He is following simple commands and answering questions. Final sputum sample that was collected in the intensive care unit while the patient was a intubated was negative. The blood cultures also negative. The white cell count from today 13.6. Hemoglobin stable at 13.2. Rest of the blood work shows no significant abnormalities. On 12/11/2017 I'm seeing this patient for a follow-up. Overnight the patient developed some increased shortness of breath. A repeat chest x-ray was done and it showed that the left pleural space was positive for a dependent effusion. There was a left mid and left lower lobe infiltrate and areas of multifocal atelectasis. Based on that, the patient was briefly placed on BiPAP and the patient was placed on a BiPAP pressure of 10/5. He was given Ativan to help him tolerate the BiPAP treatment. The patient was also given Lasix IV. The patient improved and this afternoon he is on 18th of oxygen nasal cannula. A repeat chest x-ray was done and showed stable findings. There is a small left -sided pleural effusion and continued airspace disease in the left midlung area. The patient was seen by infectious disease and the patient is on the same antibiotic coverage. No aspiration. He is taking some soft diet. No fever chills or night sweats. He is noted to be more broken spastic and wheezy on today's evaluation. Note that he has declared himself as a DNR/DNI CODE STATUS. The white cell count is 11.6. All of the cultures of been negative. On 12/12/2017, I'm seeing this patient for a follow-up. Clinically improved compared to yesterday. Chest x-ray showing improvement in the left upper lobe consolidation and pneumonia. The patient is less focused spastic and wheezy compared to yesterday. Earlier this morning he was an 8 L and he was pulse oxing 96%. Based on that I was able to cut down his FiO2 down to 5 L/m nasal cannula. He is on IV steroids. He is also taking Lasix 40 g every 12 hours. Is producing adequate amount of urine output. No significant leukocytosis and the white cell count has dropped. Cultures of been all negative. He seems to be more interactive and awake. He is breathing has improved and is less focused spastic and wheezy compared to yesterday. He is still a DNR/DNI CODE STATUS. He is ultimately looking for an ECF transfer for further rehabilitation. On 12/13/2017 I'm seeing this patient for a follow-up. Doing well. Still on same antibiotic coverage. FiO2 has been drop down to 3 L of oxygen nasal cannula. No active bronchospasm or wheezing at this point. The patient's white cell count is at 10.3. The patient is on IV Solu-Medrol. The patient is also receiving Lasix 40 mg IV every 24 hours. The neck fluid balance -2.7 L 4 yesterday and 2.9 L for today. The patient is producing adequate amount of urine output. The patient has developed some degree of metabolic alkalosis. Bicarb level is up to 38. The BUN is up to 41 with a creatinine of 0.8. I'm going to stop the IV Lasix. Otherwise, the patient is weak and he is looking to go to [facility] for further rehabilitation. All of the cultures of been negative. We'll repeat a chest x-ray in a.m. On 12/14/2017, the patient is looking much improved. As mentioned earlier the chest x-ray from yesterday shows significant improvement of the left upper lobe consolidation/pneumonia. Patient is awake and alert and following commands and answering questions. No significant respiratory distress. Cough and congestion is improved and the patient is doing better on incentive spirometer. He is still on IV cefepime and Flagyl. IV Lasix was discontinued and despite that the patient is still producing adequate amount of urine output and he remains in a negative fluid balance. The white cell count is not elevated at 10.3. Renal function is stable with a creatinine of 0.8 and these are labs from yesterday. On 12/15/2017, the patient is doing well and the patient has no specific complaints. He is progressively getting more strong and active. He hasn't ambulated as the patient has bilateral amputation the lower extremities and the patient has prosthesis which we are going to obtain from home. The patient is still on same antibiotic coverage. No fever chills or night sweats. There is on oxygen at 3 L/m nasal cannula. All of the cultures of been negative. The patient is still on a combination of cefepime and Flagyl. We will discuss with infectious disease the possibility of simplifying the patient antibiotics. IV fluids are being cut down. Renal function is stable. The patient is on a prednisone burst taper. We'll continue to follow. Reevaluated today on 12/16/2017, patient seems to be doing well, discharge planning or rehab referral is in progress. No cough no wheezing no shortness of breath. Feels much better today. CBC is relatively normal. Basic metabolic profile is normal BUN is 38 creatinine 0.64. Objective - Vital Signs Vital signs: Vital Signs Temp 97.8 F 12/16/17 12:00 Pulse 78 12/16/17 12:00 Resp 18 12/16/17 12:00 BP 148/78 12/16/17 12:00 Pulse Ox 93 L 12/16/17 12:00 Intake & Output 12/15/17 12/16/17 12/16/17 18:59 06:59 18:59 Intake Total 740 1090 360 Output Total 1200 450 0 Balance -460 640 360 Weight 103 kg Intake: IV 100 370 0.9 320 Cefepime 2 gm In Sodium 100 50 Chloride 0.9% 50 ml @ 100 mls/hr IVPB Q12H [facility] Rx# :[id number] Oral 640 720 360 Output: Urine 1200 450 Stool 0 0 Other: Voiding Method Indwelling Catheter Indwelling Catheter Indwelling Catheter # Voids 2 # Bowel Movements 2 - Exam No acute distress. Patient is awake and alert. On 6 L nasal cannula HEENT examination is grossly unremarkable. Mucous membranes are moist. Neck supple. Full range of motion. No adenopathy thyromegaly or neck vein distention. Cardiovascular examination reveals regular rhythm rate. S1-S2 normal. No S3 or S4. No discernible murmur noted. Lungs reveal coarse rhonchi. Breath sounds are diminished. Breath sounds are equal bilaterally. Some crackles are noted. Abdomen soft bowel sounds are heard. No masses or tenderness. Extremities reveal bilateral below knee amputations. Skin is without rash or lesion. Neurologic awake and moving upper extremities and there is no focal neurological deficits. - Labs CBC & Chem 7: 12/16/17 05:22 12/16/17 05:22 Labs: Abnormal Lab Results - Last 24 Hours (Table) 12/15/17 12/15/17 12/16/17 Range/Units 17:09 20:35 05:22 WBC 13.9 H (3.8-10.6) k/uL RBC 4.06 L (4.30-5.90) m/uL Neutrophils # 11.7 H (1.3-7.7) k/uL Carbon Dioxide (22-30) mmol/L BUN (9-20) mg/dL Creatinine (0.66-1.25) mg/dL Glucose (74-99) mg/dL POC Glucose (mg/dL) 246 H 242 H (75-99) mg/dL Calcium (8.4-10.2) mg/dL 12/16/17 12/16/17 12/16/17 Range/Units 05:22 06:15 06:39 WBC (3.8-10.6) k/uL RBC (4.30-5.90) m/uL Neutrophils # (1.3-7.7) k/uL Carbon Dioxide 36 H (22-30) mmol/L BUN 38 H (9-20) mg/dL Creatinine 0.64 L (0.66-1.25) mg/dL Glucose 72 L (74-99) mg/dL POC Glucose (mg/dL) 61 L 61 L (75-99) mg/dL Calcium 8.0 L (8.4-10.2) mg/dL 12/16/17 Range/Units 12:00 WBC (3.8-10.6) k/uL RBC (4.30-5.90) m/uL Neutrophils # (1.3-7.7) k/uL Carbon Dioxide (22-30) mmol/L BUN (9-20) mg/dL Creatinine (0.66-1.25) mg/dL Glucose (74-99) mg/dL POC Glucose (mg/dL) 129 H (75-99) mg/dL Calcium (8.4-10.2) mg/dL Assessment and Plan Assessment: 1 acute left lung pneumonia with secondary acute hypoxic respiratory failure, intubation mechanical ventilation. The patient has a DNR/DNI CODE STATUS. The patient was extubated yesterday and today he is on 8 L high flow oxygen to maintain a saturation above 90%. No apparent respiratory distress. He has a decent cough. He is covered with triple antibiotic coverage including a combination of cefepime, Flagyl and vancomycin. No fever. No chills no significant leukocytosis. On 12/12/2007 and the patient is still having some difficulties in breathing. His COPD seems to have exacerbated. Based on that the patient was requiring high dose of steroids per chest x-ray findings are stable. There is small left- sided pleural effusion and persistent consolidation of the left midlung. The patient would benefit from further antibiotics and steroids and diuretics. He is currently off the BiPAP. On 12/12/2017, patient is less short of breath compared to yesterday and the chest x-ray is showing improvement in the left upper lobe consolidation. We'll continue the bronchodilators. Continue steroids. Cut down the Lasix dose. Patient is off the BiPAP. Condition is been essentially stable and the family is at the bedside. On 12/13/2017, there has been further improvement in the patient's breathing status. Patient is on weaned down to 3 L of oxygen nasal cannula. He is on the same combination antibiotics which included vancomycin cefepime and Flagyl. The patient has been diuresed and the neck fluid balance is negative more than 5 L. The patient is also on IV Solu Medrol. On 12/14/2017, the patient is looking well and has no specific complaints of these of oxygen by nasal cannula. Current antibiotic coverage continued to be combination of cefepime and Flagyl. IV Solu Medrol will be tapered down to oral prednisone. He has noticed to be improving and there is no significant respiratory distress at this point. On 12/15/2017, the patient's condition is stable and the patient is improving and that the pneumonia and sepsis improved considerably to the point where the patient states of oxygen by nasal cannula and does not have any respiratory distress. At the same time the patient is getting stronger and more interactive and his cough and her breathing is also improved. On 12/16/2017, patient's condition continues to improve, discharge planning to rehab is in progress. 2 History of CAD with previous bypass grafting 3 COPD by history 4 Diabetes mellitus by history 5 History of peripheral vascular occlusive disease, with bilateral lower extremity amputations 6 History of myocardial infarction 7 History of hypertension 8 history of hyperlipidemia 9 Multiple vascular procedures Recommendation: Continue to titrate FiO2 down, continue antibiotics, diuretics, and prednisone. ECF transfer likely today. Time with Patient: Less than 30
[2017-12-16 14:37] VITALS: BMI 30.8
--- NOTE | 2017-12-16 14:51 | P.DS ---
Providers Date of admission: 12/05/17 16:30 Expected date of discharge: 12/16/17 Attending physician: Benji Arrington Consults: 12/06/17 08:26 Consult Physician Routine Consulting Provider: Xander Roche Consult Reason/Comments: vomiting, abdominal distention Do you want consulting provider notified?: Yes 12/07/17 08:45 Consult Physician Stat Consulting Provider: Andrey Espana Consult Reason/Comments: sob Do you want consulting provider notified?: Yes 12/07/17 14:55 Consult Physician Routine Consulting Provider: Panda Milan Consult Reason/Comments: elevated troponin Do you want consulting provider notified?: Yes 12/08/17 15:53 Consult Physician Routine Consulting Provider: Anjelica San Consult Reason/Comments: sepsis Do you want consulting provider notified?: Yes Primary care physician: Benji Arrington [facility] Course: 77-year-old male who presented to the emergency room with a chief complaint of vomiting 24 hours and generalized weakness. Patient denied shortness of breath or coughing. Denies chest pain or pressure. Denies diarrhea or constipation. Denies fever or chills. Family member at the bedside states that multiple family members have had gastroenteritis this week. The patient has a history of coronary artery disease, chronic objective pulmonary disease, diabetes mellitus, hyperlipidemia, hypertension, myocardial infarction with multiple stents, CABG, bilateral below the knee amputations, bilateral carotid enterectomy, and anxiety. He is a former cigarette smoker. Chest x-ray 12/05/2017: no acute abnormalities Laboratory data: WBC 15.1. Hemoglobin 15.7. Platelet count 236. Sodium 143. Potassium 4.1. BUN 23. Creatinine 0.98. Glucose 52. Lactic acid: 2.8 Testing for influenza A and B was negative Urinalysis reveals: cloudy yellow urine, 1+ proteinuria, trace ketones with 32 hyaline casts, occasional mucus and sediment The patient was admitted to the hospital under the care of Dr. Arrington. Consultations were placed to Dr. Roche. The patient was evaluated by general surgery. Ileus and obstruction were ruled out. Likely gastroenteritis as patients other family members were also having similiar GI symptoms recently. The patient developed acute pulmonary edema and went into cardiac arrest on 2017. He was intubated and transferred to the ICU. Chest x-ray from 12/06/2017 revealed retrocardiac opacity and patchy left perihilar opacity that may represent atelectasis or pneumonia and persistent trace pleural effusions. The patients family stated that the patient never wanted to be intubated and requested extubation. The patient was extubated and was transferred to selective care unit. Patient remained on high flow cannula for a few days. He attempted to wear a bipap but did not tolerate it well. He also received IV steroid per pulmonary that have since been transitioned to oral. He did require an insulin drip for a short period of time secondary to hyperglycemia. The patient did receive IV lasix during hospitalization for fluid overload, which has since been discontinued. The patient had multiple episodes of urinary retention during hospitalization. He was straight cathed a few times and ultimately an indwelling urinary catheter was inserted. The patient was also started on Flomax. Chest x-ray from 12/12/2017 reveals slight improvement on the left perihilar infiltrate. Left lower lobe pneumonia stable. Infectious disease followed the patient during hospitalization. Urine culture negative. Blood cultures negative. Sputum culture negative. There was thought that maybe the patient aspirated, but pulmonary evaluated the patient and ruled out aspiration. The patient was placed on cefepime and flagyl. Infectious disease recommends Avelox at the time of discharge. The patient was deemed stable for discharge per Dr. Murphy Aguila. Discharge diagnosis: Acute left lung pneumonia, x-ray reveals persistent consolidation of left midlung, sputum culture negative Acute exacerbation of chronic obstructive pulmonary disease, resolved Acute hypoxic respiratory failure requiring mechanical ventilation secondary to left lung pneumonia, s/p extubation on 12/09/2017 Intractable nausea and vomiting with abdominal distention, possible gastroenteritis as multiple family members have had gastroenteritis recently, ileus and obstruction ruled out, resolved Hypoglycemia, secondary to vomiting and decreased oral intake, resolved Hyperglycemia, likely secondary to IV steroids, improving Sepsis, secondary to left lung pneumonia, not present on admission as first chest xray was negative, elevated lactic acid and leukocytosis on admission secondary to vomiting and dehydration not pneumonia, resolved Coronary artery disease with multiple stent placements and CABG 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 Signing provider agrees with the documented findings, assessment, and plan of care. Plan - Discharge Summary Discharge Rx Participant: No New Discharge Prescriptions: New RX: Acetaminophen Tab [Tylenol] 650 mg PO Q6HR PRN tab PRN Reason: Mild Pain Or Fever > 100.5 RX: amLODIPine [Norvasc] 5 mg PO Q12H tab RX: Aspirin 81 mg PO DAILY chew RX: Atorvastatin [Lipitor] 40 mg PO HS tab RX: hydrALAZINE HCL [Apresoline] 25 mg PO TID tab RX: Insulin Aspart [NovoLOG (formulary)] 0 unit SQ ACHS vial RX: Ipratropium-Albuterol Nebulize [Duoneb 0.5 mg-3 mg/3 ml Soln] 3 ml INHALATION RT-QID ampul.neb RX: Ipratropium-Albuterol Nebulize [Duoneb 0.5 mg-3 mg/3 ml Soln] 3 ml INHALATION RT-Q1H PRN ampul.neb PRN Reason: Shortness Of Breath Or Wheezing RX: Lisinopril [Zestril] 20 mg PO BID tab Moxifloxacin HCl [Avelox] 400 mg PO DAILY #7 tablet RX: Nystatin 100,000 Unit/ml Susp [Mycostatin Oral Susp] 500,000 unit PO QID cup RX: Pantoprazole [Protonix] 40 mg PO AC-BRKFST tablet. RX: predniSONE See Taper PO DAILY #30 tab RX: Tamsulosin [Flomax] 0.4 mg PO PC-BRKFST cap.er.24h RX: Temazepam [Restoril] 15 mg PO HS PRN cap PRN Reason: Insomnia Continue RX: Carvedilol 6.25 mg PO BID RX: Isosorbide Mononitrate [Isosorbide Mononitrate ER] 30 mg PO DAILY RX: Insulin NPH Hum/Reg Insulin Hm [Humulin 70-30 Vial] 55 units SQ AC-BID RX: Baclofen 10 mg PO TID RX: ALPRAZolam [Xanax] 1 mg PO BID PRN PRN Reason: Anxiety RX: Cholecalciferol [Vitamin D3] 1,000 unit PO DAILY RX: Ferrous Sulfate [Iron (65 MG Elemental)] 325 mg PO DAILY Discontinued RX: Pravastatin Sodium [Pravachol] 10 mg PO HS Lisinopril [Prinivil] 10 mg PO BID Aspirin [Adult Low Dose Aspirin EC] 81 mg PO DAILY Discharge Medication List RX: Carvedilol 6.25 mg PO BID 01/25/16 [History] RX: Insulin NPH Hum/Reg Insulin Hm [Humulin 70-30 Vial] 55 units SQ AC-BID 01/24 [History] RX: Isosorbide Mononitrate [Isosorbide Mononitrate ER] 30 mg PO DAILY 01/25/16 [ History] RX: ALPRAZolam [Xanax] 1 mg PO BID PRN 02/18/17 [History] RX: Baclofen 10 mg PO TID 02/18/17 [History] RX: Cholecalciferol [Vitamin D3] 1,000 unit PO DAILY 02/18/17 [History] RX: Ferrous Sulfate [Iron (65 MG Elemental)] 325 mg PO DAILY 02/18/17 [History] Moxifloxacin HCl [Avelox] 400 mg PO DAILY #7 tablet 12/16/17 [Rx] RX: Acetaminophen Tab [Tylenol] 650 mg PO Q6HR PRN tab 12/16/17 [Rx] RX: Aspirin 81 mg PO DAILY chew 12/16/17 [Rx] RX: Atorvastatin [Lipitor] 40 mg PO HS tab 12/16/17 [Rx] RX: Insulin Aspart [NovoLOG (formulary)] 0 unit SQ ACHS vial 12/16/17 [Rx] RX: Ipratropium-Albuterol Nebulize [Duoneb 0.5 mg-3 mg/3 ml Soln] 3 ml INHALATION RT-Q1H PRN ampul.neb 12/16/17 [Rx] RX: Ipratropium-Albuterol Nebulize [Duoneb 0.5 mg-3 mg/3 ml Soln] 3 ml INHALATION RT-QID ampul.neb 12/16/17 [Rx] RX: Lisinopril [Zestril] 20 mg PO BID tab 12/16/17 [Rx] RX: Nystatin 100,000 Unit/ml Susp [Mycostatin Oral Susp] 500,000 unit PO QID cup 12/16/17 [Rx] RX: Pantoprazole [Protonix] 40 mg PO AC-BRKFST tablet. 12/16/17 [Rx] RX: Tamsulosin [Flomax] 0.4 mg PO PC-BRKFST cap.er.24h 12/16/17 [Rx] RX: Temazepam [Restoril] 15 mg PO HS PRN cap 12/16/17 [Rx] RX: amLODIPine [Norvasc] 5 mg PO Q12H tab 12/16/17 [Rx] RX: hydrALAZINE HCL [Apresoline] 25 mg PO TID tab 12/16/17 [Rx] RX: predniSONE See Taper PO DAILY #30 tab 12/16/17 [Rx] Follow up Appointment(s)/Referral(s): Benji Arrington DO [Primary Care Provider] - 1 Week (1 week after DC from ECF) Markell Lam MD [STAFF PHYSICIAN] - 2 Weeks Activity/Diet/Wound Care/Special Instructions: Activity as tolerated. Patient with BKA and has bilateral prosthetic legs. Heart healthy diet. Consistent carbohydrate. Discontinue urinary catheter on December 22, 2017 and attempt voiding trial Discharge Disposition: TRANSFER TO SNF/ECF
[2017-12-16 17:11] LABS: Glucose,Whole Blood 120 mg/dL (75-99)
--- NOTE | 2017-12-16 22:18 | PN ---
PROGRESS NOTE DATE OF SERVICE: 12/16/17 REASON FOR FOLLOWUP: Aspiration pneumonia. INTERVAL HISTORY: The patient was seen on rounds this morning. The patient has been afebrile. He is breathing comfortably. The cough has decreased in intensity. No chest pain. No abdominal pain. No diarrhea. EXAMINATION: Blood pressure is 148/78 with a pulse of 78, temperature of 97.8. He is 93% on 3 L nasal cannula. General description is an elderly male lying in bed in no distress. Respiratory system: Unlabored breathing, decreased breath sounds in the bases. No wheeze. Heart S1, S2. Regular rate and rhythm. Abdomen soft, no tenderness. LABS: BUN of 38, creatinine 0.64. DIAGNOSTIC IMPRESSION/PLAN: 1. Patient admitted to the hospital with nausea, vomiting following acute respiratory failure, likely a component of aspiration pneumonia. The patient has been shown overall clinical improvement to finish therapy with oral Avelox for about a week. 2. Continue supportive care. MMODL / IJN: [id number] /
== END 2017-12-16 17:16 | DRG 391 ==
LOC: EC 13:25 → 4MS4W 16:30 → 6ICU 12-07 11:49 → 6SEL 12-09 18:43
PROVIDERS: ADMIT Family Medicine; ATTEND Family Medicine
PROC: 0BH17EZ Insertion of Endotracheal Airway into Trachea, Via Natural or Artificial Opening (ICD-10-PCS; principal; 2017-12-07)
PROC: 5A1945Z Respiratory Ventilation, 24-96 Consecutive Hours (ICD-10-PCS; principal; 2017-12-07)
DX: K52.9 Noninfective gastroenteritis and colitis, unspecified (principal); A41.9 Sepsis, unspecified organism; J69.0 Pneumonitis due to inhalation of food and vomit; J96.01 Acute respiratory failure with hypoxia; E87.3 Alkalosis; J90 Pleural effusion, not elsewhere classified; J44.1 Chronic obstructive pulmonary disease with (acute) exacerbation; E86.0 Dehydration; I48.91 Unspecified atrial fibrillation; E11.51 Type 2 diabetes mellitus with diabetic peripheral angiopathy without gangrene; J98.11 Atelectasis; E11.649 Type 2 diabetes mellitus with hypoglycemia without coma; E78.5 Hyperlipidemia, unspecified; F41.9 Anxiety disorder, unspecified; I10 Essential (primary) hypertension; I25.10 Atherosclerotic heart disease of native coronary artery without angina pectoris; I25.2 Old myocardial infarction; K21.9 Gastro-esophageal reflux disease without esophagitis; Z66 Do not resuscitate; Z79.4 Long term (current) use of insulin; Z79.82 Long term (current) use of aspirin; Z79.899 Other long term (current) drug therapy; Z82.5 Family history of asthma and other chronic lower respiratory diseases; Z83.3 Family history of diabetes mellitus; Z87.891 Personal history of nicotine dependence; Z88.0 Allergy status to penicillin; Z95.1 Presence of aortocoronary bypass graft; Z95.5 Presence of coronary angioplasty implant and graft; Z89.511 Acquired absence of right leg below knee; Z89.512 Acquired absence of left leg below knee; R33.9 Retention of urine, unspecified; T38.0X5A Adverse effect of glucocorticoids and synthetic analogues, initial encounter; E11.65 Type 2 diabetes mellitus with hyperglycemia
CPT/HCPCS: 36415; 36600; 71045; 71046; 74018; 74021; 74177; 80048; 80053; 80202; 81001; 82550; 82553; 82805; 83036; 83605; 83735; 84100; 84132; 84484; 85025; 85610; 85730; 87040; 87070; 87086; 87205; 87502; 93005; 93306; 94002; 94003; 94640; 94660; 94760; 96360; 96361; 96374; 96375; 96376; 99285

== ENCOUNTER 2018-03-02 13:38 | Emergency (ER) | payer MEDICARE ==
[2018-03-02 13:45] LABS: Glucose,Whole Blood 106 mg/dL (75-99)
[2018-03-02 13:50] VITALS: RESP 18
[2018-03-02] MEDS ORDERED: SODIUM CHLORIDE 0.9% 1,000 ML IV STA (14:11)
[2018-03-02 14:50] LABS: Basophils % (A) 0 %; Eosinophils # (A) 0.2 k/uL (0-0.7); Eosinophils % (A) 1 %; HGB 14.4 gm/dL (13.0-17.5); Lymphocytes # (A) 1.4 k/uL (1.0-4.8); Lymphocytes % (A) 13 %; MCH 31.5 pg (25.0-35.0); MCHC 33.4 g/dL (31.0-37.0); MCV 94.3 fL (80.0-100.0); Mean Platelet Volume 7.7; Monocytes # (A) 0.7 k/uL (0-1.0); Monocytes % (A) 7 %; Neutrophils # (A) 8.3 k/uL (1.3-7.7); Neutrophils % (A) 77 %; Platelet Count 262 k/uL (150-450); RBC 4.56 m/uL (4.30-5.90); RDW 14.1 % (11.5-15.5); WBC 10.8 k/uL (3.8-10.6)
[2018-03-02 14:54] LABS: ALT 44 U/L (21-72); AST 41 U/L (17-59); Albumin 3.7 g/dL (3.5-5.0); Alkaline Phosphatase 62 U/L (38-126); Anion Gap 11 mmol/L; Blood Urea Nitrogen 16 mg/dL (9-20); Calcium 9.5 mg/dL (8.4-10.2); Carbon Dioxide 33 mmol/L (22-30); Chloride 102 mmol/L (98-107); Glucose 92 mg/dL (74-99); Magnesium 1.8 mg/dL (1.6-2.3); Potassium 3.8 mmol/L (3.5-5.1); Sodium 146 mmol/L (137-145); Total Bilirubin 0.5 mg/dL (0.2-1.3); Total Protein 5.9 g/dL (6.3-8.2)
[2018-03-02 14:55] LABS: Partial Thromboplastin Time 22.1 sec (22.0-30.0); Prothrombin Time 9.7 sec (9.0-12.0)
[2018-03-02] MEDS ORDERED: amLODIPine 5 MG TAB PO STA (15:12)
[2018-03-02 15:17] VITALS: PULSE 77
[2018-03-02 15:17] LABS: Creatine Kinase MB 2.1 ng/mL (0.0-2.4); Troponin I 0.012 ng/mL (0.000-0.034)
--- NOTE | 2018-03-02 15:42 | XR ---
EXAMINATION TYPE: XR chest 2V DATE OF EXAM: 03/02/2018 COMPARISON: 12/14/2017 INDICATION: Chest pain TECHNIQUE: Frontal and lateral views of the chest are obtained. FINDINGS: The heart size is normal. Sternotomy wires are present from prior CABG. Stents within cardiac vessel s. Present on the lateral projection. The pulmonary vasculature is normal. The lungs are clear. IMPRESSION: 1. No acute pulmonary process.
--- NOTE | 2018-03-02 15:51 | ED ---
Recheck HPI - General Chief Complaint: Recheck/Abnormal Lab/Rx Stated Complaint: Diabetic-hypoglycemia Time Seen by Provider: 03/02/18 14:06 Source: patient, EMS Mode of arrival: EMS Limitations: no limitations - History of Present Illness Initial Comments: 77 years old male at home he was found unresponsive was unable to wake him up she checked her sugar was quite low embolus was called and they noticed that sugar was quite low and less than 50 the care were ampule of D50 that woke him up pain on arrival to the ER he was awake alert he has no headache he had no complaints but considering his comorbidities we did basic blood work and EKG. System is unremarkable for any headaches no chest pain no shortness of breath no pleuritic chest pain no symptoms of TIA or CVA - Related Data Home Medications Medication Instructions Recorded Confirmed Carvedilol 6.25 mg PO BID 01/25/16 03/02/18 Insulin NPH Hum/Reg Insulin Hm 55 units SQ AC-BID 01/25/16 03/02/18 [Humulin 70-30 Vial] Isosorbide Mononitrate [Isosorbide 30 mg PO DAILY 01/25/16 03/02/18 Mononitrate ER] ALPRAZolam [Xanax] 1 mg PO BID PRN 02/18/17 03/02/18 Baclofen 10 mg PO TID 02/18/17 03/02/18 Cholecalciferol [Vitamin D3] 1,000 unit PO DAILY 02/18/17 03/02/18 Ferrous Sulfate [Iron (65 MG 325 mg PO DAILY 02/18/17 03/02/18 Elemental)] Previous Rx's Medication Instructions Recorded Acetaminophen Tab [Tylenol] 650 mg PO Q6HR PRN tab 12/16/17 Aspirin 81 mg PO DAILY chew 12/16/17 Atorvastatin [Lipitor] 40 mg PO HS tab 12/16/17 Insulin Aspart [NovoLOG 0 unit SQ ACHS vial 12/16/17 (formulary)] Ipratropium-Albuterol Nebulize 3 ml INHALATION RT-Q1H PRN 12/16/17 [Duoneb 0.5 mg-3 mg/3 ml Soln] ampul.neb Ipratropium-Albuterol Nebulize 3 ml INHALATION RT-QID ampul.neb 12/16/17 [Duoneb 0.5 mg-3 mg/3 ml Soln] Lisinopril [Zestril] 20 mg PO BID tab 12/16/17 Tamsulosin [Flomax] 0.4 mg PO PC-BRKFST cap.er.24h 12/16/17 amLODIPine [Norvasc] 5 mg PO Q12H tab 12/16/17 hydrALAZINE HCL [Apresoline] 25 mg PO TID tab 12/16/17 Allergies Allergy/AdvReac Type Severity Reaction Status Date / Time Penicillins Allergy Unknown Verified 03/02/18 13:49 Childhood pregabalin [From Lyrica] Allergy Rapid Verified 03/02/18 13:49 Heart Rate Review of Systems ROS Statement: Those systems with pertinent positive or pertinent negative responses have been documented in the HPI. ROS Other: All systems not noted in ROS Statement are negative. Past Medical History Past Medical History: Coronary Artery Disease (CAD), Chest Pain / Angina, COPD, Diabetes Mellitus, Hyperlipidemia, Hypertension, Memory Impairment, Myocardial Infarction (NM), Vascular Disorder Additional Past Medical History / Comment(s): falls. uses walker for short distance and w/c.wears blossom leg prothesis. 'bleeding behind eyes" had laser sx Last Myocardial Infarction Date:: 2010 History of Any Multi-Drug Resistant Organisms: None Reported Past Surgical History: Coronary Bypass/CABG, Heart Catheterization With Stent, Tonsillectomy Additional Past Surgical History / Comment(s): blossom bka , blossom carotid endarterectomy, several heart caths stated he has 7 or 8 stents? ,blossom cataracts sx, laser eye sx for bleeding behind eyes, colonoscopyper past medical hx:,angiogram,fem-fem bypass,lt fem pop bypass. Past Anesthesia/Blood Transfusion Reactions: No Reported Reaction Additional Past Anesthesia/Blood Transfusion Reaction / Comment(s): clausterphobia Date of Last Stent Placement:: unk Past Psychological History: Anxiety Smoking Status: Former smoker Past Alcohol Use History: None Reported Past Drug Use History: None Reported - Past Family History Father Family Medical History: Diabetes Mellitus Additional Family Medical History / Comment(s): heart problems Mother Family Medical History: Diabetes Mellitus Additional Family Medical History / Comment(s): heart problems General Exam Limitations: no limitations Course Vital Signs 03/02/18 03/02/18 13:40 15:16 Temperature 97.4 F L Pulse Rate 80 77 Respiratory 18 18 Rate Blood Pressure 167/90 179/77 O2 Sat by Pulse 92 L 96 Oximetry EKG is normal sinus rhythm ventricular rate 78 NC interval is 146 QRS duration is 1 of 4 QT/QTc is 410/467 review of this EKG does not reveal any ST elevation noticed some T-wave inversions I compared this EKG with EKG from October and now there were no adverse finding Is reassessed at 1548, he is feeling back to normal and he was to go home, his labs were discussed with him, CBC, INR, troponin, EKG are within normal range Medical Decision Making - Lab Data Result diagrams: 03/02/18 14:00 03/02/18 14:00 Lab Results 03/02/18 03/02/18 03/02/18 Range/Units 13:40 14:00 14:00 WBC 10.8 H (3.8-10.6) k/uL RBC 4.56 (4.30-5.90) m/uL Hgb 14.4 (13.0-17.5) gm/dL Hct 43.0 (39.0-53.0) % MCV 94.3 (80.0-100.0) fL MCH 31.5 (25.0-35.0) pg MCHC 33.4 (31.0-37.0) g/dL RDW 14.1 (11.5-15.5) % Plt Count 262 (150-450) k/uL Neutrophils % 77 % Lymphocytes % 13 % Monocytes % 7 % Eosinophils % 1 % Basophils % 0 % Neutrophils # 8.3 H (1.3-7.7) k/uL Lymphocytes # 1.4 (1.0-4.8) k/uL Monocytes # 0.7 (0-1.0) k/uL Eosinophils # 0.2 (0-0.7) k/uL Basophils # 0.0 (0-0.2) k/uL PT (9.0-12.0) sec INR (<1.2) APTT (22.0-30.0) sec Sodium (137-145) mmol/L Potassium (3.5-5.1) mmol/L Chloride (98-107) mmol/L Carbon Dioxide (22-30) mmol/L Anion Gap mmol/L BUN (9-20) mg/dL Creatinine (0.66-1.25) mg/dL Est GFR (CKD-EPI)AfAm (>60 ml/min/1.73 sqM) Est GFR (CKD-EPI)NonAf (>60 ml/min/1.73 sqM) Glucose (74-99) mg/dL POC Glucose (mg/dL) 106 H (75-99) mg/dL POC Glu [employer] Agent Chel Schwartz Calcium (8.4-10.2) mg/dL Magnesium (1.6-2.3) mg/dL Total Bilirubin (0.2-1.3) mg/dL AST (17-59) U/L ALT (21-72) U/L Alkaline Phosphatase (38-126) U/L Total Creatine Kinase 102 (55-170) U/L CK-MB (CK-2) 2.1 (0.0-2.4) ng/mL CK-MB (CK-2) Rel Index 2.1 Troponin I 0.012 (0.000-0.034) ng/mL Total Protein (6.3-8.2) g/dL Albumin (3.5-5.0) g/dL 03/02/18 03/02/18 Range/Units 14:00 14:00 WBC (3.8-10.6) k/uL RBC (4.30-5.90) m/uL Hgb (13.0-17.5) gm/dL Hct (39.0-53.0) % MCV (80.0-100.0) fL MCH (25.0-35.0) pg MCHC (31.0-37.0) g/dL RDW (11.5-15.5) % Plt Count (150-450) k/uL Neutrophils % % Lymphocytes % % Monocytes % % Eosinophils % % Basophils % % Neutrophils # (1.3-7.7) k/uL Lymphocytes # (1.0-4.8) k/uL Monocytes # (0-1.0) k/uL Eosinophils # (0-0.7) k/uL Basophils # (0-0.2) k/uL PT 9.7 (9.0-12.0) sec INR 1.0 (<1.2) APTT 22.1 (22.0-30.0) sec Sodium 146 H (137-145) mmol/L Potassium 3.8 (3.5-5.1) mmol/L Chloride 102 (98-107) mmol/L Carbon Dioxide 33 H (22-30) mmol/L Anion Gap 11 mmol/L BUN 16 (9-20) mg/dL Creatinine 0.70 (0.66-1.25) mg/dL Est GFR (CKD-EPI)AfAm >90 (>60 ml/min/1.73 sqM) Est GFR (CKD-EPI)NonAf >90 (>60 ml/min/1.73 sqM) Glucose 92 (74-99) mg/dL POC Glucose (mg/dL) (75-99) mg/dL POC Glu J[employer] Agent ID Calcium 9.5 (8.4-10.2) mg/dL Magnesium 1.8 (1.6-2.3) mg/dL Total Bilirubin 0.5 (0.2-1.3) mg/dL AST 41 (17-59) U/L ALT 44 (21-72) U/L Alkaline Phosphatase 62 (38-126) U/L Total Creatine Kinase (55-170) U/L CK-MB (CK-2) (0.0-2.4) ng/mL CK-MB (CK-2) Rel Index Troponin I (0.000-0.034) ng/mL Total Protein 5.9 L (6.3-8.2) g/dL Albumin 3.7 (3.5-5.0) g/dL Disposition Clinical Impression: Hypoglycemia Disposition: HOME SELF-CARE Condition: Good Is patient prescribed a controlled substance at d/c from ED?: No When asked, does pt state using other controlled substances?: No If prescribed controlled substance>3 days was MAPS reviewed?: No If opioid is for acute pain is fill amount 7 days or less?: No If Rx opioid, was Start Talking consent form obtained?: No Referrals: Benji Arrington DO [Primary Care Provider] - 1-2 days
[2018-03-02 16:56] VITALS: BP 178/84; TEMP 98.2
== END 2018-03-02 16:10 | disposition home or self-care (01) ==
LOC: EC 13:38
DX: E11.649 Type 2 diabetes mellitus with hypoglycemia without coma (principal); I25.119 Atherosclerotic heart disease of native coronary artery with unspecified angina pectoris; I10 Essential (primary) hypertension; I25.2 Old myocardial infarction; F41.9 Anxiety disorder, unspecified; Z87.891 Personal history of nicotine dependence; Z79.4 Long term (current) use of insulin; Z79.899 Other long term (current) drug therapy; Z88.0 Allergy status to penicillin; Z88.8 Allergy status to other drugs, medicaments and biological substances; Z95.1 Presence of aortocoronary bypass graft; Z95.5 Presence of coronary angioplasty implant and graft; Z83.3 Family history of diabetes mellitus; Z53.29 Procedure and treatment not carried out because of patient's decision for other reasons
CPT/HCPCS: 36415; 71046; 80053; 82550; 82553; 83735; 84484; 85025; 85610; 85730; 93005; 99285

== ENCOUNTER 2019-03-18 05:09 | Inpatient (IN) | payer MEDICARE ==
[2019-03-18 05:21] LABS: Glucose,Whole Blood 116 mg/dL (75-99)
[2019-03-18] MEDS ORDERED: HYDROcodone/APAP 5-325MG 1 EACH TAB PO STA (05:38)
[2019-03-18 05:55] LABS: Basophils % (A) 0 %; Eosinophils # (A) 0.2 k/uL (0-0.7); Eosinophils % (A) 2 %; HCT 47.4 % (39.0-53.0); HGB 15.3 gm/dL (13.0-17.5); Lymphocytes # (A) 1.4 k/uL (1.0-4.8); Lymphocytes % (A) 14 %; MCH 30.7 pg (25.0-35.0); MCHC 32.2 g/dL (31.0-37.0); MCV 95.3 fL (80.0-100.0); Monocytes # (A) 0.6 k/uL (0-1.0); Monocytes % (A) 6 %; Neutrophils # (A) 8.1 k/uL (1.3-7.7); Neutrophils % (A) 77 %; Platelet Count 234 k/uL (150-450); RBC 4.98 m/uL (4.30-5.90); RDW 13.3 % (11.5-15.5); WBC 10.6 k/uL (3.8-10.6)
[2019-03-18 06:22] LABS: African American GFR (CKD) >90 (>60 ml/min/1.73 sqM); Anion Gap 7 mmol/L; Blood Urea Nitrogen 9 mg/dL (9-20); Calcium 9.8 mg/dL (8.4-10.2); Carbon Dioxide 30 mmol/L (22-30); Chloride 105 mmol/L (98-107); Glucose 119 mg/dL (74-99); Potassium 3.7 mmol/L (3.5-5.1); Sodium 142 mmol/L (137-145)
--- NOTE | 2019-03-18 06:38 | ED ---
Fall HPI - General Chief Complaint: Fall Stated Complaint: Fall Time Seen by Provider: 03/18/19 05:12 Source: patient, EMS Mode of arrival: EMS - History of Present Illness Initial Comments: This patient is 78-year-old man who presents to be evaluated after he had a fall from bed. Patient states that he was in bed and felt like he had to urinate. He attempted to slide himself to the edge bed to put his leg prostheses on. He notes that he slid to close to the edge and fell landing on leg prosthesis. EMS was summoned to help get him up, and found his blood sugar to be 48. His give dextrose brought here. The patient states he is noting that he feels better. He is denying any injury from the fall. MD Complaint: fall Onset/Timin -: hour(s) Fall From: out of bed When Fall Occurred: [address] Fall Occurred: home Loss of Consciousness: none Prolonged Down Time?: no Symptoms Prior to Fall: lightheadedness Severity: mild Quality: dull Context: tripped/slipped - Related Data Home Medications Medication Instructions Recorded Confirmed Carvedilol 6.25 mg PO BID 01/25/16 03/02/18 Insulin NPH Hum/Reg Insulin Hm 55 units SQ AC-BID 01/25/16 03/02/18 [Humulin 70-30 Vial] Isosorbide Mononitrate [Isosorbide 30 mg PO DAILY 01/25/16 03/02/18 Mononitrate ER] ALPRAZolam [Xanax] 1 mg PO BID PRN 02/18/17 03/02/18 Baclofen 10 mg PO TID 02/18/17 03/02/18 Cholecalciferol [Vitamin D3 (25 1,000 unit PO DAILY 02/18/17 03/02/18 Mcg = 1000 Iu)] Ferrous Sulfate [Iron (65 MG 325 mg PO DAILY 02/18/17 03/02/18 Elemental)] Previous Rx's Medication Instructions Recorded Acetaminophen Tab [Tylenol] 650 mg PO Q6HR PRN tab 12/16/17 Aspirin 81 mg PO DAILY chew 12/16/17 Atorvastatin [Lipitor] 40 mg PO HS tab 12/16/17 INSULIN ASPART (NovoLOG) [NovoLOG 0 unit SQ ACHS vial 12/16/17 (formulary)] Ipratropium-Albuterol Nebulize 3 ml INHALATION RT-Q1H PRN 12/16/17 [Duoneb 0.5 mg-3 mg/3 ml Soln] ampul.neb Ipratropium-Albuterol Nebulize 3 ml INHALATION RT-QID ampul.neb 12/16/17 [Duoneb 0.5 mg-3 mg/3 ml Soln] Lisinopril [Zestril] 20 mg PO BID tab 12/16/17 Tamsulosin [Flomax] 0.4 mg PO PC-BRKFST cap.er.24h 12/16/17 amLODIPine [Norvasc] 5 mg PO Q12H tab 12/16/17 hydrALAZINE HCL [Apresoline] 25 mg PO TID tab 12/16/17 Allergies Allergy/AdvReac Type Severity Reaction Status Date / Time Penicillins Allergy Unknown Verified 03/18/19 05:20 Childhood pregabalin [From Lyrica] Allergy Rapid Verified 03/18/19 05:20 Heart Rate Review of Systems ROS Statement: Those systems with pertinent positive or pertinent negative responses have been documented in the HPI. ROS Other: All systems not noted in ROS Statement are negative. Constitutional: Denies: fever, chills, weakness Respiratory: Denies: cough, dyspnea Cardiovascular: Denies: chest pain, palpitations Gastrointestinal: Denies: abdominal pain, vomiting, diarrhea Genitourinary: Denies: dysuria, hematuria Musculoskeletal: Denies: back pain Skin: Denies: rash Neurological: Denies: headache, weakness, numbness Past Medical History Past Medical History: Coronary Artery Disease (CAD), Chest Pain / Angina, COPD, Diabetes Mellitus, Hyperlipidemia, Hypertension, Memory Impairment, Myocardial Infarction (ID), Vascular Disorder Additional Past Medical History / Comment(s): falls. uses walker for short distance and w/c.wears blossom leg prothesis. 'bleeding behind eyes" had laser sx Last Myocardial Infarction Date:: 2010 History of Any Multi-Drug Resistant Organisms: None Reported Past Surgical History: Coronary Bypass/CABG, Heart Catheterization With Stent, Tonsillectomy Additional Past Surgical History / Comment(s): blossom bka , blossom carotid endarterectomy, several heart caths stated he has 7 or 8 stents? ,blossom cataracts sx, laser eye sx for bleeding behind eyes, colonoscopyper past medical hx:,angiogram,fem-fem bypass,lt fem pop bypass. Past Anesthesia/Blood Transfusion Reactions: No Reported Reaction Additional Past Anesthesia/Blood Transfusion Reaction / Comment(s): clausterphobia Date of Last Stent Placement:: unk Smoking Status: Former smoker Past Alcohol Use History: None Reported Past Drug Use History: None Reported - Past Family History Father Family Medical History: Diabetes Mellitus Additional Family Medical History / Comment(s): heart problems Mother Family Medical History: Diabetes Mellitus Additional Family Medical History / Comment(s): heart problems General Exam General appearance: alert, in no apparent distress Head exam: Present: atraumatic, normocephalic Eye exam: Present: normal appearance. Absent: scleral icterus, conjunctival injection ENT exam: Present: normal oropharynx Neck exam: Present: normal inspection, full ROM. Absent: tenderness Respiratory exam: Present: normal lung sounds bilaterally. Absent: respiratory distress, wheezes, rales, rhonchi, stridor, chest wall tenderness Cardiovascular Exam: Present: regular rate, normal rhythm, normal heart sounds. Absent: systolic murmur, diastolic murmur, rubs, gallop GI/Abdominal exam: Present: soft. Absent: distended, tenderness, guarding, rebound, rigid, mass Course Vital Signs 03/18/19 03/18/19 03/18/19 05:13 05:30 07:07 Temperature 97.3 F L 97.5 F L Pulse Rate 65 67 Respiratory 18 17 Rate Blood Pressure 190/149 202/95 O2 Sat by Pulse 94 L 94 L Oximetry Medical Decision Making - Medical Decision Making Patient is 78-year-old man brought to be evaluated after he had a fall and was found to have hypoglycemia. The patient's ECG does have changes, there now appears to be second-degree AV block. Patient will be admitted to have serial cardiac enzymes. Patient states that otherwise he is feeling - Lab Data Result diagrams: 03/18/19 05:25 03/18/19 05:25 Lab Results 03/18/19 03/18/19 03/18/19 Range/Units 05:20 05:25 05:25 WBC 10.6 (3.8-10.6) k/uL RBC 4.98 (4.30-5.90) m/uL Hgb 15.3 (13.0-17.5) gm/dL Hct 47.4 (39.0-53.0) % MCV 95.3 (80.0-100.0) fL MCH 30.7 (25.0-35.0) pg MCHC 32.2 (31.0-37.0) g/dL RDW 13.3 (11.5-15.5) % Plt Count 234 (150-450) k/uL Neutrophils % 77 % Lymphocytes % 14 % Monocytes % 6 % Eosinophils % 2 % Basophils % 0 % Neutrophils # 8.1 H (1.3-7.7) k/uL Lymphocytes # 1.4 (1.0-4.8) k/uL Monocytes # 0.6 (0-1.0) k/uL Eosinophils # 0.2 (0-0.7) k/uL Basophils # 0.0 (0-0.2) k/uL Sodium 142 (137-145) mmol/L Potassium 3.7 (3.5-5.1) mmol/L Chloride 105 (98-107) mmol/L Carbon Dioxide 30 (22-30) mmol/L Anion Gap 7 mmol/L BUN 9 (9-20) mg/dL Creatinine 0.62 L (0.66-1.25) mg/dL Est GFR (CKD-EPI)AfAm >90 (>60 ml/min/1.73 sqM) Est GFR (CKD-EPI)NonAf >90 (>60 ml/min/1.73 sqM) Glucose 119 H (74-99) mg/dL POC Glucose (mg/dL) 116 H (75-99) mg/dL POC Glu Box Lidder ID Bessy Kaba Calcium 9.8 (8.4-10.2) mg/dL Troponin I (0.000-0.034) ng/mL 03/18/19 03/18/19 Range/Units 05:25 07:23 WBC (3.8-10.6) k/uL RBC (4.30-5.90) m/uL Hgb (13.0-17.5) gm/dL Hct (39.0-53.0) % MCV (80.0-100.0) fL MCH (25.0-35.0) pg MCHC (31.0-37.0) g/dL RDW (11.5-15.5) % Plt Count (150-450) k/uL Neutrophils % % Lymphocytes % % Monocytes % % Eosinophils % % Basophils % % Neutrophils # (1.3-7.7) k/uL Lymphocytes # (1.0-4.8) k/uL Monocytes # (0-1.0) k/uL Eosinophils # (0-0.7) k/uL Basophils # (0-0.2) k/uL Sodium (137-145) mmol/L Potassium (3.5-5.1) mmol/L Chloride (98-107) mmol/L Carbon Dioxide (22-30) mmol/L Anion Gap mmol/L BUN (9-20) mg/dL Creatinine (0.66-1.25) mg/dL Est GFR (CKD-EPI)AfAm (>60 ml/min/1.73 sqM) Est GFR (CKD-EPI)NonAf (>60 ml/min/1.73 sqM) Glucose (74-99) mg/dL POC Glucose (mg/dL) 156 H (75-99) mg/dL POC Glu Box Lidder ID January Calcium (8.4-10.2) mg/dL Troponin I 0.019 (0.000-0.034) ng/mL Disposition Clinical Impression: Fall, Hypoglycemia, Second degree AV block Disposition: ADMITTED IP TO THIS HOSP Condition: Good Instructions (If sedation given, give patient instructions): Hypoglycemia in a Person with Diabetes (ED), Fall Prevention for Older Adults (ED) Is patient prescribed a controlled substance at d/c from ED?: No Referrals: Jeremy Horner MD [Primary Care Provider] - 1-2 days
[2019-03-18 07:27] LABS: Glucose,Whole Blood 156 mg/dL (75-99)
[2019-03-18] MEDS ORDERED: NITROGLYCERIN SL TABS 0.4 MG TAB SUBLINGUAL PRN (07:52)
[2019-03-18] MEDS ORDERED: ACETAMINOPHEN TAB 325 MG TAB PO PRN (07:57)
[2019-03-18] MEDS: CARVEDILOL 6.25 MG TAB PO SCH ×2 (10:17→19:01)
[2019-03-18] MEDS: hydrALAZINE HCL 25 MG TAB PO SCH ×3 (10:18→19:43)
[2019-03-18] MEDS: amLODIPine 5 MG TAB PO SCH ×2 (10:18→19:42)
[2019-03-18] MEDS: ASPIRIN 81 MG PO SCH (10:19)
[2019-03-18] MEDS: LISINOPRIL 20 MG TAB PO SCH ×2 (10:22→19:43)
[2019-03-18] MEDS: BACLOFEN 10 MG TAB PO SCH ×3 (10:22→19:43)
[2019-03-18] MEDS: ISOSORBIDE MONONITRATE ER 30 MG TAB.ER.24H PO SCH (10:22)
[2019-03-18] MEDS: IPRATROPIUM-ALBUTEROL 3 ML NEB INHALATION SCH ×3 (11:32→21:24)
--- NOTE | 2019-03-18 11:49 | P.CRDCN ---
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 Patient was apparently in bed and had to go to the bathroom. Patient was trying to get out of bed and put on his neck prosthesis.. Apparently patient could not handle it and fell to the floor. No loss of consciousness. He did get some soft tissue injury from fall bout of the head and also the ribs. He has chronic atypical chest pain. Denies any shortness of breath. His EKG showed evidence of atrial/sinus rhythm with APCs. Computed was interpreting this as junctional rhythm. Previous of small. No evidence of a high degree AV block. Patient did not have any syncopal episodes. At this point, no further cardiac workup is suggested. Continue to monitor for any arrhythmias. Review of Systems As per the chart Past Medical History Past Medical History: Coronary Artery Disease (CAD), Chest Pain / Angina, COPD, Diabetes Mellitus, Hyperlipidemia, Hypertension, Memory Impairment, Pneumonia, Vascular Disorder Additional Past Medical History / Comment(s): IDDM type II, pt and spouse deny pt ever having had a VA, PAD, bilateral BKAs, acute hypoxic respiratory failure/vented in past, bilateral bleeds behind eyes/poor vision, falls. Last Myocardial Infarction Date:: 2010 History of Any Multi-Drug Resistant Organisms: None Reported Past Surgical History: Coronary Bypass/CABG, Heart Catheterization With Stent, Orthopedic Surgery, Tonsillectomy Additional Past Surgical History / Comment(s): Several cardiac caths, PCIs with stents, 1999 CABG with 2 vessels, arch studies/run offs, aortagrams, peripheral stents, L fem-fem bypass, L fem-pop bypass, bilateral BKA, bilateral caratid en dartectomies, bilateral cataract removals, laser surgery bilaterally d/t bleeds behind eyes. Past Anesthesia/Blood Transfusion Reactions: No Reported Reaction Additional Past Anesthesia/Blood Transfusion Reaction / Comment(s): clausterphobia Date of Last Stent Placement:: 2010 Smoking Status: Former smoker - Past Family History Father Family Medical History: Diabetes Mellitus Additional Family Medical History / Comment(s): heart problems Mother Family Medical History: Diabetes Mellitus Additional Family Medical History / Comment(s): heart problems Medications and Allergies Home Medications Medication Instructions Recorded Confirmed Type Carvedilol 6.25 mg PO BID 01/25/16 03/18/19 History Insulin NPH Hum/Reg Insulin Hm 55 units SQ AC-BID 01/25/16 03/18/19 History [Humulin 70-30 Vial] Isosorbide Mononitrate [Isosorbide 30 mg PO DAILY 01/25/16 03/18/19 History Mononitrate ER] ALPRAZolam [Xanax] 1 mg PO BID PRN 02/18/17 03/18/19 History Baclofen 10 mg PO TID 02/18/17 03/18/19 History Cholecalciferol [Vitamin D3 (25 1,000 unit PO DAILY 02/18/17 03/18/19 History Mcg = 1000 Iu)] Ferrous Sulfate [Iron (65 MG 325 mg PO DAILY 02/18/17 03/18/19 History Elemental)] Aspirin 81 mg PO DAILY chew 12/16/17 03/18/19 Rx Hydrocodone/Acetaminophen [[place] 1 tab PO Q6HR PRN 03/18/19 03/18/19 History 5-325] Lisinopril [Zestril] 10 mg PO DAILY 03/18/19 03/18/19 History Pravastatin Sodium [Pravachol] 10 mg PO DAILY 03/18/19 03/18/19 History Allergies Allergy/AdvReac Type Severity Reaction Status Date / Time Penicillins Allergy Unknown Verified 03/18/19 09:52 Childhood pregabalin [From Lyrica] Allergy Rapid Verified 03/18/19 09:52 Heart Rate Physical Exam Vitals: Vital Signs Temp Pulse Resp BP Pulse Ox 03/18/19 10:00 71 20 187/109 91 L 03/18/19 09:30 77 20 197/116 92 L 03/18/19 09:00 69 14 197/117 92 L 03/18/19 08:30 62 18 212/113 91 L 03/18/19 08:00 63 13 210/111 92 L 03/18/19 07:30 65 18 202/95 03/18/19 07:07 97.5 F L 67 17 202/95 94 L 03/18/19 07:00 68 22 202/95 91 L 03/18/19 06:30 65 20 190/149 92 L 03/18/19 06:00 67 12 98 06/12/19 05:30 64 9 L 190/149 95 03/18/19 05:13 97.3 F L 65 18 94 L Intake and Output 03/17/19 03/18/19 03/18/19 22:59 06:59 14:59 Other: Weight 90.718 kg GENERAL EXAM: Patient is alert and oriented and doesn't appear to be in any acute distress HEENT: Normocephalic. Normal reaction of pupils, equal size, normal range of extraocular motion. No erythema or exudates in the throat. NECK: No masses, no nuchal rigidity. CHEST: No chest wall deformity. LUNGS: Equal air entry with no crackles or wheeze. HEART: S1 and S2 normal with no audible mumurs or gallops. Regular rhythm, femorals equal on both sides.. ABDOMEN: No hepatosplenomegaly, normal bowel sounds, no guarding or rigidity. SKIN: No rashes CENTRAL NERVOUS SYSTEM: No focal deficits. EXTREMITIES: Patient had bilateral leg amputation Results 03/18/19 05:25 03/18/19 05:25 Cardiac Enzymes 03/18/19 Range/Units 05:25 Troponin I 0.019 (0.000-0.034) ng/mL CBC 03/18/19 Range/Units 05:25 WBC 10.6 (3.8-10.6) k/uL RBC 4.98 (4.30-5.90) m/uL Hgb 15.3 (13.0-17.5) gm/dL Hct 47.4 (39.0-53.0) % Plt Count 234 (150-450) k/uL Comprehensive Metabolic Panel 03/18/19 Range/Units 05:25 Sodium 142 (137-145) mmol/L Potassium 3.7 (3.5-5.1) mmol/L Chloride 105 (98-107) mmol/L Carbon Dioxide 30 (22-30) mmol/L BUN 9 (9-20) mg/dL Creatinine 0.62 L (0.66-1.25) mg/dL Glucose 119 H (74-99) mg/dL Calcium 9.8 (8.4-10.2) mg/dL Current Medications Generic Name Dose Route Start Last Admin Trade Name Freq PRN Reason Stop Dose Admin Acetaminophen 650 mg 03/18/19 07:57 Tylenol Tab PO Q6HR PRN Mild Pain or Fever > 100.5 Albuterol/Ipratropium 3 ml 03/18/19 08:00 03/18/19 11:32 Duoneb 0.5 Mg-3 Mg/3 Ml Soln INHALATION Not Given RT-QID [facility] Alprazolam 1 mg 03/18/19 07:57 Xanax PO BID PRN Anxiety Amlodipine Besylate 5 mg 03/18/19 08:00 03/18/19 10:18 Norvasc PO 5 mg Q12H JAMES Administration Aspirin 81 mg 03/18/19 09:00 03/18/19 10:19 Aspirin PO 81 mg DAILY [facility] Administration Atorvastatin Calcium 40 mg 03/18/19 21:00 Lipitor PO HS [facility] Baclofen 10 mg 03/18/19 09:00 03/18/19 10:22 Lioresal PO 10 mg TID [facility] Administration Carvedilol 6.25 mg 03/18/19 09:00 03/18/19 10:17 Coreg PO 6.25 mg BID-W/MEALS [facility] Administration Cholecalciferol 1,000 unit 03/18/19 09:00 Vitamin D3 (25 Mcg = 1000 Iu) PO DAILY [facility] Ferrous Sulfate 325 mg 03/18/19 09:00 Feosol PO DAILY [facility] Heparin Sodium (Porcine) 5,000 unit 03/18/19 09:00 Heparin SQ Q12HR [facility] Hydralazine HCl 25 mg 03/18/19 09:00 03/18/19 10:18 Apresoline PO 25 mg TID [facility] Administration Insulin Aspart 55 unit 03/18/19 17:30 Novolog Mix 70-30 Vial SQ AC-BID [facility] Isosorbide Mononitrate 30 mg 03/18/19 09:00 03/18/19 10:22 Imdur PO 30 mg DAILY [facility] Administration Lisinopril 20 mg 03/18/19 09:00 03/18/19 10:22 Zestril PO 20 mg BID [facility] Administration Nitroglycerin 0.4 mg 03/18/19 07:52 Nitrostat SUBLINGUAL Q5M PRN Chest Pain Tamsulosin HCl 0.4 mg 03/18/19 08:30 Flomax PO PC-BRKFST [facility] Intake and Output 03/17/19 03/18/19 03/18/19 22:59 06:59 14:59 Other: Weight 90.718 kg 03/18/19 05:25 03/18/19 05:25 EKG Interpretations (text) Shows sinus/atrial rhythm with APCs and diffuse nonspecific ST-T changes Assessment and Plan (1) Fall Current Visit: Yes Status: Acute Code(s): W19.XXXA - UNSPECIFIED FALL, INITIAL ENCOUNTER SNOMED Code(s): 5071533 (2) Hypoglycemia Current Visit: Yes Status: Acute Code(s): E16.2 - HYPOGLYCEMIA, UNSPECIFIED SNOMED Code(s): 910130586 (3) History of ischemic heart disease Current Visit: Yes Status: Acute Code(s): Z86.79 - PERSONAL HISTORY OF OTHER DISEASES OF THE CIRCULATORY SYSTEM SNOMED Code(s): 576077524 (4) Carotid disease, bilateral Current Visit: Yes Status: Acute Code(s): I77.9 - DISORDER OF ARTERIES AND ARTERIOLES, UNSPECIFIED SNOMED Code(s): 769763440 (5) Hypoglycemia Current Visit: Yes Status: Acute Code(s): E16.2 - HYPOGLYCEMIA, UNSPECIFIED SNOMED Code(s): 365041361 Plan: From cardiac standpoint, I do not see any second-degree AV block at this time. Patient did not have any syncope. Patient does have chronic ischemic heart d isease with previous bypass surgery and stent placement. Patient also has carotid disease. No further cardiac workup at this time. We'll continue to monitor him for any arrhythmias
[2019-03-18 12:08] LABS: Glucose,Whole Blood 227 mg/dL (75-99)
[2019-03-18] MEDS: HEPARIN SODIUM,PORCINE 5,000 UNIT/ML 1 ML VIAL SQ SCH ×2 (15:16→19:42)
[2019-03-18] MEDS: FERROUS SULFATE 325 MG TAB PO SCH (15:17)
[2019-03-18] MEDS: TAMSULOSIN 0.4 MG CAP.ER.24H PO SCH (15:17)
[2019-03-18] MEDS: CHOLECALCIFEROL 1,000 UNIT TAB PO SCH (15:17)
[2019-03-18] MEDS: ALPRAZolam 1 MG TAB PO PRN (16:55)
[2019-03-18 17:42] LABS: Glucose,Whole Blood 220 mg/dL (75-99)
[2019-03-18] MEDS: INSULN ASP PRT/INSULIN ASPART 100 UNIT/ML 10 ML VIAL SQ SCH (19:36)
[2019-03-18] MEDS: ATORVASTATIN 40 MG TAB PO SCH (19:42)
[2019-03-18 21:10] LABS: Glucose,Whole Blood 309 mg/dL (75-99)
[2019-03-18] MEDS: INSULIN ASPART (NovoLOG) 100 UNIT/ML VIAL SQ SCH (21:18)
[2019-03-19 02:37] LABS: Appearance,Urine Clear (Clear); Bilirubin,Urine Negative (Negative); Blood,Urine Negative (Negative); Color,Urine Light Yellow; Glucose,Urine (UA) 3+ (Negative); Ketones,Urine Negative (Negative); Leukocyte Esterase,Urine Negative (Negative); Nitrite,Urine Negative (Negative); PH, Urine 5.5 (5.0-8.0); Protein,Urine Negative (Negative); Specific Gravity,Urine 1.008 (1.001-1.035); Urobilinogen,Urine <2.0 mg/dL (<2.0)
[2019-03-19 03:39] LABS: Cholesterol 144 mg/dL (<200); HDL Cholesterol 61 mg/dL (40-60); LDL Cholesterol,Calculated 43 mg/dL (0-99); Triglycerides 201 mg/dL (<150)
[2019-03-19 06:43] LABS: Glucose,Whole Blood 191 mg/dL (75-99)
[2019-03-19] MEDS: INSULIN ASPART (NovoLOG) 100 UNIT/ML VIAL SQ SCH ×4 (07:03→21:11)
[2019-03-19] MEDS: CARVEDILOL 6.25 MG TAB PO SCH ×2 (07:03→17:17)
[2019-03-19] MEDS: INSULN ASP PRT/INSULIN ASPART 100 UNIT/ML 10 ML VIAL SQ SCH ×2 (07:04→17:17)
[2019-03-19] MEDS: IPRATROPIUM-ALBUTEROL 3 ML NEB INHALATION SCH ×4 (07:39→20:08)
[2019-03-19] MEDS: ISOSORBIDE MONONITRATE ER 30 MG TAB.ER.24H PO SCH (08:45)
[2019-03-19] MEDS: ASPIRIN 81 MG PO SCH (08:45)
[2019-03-19] MEDS: hydrALAZINE HCL 25 MG TAB PO SCH ×3 (08:45→21:11)
[2019-03-19] MEDS: HEPARIN SODIUM,PORCINE 5,000 UNIT/ML 1 ML VIAL SQ SCH ×2 (08:45→21:11)
[2019-03-19] MEDS: TAMSULOSIN 0.4 MG CAP.ER.24H PO SCH (08:45)
[2019-03-19] MEDS: FERROUS SULFATE 325 MG TAB PO SCH (08:45)
[2019-03-19] MEDS: BACLOFEN 10 MG TAB PO SCH ×3 (08:45→21:11)
[2019-03-19] MEDS: amLODIPine 5 MG TAB PO SCH ×2 (08:45→21:11)
[2019-03-19] MEDS: LISINOPRIL 20 MG TAB PO SCH ×2 (08:45→21:11)
[2019-03-19] MEDS: CHOLECALCIFEROL 1,000 UNIT TAB PO SCH (08:45)
--- NOTE | 2019-03-19 09:46 | CT ---
EXAMINATION TYPE: CT brain wo con DATE OF EXAM: 03/19/2019 HISTORY: Fall. Altered mental status. CT DLP: 1188.4 mGycm. Automated Exposure Control for Dose Reduction was Utilized. TECHNIQUE: CT scan of the head is performed without contrast. COMPARISON: CT brain February 18, 2017. FINDINGS: There is no acute intracranial hemorrhage or midline shift identified. There is diffuse v entricular and sulcal prominence consistent with diffuse age-related cerebral atrophy. There is low- attenuation in the periventricular white matter consistent with chronic small vessel ischemic change. The globes are intact and the visualized sinuses are clear. The calvarium is intact. IMPRESSION: No acute intracranial hemorrhage or midline shift. There is moderate diffuse age-relate d cerebral atrophy and chronic small vessel ischemic change redemonstrated without significant change from prior CT.
[2019-03-19 11:27] LABS: Glucose,Whole Blood 213 mg/dL (75-99)
--- NOTE | 2019-03-19 13:45 | P.PN ---
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 Patient was apparently in bed and had to go to the bathroom. Patient was trying to get out of bed and put on his neck prosthesis.. Apparently patient could not handle it and fell to the floor. No loss of consciousness. He did get some soft tissue injury from fall bout of the head and also the ribs. He has chronic atypical chest pain. Denies any shortness of breath. His EKG showed evidence of atrial/sinus rhythm with APCs. Computed was interpreting this as junctional rhythm. Previous of small. No evidence of a high degree AV block. Patient did not have any syncopal episodes. At this point, no further cardiac workup is suggested. Continue to monitor for any arrhythmias. 03/19/2019 Patient was seen and examined this morning, apparently did not sleep well through the night, was somewhat confused and aggressive. This morning he was d ifficult to arouse, and when asked questions he did not answer appropriately. After a few minutes he was able to identify who the daughters were in his room. There is a request for neurology to see the patient. From our perspective there has been no significant arrhythmias noted on the monitor.blood pressure 142/60 with a heart rate in the 70s. Objective - Vital Signs Vital signs: Vital Signs Temp 98.2 F 03/19/19 11:58 Pulse 70 03/19/19 11:58 Resp 16 03/19/19 11:58 BP 142/66 03/19/19 11:58 Pulse Ox 93 L 03/19/19 11:58 Intake & Output 03/18/19 03/19/19 03/19/19 18:59 06:59 18:59 Intake Total 200 240 Output Total 550 Balance -350 240 Weight 89.5 kg Intake: Oral 200 240 Output: Urine 550 Other: Voiding Method Urinal Urinal # Voids 1 - Exam GENERAL EXAM: Patient is alert and oriented and doesn't appear to be in any acute distress HEENT: Normocephalic. Normal reaction of pupils, equal size, normal range of extraocular motion. No erythema or exudates in the throat. NECK: No masses, no nuchal rigidity. CHEST: No chest wall deformity. LUNGS: Equal air entry with no crackles or wheeze. HEART: S1 and S2 normal with no audible mumurs or gallops. Regular rhythm, femorals equal on both sides.. ABDOMEN: No hepatosplenomegaly, normal bowel sounds, no guarding or rigidity. SKIN: No rashes CENTRAL NERVOUS SYSTEM: No focal deficits. EXTREMITIES: Patient had bilateral leg amputation - Labs CBC & Chem 7: 03/18/19 05:25 03/18/19 05:25 Labs: Abnormal Lab Results - Last 24 Hours (Table) 03/18/19 03/18/19 03/18/19 Range/Units 05:25 17:27 21:09 POC Glucose (mg/dL) 220 H 309 H (75-99) mg/dL Triglycerides 201 H (<150) mg/dL HDL Cholesterol 61 H (40-60) mg/dL Urine Glucose (UA) (Negative) 03/19/19 03/19/19 03/19/19 Range/Units 02:16 06:42 11:24 POC Glucose (mg/dL) 191 H 213 H (75-99) mg/dL Triglycerides (<150) mg/dL HDL Cholesterol (40-60) mg/dL Urine Glucose (UA) 3+ H (Negative) Assessment and Plan Plan: assessment and plan #1 fall #2 hypoglycemia #3 history of ischemic heart disease #4 mental status changes plan No arrhythmias have been noted on the monitor. From cardiology's perspective, we'll follow this patient with you on an as-needed basis only, please don't hesitate to call with any questions. DNP note has been reviewed, I agree with a documented findings and plan of care. Patient was seen and examined.
--- NOTE | 2019-03-19 14:35 | P.CNNES ---
History of Present Illness Consult date: 03/19/19 Reason for Consult: Confusion History of Present Illness: Patient is a 78-year-old male who has history of diabetes for 29 years, bilateral below-knee amputation, otherwise mentally very clear. 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 He went on the edge of the bed, somehow lost balance, and fell off the bed, on his leg prosthesis, hitting his head on the dresser. He passed out for about 10-15 seconds, not knowing what happened. EMS was someone to help him get up. His blood sugar was noted to be 48. He was given D50 and was brought to the hospital. There were no focal symptoms noted like slurred speech facial droop, problem with the vision numbness or tingling. Patient underwent computed tomography scan of the brain, which revealed no acute intracranial hemorrhage, midline shift. There is moderate diffuse age-related cerebral atrophy and chronic small vessel ischemic change. EKG showed junctional rhythm, septal infarct, age undetermined. Patient underwent urine testing which was negative for infection. CBC was normal. Chem-7 showed normal electrolytes, renal f unctions, cholesterol 144, LDL 43, HDL 61. Last hemoglobin A1c 7.2 on 02/04/2018. Last TSH was also normal. Patient had a 2-D echo performed previously 12/08/2017, showed normal sinus rhythm. Left ventricular size is normal. EF 55-60%. Apparently last night, the nurse woke him up to take vitals and patient became acutely confused, started ripping his clothes off, trying to get out of bed. T rying to punch the nurses, yelling on the daughter. This behavior is very unusual, as patient is very gentle person, per his daughter's. Patient was very confused, mixing up his daughter with his sister. Trying to talk to his who was not there. Patient does not remember the entire whole day what happened yesterday. No focal symptoms were noted. Patient has diabetes for 29 years, not very well controlled. He has hypertension. He smoked half pack per day for 20 years, quit 15 years ago. Denies any history of alcoholism. Patient does take aspirin 81 mg daily. Patient's family states that he has no memory issues, besides minor forgetfulness like mixing up one day from another, if it is Saturday or Saturday. Patient's came on later on, who feels patient may be coming up with some dementia. About a week ago he was sitting in the chair, asking where was Faith, his daughter, who has not been there whole day. Patient stated to his that she was sitting right there on the sofa. One of his home doctors, recommended possible trying on Aricept. Review of Systems As per HPI in detail. Denies any chest pain shortness of breath. Past Medical History Past Medical History: Coronary Artery Disease (CAD), Chest Pain / Angina, COPD, Diabetes Mellitus, Hyperlipidemia, Hypertension, Memory Impairment, Pneumonia, Vascular Disorder Additional Past Medical History / Comment(s): IDDM type II, pt and spouse deny pt ever having had a [place], PAD, bilateral BKAs, acute hypoxic respiratory failure/vented in past, bilateral bleeds behind eyes/poor vision, falls. Last Myocardial Infarction Date:: 2010 History of Any Multi-Drug Resistant Organisms: None Reported Past Surgical History: Coronary Bypass/CABG, Heart Catheterization With Stent, Orthopedic Surgery, Tonsillectomy Additional Past Surgical History / Comment(s): Several cardiac caths, PCIs with stents, 1999 CABG with 2 vessels, arch studies/run offs, aortagrams, peripheral stents, L fem-fem bypass, L fem-pop bypass, bilateral BKA, bilateral caratid endartectomies, bilateral cataract removals, laser surgery bilaterally d/t bleeds behind eyes. Past Anesthesia/Blood Transfusion Reactions: No Reported Reaction Additional Past Anesthesia/Blood Transfusion Reaction / Comment(s): clausterphobia Date of Last Stent Placement:: 2010 Smoking Status: Former smoker - Past Family History Father Family Medical History: Diabetes Mellitus Additional Family Medical History / Comment(s): heart problems Mother Family Medical History: Diabetes Mellitus Additional Family Medical History / Comment(s): heart problems Medications and Allergies Home Medications Medication Instructions Recorded Confirmed Type Carvedilol 6.25 mg PO BID 01/25/16 03/18/19 History Insulin NPH Hum/Reg Insulin Hm 55 units SQ AC-BID 01/25/16 03/18/19 History [Humulin 70-30 Vial] Isosorbide Mononitrate [Isosorbide 30 mg PO DAILY 01/25/16 03/18/19 History Mononitrate ER] ALPRAZolam [Xanax] 1 mg PO BID PRN 02/18/17 03/18/19 History Baclofen 10 mg PO TID 02/18/17 03/18/19 History Cholecalciferol [Vitamin D3 (25 1,000 unit PO DAILY 02/18/17 03/18/19 History Mcg = 1000 Iu)] Ferrous Sulfate [Iron (65 MG 325 mg PO DAILY 02/18/17 03/18/19 History Elemental)] Aspirin 81 mg PO DAILY chew 12/16/17 03/18/19 Rx Hydrocodone/Acetaminophen [[place] 1 tab PO Q6HR PRN 03/18/19 03/18/19 History 5-325] Lisinopril [Zestril] 10 mg PO DAILY 03/18/19 03/18/19 History Pravastatin Sodium [Pravachol] 10 mg PO DAILY 03/18/19 03/18/19 History Allergies Allergy/AdvReac Type Severity Reaction Status Date / Time Penicillins Allergy Unknown Verified 03/18/19 09:52 Childhood pregabalin [From Lyrica] Allergy Rapid Verified 03/18/19 09:52 Heart Rate Physical Examination - Vital Signs Vital Signs: Vital Signs Temp Pulse Pulse Resp BP BP Pulse Ox 03/19/19 11:58 98.2 F 70 16 142/66 93 L 03/19/19 08:46 97.8 F 68 16 171/79 94 L 03/19/19 04:00 60 16 03/18/19 23:32 73 16 03/18/19 23:30 98.5 F 73 16 126/76 93 L 03/18/19 21:32 80 03/18/19 21:24 76 03/18/19 19:41 97.9 F 69 16 147/81 92 L 03/18/19 19:34 97.5 F L 71 18 144/76 95 03/18/19 17:42 98.0 F 72 18 99 03/18/19 17:20 64 20 149/84 99 03/18/19 16:57 63 18 125/64 95 03/18/19 15:24 97.8 F 70 16 95 Intake and Output 03/18/19 03/19/19 03/19/19 22:59 06:59 14:59 Intake Total 200 240 Output Total 550 Balance 200 -550 240 Intake: Oral 200 240 Output: Urine 550 Other: Voiding Method Urinal Urinal Urinal # Voids 1 Weight 89.5 kg On examination patient is an elderly male, in no distress. He is alert and awake, fairly well oriented at this time. Patient states it is March 1990. He thinks he is in [place] in the hospital. He could not tell me name of the current president and his daughter Faith. About 2 hours ago, when the security compliance specialist was evaluating, daughter states that patient was completely disoriented mixing up names of his children per No carotid bruit or murmur. Speech and language functions are normal. Attention and concentration fund of knowledge is adequate. Patient is slightly slow mentation, prolonged latency ti me to answer questions. On cranial nerve examination pupils are round and reacting to light, visual wilson are full, extra ocular muscles are intact. Face is symmetric and tongue protrudes the midline. Palatal elevation and sensation normal. On muscle strength testing there is no pronator drift and the strength is normal in both arms distally and proximally. His hip flexion is normal bilaterally. He has below-knee amputation bilaterally. Reflexes are absent. No ataxia for [id number] testing, tone and bulk of muscles normal. Results - Laboratory Findings CBC and BMP: 03/18/19 05:25 03/18/19 05:25 Abnormal Lab Findings: Abnormal Labs 03/18/19 03/18/19 03/18/19 05:20 05:25 05:25 Neutrophils # 8.1 H Creatinine 0.62 L Glucose 119 H POC Glucose (mg/dL) 116 H Triglycerides HDL Cholesterol Urine Glucose (UA) 03/18/19 03/18/19 03/18/19 05:25 07:23 12:06 Neutrophils # Creatinine Glucose POC Glucose (mg/dL) 156 H 227 H Triglycerides 201 H HDL Cholesterol 61 H Urine Glucose (UA) 03/18/19 03/18/19 03/19/19 17:27 21:09 02:16 Neutrophils # Creatinine Glucose POC Glucose (mg/dL) 220 H 309 H Triglycerides HDL Cholesterol Urine Glucose (UA) 3+ H 03/19/19 03/19/19 06:42 11:24 Neutrophils # Creatinine Glucose POC Glucose (mg/dL) 191 H 213 H Triglycerides HDL Cholesterol Urine Glucose (UA) Assessment and Plan Assessment: * Status post fall due to rolling over from the bed, hitting head on the dresser. Rule out concussion. * Acute delirium overnight with episode of amnesia unclear etiology. Rule out upcoming dementia. * Diabetes, not well controlled * History of bilateral below-knee amputation. * Hypertension * Dyslipidemia Plan: * We will check TSH, free T4, B12, folate, B1, ammonia level. * Carotid Doppler to rule out carotid stenosis. * EEG to rule out epileptiform activity. * Patient currently on aspirin and statins, which will be continued.
--- NOTE | 2019-03-19 15:50 | US ---
EXAMINATION TYPE: US carotid duplex BILAT DATE OF EXAM: 03/19/2019 COMPARISON: NONE CLINICAL HISTORY: Altered mental status, diabetes. Altered mental status, exam done portable, bilater al endarterectomy. EXAM MEASUREMENTS: RIGHT: Peak Systolic Velocity (PSV) cm/sec ----- Right CCA: 86.6 ----- Right ICA: 67.6 ----- Right ECA: 103.7 ICA/CCA ratio: 0.8 RIGHT: End Diastole cm/sec ----- Right CCA: 9.9 ----- Right ICA: 6.7 ----- Right ECA: 5.3 LEFT: Peak Systolic Velocity (PSV) cm/sec ----- Left CCA: 76.1 ----- Left ICA: 79.2 ----- Left ECA: 116.3 ICA/CCA ratio: 1.0 LEFT: End Diastole cm/sec ----- Left CCA: 4.5 ----- Left ICA: 11.6 ----- Left ECA: 5.8 VERTEBRALS (direction of flow): Right Vertebral: Antegrade Left Vertebral: Antegrade Rhythm: Arrhythmia Difficult study due to patient's limited neck mobility and heavy breathing No elevated velocities, no significant stenosis. Grayscale images show moderate peripheral plaque blossom aterally. IMPRESSION: Moderate atherosclerotic changes without hemodynamically significant stenosis seen in ei ther internal carotid artery. Note is made of underlying arrhythmia per technologist during real-time scanning, correlate clinically. Criteria for Assigning % of Stenosis / Diameter reduction (Estimation based on the indirect measurements of the internal carotid artery velocities (ICA PSV). 1. Normal (no stenosis)=ICA PSV < 125 cm/s: ratio < 2.0: ICA EDV<40 cm/s. 2. Less than 50% stenosis=ICA PSV < 125 cm/s: ratio < 2.0: ICA EDV<40 cm/s. 3. 50 to 69% stenosis=ICA PSV of 125 to 230 cm/s: ration 2.0 ? 4.0: ICA EDV 40-100 cm/s. 4. Greater than 70% stenosis to near occlusion= ICA PSV > 230 cm/s: ratio > 4.0: ICA EDV > 100 cm/s. 5. Near occlusion= ICA PSV velocities may be low or undetectable: variable ratio and ICA EDV. 6. Total occlusion=unable to detect flow.
[2019-03-19 16:38] LABS: Glucose,Whole Blood 180 mg/dL (75-99)
[2019-03-19 20:57] LABS: Glucose,Whole Blood 229 mg/dL (75-99)
[2019-03-19] MEDS: ATORVASTATIN 40 MG TAB PO SCH (21:11)
[2019-03-19] MEDS: ALPRAZolam 1 MG TAB PO PRN (22:57)
[2019-03-19 23:44] LABS: Folate, Serum 13.4 ng/mL
[2019-03-20] MEDS: CARVEDILOL 6.25 MG TAB PO SCH ×2 (06:18→17:26)
[2019-03-20 06:39] LABS: Glucose,Whole Blood 124 mg/dL (75-99)
[2019-03-20] MEDS: INSULIN ASPART (NovoLOG) 100 UNIT/ML VIAL SQ SCH ×4 (07:00→21:17)
[2019-03-20] MEDS: INSULN ASP PRT/INSULIN ASPART 100 UNIT/ML 10 ML VIAL SQ SCH ×2 (07:00→17:34)
[2019-03-20] MEDS: IPRATROPIUM-ALBUTEROL 3 ML NEB INHALATION SCH ×4 (08:08→19:25)
[2019-03-20] MEDS: HEPARIN SODIUM,PORCINE 5,000 UNIT/ML 1 ML VIAL SQ SCH ×2 (09:26→20:02)
[2019-03-20] MEDS: BACLOFEN 10 MG TAB PO SCH ×3 (09:26→20:02)
[2019-03-20] MEDS: amLODIPine 5 MG TAB PO SCH ×2 (09:26→20:02)
[2019-03-20] MEDS: ISOSORBIDE MONONITRATE ER 30 MG TAB.ER.24H PO SCH (09:26)
[2019-03-20] MEDS: hydrALAZINE HCL 25 MG TAB PO SCH ×3 (09:26→20:02)
[2019-03-20] MEDS: CHOLECALCIFEROL 1,000 UNIT TAB PO SCH (09:26)
[2019-03-20] MEDS: ASPIRIN 81 MG PO SCH (09:26)
[2019-03-20] MEDS: TAMSULOSIN 0.4 MG CAP.ER.24H PO SCH (09:27)
[2019-03-20] MEDS: FERROUS SULFATE 325 MG TAB PO SCH (09:27)
[2019-03-20] MEDS: LISINOPRIL 20 MG TAB PO SCH ×2 (09:27→20:02)
[2019-03-20 12:08] LABS: Glucose,Whole Blood 202 mg/dL (75-99)
[2019-03-20] MEDS: HYDROcodone/APAP 5-325MG 1 EACH TAB PO PRN (12:33)
--- NOTE | 2019-03-20 15:35 | EEG ---
ELECTROENCEPHALOGRAM REPORT DATE OF SERVICE: 03/20/2019. PREAMBLE: This is a 78-year-old male who was admitted to the hospital after falling at home, hitting his head on the dresser. He passed out for 10-15 seconds. Blood sugar was 48 when EMS arrived. This study is performed to look for any epileptiform activity. EEG FINDINGS: This is a 21 channel awake digital EEG recording, was accomplished utilizing the 10/20 international system with bipolar and referential montages. The background consists of well-developed, well-regulated, moderate amplitude activity in 8-9 hertz alpha. There is intermittent moderate amplitude 1-2 hertz delta activity seen intermittently during the study. Background seems to be reactive to eye opening and closing. Photic driving response was not seen. Drowsiness was seen including brief stage 2 sleep with presence of sleep spindles. More deeper stages of sleep were not seen. No focal or generalized epileptiform activity was seen. EKG rhythm revealed arrhythmia. IMPRESSION: This is an abnormal EEG due to background slowing, mild degree, intermittent. This is suggestive of generalized cerebral dysfunction, as can be seen with various toxic metabolic encephalopathies. No epileptiform activity was seen. EKG rhythm lead revealed arrhythmia. Clinical correlation is recommended. MMODL / IJN: [id number] / MTDD
--- NOTE | 2019-03-20 16:49 | P.HPIM ---
History of Present Illness H&P Date: 03/19/19 78-year-old man who presents to be evaluated after he had a fall from bed. Patient states that he was in bed and felt like he had to urinate. He attempted to slide himself to the edge bed to put his leg prostheses on. He notes that he slid to close to the edge and fell landing on leg prosthesis. EMS was summoned to help get him up, and found his blood sugar to be 48. His give dextrose brought here. The patient states he is noting that he feels better. He is denying any injury from the fall. history of ischemic heart disease and previous bypass surgery and also multiple stent placement, carotid disease with bilateral carotid endarterectomy and bilateral leg amputation for ischemic and diabetic legs. Patient was apparently in bed and had to go to the bathroom. Patient was trying to get out of bed and put on his neck prosthesis.. Apparently patient could not handle it and fell to the floor. No loss of consciousness. He did get some soft tissue injury from fall bout of the head and also the ribs. He has chronic atypical chest pain. Denies any shortness of breath. His EKG sh owed evidence of atrial/sinus rhythm with APCs. Computed was interpreting this as junctional rhythm. Previous of small. No evidence of a high degree AV block. Patient did not have any syncopal episodes. Review of Systems ROS Other: All systems not noted in ROS Statement are negative. Constitutional: Denies: fever, chills, weakness Respiratory: Denies: cough, dyspnea Cardiovascular: Denies: chest pain, palpitations Gastrointestinal: Denies: abdominal pain, vomiting, diarrhea Genitourinary: Denies: dysuria, hematuria Musculoskeletal: Denies: back pain Skin: Denies: rash Neurological: Denies: headache, weakness, numbness Past Medical History Past Medical History: Coronary Artery Disease (CAD), Chest Pain / Angina, COPD, Diabetes Mellitus, Hyperlipidemia, Hypertension, Memory Impairment, Pneumonia, Vascular Disorder Additional Past Medical History / Comment(s): IDDM type II, pt and spouse deny pt ever having had a [place], PAD, bilateral BKAs, acute hypoxic respiratory failure/vented in past, bilateral bleeds behind eyes/poor vision, falls. Last Myocardial Infarction Date:: 2010 History of Any Multi-Drug Resistant Organisms: None Reported Past Surgical History: Coronary Bypass/CABG, Heart Catheterization With Stent, Orthopedic Surgery, Tonsillectomy Additional Past Surgical History / Comment(s): Several cardiac caths, PCIs with stents, 1999 CABG with 2 vessels, arch studies/run offs, aortagrams, peripheral stents, L fem-fem bypass, L fem-pop bypass, bilateral BKA, bilateral caratid endartectomies, bilateral cataract removals, laser surgery bilaterally d/t bleeds behind eyes. Past Anesthesia/Blood Transfusion Reactions: No Reported Reaction Additional Past Anesthesia/Blood Transfusion Reaction / Comment(s): clausterph obia Date of Last Stent Placement:: 2010 Smoking Status: Former smoker - Past Family History Father Family Medical History: Diabetes Mellitus Additional Family Medical History / Comment(s): heart problems Mother Family Medical History: Diabetes Mellitus Additional Family Medical History / Comment(s): heart problems Medications and Allergies Home Medications Medication Instructions Recorded Confirmed Type Carvedilol 6.25 mg PO BID 01/25/16 03/18/19 History Insulin NPH Hum/Reg Insulin Hm 55 units SQ AC-BID 01/25/16 03/18/19 History [Humulin 70-30 Vial] Isosorbide Mononitrate [Isosorbide 30 mg PO DAILY 01/25/16 03/18/19 History Mononitrate ER] ALPRAZolam [Xanax] 1 mg PO BID PRN 02/18/17 03/18/19 History Baclofen 10 mg PO TID 02/18/17 03/18/19 History Cholecalciferol [Vitamin D3 (25 1,000 unit PO DAILY 02/18/17 03/18/19 History Mcg = 1000 Iu)] Ferrous Sulfate [Iron (65 MG 325 mg PO DAILY 02/18/17 03/18/19 History Elemental)] Aspirin 81 mg PO DAILY chew 12/16/17 03/18/19 Rx Hydrocodone/Acetaminophen [[place] 1 tab PO Q6HR PRN 03/18/19 03/18/19 History 5-325] Lisinopril [Zestril] 10 mg PO DAILY 03/18/19 03/18/19 History Pravastatin Sodium [Pravachol] 10 mg PO DAILY 03/18/19 03/18/19 History Allergies Allergy/AdvReac Type Severity Reaction Status Date / Time Penicillins Allergy Unknown Verified 03/18/19 09:52 Childhood pregabalin [From Lyrica] Allergy Rapid Verified 03/18/19 09:52 Heart Rate Physical Exam Vitals: Vital Signs Temp Pulse Pulse Resp BP BP Pulse Ox 03/19/19 11:58 98.2 F 70 16 142/66 93 L 03/19/19 08:46 97.8 F 68 16 171/79 94 L 03/19/19 04:00 60 16 03/18/19 23:32 73 16 03/18/19 23:30 98.5 F 73 16 126/76 93 L 03/18/19 21:32 80 03/18/19 21:24 76 03/18/19 19:41 97.9 F 69 16 147/81 92 L 03/18/19 19:34 97.5 F L 71 18 144/76 95 03/18/19 17:42 98.0 F 72 18 99 03/18/19 17:20 64 20 149/84 99 03/18/19 16:57 63 18 125/64 95 03/18/19 15:24 97.8 F 70 16 95 03/18/19 13:00 65 18 122/61 99 Intake and Output 03/18/19 03/19/19 03/19/19 22:59 06:59 14:59 Intake Total 200 240 Output Total 550 Balance 200 -550 240 Intake: Oral 200 240 Output: Urine 550 Other: Voiding Method Urinal Urinal Urinal # Voids 1 Weight 89.5 kg General appearance: alert, in no apparent distress Head exam: Present: atraumatic, normocephalic Eye exam: Present: normal appearance. Absent: scleral icterus, conjunctival i njection ENT exam: Present: normal oropharynx Neck exam: Present: normal inspection, full ROM. Absent: tenderness Respiratory exam: Present: normal lung sounds bilaterally. Absent: respiratory distress, wheezes, rales, rhonchi, stridor, chest wall tenderness Cardiovascular Exam: Present: regular rate, normal rhythm, normal heart sounds. Absent: systolic murmur, diastolic murmur, rubs, gallop GI/Abdominal exam: Present: soft. Absent: distended, tenderness, guarding, r ebound, rigid, mass Results CBC & Chem 7: 03/18/19 05:25 03/18/19 05:25 Labs: Abnormal Lab Results - Last 24 Hours (Table) 03/18/19 03/18/19 03/18/19 Range/Units 05:25 17:27 21:09 POC Glucose (mg/dL) 220 H 309 H (75-99) mg/dL Triglycerides 201 H (<150) mg/dL HDL Cholesterol 61 H (40-60) mg/dL Urine Glucose (UA) (Negative) 03/19/19 03/19/19 03/19/19 Range/Units 02:16 06:42 11:24 POC Glucose (mg/dL) 191 H 213 H (75-99) mg/dL Triglycerides (<150) mg/dL HDL Cholesterol (40-60) mg/dL Urine Glucose (UA) 3+ H (Negative) Thrombosis Risk Factor Assmnt - Choose All That Apply Any of the Below Risk Factors Present?: Yes Each Factor Represents 1 point: Abnormal pulmonary function (COPD), Obesity (BMI >25) Other Risk Factors: Yes Each Risk Factor Represents 3 Points: Age 75 years or older Other congenital or acquired thrombophilia - If yes, enter type in comment: No Thrombosis Risk Factor Assessment Total Risk Factor Score: 5 Thrombosis Risk Factor Assessment Level: High Risk Assessment and Plan Assessment: * Status post fall due to rolling over from the bed, hitting head on the dresse r. Rule out concussion. * Acute delirium overnight with episode of amnesia unclear etiology. Rule out upcoming dementia. * Diabetes, not well controlled * History of bilateral below-knee amputation. * Hypertension * Dyslipidemia Plan: * We will check TSH, free T4, B12, folate, B1, ammonia level. * Carotid Doppler to rule out carotid stenosis. * EEG to rule out epileptiform activity. * Patient currently on aspirin and statins, which will be continued. Time with Patient: Greater than 30
--- NOTE | 2019-03-20 16:59 | P.PN ---
Subjective Progress Note Date: 03/20/19 Principal diagnosis: Status post fall 78-year-old man who presents to be evaluated after he had a fall from bed. Patient states that he was in bed and felt like he had to urinate. He attempted to slide himself to the edge bed to put his leg prostheses on. He notes that he slid to close to the edge and fell landing on leg prosthesis. EMS was summoned to help get him up, and found his blood sugar to be 48. His give dextrose brought here. The patient states he is noting that he feels better. He is denying any injury from the fall. history of ischemic heart disease and previous bypass surgery and also multiple stent placement, carotid disease with bilateral carotid endarterectomy and bilateral leg amputation for ischemic and diabetic legs. Patient was apparently in bed and had to go to the bathroom. Patient was trying to get out of bed and put on his neck prosthesis.. Apparently patient could not handle it and fell to the floor. No loss of consciousness. He did get some soft tissue injury from fall bout of the head and also the ribs. He has chronic atypical chest pain. Denies any shortness of breath. His EKG showed evidence of atrial/sinus rhythm with APCs. Computed was interpreting this as junctional rhythm. Previous of small. No evidence of a high degree AV block. Patient did not have any syncopal episodes. 03/20/19 Patient is seen and evaluated for follow-up; patient's workup is insignificant for any carotid stenosis, echocardiogram was not recommended by cardiology, TSH, folic acid and vitamin B 12 levels are within normal limits; patient is currently getting EEG; further recommendations after EEG is completed Objective - Vital Signs Vital signs: Vital Signs Temp 97.7 F 03/20/19 08:15 Pulse 68 03/20/19 08:17 Resp 18 03/20/19 08:15 BP 185/80 03/20/19 08:15 Pulse Ox 95 03/20/19 08:15 Intake & Output 03/19/19 03/20/19 03/20/19 18:59 06:59 18:59 Intake Total 240 1076 Output Total 200 400 Balance 40 -400 1076 Weight 92.5 kg Intake: Oral 240 1076 Output: Urine 200 400 Other: Voiding Method Urinal Urinal # Voids 2 # Bowel Movements 3 3 - Exam General appearance: alert, in no apparent distress Head exam: Present: atraumatic, normocephalic Eye exam: Present: normal appearance. Absent: scleral icterus, conjunctival injection ENT exam: Present: normal oropharynx Neck exam: Present: normal inspection, full ROM. Absent: tenderness Respiratory exam: Present: normal lung sounds bilaterally. Absent: respiratory distress, wheezes, rales, rhonchi, stridor, chest wall tenderness Cardiovascular Exam: Present: regular rate, normal rhythm, normal heart sounds. Absent: systolic murmur, diastolic murmur, rubs, gallop GI/Abdominal exam: Present: soft. Absent: distended, tenderness, guarding, rebound, rigid, mass - Labs CBC & Chem 7: 03/18/19 05:25 03/18/19 05:25 Labs: Abnormal Lab Results - Last 24 Hours (Table) 03/19/19 03/19/19 03/19/19 Range/Units 11:24 16:33 20:56 POC Glucose (mg/dL) 213 H 180 H 229 H (75-99) mg/dL 03/20/19 Range/Units 06:37 POC Glucose (mg/dL) 124 H (75-99) mg/dL Assessment and Plan Assessment: * Status post fall due to rolling over from the bed, hitting head on the dresser. Rule out concussion. * Acute delirium overnight with episode of amnesia unclear etiology. Rule out upcoming dementia. * Diabetes, not well controlled * History of bilateral below-knee amputation. * Hypertension * Dyslipidemia Plan: * We will check TSH, free T4, B12, folate, B1, ammonia level. * Carotid Doppler to rule out carotid stenosis. * EEG to rule out epileptiform activity. * Patient currently on aspirin and statins, which will be continued. Time with Patient: Greater than 30
[2019-03-20 17:09] LABS: Glucose,Whole Blood 309 mg/dL (75-99)
--- NOTE | 2019-03-20 17:11 | P.PN ---
Subjective Progress Note Date: 03/20/19 Patient states he is doing better. Patient's 2 daughters and were also present. Patient's EEG showed intermittent background slowing, suggestive of encephalopathy. Patient's carotid Doppler showed moderate atherosclerotic changes without hemodynamically significant stenosis. Some arrhythmia. Ammonia is normal less than 9. TSH 1.42 B12 4 and 16 and folate 13.4. Objective - Vital Signs Vital signs: Vital Signs Temp 98.5 F 03/20/19 15:30 Pulse 72 03/20/19 15:30 Resp 18 03/20/19 15:30 BP 157/54 03/20/19 15:30 Pulse Ox 93 L 03/20/19 15:30 Intake & Output 03/19/19 03/20/19 03/20/19 18:59 06:59 18:59 Intake Total 240 1316 Output Total 200 400 600 Balance 40 -400 716 Weight 92.5 kg Intake: Oral 240 1316 Output: Urine 200 400 600 Other: Voiding Method Urinal Urinal # Voids 2 3 # Bowel Movements 3 3 - Exam On examination patient is alert and awake in no distress. Patient has positive visuospatial apraxia, positive palmomental reflex mildly mainly on the right. Clock drawing test was performed. Patient has consistent problem with spacing out the numbers. He was unable to place the hands at all. Rest of the examination deferred. He does appear slightly tremulous. - Labs CBC & Chem 7: 03/18/19 05:25 03/18/19 05:25 Labs: Abnormal Lab Results - Last 24 Hours (Table) 03/19/19 03/20/19 03/20/19 Range/Units 20:56 06:37 11:56 POC Glucose (mg/dL) 229 H 124 H 202 H (75-99) mg/dL Assessment and Plan Assessment: * Status post fall due to rolling over from the bed, hitting head on the dresser. Possible concussion. * Acute delirium, probable underlying mild dementia. * Diabetes, not well controlled * History of bilateral below-knee amputation. * Hypertension * Dyslipidemia Plan: * TSH normal 1.42, B12 416, folate 13.4, B1 pending, ammonia level <9. * Carotid Doppler showed moderate atherosclerotic changes without hemodynamically significant stenosis. There is some arrhythmia. * EEG showed intermittent background slowing, suggestive of toxic metabolic encephalopathy. No epileptiform activity was seen. * Patient currently on aspirin and statins, which will be continued. Patient probably has mild cognitive impairment versus early dementia. Delirium may have occurred possibly from a fall and head injury. No obvious metabolic cause found yet. Discussed with patient's and daughters in detail. For his probable mild cognitive impairment versus early dementia, we will start him on Aricept 5 mg daily. Possible side effects were discussed. Patient needs to follow-up with a neurologist locally to optimize the dose of Aricept. EKG showed some arrhythmia. Patient is being seen by cake decorator. Will defer management of arrhythmia to the cake decorator. Neurologically clear for discharge.
[2019-03-20] MEDS: ATORVASTATIN 40 MG TAB PO SCH (20:02)
[2019-03-20] MEDS: DONEPEZIL 5 MG TAB PO SCH (20:02)
[2019-03-20 20:58] LABS: Glucose,Whole Blood 244 mg/dL (75-99)
[2019-03-20 21:16] LABS: Hemoglobin A1C 8.4 % (4.0-6.0)
[2019-03-21 06:23] LABS: Glucose,Whole Blood 116 mg/dL (75-99)
[2019-03-21] MEDS: INSULIN ASPART (NovoLOG) 100 UNIT/ML VIAL SQ SCH ×4 (06:27→19:44)
[2019-03-21 06:41] LABS: Basophils % (A) 1 %; Eosinophils # (A) 0.3 k/uL (0-0.7); Eosinophils % (A) 3 %; HGB 14.5 gm/dL (13.0-17.5); Lymphocytes % (A) 24 %; MCH 30.8 pg (25.0-35.0); MCHC 32.1 g/dL (31.0-37.0); MCV 95.9 fL (80.0-100.0); Mean Platelet Volume 7.8; Monocytes # (A) 0.5 k/uL (0-1.0); Monocytes % (A) 6 %; Neutrophils # (A) 5.4 k/uL (1.3-7.7); Neutrophils % (A) 63 %; Platelet Count 211 k/uL (150-450); RBC 4.69 m/uL (4.30-5.90); RDW 13.6 % (11.5-15.5); WBC 8.5 k/uL (3.8-10.6)
[2019-03-21] MEDS: INSULN ASP PRT/INSULIN ASPART 100 UNIT/ML 10 ML VIAL SQ SCH ×2 (07:00→17:35)
[2019-03-21] MEDS: CARVEDILOL 6.25 MG TAB PO SCH ×2 (07:00→17:35)
[2019-03-21 07:11] LABS: African American GFR (CKD) >90 (>60 ml/min/1.73 sqM); Anion Gap 4 mmol/L; Blood Urea Nitrogen 10 mg/dL (9-20); Calcium 9.2 mg/dL (8.4-10.2); Carbon Dioxide 33 mmol/L (22-30); Chloride 105 mmol/L (98-107); Glucose 107 mg/dL (74-99); Potassium 4.3 mmol/L (3.5-5.1); Sodium 142 mmol/L (137-145)
[2019-03-21] MEDS: HYDROcodone/APAP 5-325MG 1 EACH TAB PO PRN (07:47)
[2019-03-21] MEDS: amLODIPine 5 MG TAB PO SCH ×2 (07:48→19:44)
[2019-03-21] MEDS: TAMSULOSIN 0.4 MG CAP.ER.24H PO SCH (07:48)
[2019-03-21] MEDS: IPRATROPIUM-ALBUTEROL 3 ML NEB INHALATION SCH ×4 (08:42→19:23)
[2019-03-21] MEDS: hydrALAZINE HCL 25 MG TAB PO SCH ×3 (10:00→21:15)
[2019-03-21] MEDS: BACLOFEN 10 MG TAB PO SCH ×3 (10:00→21:15)
[2019-03-21] MEDS: HEPARIN SODIUM,PORCINE 5,000 UNIT/ML 1 ML VIAL SQ SCH ×2 (10:01→19:44)
[2019-03-21] MEDS: LISINOPRIL 20 MG TAB PO SCH ×2 (10:01→19:44)
[2019-03-21] MEDS: FERROUS SULFATE 325 MG TAB PO SCH (10:01)
[2019-03-21] MEDS: ASPIRIN 81 MG PO SCH (10:01)
[2019-03-21] MEDS: ISOSORBIDE MONONITRATE ER 30 MG TAB.ER.24H PO SCH (10:01)
[2019-03-21] MEDS: CHOLECALCIFEROL 1,000 UNIT TAB PO SCH (10:02)
[2019-03-21 11:38] LABS: Glucose,Whole Blood 205 mg/dL (75-99)
--- NOTE | 2019-03-21 14:08 | P.PN ---
Subjective Progress Note Date: 03/21/19 Patient states he is having a lot of low back pain. Patient states he had a fall 2 years ago, fell on his back and suffered from fracture of the low back region. He has chronic back pain since then. Mentally patient still gets very confused at night. He has been started on Aricept 5 mg daily. Patient's daughter and were also present. Patient's EEG showed intermittent background slowing, suggestive of encephalopathy. Patient's carotid Doppler showed moderate atherosclerotic changes without hemodynamically significant stenosis. Some arrhythmia. Ammonia is normal less than 9. TSH 1.42 B12 416 and folate 13.4. Vitamin B1 normal 83 (30-122), hemoglobin A1c 8.4 on 03/18/2019 Objective - Vital Signs Vital signs: Vital Signs Temp 97.4 F L 03/21/19 07:35 Pulse 74 03/21/19 07:35 Resp 18 03/21/19 07:35 BP 149/75 03/21/19 07:35 Pulse Ox 92 L 03/21/19 07:35 Intake & Output 03/20/19 03/21/19 03/21/19 18:59 06:59 18:59 Intake Total 1916 340 Output Total 600 575 Balance 1316 -575 340 Weight 92.5 kg 92.5 kg Intake: Oral 1916 340 Output: Urine 600 575 Other: Voiding Method Urinal # Voids 3 1 # Bowel Movements 0 - Exam On examination patient is alert and awake in no distress. Patient complaining of back pain. Detailed testing deferred. - Labs CBC & Chem 7: 03/21/19 06:07 03/21/19 06:07 Labs: Abnormal Lab Results - Last 24 Hours (Table) 03/18/19 03/20/19 03/20/19 Range/Units 05:25 17:01 20:51 Carbon Dioxide (22-30) mmol/L Glucose (74-99) mg/dL POC Glucose (mg/dL) 309 H 244 H (75-99) mg/dL Hemoglobin A1c 8.4 H (4.0-6.0) % 03/21/19 03/21/19 03/21/19 Range/Units 06:07 06:21 11:36 Carbon Dioxide 33 H (22-30) mmol/L Glucose 107 H (74-99) mg/dL POC Glucose (mg/dL) 116 H 205 H (75-99) mg/dL Hemoglobin A1c (4.0-6.0) % Assessment and Plan Assessment: * Status post fall due to rolling over from the bed, hitting head on the dresser. Possible concussion. * Acute delirium, probable underlying mild dementia. * Diabetes, not well controlled * History of bilateral below-knee amputation. * Hypertension * Dyslipidemia Plan: * TSH normal 1.42, B12 416, folate 13.4, B1 83 (38-122), ammonia level <9. * Carotid Doppler showed moderate atherosclerotic changes without hemodynamically significant stenosis. There is some arrhythmia. * EEG showed intermittent background slowing, suggestive of toxic metabolic encephalopathy. No epileptiform activity was seen. * Patient currently on aspirin and statins, which will be continued. * Continue Aricept 5 mg daily. * X-ray of the lumbar spine for persistent low back pain. * EKG showed some arrhythmia. Patient is being seen by budget clerk. Will defer management of arrhythmia to the budget clerk.
--- NOTE | 2019-03-21 14:51 | XR ---
EXAMINATION TYPE: XR lumbar spine 2 or 3V DATE OF EXAM: 03/21/2019 COMPARISON: 02/18/2017 HISTORY: 78-year-old male acute on chronic back pain, possible compression. TECHNIQUE: 3 views FINDINGS: Moderate to advanced multilevel degenerative disc disease, prominent endplate spondylosis. Hypertroph ic facet arthropathy throughout. Alignment is maintained. Minimal superior endplate compression deformity of L1 was present back on 02/18/2017. No new vertebral compression collapse is seen. Partially visualized prominent calcified peripancreatic lymph nodes. Embolization coils involving the left upper quadrant splenic vessels. IMPRESSION: Moderate to advanced spondylotic change. Mild superior endplate compression deformity of L1 was prese nt back on 2016. No new compression collapse. Alignment maintained.
[2019-03-21] MEDS: HYDROcodone/APAP 10-325MG 1 EACH TAB PO PRN ×2 (16:09→21:15)
--- NOTE | 2019-03-21 16:25 | P.PN ---
Subjective Progress Note Date: 03/21/19 Principal diagnosis: Status post fall 78-year-old man who presents to be evaluated after he had a fall from bed. Patient states that he was in bed and felt like he had to urinate. He attempted to slide himself to the edge bed to put his leg prostheses on. He notes that he slid to close to the edge and fell landing on leg prosthesis. EMS was summoned to help get him up, and found his blood sugar to be 48. His give dextrose brought here. The patient states he is noting that he feels better. He is denying any injury from the fall. history of ischemic heart disease and previous bypass surgery and also multiple stent placement, carotid disease with bilateral carotid endarterectomy and bilateral leg amputation for ischemic and diabetic legs. Patient was apparently in bed and had to go to the bathroom. Patient was trying to get out of bed and put on his neck prosthesis.. Apparently patient could not handle it and fell to the floor. No loss of consciousness. He did get some soft tissue injury from fall bout of the head and also the ribs. He has chronic atypical chest pain. Denies any shortness of breath. His EKG showed evidence of atrial/sinus rhythm with APCs. Computed was interpreting this as junctional rhythm. Previous of small. No evidence of a high degree AV block. Patient did not have any syncopal episodes. 03/20/19 Patient is seen and evaluated for follow-up; patient's workup is insignificant for any carotid stenosis, echocardiogram was not recommended by cardiology, TSH, folic acid and vitamin B 12 levels are within normal limits; patient is currently getting EEG; further recommendations after EEG is completed 03/21/2019; Patient is seen and evaluated in room with family members at bedside; complaining of severe back pain which is unrelieved by current dose of [place]; patient does give history of chronic back pain Patient's workup has been unremarkable; EKG showing intermittent background slowing suggestive of encephalopathy; carotid Doppler study does not show any cystic significant stenosis; neurology is following and started patient on Aricept 5 mg daily for mild dementia Patient has been recommended skilled rehab; patient discussed with case management and prior authorization will be needed for patient's transfer which probably might not be available to Saturday Patient and family endorsed and are agreeable Objective - Vital Signs Vital signs: Vital Signs Temp 96.7 F L 03/21/19 11:00 Pulse 73 06/15/19 11:00 Resp 18 03/21/19 11:00 BP 153/80 03/21/19 11:00 Pulse Ox 93 L 03/21/19 11:00 Intake & Output 03/20/19 03/21/19 03/21/19 18:59 06:59 18:59 Intake Total 1916 340 Output Total 600 575 Balance 1316 -575 340 Weight 92.5 kg 92.5 kg Intake: Oral 191 340 Output: Urine 600 575 Other: Voiding Method Urinal # Voids 3 1 # Bowel Movements 0 - Exam General appearance: alert, in no apparent distress Head exam: Present: atraumatic, normocephalic Eye exam: Present: normal appearance. Absent: scleral icterus, conjunctival injection ENT exam: Present: normal oropharynx Neck exam: Present: normal inspection, full ROM. Absent: tenderness Respiratory exam: Present: normal lung sounds bilaterally. Absent: respiratory distress, wheezes, rales, rhonchi, stridor, chest wall tenderness Cardiovascular Exam: Present: regular rate, normal rhythm, normal heart sounds. Absent: systolic murmur, diastolic murmur, rubs, gallop GI/Abdominal exam: Present: soft. Absent: distended, tenderness, guarding, rebound, rigid, mass - Labs CBC & Chem 7: 03/21/19 06:07 03/21/19 06:07 Labs: Abnormal Lab Results - Last 24 Hours (Table) 03/18/19 03/20/19 03/20/19 Range/Units 05:25 17:01 20:51 Carbon Dioxide (22-30) mmol/L Glucose (74-99) mg/dL POC Glucose (mg/dL) 309 H 244 H (75-99) mg/dL Hemoglobin A1c 8.4 H (4.0-6.0) % 03/21/19 03/21/19 03/21/19 Range/Units 06:07 06:21 11:36 Carbon Dioxide 33 H (22-30) mmol/L Glucose 107 H (74-99) mg/dL POC Glucose (mg/dL) 116 H 205 H (75-99) mg/dL Hemoglobin A1c (4.0-6.0) % Assessment and Plan Assessment: * Status post fall due to rolling over from the bed, hitting head on the dresser. Rule out concussion. * Acute delirium overnight with episode of amnesia unclear etiology. Rule out upcoming dementia. * Diabetes, not well controlled * History of bilateral below-knee amputation. * Hypertension * Dyslipidemia Plan: * We will check TSH, free T4, B12, folate, B1, ammonia level. * Carotid Doppler to rule out carotid stenosis. * EEG to rule out epileptiform activity. * Patient currently on aspirin and statins, which will be continued. Time with Patient: Greater than 30
[2019-03-21 16:52] LABS: Glucose,Whole Blood 171 mg/dL (75-99)
[2019-03-21 19:35] LABS: Glucose,Whole Blood 167 mg/dL (75-99)
[2019-03-21] MEDS: ATORVASTATIN 40 MG TAB PO SCH (19:44)
[2019-03-21] MEDS: DONEPEZIL 5 MG TAB PO SCH (19:46)
[2019-03-22 02:08] LABS: Glucose,Whole Blood 69 mg/dL (75-99)
[2019-03-22 02:45] LABS: Glucose,Whole Blood 93 mg/dL (75-99)
[2019-03-22 06:16] LABS: Glucose,Whole Blood 182 mg/dL (75-99)
[2019-03-22 06:28] LABS: Basophils % (A) 0 %; Eosinophils # (A) 0.3 k/uL (0-0.7); Eosinophils % (A) 4 %; HCT 46.2 % (39.0-53.0); HGB 14.8 gm/dL (13.0-17.5); Lymphocytes # (A) 2.4 k/uL (1.0-4.8); Lymphocytes % (A) 27 %; MCH 30.7 pg (25.0-35.0); MCV 95.9 fL (80.0-100.0); Mean Platelet Volume 8.2; Monocytes # (A) 0.6 k/uL (0-1.0); Monocytes % (A) 7 %; Neutrophils # (A) 5.1 k/uL (1.3-7.7); Neutrophils % (A) 59 %; Platelet Count 222 k/uL (150-450); RBC 4.82 m/uL (4.30-5.90); RDW 13.5 % (11.5-15.5); WBC 8.6 k/uL (3.8-10.6)
[2019-03-22] MEDS: INSULN ASP PRT/INSULIN ASPART 100 UNIT/ML 10 ML VIAL SQ SCH ×2 (06:58→17:22)
[2019-03-22] MEDS: CARVEDILOL 6.25 MG TAB PO SCH ×2 (06:58→16:15)
[2019-03-22] MEDS: INSULIN ASPART (NovoLOG) 100 UNIT/ML VIAL SQ SCH ×4 (06:58→21:34)
[2019-03-22 07:04] LABS: African American GFR (CKD) >90 (>60 ml/min/1.73 sqM); Anion Gap 5 mmol/L; Blood Urea Nitrogen 10 mg/dL (9-20); Calcium 9.3 mg/dL (8.4-10.2); Carbon Dioxide 28 mmol/L (22-30); Chloride 105 mmol/L (98-107); Glucose 198 mg/dL (74-99); Sodium 138 mmol/L (137-145)
[2019-03-22] MEDS: IPRATROPIUM-ALBUTEROL 3 ML NEB INHALATION SCH ×4 (07:35→20:09)
[2019-03-22] MEDS: amLODIPine 5 MG TAB PO SCH ×2 (08:38→19:59)
[2019-03-22] MEDS: BACLOFEN 10 MG TAB PO SCH ×3 (08:38→21:34)
[2019-03-22] MEDS: HYDROcodone/APAP 10-325MG 1 EACH TAB PO PRN ×3 (08:38→19:59)
[2019-03-22] MEDS: FERROUS SULFATE 325 MG TAB PO SCH (08:38)
[2019-03-22] MEDS: ISOSORBIDE MONONITRATE ER 30 MG TAB.ER.24H PO SCH (08:38)
[2019-03-22] MEDS: TAMSULOSIN 0.4 MG CAP.ER.24H PO SCH (08:38)
[2019-03-22] MEDS: hydrALAZINE HCL 25 MG TAB PO SCH ×3 (08:38→21:34)
[2019-03-22] MEDS: LISINOPRIL 20 MG TAB PO SCH ×2 (08:38→21:35)
[2019-03-22] MEDS: ASPIRIN 81 MG PO SCH (08:38)
[2019-03-22] MEDS: CHOLECALCIFEROL 1,000 UNIT TAB PO SCH (08:38)
[2019-03-22] MEDS: ALPRAZolam 1 MG TAB PO PRN (08:38)
[2019-03-22] MEDS: HEPARIN SODIUM,PORCINE 5,000 UNIT/ML 1 ML VIAL SQ SCH ×2 (08:39→19:59)
[2019-03-22 11:53] LABS: Glucose,Whole Blood 189 mg/dL (75-99)
--- NOTE | 2019-03-22 14:52 | P.PN ---
Subjective Progress Note Date: 03/22/19 Principal diagnosis: Status post fall 78-year-old man who presents to be evaluated after he had a fall from bed. Patient states that he was in bed and felt like he had to urinate. He attempted to slide himself to the edge bed to put his leg prostheses on. He notes that he slid to close to the edge and fell landing on leg prosthesis. EMS was summoned to help get him up, and found his blood sugar to be 48. His give dextrose brought here. The patient states he is noting that he feels better. He is denying any injury from the fall. history of ischemic heart disease and previous bypass surgery and also multiple stent placement, carotid disease with bilateral carotid endarterectomy and bilateral leg amputation for ischemic and diabetic legs. Patient was apparently in bed and had to go to the bathroom. Patient was trying to get out of bed and put on his neck prosthesis.. Apparently patient could not handle it and fell to the floor. No loss of consciousness. He did get some soft tissue injury from fall bout of the head and also the ribs. He has chronic atypical chest pain. Denies any shortness of breath. His EKG showed evidence of atrial/sinus rhythm with APCs. Computed was interpreting this as junctional rhythm. Previous of small. No evidence of a high degree AV block. Patient did not have any syncopal episodes. 03/20/19 Patient is seen and evaluated for follow-up; patient's workup is insignificant for any carotid stenosis, echocardiogram was not recommended by cardiology, TSH, folic acid and vitamin B 12 levels are within normal limits; patient is currently getting EEG; further recommendations after EEG is completed 03/21/2019; Patient is seen and evaluated in room with family members at bedside; complaining of severe back pain which is unrelieved by current dose of [place]; patient does give history of chronic back pain Patient's workup has been unremarkable; EKG showing intermittent background slowing suggestive of encephalopathy; carotid Doppler study does not show any cystic significant stenosis; neurology is following and started patient on Aricept 5 mg daily for mild dementia Patient has been recommended skilled rehab; patient discussed with case management and prior authorization will be needed for patient's transfer which probably might not be available to Saturday Patient and family endorsed and are agreeable 03/22/2019 Patient is seen and evaluated in room with family members at bedside; patient does report marked improvement in back pain with readjustment of [place] Vital signs been stable with a temperature of 97, pulse 60, respirations 16 and blood pressure 154 Labs are stable Patient is recommended skilled rehab; insurance authorization is pending; patient to be transferred to skilled rehab facility arrangements are made Objective - Vital Signs Vital signs: Vital Signs Temp 97 F L 03/22/19 08:00 Pulse 68 03/22/19 08:00 Resp 16 03/22/19 08:00 BP 100/54 03/22/19 08:00 Pulse Ox 93 L 03/22/19 08:00 Intake & Output 03/21/19 03/22/19 03/22/19 18:59 06:59 18:59 Intake Total 540 120 240 Output Total 375 300 Balance 540 -255 -60 Weight 91 kg Intake: Oral 540 120 240 Output: Urine 375 300 Other: Voiding Method Urinal Urinal # Voids 1 # Bowel Movements 0 - Exam General appearance: alert, in no apparent distress Head exam: Present: atraumatic, normocephalic Eye exam: Present: normal appearance. Absent: scleral icterus, conjunctival injection ENT exam: Present: normal oropharynx Neck exam: Present: normal inspection, full ROM. Absent: tenderness Respiratory exam: Present: normal lung sounds bilaterally. Absent: respiratory distress, wheezes, rales, rhonchi, stridor, chest wall tenderness Cardiovascular Exam: Present: regular rate, normal rhythm, normal heart sounds. Absent: systolic murmur, diastolic murmur, rubs, gallop GI/Abdominal exam: Present: soft. Absent: distended, tenderness, guarding, rebound, rigid, mass - Labs CBC & Chem 7: 03/22/19 05:51 03/22/19 05:51 Labs: Abnormal Lab Results - Last 24 Hours (Table) 03/21/19 03/21/19 03/22/19 Range/Units 16:45 19:25 02:00 Creatinine (0.66-1.25) mg/dL Glucose (74-99) mg/dL POC Glucose (mg/dL) 171 H 167 H 69 L (75-99) mg/dL 03/22/19 03/22/19 Range/Units 05:51 06:03 Creatinine 0.62 L (0.66-1.25) mg/dL Glucose 198 H (74-99) mg/dL POC Glucose (mg/dL) 182 H (75-99) mg/dL Assessment and Plan Assessment: * Status post fall due to rolling over from the bed, hitting head on the dresser. Rule out concussion. * Acute delirium overnight with episode of amnesia unclear etiology. Rule out upcoming dementia. * Diabetes, not well controlled * History of bilateral below-knee amputation. * Hypertension * Dyslipidemia Plan: * We will check TSH, free T4, B12, folate, B1, ammonia level. * Carotid Doppler to rule out carotid stenosis. * EEG to rule out epileptiform activity. * Patient currently on aspirin and statins, which will be continued. Time with Patient: Greater than 30
[2019-03-22 16:59] LABS: Glucose,Whole Blood 288 mg/dL (75-99)
[2019-03-22] MEDS: DONEPEZIL 5 MG TAB PO SCH (19:58)
[2019-03-22] MEDS: ATORVASTATIN 40 MG TAB PO SCH (19:59)
[2019-03-22 20:58] LABS: Glucose,Whole Blood 311 mg/dL (75-99)
[2019-03-22 21:57] VITALS: TEMP 98.2
--- NOTE | 2019-03-22 22:35 | P.PN ---
Subjective Progress Note Date: 03/22/19 Patient continues to have low back pain, but not complaining as much today. X- ray of the lumbar spine showed moderate to advanced spondylolytic changes. Mild superior endplate compression fracture of L1, also seen in previous x-ray from 2017. No new compression fracture. Patient states he had a fall 2 years ago, fell on his back and suffered from fracture of the low back region. He has chronic back pain since then. Mentally patient still gets very confused at night. He has been started on Aricept 5 mg daily. Patient's EEG showed intermittent background slowing, suggestive of encephalopathy. Patient's carotid Doppler showed moderate atherosclerotic changes without hemodynamically significant stenosis. Some arrhythmia. Ammonia is normal less than 9. TSH 1.42 B12 416 and folate 13.4. Vitamin B1 normal 83 (30-122), hemoglobin A1c 8.4 on 03/18/2019 Objective - Vital Signs Vital signs: Vital Signs Temp 97 F L 03/22/19 08:00 Pulse 67 03/22/19 16:00 Resp 16 03/22/19 16:00 BP 109/49 03/22/19 16:00 Pulse Ox 90 L 03/22/19 16:00 Intake & Output 03/22/19 03/22/19 03/23/19 06:59 18:59 06:59 Intake Total 120 730 Output Total 375 600 Balance -255 130 Weight 91 kg Intake: Oral 120 730 Output: Urine 375 600 Other: Voiding Method Urinal Urinal # Bowel Movements 0 0 - Exam On examination patient is alert and awake in no distress. Patient complaining of back pain. Detailed testing deferred. - Labs CBC & Chem 7: 03/22/19 05:51 03/22/19 05:51 Labs: Abnormal Lab Results - Last 24 Hours (Table) 03/22/19 03/22/19 03/22/19 Range/Units 02:00 05:51 06:03 Creatinine 0.62 L (0.66-1.25) mg/dL Glucose 198 H (74-99) mg/dL POC Glucose (mg/dL) 69 L 182 H (75-99) mg/dL 03/22/19 03/22/19 Range/Units 11:46 16:57 Creatinine (0.66-1.25) mg/dL Glucose (74-99) mg/dL POC Glucose (mg/dL) 189 H 288 H (75-99) mg/dL Assessment and Plan Assessment: * Status post fall due to rolling over from the bed, hitting head on the dresser. Possible concussion. * Acute delirium, probable underlying mild dementia. * Acute on chronic low back pain. History of L1 compression fracture in the past. * Diabetes, not well controlled * History of bilateral below-knee amputation. * Hypertension * Dyslipidemia Plan: * TSH normal 1.42, B12 416, folate 13.4, B1 83 (38-122), ammonia level <9. * Carotid Doppler showed moderate atherosclerotic changes without hemodynamically significant stenosis. There is some arrhythmia. * EEG showed intermittent background slowing, suggestive of toxic metabolic encephalopathy. No epileptiform activity was seen. * Patient currently on aspirin and statins, which will be continued. * Continue Aricept 5 mg daily. * X-ray of the lumbar spine showed evidence of old compression deformity at L1 with no new compression fracture. Consider pain management consult. Consider MRI of the lumbar spine if pain continues. * EKG showed some arrhythmia. Patient is being seen by manager export. Will defer management of arrhythmia to the manager export. * Patient will be followed up by Dr. Blas Titus from now onwards.
[2019-03-23 04:44] VITALS: RESP 16
[2019-03-23 06:07] LABS: Glucose,Whole Blood 183 mg/dL (75-99)
[2019-03-23] MEDS: INSULN ASP PRT/INSULIN ASPART 100 UNIT/ML 10 ML VIAL SQ SCH ×2 (06:43→18:24)
[2019-03-23] MEDS: INSULIN ASPART (NovoLOG) 100 UNIT/ML VIAL SQ SCH ×3 (06:43→18:24)
[2019-03-23] MEDS: CARVEDILOL 6.25 MG TAB PO SCH ×2 (06:43→18:24)
[2019-03-23] MEDS: HYDROcodone/APAP 10-325MG 1 EACH TAB PO PRN ×2 (06:53→16:00)
[2019-03-23 06:57] LABS: Basophils % (A) 0 %; Eosinophils # (A) 0.3 k/uL (0-0.7); Eosinophils % (A) 3 %; HCT 43.7 % (39.0-53.0); HGB 13.9 gm/dL (13.0-17.5); Lymphocytes # (A) 1.8 k/uL (1.0-4.8); Lymphocytes % (A) 21 %; MCH 30.4 pg (25.0-35.0); MCHC 31.8 g/dL (31.0-37.0); MCV 95.5 fL (80.0-100.0); Mean Platelet Volume 8.5; Monocytes # (A) 0.6 k/uL (0-1.0); Monocytes % (A) 6 %; Neutrophils # (A) 5.9 k/uL (1.3-7.7); Neutrophils % (A) 67 %; Platelet Count 185 k/uL (150-450); RBC 4.58 m/uL (4.30-5.90); RDW 14.7 % (11.5-15.5); WBC 8.8 k/uL (3.8-10.6)
[2019-03-23 07:09] LABS: Calcium 9.3 mg/dL (8.4-10.2); Potassium 3.9 mmol/L (3.5-5.1)
[2019-03-23] MEDS: IPRATROPIUM-ALBUTEROL 3 ML NEB INHALATION SCH ×4 (07:46→20:09)
[2019-03-23] MEDS: HEPARIN SODIUM,PORCINE 5,000 UNIT/ML 1 ML VIAL SQ SCH (09:24)
[2019-03-23] MEDS: ISOSORBIDE MONONITRATE ER 30 MG TAB.ER.24H PO SCH (09:25)
[2019-03-23] MEDS: hydrALAZINE HCL 25 MG TAB PO SCH ×2 (09:25→16:00)
[2019-03-23] MEDS: LISINOPRIL 20 MG TAB PO SCH (09:25)
[2019-03-23] MEDS: FERROUS SULFATE 325 MG TAB PO SCH (09:25)
[2019-03-23] MEDS: TAMSULOSIN 0.4 MG CAP.ER.24H PO SCH (09:25)
[2019-03-23] MEDS: CHOLECALCIFEROL 1,000 UNIT TAB PO SCH (09:25)
[2019-03-23] MEDS: BACLOFEN 10 MG TAB PO SCH ×2 (09:25→16:00)
[2019-03-23] MEDS: ASPIRIN 81 MG PO SCH (09:27)
[2019-03-23] MEDS: amLODIPine 5 MG TAB PO SCH (09:28)
--- NOTE | 2019-03-23 11:00 | P.DS ---
Providers Date of admission: 03/20/19 14:20 Attending physician: Francois Stinson Consults: 03/18/19 07:53 Consult Physician Routine Consulting Provider: Shukri Moyer Consult Reason/Comments: New second degree block Do you want consulting provider notified?: Yes 03/19/19 01:52 Consult Physician Routine Consulting Provider: Shahla Knight Consult Reason/Comments: new onset confusion Do you want consulting provider notified?: Yes, Notify in am Primary care physician: Jeremy Horner MD Hospital Course: Final diagnosis Status post fall and weakness rule out concussion. Acute delirium. Dementia COPD diabetes mellitus type II with hyperglycemia Bilateral below-knee amputation". Gait dysfunction Hypertension Dyslipidemia This 70 special The patient be discharged in a stable condition with guarded prognosis and ECF. Call time taken is 35 minutes. History of present illness This is 78-year-old gentleman with a past medical history multiple medical problems admitted with a fall in the [facility]. Patient apparently rolled over in the bad and fell and hit his head possibly resulting in concussion was considered. Patient also acute delirium and confusion. Treated symptomatically. Improved significantly. Medications are adjusted. See orders for further details. Gait dysfunction is noted. PTOT evaluate the patient along with psychotherapist social worker. ECF rehab is recommended. Patient be discharged in a stable condition with guarded prognosis. On exam vitals are stable. Cardio S1 and S2 normal. Respiratory system clear to oscillation. Nervous system mild diffuse weakness. X Please refer to the medications reconciliation list for list of medications. Patient Condition at Discharge: Good Plan - Discharge Summary Discharge Rx Participant: No New Discharge Prescriptions: New hydrALAZINE HCL [Apresoline] 25 mg PO TID tab Donepezil [Aricept] 5 mg PO HS tab Ipratropium-Albuterol Nebulize [Duoneb 0.5 mg-3 mg/3 ml Soln] 3 ml INHALATION RT-QID ampul.neb Tamsulosin [Flomax] 0.4 mg PO PC-BRKFST cap.er.24h Hydrocodone/Acetaminophen [[place] 5-325] 1 tab PO Q6HR PRN 3 Days #12 tab PRN Reason: Pain amLODIPine [Norvasc] 5 mg PO Q12H tab Acetaminophen Tab [Tylenol] 650 mg PO Q6HR PRN tab PRN Reason: Mild Pain Or Fever > 100.5 Lisinopril [Zestril] 20 mg PO BID tab Continue Carvedilol 6.25 mg PO BID Isosorbide Mononitrate [Isosorbide Mononitrate ER] 30 mg PO DAILY Insulin NPH Hum/Reg Insulin Hm [Humulin 70-30 Vial] 55 units SQ AC-BID Baclofen 10 mg PO TID ALPRAZolam [Xanax] 1 mg PO BID PRN PRN Reason: Anxiety Cholecalciferol [Vitamin D3 (25 Mcg = 1000 Iu)] 1,000 unit PO DAILY Ferrous Sulfate [Iron (65 MG Elemental)] 325 mg PO DAILY Aspirin 81 mg PO DAILY chew Pravastatin Sodium [Pravachol] 10 mg PO DAILY Discontinued Lisinopril [Zestril] 10 mg PO DAILY No Action Hydrocodone/Acetaminophen [[place] 5-325] 1 tab PO Q6HR PRN PRN Reason: Pain Discharge Medication List Carvedilol 6.25 mg PO BID 01/25/16 [History] Insulin NPH Hum/Reg Insulin Hm [Humulin 70-30 Vial] 55 units SQ AC-BID 01/25/16 [History] Isosorbide Mononitrate [Isosorbide Mononitrate ER] 30 mg PO DAILY 01/25/16 [History] ALPRAZolam [Xanax] 1 mg PO BID PRN 02/18/17 [History] Baclofen 10 mg PO TID 02/18/17 [History] Cholecalciferol [Vitamin D3 (25 Mcg = 1000 Iu)] 1,000 unit PO DAILY 02/18/17 [History] Ferrous Sulfate [Iron (65 MG Elemental)] 325 mg PO DAILY 02/18/17 [History] Aspirin 81 mg PO DAILY chew 12/16/17 [Rx] Hydrocodone/Acetaminophen [[place] 5-325] 1 tab PO Q6HR PRN 03/18/19 [History] Pravastatin Sodium [Pravachol] 10 mg PO DAILY 03/18/19 [History] Acetaminophen Tab [Tylenol] 650 mg PO Q6HR PRN tab 03/23/19 [Rx] Donepezil [Aricept] 5 mg PO HS tab 03/23/19 [Rx] Hydrocodone/Acetaminophen [[place] 5-325] 1 tab PO Q6HR PRN 3 Days #12 tab 06/17/19 [Rx] Ipratropium-Albuterol Nebulize [Duoneb 0.5 mg-3 mg/3 ml Soln] 3 ml INHALATION RT-QID ampul.neb 03/23/19 [Rx] Lisinopril [Zestril] 20 mg PO BID tab 03/23/19 [Rx] Tamsulosin [Flomax] 0.4 mg PO PC-BRKFST cap.er.24h 03/23/19 [Rx] amLODIPine [Norvasc] 5 mg PO Q12H tab 03/23/19 [Rx] hydrALAZINE HCL [Apresoline] 25 mg PO TID tab 03/23/19 [Rx] Follow up Appointment(s)/Referral(s): Jeremy Horner MD [Primary Care Provider] - 1-2 days Patient Instructions/Handouts: Hypoglycemia in a Person with Diabetes (ED), Fall Prevention for Older Adults (ED)
[2019-03-23 12:08] LABS: Glucose,Whole Blood 230 mg/dL (75-99)
[2019-03-23] MEDS: ALPRAZolam 1 MG TAB PO PRN (16:00)
[2019-03-23 16:03] VITALS: BP 152/73; PULSE 68
[2019-03-23 17:36] LABS: Glucose,Whole Blood 236 mg/dL (75-99)
== END 2019-03-23 20:37 | DRG 89 ==
LOC: EC 05:09 → 3SCARD 07:53 → OBSVTOIN 03-20 14:20
PROVIDERS: ADMIT Hospitalist; ATTEND Hospitalist
DX: S06.0X0A Concussion without loss of consciousness, initial encounter (principal); F05 Delirium due to known physiological condition; E11.649 Type 2 diabetes mellitus with hypoglycemia without coma; E11.65 Type 2 diabetes mellitus with hyperglycemia; I44.1 Atrioventricular block, second degree; F03.90 Unspecified dementia, unspecified severity, without behavioral disturbance, psychotic disturbance, mood disturbance, and anxiety; J44.9 Chronic obstructive pulmonary disease, unspecified; G89.29 Other chronic pain; I10 Essential (primary) hypertension; E78.5 Hyperlipidemia, unspecified; S32.010S Wedge compression fracture of first lumbar vertebra, sequela; I25.10 Atherosclerotic heart disease of native coronary artery without angina pectoris; H54.7 Unspecified visual loss; I25.2 Old myocardial infarction; F10.21 Alcohol dependence, in remission; R26.9 Unspecified abnormalities of gait and mobility; R07.89 Other chest pain; Z79.82 Long term (current) use of aspirin; Z79.4 Long term (current) use of insulin; Z79.899 Other long term (current) drug therapy; Z95.1 Presence of aortocoronary bypass graft; Z95.5 Presence of coronary angioplasty implant and graft; Z89.511 Acquired absence of right leg below knee; Z89.512 Acquired absence of left leg below knee; Z86.79 Personal history of other diseases of the circulatory system; Z87.891 Personal history of nicotine dependence; Z95.828 Presence of other vascular implants and grafts; Z87.01 Personal history of pneumonia (recurrent); Z98.42 Cataract extraction status, left eye; Z98.41 Cataract extraction status, right eye; Z88.0 Allergy status to penicillin; Z88.8 Allergy status to other drugs, medicaments and biological substances; W06.XXXA Fall from bed, initial encounter; Y92.003 Bedroom of unspecified non-institutional (private) residence as the place of occurrence of the external cause; Z83.3 Family history of diabetes mellitus
CPT/HCPCS: 36415; 70450; 72100; 80048; 80061; 81003; 82140; 82607; 82746; 83036; 84425; 84443; 84484; 85025; 93880; 94640; 95816; 96372; 99285

== ENCOUNTER 2020-08-10 16:25 | Observation (INO) | payer MEDICARE ==
[2020-08-10 16:37] LABS: Glucose,Whole Blood 176 mg/dL (75-99)
[2020-08-10 17:36] LABS: Basophils % (A) 0 %; Eosinophils # (A) 0.2 k/uL (0-0.7); Eosinophils % (A) 1 %; HCT 44.7 % (39.0-53.0); HGB 14.5 gm/dL (13.0-17.5); Lymphocytes # (A) 1.2 k/uL (1.0-4.8); Lymphocytes % (A) 9 %; MCHC 32.4 g/dL (31.0-37.0); MCV 101.9 fL (80.0-100.0); Macrocytosis Slight; Mean Platelet Volume 9.1; Monocytes # (A) 0.8 k/uL (0-1.0); Monocytes % (A) 6 %; Neutrophils # (A) 10.2 k/uL (1.3-7.7); Neutrophils % (A) 82 %; Platelet Count 231 k/uL (150-450); RBC 4.39 m/uL (4.30-5.90); RDW 13.3 % (11.5-15.5); WBC 12.6 k/uL (3.8-10.6)
[2020-08-10 17:46] LABS: ALT 13 U/L (4-49); AST 23 U/L (17-59); African American GFR (CKD) >90 (>60 ml/min/1.73 sqM); Albumin 3.7 g/dL (3.5-5.0); Alkaline Phosphatase 58 U/L (38-126); Anion Gap 6 mmol/L; Blood Urea Nitrogen 13 mg/dL (9-20); Calcium 9.2 mg/dL (8.4-10.2); Carbon Dioxide 31 mmol/L (22-30); Chloride 100 mmol/L (98-107); Glucose 194 mg/dL (74-99); Non-African American GFR(CKD) 87 (>60 ml/min/1.73 sqM); Potassium 4.3 mmol/L (3.5-5.1); Sodium 137 mmol/L (137-145); Total Bilirubin 0.7 mg/dL (0.2-1.3)
[2020-08-10 17:55] LABS: INR 0.9 (<1.2); Partial Thromboplastin Time 23.1 sec (22.0-30.0); Prothrombin Time 9.8 sec (9.0-12.0)
[2020-08-10] MEDS ORDERED: SODIUM CHLORIDE 0.9% 500 ML 500 ML IV ONE (18:20)
--- NOTE | 2020-08-10 18:54 | CT ---
EXAMINATION TYPE: CT brain wo con DATE OF EXAM: 08/10/2020 COMPARISON: 03/19/2019 INDICATION: Weakness DLP: 1154.4 mGycm, Automated exposure control for dose reduction was used. CONTRAST: None CT of the brain is performed utilizing 3 mm thick sections through the posterior fossa and 3 mm thick sections through the remaining calvarium. Study is performed within 24 hours of arrival to the hosp [facility]. No abnormal hyperdensity is present to suggest an acute intracranial hemorrhage. No mass lesion is evident. No acute infarcts are evident. Minimal periventricular white matter hypodensity is present, likely on the basis of chronic white matter ischemic changes. Ventricles and sulci are mildly prominent for the patient age. Paranasal sinuses and mastoid air cells within the [id number] are clear. IMPRESSIONS: 1. Atrophy with mild chronic appearing periventricular white matter ischemic type changes.
--- NOTE | 2020-08-10 18:57 | XR ---
EXAMINATION TYPE: XR chest 2V DATE OF EXAM: 08/10/2020 COMPARISON: 03/02/2018 INDICATION: Fluid overload syncope TECHNIQUE: Frontal and lateral views of the chest are obtained. FINDINGS: The heart size is normal. The pulmonary vasculature is normal. The lungs are clear. IMPRESSION: 1. No acute pulmonary process.
[2020-08-10] MEDS ORDERED: NALOXONE 0.4 MG/ML 1 ML VIAL IV PRN (19:29)
--- NOTE | 2020-08-10 19:31 | ED ---
General Adult HPI - General Chief complaint: Recheck/Abnormal Lab/Rx Stated complaint: blood sugar issues Room 19 Time Seen by Provider: 08/10/20 16:30 Source: patient, EMS, RN notes reviewed, old records reviewed Mode of arrival: EMS Limitations: no limitations - History of Present Illness Initial comments: 79-year-old male patient to ED for evaluation. Patient probably has had issues of hypoglycemia at home. Daughter is in her room and also reports the patient having difficulty including ADLs at home. Has had a few episodes where he b ecomes forgetful and confused and then becomes angry and aggressive towards his who is 80 years old. She believes that patient is unsafe in his home currently and is in need of placement. Patient has reportedly had multiple episodes of blood sugars in the 40s today. Reports that he ED low but less than normal. EMS was called patient had a documented blood sugar in the 40s and was given an amp of D5. Denies any acute complaints at this time. Systemic: Pt denies fatigue, fever/chills, rash. Pt denies weakness, night sweats, weight loss. Neuro: Pt denies headache, visual disturbances, syncope or pre-syncope. HEENT: Pt denies ocular discharge or irritation, otalgia, rhinorrhea, phary ngitis or notable lymphadenopathy. Cardiopulmonary: Pt denies chest pain, SOB, heart palpitations, dyspnea on exertion. Abdominal/GI: Pt denies abdominal pain, n/v/d. : Pt denies dysuria, burning w/ urination, frequency/urgency. Denies new onset urinary or bowel incontinence. MSK: Pt denies myalgia, loss of strength or function in extremities. Neuro: Pt denies new onset weakness, paresthesias. - Related Data Home Medications Medication Instructions Recorded Confirmed Carvedilol 6.25 mg PO BID 01/25/16 08/10/20 Insulin NPH Hum/Reg Insulin Hm 40 units SQ AC-BID 01/25/16 08/10/20 [Humulin 70-30 Vial] Isosorbide Mononitrate [Isosorbide 30 mg PO DAILY 01/25/16 08/10/20 Mononitrate ER] Cholecalciferol [Vitamin D3 (25 1,000 unit PO DAILY 02/18/17 08/10/20 Mcg = 1000 Iu)] Pravastatin Sodium [Pravachol] 10 mg PO HS 03/18/19 08/10/20 Ferrous Gluconate 325 mg PO DAILY 08/10/20 08/10/20 HYDROcodone/APAP 7.5-325MG [[place] 1 tab PO Q4H PRN 08/10/20 08/10/20 7.5-325] Pioglitazone [Actos] 15 mg PO DAILY 08/10/20 08/10/20 Previous Rx's Medication Instructions Recorded Aspirin 81 mg PO DAILY chew 12/16/17 ALPRAZolam [Xanax] 1 mg PO BID PRN 3 Days #6 tab 03/23/19 Allergies Allergy/AdvReac Type Severity Reaction Status Date / Time Penicillins Allergy Unknown Verified 08/10/20 18:14 Childhood pregabalin [From Lyrica] Allergy Rapid Verified 08/10/20 18:14 Heart Rate Review of Systems ROS Statement: Those systems with pertinent positive or pertinent negative responses have been documented in the HPI. ROS Other: All systems not noted in ROS Statement are negative. Past Medical History Past Medical History: Coronary Artery Disease (CAD), Chest Pain / Angina, COPD, Diabetes Mellitus, Hyperlipidemia, Hypertension, Memory Impairment, Pneumonia, Vascular Disorder Additional Past Medical History / Comment(s): IDDM type II, pt and spouse deny pt ever having had a NH, PAD, bilateral BKAs, acute hypoxic respiratory failure/vented in past, bilateral bleeds behind eyes/poor vision, falls. Last Myocardial Infarction Date:: 2010 History of Any Multi-Drug Resistant Organisms: None Reported Past Surgical History: Coronary Bypass/CABG, Heart Catheterization With Stent, Orthopedic Surgery, Tonsillectomy Additional Past Surgical History / Comment(s): Several cardiac caths, PCIs with stents, 1999 CABG with 2 vessels, arch studies/run offs, aortagrams, peripheral stents, L fem-fem bypass, L fem-pop bypass, bilateral BKA, bilateral caratid endartectomies, bilateral cataract removals, laser surgery bilaterally d/t bleeds behind eyes. Past Anesthesia/Blood Transfusion Reactions: No Reported Reaction Additional Past Anesthesia/Blood Transfusion Reaction / Comment(s): clausterphobia Date of Last Stent Placement:: 2010 Past Psychological History: Anxiety Smoking Status: Never smoker Past Alcohol Use History: None Reported Past Drug Use History: None Reported - Past Family History Father Family Medical History: Diabetes Mellitus Additional Family Medical History / Comment(s): heart problems Mother Family Medical History: Diabetes Mellitus Additional Family Medical History / Comment(s): heart problems General Exam - General Exam Comments Initial Comments: Constitutional: NAD, AOX3, Pt has pleasant affect. HEENT: NC/AT, trachea midline, neck supple, no lymphadenopathy. External ears appear normal, without discharge. Mucous membranes moist. Eyes PERRLA, EOM intact. There is no scleral icterus. No pallor noted. Cardiopulmonary: RRR, no murmurs, rubs or gallops, no JVD noted. Lungs CTAB in anterior and posterior wilson. Abdominal exam: Abdomen soft and non-distended. Abdomen non-tender to palpation in all 4 quadrants. Bowel sounds active in LLQ. No hepatosplenomegaly. No ecchymosis Neuro: CN II-XII intact. No nuchal rigidity. No raccon eyes, no laws sign, no hemotympanum. No cervical spinal tenderness. MSK: Full active ROM in upper extremities, 5/5 stregnth. Limitations: no limitations Course Vital Signs 08/10/20 16:32 Temperature 98.0 F Pulse Rate 75 Respiratory 18 Rate Blood Pressure 192/57 O2 Sat by Pulse 96 Oximetry Medical Decision Making - Medical Decision Making 79-year-old male patient to ED for evaluation. Patient probably has had issues of hypoglycemia at home. Daughter is in her room and also reports the patient having difficulty including ADLs at home. Has had a few episodes where he becomes forgetful and confused and then becomes angry and aggressive towards his who is 80 years old. She believes that patient is unsafe in his home currently and is in need of placement. Patient has reportedly had multiple episodes of blood sugars in the 40s today. Reports that he ED low but less than normal. EMS was called patient had a documented blood sugar in the 40s and was given an amp of D5. Denies any acute complaints at this time. Pt VSS, afebrile. Physical exam negative for acute pathology. Laboraytory investigations reveal mild lekocytosis and increased lactic acid. Fluid bolus isadministered. Imaging negative for acute pathology. Patient will be admitted pending UA. Case discussed with Dr. Morton. - Lab Data Result diagrams: 08/10/20 17:27 08/10/20 17:27 Lab Results 08/10/20 08/10/20 08/10/20 Range/Units 16:36 17:27 17:27 WBC 12.6 H (3.8-10.6) k/uL RBC 4.39 (4.30-5.90) m/uL Hgb 14.5 (13.0-17.5) gm/dL Hct 44.7 (39.0-53.0) % MCV 101.9 H (80.0-100.0) fL MCH 33.0 (25.0-35.0) pg MCHC 32.4 (31.0-37.0) g/dL RDW 13.3 (11.5-15.5) % Plt Count 231 (150-450) k/uL Neutrophils % 82 % Lymphocytes % 9 % Monocytes % 6 % Eosinophils % 1 % Basophils % 0 % Neutrophils # 10.2 H (1.3-7.7) k/uL Lymphocytes # 1.2 (1.0-4.8) k/uL Monocytes # 0.8 (0-1.0) k/uL Eosinophils # 0.2 (0-0.7) k/uL Basophils # 0.0 (0-0.2) k/uL Macrocytosis Slight PT 9.8 (9.0-12.0) sec INR 0.9 (<1.2) APTT 23.1 (22.0-30.0) sec Sodium (137-145) mmol/L Potassium (3.5-5.1) mmol/L Chloride (98-107) mmol/L Carbon Dioxide (22-30) mmol/L Anion Gap mmol/L BUN (9-20) mg/dL Creatinine (0.66-1.25) mg/dL Est GFR (CKD-EPI)AfAm (>60 ml/min/1.73 sqM) Est GFR (CKD-EPI)NonAf (>60 ml/min/1.73 sqM) Glucose (74-99) mg/dL POC Glucose (mg/dL) 176 H (75-99) mg/dL POC Glu Artificial Breeding Technician ID Vandana Padilla Plasma Lactic Acid James (0.7-2.0) mmol/L Calcium (8.4-10.2) mg/dL Total Bilirubin (0.2-1.3) mg/dL AST (17-59) U/L ALT (4-49) U/L Alkaline Phosphatase (38-126) U/L Troponin I (0.000-0.034) ng/mL Total Protein (6.3-8.2) g/dL Albumin (3.5-5.0) g/dL 08/10/20 08/10/20 08/10/20 Range/Units 17:27 17:27 17:27 WBC (3.8-10.6) k/uL RBC (4.30-5.90) m/uL Hgb (13.0-17.5) gm/dL Hct (39.0-53.0) % MCV (80.0-100.0) fL MCH (25.0-35.0) pg MCHC (31.0-37.0) g/dL RDW (11.5-15.5) % Plt Count (150-450) k/uL Neutrophils % % Lymphocytes % % Monocytes % % Eosinophils % % Basophils % % Neutrophils # (1.3-7.7) k/uL Lymphocytes # (1.0-4.8) k/uL Monocytes # (0-1.0) k/uL Eosinophils # (0-0.7) k/uL Basophils # (0-0.2) k/uL Macrocytosis PT (9.0-12.0) sec INR (<1.2) APTT (22.0-30.0) sec Sodium 137 (137-145) mmol/L Potassium 4.3 (3.5-5.1) mmol/L Chloride 100 (98-107) mmol/L Carbon Dioxide 31 H (22-30) mmol/L Anion Gap 6 mmol/L BUN 13 (9-20) mg/dL Creatinine 0.77 (0.66-1.25) mg/dL Est GFR (CKD-EPI)AfAm >90 (>60 ml/min/1.73 sqM) Est GFR (CKD-EPI)NonAf 87 (>60 ml/min/1.73 sqM) Glucose 194 H (74-99) mg/dL POC Glucose (mg/dL) (75-99) mg/dL POC Glu Artificial Breeding Technician ID Plasma Lactic Acid James 2.7 H* (0.7-2.0) mmol/L Calcium 9.2 (8.4-10.2) mg/dL Total Bilirubin 0.7 (0.2-1.3) mg/dL AST 23 (17-59) U/L ALT 13 (4-49) U/L Alkaline Phosphatase 58 (38-126) U/L Troponin I 0.013 (0.000-0.034) ng/mL Total Protein 6.0 L (6.3-8.2) g/dL Albumin 3.7 (3.5-5.0) g/dL - EKG Data -: EKG Interpreted by Me (and Dr. Morton) EKG Comments: Jugular 86, FL interval 156, QRS 98, QT/QTC 392/469. Since then with occasional premature ventricular complex. ST and T-wave abnormality, no significant change from prior. Disposition Clinical Impression: Hypoglycemia, Failure to thrive Disposition: ADMITTED IP TO THIS HOSP Condition: Fair Is patient prescribed a controlled substance at d/c from ED?: No Referrals: Jeremy Horner MD [Primary Care Provider] - 1-2 days
[2020-08-10 19:32] LABS: Appearance,Urine Clear (Clear); Bilirubin,Urine Negative (Negative); Blood,Urine Negative (Negative); Color,Urine Light Yellow; Glucose,Urine (UA) 3+ (Negative); Ketones,Urine Negative (Negative); Leukocyte Esterase,Urine Negative (Negative); Nitrite,Urine Negative (Negative); PH, Urine 5.5 (5.0-8.0); Protein,Urine Trace (Negative); Specific Gravity,Urine 1.007 (1.001-1.035); Urobilinogen,Urine <2.0 mg/dL (<2.0)
[2020-08-10 23:10] LABS: Glucose,Whole Blood 163 mg/dL (75-99)
[2020-08-11 03:07] LABS: Glucose,Whole Blood 160 mg/dL (75-99)
[2020-08-11 06:53] LABS: Glucose,Whole Blood 158 mg/dL (75-99)
[2020-08-11 11:14] LABS: Glucose,Whole Blood 212 mg/dL (75-99)
[2020-08-11] MEDS: HYDROcodone/APAP 7.5-325MG 1 EACH TAB PO PRN (13:39)
[2020-08-11 16:05] LABS: Glucose,Whole Blood 294 mg/dL (75-99)
[2020-08-11] MEDS: INSULIN ASPART (NovoLOG) 100 UNIT/ML VIAL SQ SCH ×3 (17:23→21:24)
[2020-08-11] MEDS: carvediloL 6.25 MG TAB PO SCH (17:25)
[2020-08-11 19:28] LABS: Glucose,Whole Blood 321 mg/dL (75-99)
[2020-08-11] MEDS: PRAVASTATIN SODIUM 20 MG TAB PO SCH (21:24)
[2020-08-11 22:58] LABS: Glucose,Whole Blood 178 mg/dL (75-99)
--- NOTE | 2020-08-11 23:06 | P.HPIM ---
History of Present Illness H&P Date: 08/11/20 79-year-old male patient admitted for evaluation of hypoglycemia. Patient probably has had issues of hypoglycemia at home. Daughter also reports the patient having difficulty with ADLs at home. Has had a few episodes where he becomes forgetful and confused and then becomes angry and aggressive towards his who is 80 years old. She believes that patient is unsafe in his home curre ntly and is in need of placement. Patient has reportedly had multiple episodes of blood sugars in the 40s today. EMS had a documented blood sugar in the 40s and was given an amp of D5. He is upright in bed without any particular complaints morning he seems to be answering questions appropriately. Review of Systems GENERAL: Patient denies fever. Denies chills. EYES: Denies blurred vision. Denies vision changes. Denies eye pain. EARS, NOSE, MOUTH, & THROAT: Denies headache. Denies sore throat. Denies ear pain. RESPIRATORY: Denies cough. Denies shortness of breath. Denies sputum production. Denies hemoptysis. CARDIOVASCULAR: Denies chest pain or pressure. Denies palpitations. GASTROINTESTINAL: Denies abdominal pain. Denies diarrhea. Denies constipation. Denies nausea. Denies vomiting. Denies heartburn. Denies blood in the stool. GENITOURINARY: Denies urinary frequency. Denies burning. Denies dysuria. Denies cloudy urine. Denies blood in the urine. MUSCULOSKELETAL: Bilateral amputee. INTEGUMENTARY: Denies pruitis. Denies rash. PSYCHIATRIC: Denies suicidal or homicial ideations. ENDOCRINE: Positive hypoglycemia or diabetes poorly controlled. HEMATOLOGIC: Denies bleeding disorders. Past Medical History Past Medical History: Coronary Artery Disease (CAD), Chest Pain / Angina, COPD, Diabetes Mellitus, Hyperlipidemia, Hypertension, Memory Impairment, Pneumonia, Vascular Disorder Additional Past Medical History / Comment(s): IDDM type II, pt and spouse deny pt ever having had a [place], PAD, bilateral BKAs, acute hypoxic respiratory failure/vented in past, bilateral bleeds behind eyes/poor vision, falls. Last Myocardial Infarction Date:: 2010 History of Any Multi-Drug Resistant Organisms: None Reported Past Surgical History: Coronary Bypass/CABG, Heart Catheterization With Stent, Orthopedic Surgery, Tonsillectomy Additional Past Surgical History / Comment(s): Several cardiac caths, PCIs with stents, 2000 CABG with 2 vessels, arch studies/run offs, aortagrams, peripheral stents, L fem-fem bypass, L fem-pop bypass, bilateral BKA, bilateral caratid endartectomies, bilateral cataract removals, laser surgery bilaterally d/t bleeds behind eyes. Past Anesthesia/Blood Transfusion Reactions: No Reported Reaction Additional Past Anesthesia/Blood Transfusion Reaction / Comment(s): clausterphobia Date of Last Stent Placement:: 2010 Past Psychological History: Anxiety Additional Psychological History / Comment(s): Pt resides with his spouse. He has bilateral prosthesis. He is able to transfer into electric scooters/car with walker assist but it is getting progressively more difficult. Pt has a glucometer. Pt refuses home care, spouse would like for him to have home care. Smoking Status: Never smoker Past Alcohol Use History: None Reported Additional Past Alcohol Use History / Comment(s): smoked x 40 years, quit 2008 Past Drug Use History: None Reported - Past Family History Father Family Medical History: Diabetes Mellitus Additional Family Medical History / Comment(s): heart problems Mother Family Medical History: Diabetes Mellitus Additional Family Medical History / Comment(s): heart problems Medications and Allergies Home Medications Medication Instructions Recorded Confirmed Type Carvedilol 6.25 mg PO BID 01/25/16 08/10/20 History Insulin NPH Hum/Reg Insulin Hm 40 units SQ AC-BID 01/25/16 08/10/20 History [Humulin 70-30 Vial] Isosorbide Mononitrate [Isosorbide 30 mg PO DAILY 01/25/16 08/10/20 History Mononitrate ER] Cholecalciferol [Vitamin D3 (25 1,000 unit PO DAILY 02/18/17 08/10/20 History Mcg = 1000 Iu)] Aspirin 81 mg PO DAILY chew 12/16/17 08/10/20 Rx Pravastatin Sodium [Pravachol] 10 mg PO HS 03/18/19 08/10/20 History ALPRAZolam [Xanax] 1 mg PO BID PRN 3 Days #6 tab 03/23/19 08/10/20 Rx Ferrous Gluconate 325 mg PO DAILY 08/10/20 08/10/20 History HYDROcodone/APAP 7.5-325MG [[place] 1 tab PO Q4H PRN 08/10/20 08/10/20 History 7.5-325] Pioglitazone [Actos] 15 mg PO DAILY 08/10/20 08/10/20 History Allergies Allergy/AdvReac Type Severity Reaction Status Date / Time Penicillins Allergy Unknown Verified 08/10/20 18:14 Childhood pregabalin [From Lyrica] Allergy Rapid Verified 08/10/20 18:14 Heart Rate Physical Exam Osteopathic Statement: *. No significant issues noted on an osteopathic structural exam other than those noted in the History and Physical/Consult. Vitals: Vital Signs Temp Pulse Resp BP Pulse Ox 08/11/20 14:36 98.5 F 83 20 107/60 91 L 08/11/20 08:00 20 08/11/20 07:00 98.7 F 66 20 148/53 95 08/11/20 02:00 99.0 F 66 18 149/63 93 L 08/11/20 00:00 16 08/10/20 23:34 98.6 F 69 22 181/75 96 Intake and Output 08/11/20 08/11/20 08/11/20 06:59 14:59 22:59 Output Total 500 Balance -500 Output: Urine 500 Other: Voiding Method Urinal Urinal # Voids 1 # Bowel Movements 1 GENERAL: This is a -79 year-old in no apparent distress at the time of examination. Pleasant and cooperative. HEENT: Head is atraumatic, normocephalic. Pupils are equal, round, and reactive to light. Sclerae anicteric. Conjunctivae are clear. Mucus membranes of the mouth are moist. Neck is supple. RESPIRATORY: Clear to auscultation. No wheezes, rales, or rhonchi. No use of accessory muscles. CARDIOVASCULAR: Regular rate and rhythm. S1 and S2 noted. No systolic or diastolic murmur auscultated. No JVD noted. GASTROINTESTINAL: No distention noted. Abdomen soft and round. Normal active bowel sounds auscultated x 4 quadrants. No pain or tenderness noted upon palpation. INTEGUMENTARY: No cyanosis. No jaundice. No rashes noted. No cellulitis noted. EXTREMITIES: Bilateral [id number] amputation [place] NEUROLOGIC: Cranial nerves II-XII intact. PSYCHIATRIC: Awake, alert, and oriented X 3. Appropriate affect. Intact judgement and insight. Results CBC & Chem 7: 08/10/20 17:27 08/10/20 17:27 Labs: Abnormal Lab Results - Last 24 Hours (Table) 08/10/20 08/11/20 08/11/20 Range/Units 23:09 03:06 06:51 POC Glucose (mg/dL) 163 H 160 H 158 H (75-99) mg/dL 08/11/20 08/11/20 08/11/20 Range/Units 11:12 16:03 19:27 POC Glucose (mg/dL) 212 H 294 H 321 H (75-99) mg/dL Thrombosis Risk Factor Assmnt - Choose All That Apply Any of the Below Risk Factors Present?: Yes Each Factor Represents 1 point: Medical pt on bed rest Other Risk Factors: Yes Each Risk Factor Represents 3 Points: Age 75 years or older Thrombosis Risk Factor Assessment Total Risk Factor Score: 4 Thrombosis Risk Factor Assessment Level: Moderate Risk Assessment and Plan (1) Hypoglycemia Current Visit: Yes Status: Acute Code(s): E16.2 - HYPOGLYCEMIA, UNSPECIFIED SNOMED Code(s): 570706834 (2) Anemia Current Visit: No Status: Acute Code(s): D64.9 - ANEMIA, UNSPECIFIED SNOMED Code(s): 624099325 (3) Carotid disease, bilateral Current Visit: No Status: Acute Code(s): I77.9 - DISORDER OF ARTERIES AND ARTERIOLES, UNSPECIFIED SNOMED Code(s): 243572257 (4) History of ischemic heart disease Current Visit: No Status: Acute Code(s): Z86.79 - PERSONAL HISTORY OF OTHER DISEASES OF THE CIRCULATORY SYSTEM SNOMED Code(s): 841905322 Plan: Admit patient will attempt to get good glycemic control S social studies department chair to consult participate regarding possible placement services
[2020-08-12 03:12] LABS: Glucose,Whole Blood 167 mg/dL (75-99)
[2020-08-12 06:49] LABS: Glucose,Whole Blood 184 mg/dL (75-99)
[2020-08-12] MEDS: carvediloL 6.25 MG TAB PO SCH ×2 (07:51→17:57)
[2020-08-12] MEDS: INSULIN ASPART (NovoLOG) 100 UNIT/ML VIAL SQ SCH ×6 (09:01→21:03)
[2020-08-12] MEDS: ASPIRIN 81 MG PO SCH (09:47)
[2020-08-12] MEDS: CHOLECALCIFEROL 1,000 UNIT TAB PO SCH (09:48)
[2020-08-12] MEDS: ISOSORBIDE MONONITRATE ER 30 MG TAB.ER.24H PO SCH (09:48)
[2020-08-12] MEDS: FERROUS SULFATE 325 MG TAB PO SCH (09:48)
[2020-08-12] MEDS: PIOGLITAZONE 15 MG TAB PO SCH (10:02)
[2020-08-12] MEDS: INSULIN DETEMIR (LEVEMIR) 100 UNIT/ML SYR SQ SCH (10:52)
[2020-08-12 11:04] LABS: Glucose,Whole Blood 259 mg/dL (75-99)
[2020-08-12] MEDS: HYDROcodone/APAP 7.5-325MG 1 EACH TAB PO PRN (13:02)
--- NOTE | 2020-08-12 14:48 | P.PN ---
Subjective Progress Note Date: 08/12/20 79-year-old male patient admitted for evaluation of hypoglycemia. Patient probably has had issues of hypoglycemia at home. Daughter also reports the patient having difficulty with ADLs at home. Has had a few episodes where he becomes forgetful and confused and then becomes angry and aggressive towards his who is 80 years old. She believes that patient is unsafe in his home currently and is in need of placement. Patient has reportedly had multiple episodes of blood sugars in the 40s today. EMS had a documented blood sugar in the 40s and was given an amp of D5. He is upright in bed without any particular complaints morning he seems to be answering questions appropriately. 08/12/2020 diet intake continues to fluctuate. Yesterday consumed greater than or equal to 75%. Today only consuming 25% of breakfast and lunch. Earlier this morning patient blood sugar 184, received a total of 12 units of sliding scale, staff became worried over minimal diet intake and gave him jelly toast. Blood sugars currently up to mid 250s. Hypertensive with systolic blood pressures in the 180s. Denies chest pain, palpitations or shortness of breath. O2 sats on room air had decreased to the low 90s. Chest x-ray ordered. Evaluated by PT with home care recommended at discharge. Objective - Vital Signs Vital signs: Vital Signs Temp 98.2 F 08/12/20 07:36 Pulse 61 08/12/20 07:36 Resp 16 08/12/20 07:36 BP 186/74 08/12/20 07:36 Pulse Ox 92 L 08/12/20 07:36 Intake & Output 08/11/20 08/12/20 08/12/20 18:59 06:59 18:59 Output Total 500 950 Balance -500 -950 Output: Urine 500 950 Other: Voiding Method Urinal Urinal # Voids 2 # Bowel Movements 1 - Exam GENERAL: Sitting up in bed, no acute distress. HEENT: Head is atraumatic, normocephalic. Pupils are equal, round, and reactive to light. Sclerae anicteric. Conjunctivae are clear. Mucus membranes of the mouth are moist. Neck is supple. RESPIRATORY: Bilateral bases diminished, no wheezing CARDIOVASCULAR: Regular rate and rhythm. S1 and S2 noted. No systolic or diastolic murmur auscultated. No JVD noted. GASTROINTESTINAL: No distention noted. Abdomen soft and round. Normal active bowel sounds auscultated x 4 quadrants. No pain or tenderness noted upon palpation. INTEGUMENTARY: No cyanosis. No jaundice. No rashes noted. No cellulitis noted. EXTREMITIES: Bilateral [id number] amputation [place] NEUROLOGIC: Cranial nerves II-XII intact. PSYCHIATRIC: Awake, alert, and oriented X 3. Appropriate affect. Intact judgement and insight. - Labs CBC & Chem 7: 08/10/20 17:27 08/10/20 17:27 Labs: Abnormal Lab Results - Last 24 Hours (Table) 08/11/20 08/11/20 08/11/20 Range/Units 16:03 19:27 22:55 POC Glucose (mg/dL) 294 H 321 H 178 H (75-99) mg/dL 08/12/20 08/12/20 08/12/20 Range/Units 03:09 06:47 11:02 POC Glucose (mg/dL) 167 H 184 H 259 H (75-99) mg/dL Assessment and Plan Assessment: Diabetes mellitus II with Hypoglycemia Acute hypoxic respiratory failure Hypertension COPD CAD, history of CABG PAD, bilateral BKA's Anxiety Claustrophobia Plan: Continue on current medication regime, monitoring and symptomatically treatment. Hypertensive, Norvasc. Blood sugars remain uncontrolled, med adjustments made. Close monitoring of Accu-Cheks.Chest x-ray ordered. Switched to inpatient. Discharge planning in progress once blood sugars controlled. The impression and plan of care has been dictated as directed. : I performed a history and examination of this patient, discussed the same with the dictator. I agree with the dictator's note ,documented as a scribe. Any additional findings or plans will be noted.
[2020-08-12 15:18] LABS: Glucose,Whole Blood 140 mg/dL (75-99)
[2020-08-12] MEDS: amLODIPine 5 MG TAB PO SCH (15:25)
--- NOTE | 2020-08-12 15:30 | XR ---
EXAMINATION TYPE: XR chest 1V portable DATE OF EXAM: 08/12/2020 CLINICAL HISTORY: hypoxia. TECHNIQUE: Portable frontal view of the chest. COMPARISON: 08/10/2020 chest radiograph FINDINGS: Sternotomy wires, with redemonstrated fracture of the superiormost wire. The cardiomediast inal silhouette is within normal limits for size. Pulmonary vasculature is normal. Opacities over the left lung base may represent atelectasis versus airspace opacity. No pleural effusion, or pneumothor ax seen. The osseous structures are intact. IMPRESSION: Atelectasis versus airspace opacity over the left lung base.
[2020-08-12] MEDS: PANTOPRAZOLE 40 MG/10 ML VIAL IVP SCH (17:58)
[2020-08-12 19:11] LABS: Glucose,Whole Blood 247 mg/dL (75-99)
[2020-08-12] MEDS: PRAVASTATIN SODIUM 20 MG TAB PO SCH (21:02)
[2020-08-12 23:26] LABS: Glucose,Whole Blood 126 mg/dL (75-99)
[2020-08-13 03:54] LABS: Glucose,Whole Blood 102 mg/dL (75-99)
[2020-08-13 05:58] LABS: Basophils % (A) 0 %; Eosinophils # (A) 0.3 k/uL (0-0.7); Eosinophils % (A) 3 %; HCT 40.8 % (39.0-53.0); HGB 13.2 gm/dL (13.0-17.5); Lymphocytes # (A) 1.9 k/uL (1.0-4.8); Lymphocytes % (A) 25 %; MCH 32.8 pg (25.0-35.0); MCHC 32.3 g/dL (31.0-37.0); MCV 101.5 fL (80.0-100.0); Macrocytosis Slight; Mean Platelet Volume 8.6; Monocytes # (A) 0.6 k/uL (0-1.0); Monocytes % (A) 7 %; Neutrophils # (A) 4.8 k/uL (1.3-7.7); Neutrophils % (A) 61 %; Platelet Count 200 k/uL (150-450); RBC 4.02 m/uL (4.30-5.90); RDW 13.3 % (11.5-15.5); WBC 7.8 k/uL (3.8-10.6)
[2020-08-13 06:54] LABS: Glucose,Whole Blood 139 mg/dL (75-99)
[2020-08-13] MEDS: PIOGLITAZONE 15 MG TAB PO SCH (08:57)
[2020-08-13] MEDS: CHOLECALCIFEROL 1,000 UNIT TAB PO SCH (08:57)
[2020-08-13] MEDS: FERROUS SULFATE 325 MG TAB PO SCH (08:57)
[2020-08-13] MEDS: PANTOPRAZOLE 40 MG/10 ML VIAL IVP SCH (08:58)
[2020-08-13] MEDS: ISOSORBIDE MONONITRATE ER 30 MG TAB.ER.24H PO SCH (08:58)
[2020-08-13] MEDS: INSULIN DETEMIR (LEVEMIR) 100 UNIT/ML SYR SQ SCH (08:58)
[2020-08-13] MEDS: carvediloL 6.25 MG TAB PO SCH (08:58)
[2020-08-13] MEDS: ASPIRIN 81 MG PO SCH (08:58)
[2020-08-13] MEDS: amLODIPine 5 MG TAB PO SCH (08:58)
[2020-08-13] MEDS: INSULIN ASPART (NovoLOG) 100 UNIT/ML VIAL SQ SCH ×2 (08:58→12:09)
[2020-08-13 09:27] LABS: African American GFR (CKD) 98.5 (60.0-200.0); Anion Gap 5.1 mmol/L (4.00-12.00); BUN/Creat Ratio 17.5 Ratio (12.00-20.00); Calcium 9.1 mg/dL (8.7-10.3); Carbon Dioxide 30.9 mmol/L (21.6-31.8)
[2020-08-13 11:07] LABS: Glucose,Whole Blood 209 mg/dL (75-99)
[2020-08-13 15:22] LABS: Glucose,Whole Blood 223 mg/dL (75-99)
[2020-08-13 15:46] VITALS: BP 148/64; PULSE 62; RESP 18; TEMP 97.7
--- NOTE | 2020-08-13 16:48 | P.DS ---
Providers Date of admission: 08/12/20 14:22 Expected date of discharge: 08/13/20 Attending physician: Benji Arrington Primary care physician: Jeremy Horner MD Hospital Course: Mr.Muir Schmidt is a 79-year-old male with a past medical history of coronary artery disease, COPD, that is metastatic, hypertension, hyperlipidemia, dementia, vascular disorder coming in with a chief complaint of confusion and forgetfulness and that he was becoming angry and aggressive towards his . Patient also had reported multiple episodes of blood sugars in 40s. When EMS documented his blood sugar was 14 he was given an amp of D50 and admitted for further management. During the hospital stay patient's NPH insulin was discontinued, he was put on 20 units of R Amo, his blood sugars have been steadily maintaining in the age of 89 stool in 150s. Today patient is comfortably lying in bed appears to be in no acute distress. He requests that he wants to go home. Patient denies having any nausea vomiting or diarrhea. No abdominal pain. As per nursing staff report patient's intake has been about 50% of his meals. On reviewing the patient's vitals temperature 97.7, heart rate 62, respiratory rate 18, blood pressure 148/64, saturating at 95% on room air. On physical examination: GEN. APPEARANCE: alert, in no apparent distress HEENT: No pallor. No icterus. No JVD. RESPIRATORY EXAM: Bilateral breath sounds are positive. No wheeze or crackles. CARDIOVASCULAR EXAM: S1-S2 heard. GI/ABDOMINAL EXAM: soft, normal bowel sounds. EXTREMITIES EXAM: No pedal edema Patient's labs have been reviewed and are within normal limits. Blood sugars have been running between 100s to 200s. At the time of discharge patient's NPH insulin has been decreased from 40 units twice a day to 20 units twice a day, his Actos has been discontinued. DISCHARGE DIAGNOSIS Type 2 diabetes mellitus with hypoglycemia Hypertension COPD CAD status post CABG Peripheral artery disease - s/p bilateral BKA Anxiety Follow-up: Patient is advised to follow-up with his primary care physician in 1- 2 days. More than 35 minutes spent towards the discharge of the patient. Patient Condition at Discharge: Fair Plan - Discharge Summary Discharge Rx Participant: No New Discharge Prescriptions: New Insulin NPH/Reg Insulin 70/30 [humuLIN 70/30 VIAL] 20 unit SQ BID 30 Days #30 vial amLODIPine [Norvasc] 5 mg PO DAILY #30 tab Continue Carvedilol 6.25 mg PO BID Isosorbide Mononitrate [Isosorbide Mononitrate ER] 30 mg PO DAILY Cholecalciferol [Vitamin D3 (25 Mcg = 1000 Iu)] 1,000 unit PO DAILY Aspirin 81 mg PO DAILY chew Pravastatin Sodium [Pravachol] 10 mg PO HS ALPRAZolam [Xanax] 1 mg PO BID PRN 3 Days #6 tab PRN Reason: Anxiety Ferrous Gluconate 325 mg PO DAILY HYDROcodone/APAP 7.5-325MG [[place] 7.5-325] 1 tab PO Q4H PRN PRN Reason: Pain Discontinued Insulin NPH Hum/Reg Insulin Hm [Humulin 70-30 Vial] 40 units SQ AC-BID Pioglitazone [Actos] 15 mg PO DAILY Discharge Medication List Carvedilol 6.25 mg PO BID 01/25/16 [History] Isosorbide Mononitrate [Isosorbide Mononitrate ER] 30 mg PO DAILY 01/25/16 [History] Cholecalciferol [Vitamin D3 (25 Mcg = 1000 Iu)] 1,000 unit PO DAILY 02/18/17 [History] Aspirin 81 mg PO DAILY chew 12/16/17 [Rx] Pravastatin Sodium [Pravachol] 10 mg PO HS 03/18/19 [History] ALPRAZolam [Xanax] 1 mg PO BID PRN 3 Days #6 tab 03/23/19 [Rx] Ferrous Gluconate 325 mg PO DAILY 08/10/20 [History] HYDROcodone/APAP 7.5-325MG [[place] 7.5-325] 1 tab PO Q4H PRN 08/10/20 [History] Insulin NPH/Reg Insulin 70/30 [humuLIN 70/30 VIAL] 20 unit SQ BID 30 Days #30 vial 08/13/20 [Rx] amLODIPine [Norvasc] 5 mg PO DAILY #30 tab 08/13/20 [Rx] Follow up Appointment(s)/Referral(s): Jeremy Horner MD [Primary Care Provider] - 1-2 days (Office closed at time of discharge please call SaturdayAugust 15 to set up a follow up appointment) Patient Instructions/Handouts: Hypoglycemia in a Person with Diabetes (DC) Discharge Disposition: HOME SELF-CARE
--- NOTE | 2020-08-15 15:17 | CDI ---
Follow-up states nontender. Documentation Clarification Form Date: 08/15/20 From: Eulalia Ricks Phone: If you have a question about this query, please contact Stacy Goodwin, Track Rider at [phone] between 8am and 5pm. Admit Date: 08/12/20 Discharge Date: 08/13/20 Patient Name: Brayan Real Visit Number: [id number] ATTENTION: The Clinical Documentation Specialists (CDI) and [facility] Coding Staff appreciate your assistance in clarifying documentation. Please respond to the clarification below the line at the bottom and electronically sign. The CDI & [facility] Coding staff will review the response and follow-up if needed. Please note: Queries are made part of the Legal Health Record. If you have any questions, please contact the author of this message via ITS. Dear Dr. Arrington Your patient has a documented diagnosis of [acute hypoxic respiratory failure] documented in the progress note - which may lack sufficient clinical evidence/support. History/Risk Factors: COPD, CAD, Hypertension Tobacco Use: Never Home Oxygen: None Clinical Indicators: Decreased O2 sats Vital signs: T. 98.0, P. 75, R. 18, BP 192/57 Pulse Ox: 08/10 - 96, 95, 96; 08/11 - 93, 95, 91, 94; 08/12 - 94, 92, 96, 93, 91; 08/13 - 95, 92 Treatment: Breathing Tx: None O2: Room air Based on the clinical evidence and your professional judgment, do you feel [acute hypoxic respiratory failure] is a valid diagnosis? Yes, [acute hypoxic respiratory failure] present/active during this admission as evidence by (additional clinical support): No, [acute hypoxic respiratory failure] was ruled out. Other (please specify diagnosis) Unable to determine No acute hypoxic respiratory failure was not found on admission and was ruled out. Patient has chronic obstructive pulmonary disease. MTDD
== END 2020-08-13 17:07 | disposition home or self-care (01) ==
LOC: EC 16:25 → 4SSUR 19:30 → INTOOBSV 08-12 14:22 → OBSVTOIN 08-12 14:22 → UNDODISIN 08-13 17:07
PROVIDERS: ADMIT Family Medicine; ATTEND Family Medicine
DX: E11.649 Type 2 diabetes mellitus with hypoglycemia without coma (principal); I10 Essential (primary) hypertension; J44.9 Chronic obstructive pulmonary disease, unspecified; I25.10 Atherosclerotic heart disease of native coronary artery without angina pectoris; I73.9 Peripheral vascular disease, unspecified; F41.9 Anxiety disorder, unspecified; D64.9 Anemia, unspecified; I77.89 Other specified disorders of arteries and arterioles; J96.01 Acute respiratory failure with hypoxia; R62.7 Adult failure to thrive; E78.5 Hyperlipidemia, unspecified; H53.9 Unspecified visual disturbance; I25.2 Old myocardial infarction; F40.240 Claustrophobia; I49.3 Ventricular premature depolarization; F03.90 Unspecified dementia, unspecified severity, without behavioral disturbance, psychotic disturbance, mood disturbance, and anxiety; Z89.512 Acquired absence of left leg below knee; Z89.511 Acquired absence of right leg below knee; Z79.899 Other long term (current) drug therapy; Z79.4 Long term (current) use of insulin; Z79.82 Long term (current) use of aspirin; Z88.0 Allergy status to penicillin; Z88.8 Allergy status to other drugs, medicaments and biological substances; Z87.01 Personal history of pneumonia (recurrent); Z87.09 Personal history of other diseases of the respiratory system; Z86.79 Personal history of other diseases of the circulatory system; Z91.81 History of falling; Z95.1 Presence of aortocoronary bypass graft; Z95.5 Presence of coronary angioplasty implant and graft; Z98.890 Other specified postprocedural states; Z90.89 Acquired absence of other organs; Z95.820 Peripheral vascular angioplasty status with implants and grafts; Z98.41 Cataract extraction status, right eye; Z98.42 Cataract extraction status, left eye; Z87.891 Personal history of nicotine dependence; Z83.3 Family history of diabetes mellitus; Z82.49 Family history of ischemic heart disease and other diseases of the circulatory system
CPT/HCPCS: 96376; 96374; 96361; 99285; 36415; 93005; 97162; 97166; 80053; 80048; 83605; 84484; 85025 ×2; 85610; 85730; 81003; 71045; 71046; 70450; G0378 ×4; C9113 ×2; 96360

== ENCOUNTER 2020-10-24 22:47 | Observation (INO) | payer MEDICARE ==
[2020-10-24 23:01] LABS: Glucose,Whole Blood 84 mg/dL (75-99)
[2020-10-24 23:21] LABS: Glucose,Whole Blood 68 mg/dL (75-99)
[2020-10-24 23:36] LABS: Glucose,Whole Blood 82 mg/dL (75-99)
--- NOTE | 2020-10-24 23:38 | ED ---
Recheck HPI - General Chief Complaint: Recheck/Abnormal Lab/Rx Stated Complaint: Hypoglycemic Time Seen by Provider: 10/24/20 22:50 Source: EMS, RN notes reviewed, old records reviewed Mode of arrival: EMS Limitations: no limitations - History of Present Illness Initial Comments: This is a 79-year-old male known to our facility, patient is a poor strain with presenting for unresponsiveness secondary to low blood sugar. Patient resents by EMS he states that she was initially in the 30s at his house. Some minimal responsive, he was given but his blood sugar is currently on here in the ER. Otherwise patient has no significant illness or complaint although again patient is a poor historian MD Complaint: wound re-check, suture/staple removal -: hour(s) Returns Today for: Called Because of Abnormal Lab/Test, persistent/worsening pain related to initial visit Symptoms Since Prior Visit: worsening pain Context: planned re-check Associated Symptoms: none Treatments Prior to Arrival: Given Pain Meds on - Related Data Home Medications Medication Instructions Recorded Confirmed Carvedilol 6.25 mg PO BID 01/25/16 08/10/20 Isosorbide Mononitrate [Isosorbide 30 mg PO DAILY 01/25/16 08/10/20 Mononitrate ER] Cholecalciferol [Vitamin D3 (25 1,000 unit PO DAILY 02/18/17 08/10/20 Mcg = 1000 Iu)] Pravastatin Sodium [Pravachol] 10 mg PO HS 03/18/19 08/10/20 Ferrous Gluconate 325 mg PO DAILY 08/10/20 08/10/20 HYDROcodone/APAP 7.5-325MG [[place] 1 tab PO Q4H PRN 08/10/20 08/10/20 7.5-325] Previous Rx's Medication Instructions Recorded Aspirin 81 mg PO DAILY chew 12/16/17 ALPRAZolam [Xanax] 1 mg PO BID PRN 3 Days #6 tab 03/23/19 Insulin NPH/Reg Insulin 70/30 20 unit SQ BID 30 Days #30 vial 08/13/20 [humuLIN 70/30 VIAL] amLODIPine [Norvasc] 5 mg PO DAILY #30 tab 08/13/20 Allergies Allergy/AdvReac Type Severity Reaction Status Date / Time Penicillins Allergy Unknown Verified 10/24/20 22:59 Childhood pregabalin [From Lyrica] Allergy Rapid Verified 10/24/20 22:59 Heart Rate Review of Systems ROS Statement: Those systems with pertinent positive or pertinent negative responses have been documented in the HPI. ROS Other: All systems not noted in ROS Statement are negative. Past Medical History Past Medical History: Coronary Artery Disease (CAD), Chest Pain / Angina, COPD, Diabetes Mellitus, Hyperlipidemia, Hypertension, Memory Impairment, Pneumonia, Vascular Disorder Additional Past Medical History / Comment(s): IDDM type II, pt and spouse deny pt ever having had a [place], PAD, bilateral BKAs, acute hypoxic respiratory failure/vented in past, bilateral bleeds behind eyes/poor vision, falls. Last Myocardial Infarction Date:: 2010 History of Any Multi-Drug Resistant Organisms: None Reported Past Surgical History: Coronary Bypass/CABG, Heart Catheterization With Stent, Orthopedic Surgery, Tonsillectomy Additional Past Surgical History / Comment(s): Several cardiac caths, PCIs with stents, 2000 CABG with 2 vessels, arch studies/run offs, aortagrams, peripheral stents, L fem-fem bypass, L fem-pop bypass, bilateral BKA, bilateral caratid endartectomies, bilateral cataract removals, laser surgery bilaterally d/t bleeds behind eyes. Past Anesthesia/Blood Transfusion Reactions: No Reported Reaction Additional Past Anesthesia/Blood Transfusion Reaction / Comment(s): clausterphobia Date of Last Stent Placement:: 2010 Past Psychological History: Anxiety Smoking Status: Never smoker Past Alcohol Use History: None Reported Past Drug Use History: None Reported - Past Family History Father Family Medical History: Diabetes Mellitus Additional Family Medical History / Comment(s): heart problems Mother Family Medical History: Diabetes Mellitus Additional Family Medical History / Comment(s): heart problems General Exam Limitations: no limitations General appearance: alert, in no apparent distress Head exam: Present: atraumatic, normocephalic, normal inspection Eye exam: Present: normal appearance, PERRL, EOMI. Absent: scleral icterus, conjunctival injection, periorbital swelling ENT exam: Present: normal exam, mucous membranes moist Neck exam: Present: normal inspection. Absent: tenderness, meningismus, lymphadenopathy Respiratory exam: Present: normal lung sounds bilaterally. Absent: respiratory distress, wheezes, rales, rhonchi, stridor Cardiovascular Exam: Present: regular rate, normal rhythm, normal heart sounds. Absent: systolic murmur, diastolic murmur, rubs, gallop, clicks GI/Abdominal exam: Present: soft, normal bowel sounds. Absent: distended, tenderness, guarding, rebound, rigid Extremities exam: Present: normal inspection, full ROM, normal capillary refill. Absent: tenderness, pedal edema, joint swelling, calf tenderness Back exam: Present: normal inspection Neurological exam: Present: alert, oriented X3, CN II-XII intact Psychiatric exam: Present: normal affect, normal mood Skin exam: Present: warm, dry, intact, normal color. Absent: rash Course Vital Signs 10/24/20 10/25/20 10/25/20 22:54 00:05 01:00 Temperature 97.5 F L Pulse Rate 66 74 78 Respiratory 20 20 20 Rate Blood Pressure 169/91 190/90 207/83 O2 Sat by Pulse 96 99 98 Oximetry 10/25/20 10/25/20 10/25/20 01:56 02:27 03:02 Temperature Pulse Rate 77 77 78 Respiratory 19 20 18 Rate Blood Pressure 220/105 233/90 174/74 O2 Sat by Pulse 98 100 99 Oximetry - Reevaluation(s) Reevaluation #1: 10/25/20 01:02 Medical record is reviewed Patient's symptoms are recurrent here in the ER Patient blood sugar significantly maybe has improved but on pressure sign ificantly elevated Medical Decision Making - Medical Decision Making 79 male to the ER for evaluation patient presents today for evaluation of micheal vated blood pressure which is been persistent but main presentation was for unresponsiveness secondary to low blood sugar. Blood pressure is no better controlled patient placed on IV sugar and can be admitted for continued observation of low blood sugar - Lab Data Result diagrams: 10/25/20 00:00 10/25/20 00:00 Lab Results 10/24/20 10/24/20 10/24/20 Range/Units 22:59 23:15 23:35 WBC (3.8-10.6) k/uL RBC (4.30-5.90) m/uL Hgb (13.0-17.5) gm/dL Hct (39.0-53.0) % MCV (80.0-100.0) fL MCH (25.0-35.0) pg MCHC (31.0-37.0) g/dL RDW (11.5-15.5) % Plt Count (150-450) k/uL MPV Neutrophils % % Lymphocytes % % Monocytes % % Eosinophils % % Basophils % % Neutrophils # (1.3-7.7) k/uL Lymphocytes # (1.0-4.8) k/uL Monocytes # (0-1.0) k/uL Eosinophils # (0-0.7) k/uL Basophils # (0-0.2) k/uL Sodium (137-145) mmol/L Potassium (3.5-5.1) mmol/L Chloride (98-107) mmol/L Carbon Dioxide (22-30) mmol/L Anion Gap mmol/L BUN (9-20) mg/dL Creatinine (0.66-1.25) mg/dL Est GFR (CKD-EPI)AfAm (>60 ml/min/1.73 sqM) Est GFR (CKD-EPI)NonAf (>60 ml/min/1.73 sqM) Glucose (74-99) mg/dL POC Glucose (mg/dL) 84 68 L 82 (75-99) mg/dL POC Glu First [employer] Sander ID Almita, [place] Junior, Cynthia Junior, Cynthia Calcium (8.4-10.2) mg/dL Phosphorus (2.5-4.5) mg/dL Magnesium (1.6-2.3) mg/dL Total Bilirubin (0.2-1.3) mg/dL AST (17-59) U/L ALT (4-49) U/L Alkaline Phosphatase (38-126) U/L Total Protein (6.3-8.2) g/dL Albumin (3.5-5.0) g/dL 10/25/20 10/25/20 10/25/20 Range/Units 00:00 00:00 00:27 WBC 10.3 (3.8-10.6) k/uL RBC 4.11 L (4.30-5.90) m/uL Hgb 13.2 (13.0-17.5) gm/dL Hct 40.1 (39.0-53.0) % MCV 97.6 (80.0-100.0) fL MCH 32.0 (25.0-35.0) pg MCHC 32.8 (31.0-37.0) g/dL RDW 14.4 (11.5-15.5) % Plt Count 189 (150-450) k/uL MPV 7.9 Neutrophils % 78 % Lymphocytes % 11 % Monocytes % 8 % Eosinophils % 2 % Basophils % 0 % Neutrophils # 8.0 H (1.3-7.7) k/uL Lymphocytes # 1.2 (1.0-4.8) k/uL Monocytes # 0.8 (0-1.0) k/uL Eosinophils # 0.2 (0-0.7) k/uL Basophils # 0.0 (0-0.2) k/uL Sodium 140 (137-145) mmol/L Potassium 4.2 (3.5-5.1) mmol/L Chloride 104 (98-107) mmol/L Carbon Dioxide 33 H (22-30) mmol/L Anion Gap 3 mmol/L BUN 15 (9-20) mg/dL Creatinine 0.96 (0.66-1.25) mg/dL Est GFR (CKD-EPI)AfAm 87 (>60 ml/min/1.73 sqM) Est GFR (CKD-EPI)NonAf 75 (>60 ml/min/1.73 sqM) Glucose 73 L (74-99) mg/dL POC Glucose (mg/dL) 80 (75-99) mg/dL POC Glu First [employer] Sander ID Cynthia Pacheco Calcium 9.0 (8.4-10.2) mg/dL Phosphorus 4.0 (2.5-4.5) mg/dL Magnesium 2.2 (1.6-2.3) mg/dL Total Bilirubin 0.4 (0.2-1.3) mg/dL AST 25 (17-59) U/L ALT 19 (4-49) U/L Alkaline Phosphatase 75 (38-126) U/L Total Protein 6.0 L (6.3-8.2) g/dL Albumin 3.3 L (3.5-5.0) g/dL 10/25/20 Range/Units 01:25 WBC (3.8-10.6) k/uL RBC (4.30-5.90) m/uL Hgb (13.0-17.5) gm/dL Hct (39.0-53.0) % MCV (80.0-100.0) fL MCH (25.0-35.0) pg MCHC (31.0-37.0) g/dL RDW (11.5-15.5) % Plt Count (150-450) k/uL MPV Neutrophils % % Lymphocytes % % Monocytes % % Eosinophils % % Basophils % % Neutrophils # (1.3-7.7) k/uL Lymphocytes # (1.0-4.8) k/uL Monocytes # (0-1.0) k/uL Eosinophils # (0-0.7) k/uL Basophils # (0-0.2) k/uL Sodium (137-145) mmol/L Potassium (3.5-5.1) mmol/L Chloride (98-107) mmol/L Carbon Dioxide (22-30) mmol/L Anion Gap mmol/L BUN (9-20) mg/dL Creatinine (0.66-1.25) mg/dL Est GFR (CKD-EPI)AfAm (>60 ml/min/1.73 sqM) Est GFR (CKD-EPI)NonAf (>60 ml/min/1.73 sqM) Glucose (74-99) mg/dL POC Glucose (mg/dL) 99 (75-99) mg/dL POC Glu [employer] ID Junior, Cynthia Calcium (8.4-10.2) mg/dL Phosphorus (2.5-4.5) mg/dL Magnesium (1.6-2.3) mg/dL Total Bilirubin (0.2-1.3) mg/dL AST (17-59) U/L ALT (4-49) U/L Alkaline Phosphatase (38-126) U/L Total Protein (6.3-8.2) g/dL Albumin (3.5-5.0) g/dL Disposition Clinical Impression: Hypoglycemia, Acute vomiting, Weakness, Hypertensive urgency Disposition: ADMITTED IP TO THIS HOSP Condition: Fair Is patient prescribed a controlled substance at d/c from ED?: No
[2020-10-25 00:24] LABS: Basophils % (A) 0 %; Eosinophils # (A) 0.2 k/uL (0-0.7); Eosinophils % (A) 2 %; HCT 40.1 % (39.0-53.0); HGB 13.2 gm/dL (13.0-17.5); Lymphocytes # (A) 1.2 k/uL (1.0-4.8); Lymphocytes % (A) 11 %; MCHC 32.8 g/dL (31.0-37.0); MCV 97.6 fL (80.0-100.0); Mean Platelet Volume 7.9; Monocytes # (A) 0.8 k/uL (0-1.0); Monocytes % (A) 8 %; Neutrophils % (A) 78 %; Platelet Count 189 k/uL (150-450); RBC 4.11 m/uL (4.30-5.90); RDW 14.4 % (11.5-15.5); WBC 10.3 k/uL (3.8-10.6)
[2020-10-25 00:25] LABS: Albumin 3.3 g/dL (3.5-5.0); Magnesium 2.2 mg/dL (1.6-2.3); Potassium 4.2 mmol/L (3.5-5.1); Total Bilirubin 0.4 mg/dL (0.2-1.3)
[2020-10-25 00:29] LABS: Glucose,Whole Blood 80 mg/dL (75-99)
[2020-10-25 01:27] LABS: Glucose,Whole Blood 99 mg/dL (75-99)
[2020-10-25] MEDS ORDERED: NALOXONE 0.4 MG/ML 1 ML VIAL IV PRN (01:39)
[2020-10-25] MEDS ORDERED: DEXTROSE 5%-0.45% NACL 1,000 ML IV ONE (01:41)
[2020-10-25] MEDS ORDERED: hydrALAZINE HCL 20 MG/ML 1 ML VIAL IVP STA (02:05)
--- NOTE | 2020-10-25 02:33 | P.HPIM ---
History of Present Illness H&P Date: 10/25/20 Patient is a 79-year-old male with a PMH of type II DM complicated by bilateral BKAs, HTN, and HLD who was brought into the emergency room by EMS for hypoglycemia. The patient is a poor historian and does not recall the events of the day, thereby history obtained from the chart and from the center from the ED physician. The patient reportedly became confused earlier in the day, at which time his checked his blood sugar which was found to be in the 30s. The subsequently activated EMS. The patient only recalls multiple showing up as at his house to take him to the hospital, and could not recall any additional details. The patient does recall that some of his medications for his diabetes were recently changed by his visiting physician. He notes feeling better since coming to the hospital. Denied active complaints at the time of interview. He denied chest discomfort, shortness of fever, chills, cough, nausea, vomiting, abdominal pain, dizziness, or headaches. In the emergency room, laboratory evaluation revealed a glucose of 68. He was started on a D5 drip and is being admitted to the medicine service for further management. Review of Systems Pertinent positives and negatives as discussed in HPI, a complete review of systems was performed and all other systems are negative. Past Medical History Past Medical History: Coronary Artery Disease (CAD), Chest Pain / Angina, COPD, Diabetes Mellitus, Hyperlipidemia, Hypertension, Memory Impairment, Pneumonia, Vascular Disorder Additional Past Medical History / Comment(s): IDDM type II, pt and spouse deny pt ever having had a [place], PAD, bilateral BKAs, acute hypoxic respiratory failure/vented in past, bilateral bleeds behind eyes/poor vision, falls. Last Myocardial Infarction Date:: 2010 History of Any Multi-Drug Resistant Organisms: None Reported Past Surgical History: Coronary Bypass/CABG, Heart Catheterization With Stent, Orthopedic Surgery, Tonsillectomy Additional Past Surgical History / Comment(s): Several cardiac caths, PCIs with stents, 2000 CABG with 2 vessels, arch studies/run offs, aortagrams, peripheral stents, L fem-fem bypass, L fem-pop bypass, bilateral BKA, bilateral caratid endartectomies, bilateral cataract removals, laser surgery bilaterally d/t bleeds behind eyes. Past Anesthesia/Blood Transfusion Reactions: No Reported Reaction Additional Past Anesthesia/Blood Transfusion Reaction / Comment(s): clausterphobia Date of Last Stent Placement:: 2010 Past Psychological History: Anxiety Smoking Status: Never smoker Past Alcohol Use History: None Reported Past Drug Use History: None Reported - Past Family History Father Family Medical History: Diabetes Mellitus Additional Family Medical History / Comment(s): heart problems Mother Family Medical History: Diabetes Mellitus Additional Family Medical History / Comment(s): heart problems Medications and Allergies Home Medications Medication Instructions Recorded Confirmed Type Carvedilol 6.25 mg PO BID 01/25/16 08/10/20 History Isosorbide Mononitrate [Isosorbide 30 mg PO DAILY 01/25/16 08/10/20 History Mononitrate ER] Cholecalciferol [Vitamin D3 (25 1,000 unit PO DAILY 02/18/17 08/10/20 History Mcg = 1000 Iu)] Aspirin 81 mg PO DAILY chew 12/16/17 08/10/20 Rx Pravastatin Sodium [Pravachol] 10 mg PO HS 03/18/19 08/10/20 History ALPRAZolam [Xanax] 1 mg PO BID PRN 3 Days #6 tab 03/23/19 08/10/20 Rx Ferrous Gluconate 325 mg PO DAILY 08/10/20 08/10/20 History HYDROcodone/APAP 7.5-325MG [[place] 1 tab PO Q4H PRN 08/10/20 08/10/20 History 7.5-325] Insulin NPH/Reg Insulin 70/30 20 unit SQ BID 30 Days #30 vial 08/13/20 Rx [humuLIN 70/30 VIAL] amLODIPine [Norvasc] 5 mg PO DAILY #30 tab 08/13/20 Rx Allergies Allergy/AdvReac Type Severity Reaction Status Date / Time Penicillins Allergy Unknown Verified 10/24/20 22:59 Childhood pregabalin [From Lyrica] Allergy Rapid Verified 10/24/20 22:59 Heart Rate Physical Exam Vitals: Vital Signs Temp Pulse Resp BP Pulse Ox 10/25/20 01:56 77 19 220/105 98 10/25/20 01:00 78 20 207/83 98 10/25/20 00:05 74 20 190/90 99 10/24/20 22:54 97.5 F L 66 20 169/91 96 Intake and Output 10/24/20 10/24/20 10/25/20 14:59 22:59 06:59 Other: Weight 83.915 kg General: non toxic, no distress, appears at stated age Derm: no unusual rashes/lesions no unusual ecchymoses, warm, dry Head: atraumatic, normocephalic, symmetric Eyes: EOMI, no lid lag, anicteric sclera, pupils equal round reactive to light ENT: Nose and ears atraumatic, no thrush, no pharyngeal erythema Neck: No thyromegaly, no cervical lymphadenopathy, trachea midline, supple Mouth: no lip lesion, mucus membranes moist Cardiovascular: S1S2 reg, no murmur, capillary refill less than 2 seconds in hands kai Lungs: CTA bilateral, no rhonchi, no rales , no accessory muscle use Abdominal: Mildly distended, nontender to palpation, no guarding Ext: no gross muscle atrophy, Kai BKA, muscle strength 5 out of 5 in kai upper extremities grossly, no contractures Neuro: CN II-XI grossly intact, no focal deficits noted Psych: Alert, oriented to person and place, not fully oriented to time Results CBC & Chem 7: 10/25/20 00:00 10/25/20 00:00 Labs: Abnormal Lab Results - Last 24 Hours (Table) 10/24/20 10/25/20 10/25/20 Range/Units 23:15 00:00 00:00 RBC 4.11 L (4.30-5.90) m/uL Neutrophils # 8.0 H (1.3-7.7) k/uL Carbon Dioxide 33 H (22-30) mmol/L Glucose 73 L (74-99) mg/dL POC Glucose (mg/dL) 68 L (75-99) mg/dL Total Protein 6.0 L (6.3-8.2) g/dL Albumin 3.3 L (3.5-5.0) g/dL Assessment and Plan Plan: Recurrent hypoglycemia -Patient does not recall his medication names or dosages -Will hold off on Insulin and oral diabetes medications for now -C/w D5 1/2 NS infusion -Check A1C -Continue to monitor blood glucose q2h for now Hypertensive urgency -Resume home medications -Consider additional agents if not controlled Chronic conditions: Hyperlipidemia -C/w home meds DVT prophylaxis -Heparin subq The patient is admitted with an anticipated less than 2 midnight stay for evaluation of hypoglycemia CODE STATUS: Full Code Discussed with: Patient Anticipated discharge date: in am Anticipated discharge place: home A total of 35 minutes was spent on the care of this complex patient more than 50% of the time was spent in counseling and care coordination.
[2020-10-25 02:46] LABS: Glucose,Whole Blood 115 mg/dL (75-99)
[2020-10-25 04:07] LABS: Glucose,Whole Blood 97 mg/dL (75-99)
[2020-10-25 06:15] LABS: Glucose,Whole Blood 145 mg/dL (75-99)
[2020-10-25 08:35] LABS: Glucose,Whole Blood 170 mg/dL (75-99)
[2020-10-25 10:29] LABS: Glucose,Whole Blood 175 mg/dL (75-99)
[2020-10-25 11:56] LABS: Hemoglobin A1C 7.8 % (4.0-6.0)
[2020-10-25] MEDS: HEPARIN SODIUM,PORCINE 5,000 UNIT/ML 1 ML VIAL SQ SCH ×2 (12:16→16:47)
[2020-10-25 13:07] LABS: Glucose,Whole Blood 215 mg/dL (75-99)
[2020-10-25] MEDS ORDERED: NITROGLYCERIN SL TABS 0.4 MG TAB SUBLINGUAL PRN (15:28)
[2020-10-25] MEDS ORDERED: ALPRAZolam 1 MG TAB PO PRN (15:28)
[2020-10-25] MEDS: lisinopriL 10 MG TAB PO SCH (15:57)
[2020-10-25] MEDS: amLODIPine 5 MG TAB PO SCH (15:57)
[2020-10-25] MEDS: ISOSORBIDE MONONITRATE ER 30 MG TAB.ER.24H PO SCH (15:57)
[2020-10-25] MEDS: carvediloL 12.5 MG TAB PO SCH (15:57)
[2020-10-25] MEDS: ASCORBIC ACID 500 MG TAB PO SCH (15:59)
[2020-10-25] MEDS ORDERED: hydrALAZINE HCL 20 MG/ML 1 ML VIAL IVP PRN (16:07)
--- NOTE | 2020-10-25 16:28 | P.PN ---
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 He presented to [facility] with the chief complaint hypoglycemia. Per documentation the patient was having episodes of increased confusion and his took his blood sugar and found it to be in the 30's so she called EMS for transport to the hospital. Since arrival to the hospital, blood glucose has been stable, hemoglobin A1c resulted at 7.8. Pt however has been anxious and agitated with significant hypertension blood pressure 217/117 and repeat pressure 200/85. He is alert and oriented to person, place, and time and expresses having significant anxiety regarding being in the hospital and not being at home with his . Pt does not recall events leading up to hospitalization and is very agitated about being here stating he is worried that he or is is going to while he is in the hospital and they will never see each other again. He is a poor historian when it comes to his past medical history and current medication regimen stating "my takes care of all of that." With the exception of anxiety, patient denies having any other complaints including headache, lightheadedness, dizziness, chest pain, palpitations, shortness of breath, cough or congestion, abdominal pain, nausea, or vomiting. Called and spoke with pt's , Trini regarding patients home medications and she confirmed his daily medications and stated that her husbandand was sick last month and was placed on steroids and since he had been having some issues with elevated blood glucose levels and was seen by his PCP Dr. Horner last week whom started him on a sliding scale in addition to his Humulin 70/30 and increased his 70/30 to 25 Units twice daily and this is when he started having episodes of low blood sugar so when her was acting right last night she checked his sugar and found it to be very low. She expressed concerns that pt is getting too much insulin. Objective - Vital Signs Vital signs: Vital Signs Temp 97.8 F 10/25/20 08:30 Pulse 87 10/25/20 08:30 Resp 16 10/25/20 08:30 BP 230/81 10/25/20 14:47 Pulse Ox 96 10/25/20 04:00 Intake & Output 10/24/20 10/25/20 10/25/20 18:59 06:59 18:59 Weight 83.915 kg Other: Voiding Method Urinal Urinal # Voids 275 - Exam Physical exam: General: non toxic, no distress, appears at stated age Derm: warm, dry Head: atraumatic, normocephalic, symmetric Eyes: EOMI, no lid lag, anicteric sclera Mouth: no lip lesion, mucus membranes moist Cardiovascular: S1S2 reg, no murmur, positive posterior tibial pulses bilate rally, cap refill less than 2 seconds Lungs: Respirations even, regular, and unlabored on room air. Lungs CTA bilateral, no rhonchi, no rales, no wheezing, and no accessory muscle use Abdominal: obese abdomen soft, nontender to palpation, no guarding, no appreciable organomegaly Ext: no gross muscle atrophy, no edema, no contractures, patient with bilateral BKAs. Neuro: speech clear, no focal neuro deficits Psych: Alert, oriented x4, patient very anxious regarding admission. Having a difficult time relaxing due to his reports of "I hate hospitals, they make me anxious and I just don't want to be here." - Labs CBC & Chem 7: 10/25/20 00:00 10/25/20 00:00 Labs: Abnormal Lab Results - Last 24 Hours (Table) 10/24/20 10/25/20 10/25/20 Range/Units 23:15 00:00 00:00 RBC 4.11 L (4.30-5.90) m/uL Neutrophils # 8.0 H (1.3-7.7) k/uL Carbon Dioxide 33 H (22-30) mmol/L Glucose 73 L (74-99) mg/dL POC Glucose (mg/dL) 68 L (75-99) mg/dL Hemoglobin A1c (4.0-6.0) % Total Protein 6.0 L (6.3-8.2) g/dL Albumin 3.3 L (3.5-5.0) g/dL 10/25/20 10/25/20 10/25/20 Range/Units 02:44 03:48 06:14 RBC (4.30-5.90) m/uL Neutrophils # (1.3-7.7) k/uL Carbon Dioxide (22-30) mmol/L Glucose (74-99) mg/dL POC Glucose (mg/dL) 115 H 145 H (75-99) mg/dL Hemoglobin A1c 7.8 H (4.0-6.0) % Total Protein (6.3-8.2) g/dL Albumin (3.5-5.0) g/dL 10/25/20 10/25/20 10/25/20 Range/Units 08:33 10:28 13:06 RBC (4.30-5.90) m/uL Neutrophils # (1.3-7.7) k/uL Carbon Dioxide (22-30) mmol/L Glucose (74-99) mg/dL POC Glucose (mg/dL) 170 H 175 H 215 H (75-99) mg/dL Hemoglobin A1c (4.0-6.0) % Total Protein (6.3-8.2) g/dL Albumin (3.5-5.0) g/dL Assessment and Plan Plan: Plan of care: Hypertensive urgency -Patient very anxious upon evaluation, blood pressure 200/85. Discussed with patient importance of calming down and trying to relax to lower blood pressure. Upon reassessment blood pressure 192/78. -Confirmed home medications with and reordered at this time including carvedilol, lisinopril, amlodipine, and isosorbide mononitrate. -Order placed for PRN hydralazine to be administered as needed for uncontrolled blood pressure with systolic pressure greater than 200 and/or diastolic greater than 115. Hypoglycemia in a type 2 insulin-dependent diabetic, resolved -Blood glucose levels have stabilized since arrival with no further episodes of hypoglycemia. -Decrease Humulin 70/30 to 20 units with breakfast and 10 units at dinner. -Glycemic protocol to remain in place with sliding scale and blood glucose monitoring ACHS and 2 a.m. Hyperlipidemia -Continue home medication regimen with pravastatin Dementia. -Continue Remeron and Aricept as needed Xanax for anxiety. CODE STATUS: Full code DVT prophylaxis: Heparin Discussed plan of care with: Patient, his , and RN Anticipated discharge: Tomorrow Anticipated discharge place: Home A total of 35 minutes of time was spent in the care of this complex patient with more than 50% of the time being spent in counseling and care coordination.
[2020-10-25] MEDS: DONEPEZIL 5 MG TAB PO SCH (16:47)
[2020-10-25] MEDS: BACLOFEN 10 MG TAB PO SCH ×2 (16:47→22:23)
[2020-10-25 17:01] LABS: Glucose,Whole Blood 203 mg/dL (75-99)
[2020-10-25] MEDS: INSULN ASP PRT/INSULIN ASPART 100 UNIT/ML 10 ML VIAL SQ SCH (17:27)
[2020-10-25] MEDS: INSULIN ASPART (NovoLOG) 100 UNIT/ML VIAL SQ SCH (17:27)
[2020-10-25 20:32] LABS: Glucose,Whole Blood 229 mg/dL (75-99)
[2020-10-25] MEDS: MIRTAZAPINE 15 MG TAB PO SCH (22:23)
[2020-10-25] MEDS: PRAVASTATIN SODIUM 20 MG TAB PO SCH (22:23)
[2020-10-26] MEDS: amLODIPine 5 MG TAB PO SCH ×3 (00:33→23:25)
[2020-10-26] MEDS: carvediloL 12.5 MG TAB PO SCH ×3 (00:33→23:25)
[2020-10-26] MEDS: HEPARIN SODIUM,PORCINE 5,000 UNIT/ML 1 ML VIAL SQ SCH ×4 (00:34→23:25)
[2020-10-26 02:09] LABS: Glucose,Whole Blood 155 mg/dL (75-99)
[2020-10-26 06:40] LABS: HCT 35.8 % (39.0-53.0); HGB 11.9 gm/dL (13.0-17.5); MCH 32.7 pg (25.0-35.0); MCHC 33.1 g/dL (31.0-37.0); MCV 98.9 fL (80.0-100.0); Macrocytosis Slight; Platelet Count 158 k/uL (150-450); RBC 3.62 m/uL (4.30-5.90); RDW 14.7 % (11.5-15.5)
[2020-10-26 07:19] LABS: Glucose,Whole Blood 121 mg/dL (75-99)
[2020-10-26] MEDS: INSULIN ASPART (NovoLOG) 100 UNIT/ML VIAL SQ SCH ×3 (07:49→18:47)
[2020-10-26] MEDS: ISOSORBIDE MONONITRATE ER 30 MG TAB.ER.24H PO SCH (07:51)
[2020-10-26] MEDS: ZINC SULFATE 220 MG CAP PO SCH (07:52)
[2020-10-26] MEDS: ASCORBIC ACID 500 MG TAB PO SCH (07:52)
[2020-10-26] MEDS: FERROUS SULFATE 325 MG TAB PO SCH (07:52)
[2020-10-26] MEDS: CHOLECALCIFEROL 25 MCG (1000 IU) TABLET PO SCH (07:52)
[2020-10-26] MEDS: lisinopriL 10 MG TAB PO SCH (07:52)
[2020-10-26] MEDS: BACLOFEN 10 MG TAB PO SCH ×3 (07:53→23:25)
[2020-10-26] MEDS: DONEPEZIL 5 MG TAB PO SCH (07:56)
[2020-10-26] MEDS ORDERED: PIOGLITAZONE 15 MG TAB PO SCH (09:00)
[2020-10-26 10:50] LABS: African American GFR (CKD) 82.6 (60.0-200.0); Anion Gap 6.3 mmol/L (4.00-12.00); Calcium 8.7 mg/dL (8.7-10.3); Carbon Dioxide 30.7 mmol/L (21.6-31.8); Non-African American GFR(CKD) 71.3 (60.0-200.0); Potassium 4.3 mmol/L (3.5-5.5)
[2020-10-26] MEDS: INSULN ASP PRT/INSULIN ASPART 100 UNIT/ML 10 ML VIAL SQ SCH ×2 (11:26→18:46)
[2020-10-26] MEDS ORDERED: INSULIN NPH 300 UNIT/3 ML VIAL SQ SCH (11:30)
[2020-10-26 11:47] LABS: Glucose,Whole Blood 281 mg/dL (75-99)
[2020-10-26 17:01] LABS: Glucose,Whole Blood 312 mg/dL (75-99)
[2020-10-26 18:38] LABS: Glucose,Whole Blood 295 mg/dL (75-99)
--- NOTE | 2020-10-26 23:20 | P.PN ---
Progress Note - Text Progress Note Date: 10/26/20 Presenting complaint: Hypoglycemia Interval history: Per Dr. 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 He presented to [facility] with the chief complaint hypoglycemia. Per documentation the patient was having episodes of increased confusion and his took his blood sugar and found it to be in the 30's so she called EMS for transport to the hospital. Since arrival to the hospital, blood glucose has been stable, hemoglobin A1c resulted at 7.8. Pt however has been anxious and agitated with significant hypertension blood pressure 217/117 and repeat pressure 200/85. He is alert and oriented to person, place, and time and expresses having significant anxiety regarding being in the hospital and not being at home with his . Pt does not recall events leading up to hospitalization and is very agitated about being here stating he is worried that he or is is going to while he is in the hospital and they will never see each other again. He is a poor historian when it comes to his past medical history and current medication regimen stating "my takes care of all of that." With the exception of anxiety, patient denies having any other complaints including headache, lightheadedness, dizziness, chest pain, palpitations, shortness of breath, cough or congestion, abdominal pain, nausea, or vomiting. Called and spoke with pt's , Trini regarding patients home medications and she confirmed his daily medications and stated that her husbandand was sick last month and was placed on steroids and since he had been having some issues with elevated blood glucose levels and was seen by his PCP Dr. Horner last week whom started him on a sliding scale in addition to his Humulin 70/30 and increased his 70/30 to 25 Units twice daily and this is when he started having episodes of low blood sugar so when her was acting right last night she checked his sugar and found it to be very low. She expressed concerns that pt is getting too much insulin. " Today-patient a good amount of breakfast. Nurse at held the 70/30 to be of further evaluated. Otherwise patient comfortable. Review of systems: Was done for constitutional, cardiovascular, GI, pulmonary. relevant finding as above Active Medications Alprazolam (Alprazolam 1 Mg Tab) 1 mg PO Q12H PRN PRN Reason: Anxiety Last Admin: 10/25/20 15:57 Dose: 1 mg Documented by: Amlodipine Besylate (Amlodipine 5 Mg Tab) 5 mg PO BID [facility] Last Admin: 10/26/20 07:52 Dose: 5 mg Documented by: Ascorbic Acid (Ascorbic Acid 500 Mg Tab) 500 mg PO DAILY [facility] Last Admin: 10/26/20 07:52 Dose: 500 mg Documented by: Baclofen (Baclofen 10 Mg Tab) 10 mg PO TID [facility] Last Admin: 10/26/20 16:14 Dose: 10 mg Documented by: Carvedilol (Carvedilol 12.5 Mg Tab) 12.5 mg PO BID [facility] Last Admin: 10/26/20 07:51 Dose: 12.5 mg Documented by: Cholecalciferol (Cholecalciferol 25 Mcg (1000 Iu) Tablet) 25 mcg PO DAILY [facility] Last Admin: 10/26/20 07:52 Dose: 25 mcg Documented by: Donepezil HCl (Donepezil 5 Mg Tab) 5 mg PO DAILY [facility] Last Admin: 10/26/20 07:56 Dose: 5 mg Documented by: Ferrous Sulfate (Ferrous Sulfate 325 Mg Tab) 325 mg PO DAILY [facility] Last Admin: 10/26/20 07:52 Dose: 325 mg Documented by: Heparin Sodium (Porcine) (Heparin Sodium,Porcine 5,000 Unit/Ml 1 Ml Vial) 5,000 unit SQ Q8HR [facility] Last Admin: 10/26/20 16:14 Dose: 5,000 unit Documented by: Hydralazine HCl (Hydralazine Hcl 20 Mg/Ml 1 Ml Vial) 10 mg IVP Q4HR PRN PRN Reason: Blood Pressure - High Insulin Aspart (Insuln Asp Prt/Insulin Aspart 100 Unit/Ml 10 Ml Vial) 20 unit SQ AC-BRKFST [facility] Last Admin: 10/26/20 11:26 Dose: Not Given Documented by: Insulin Aspart (Insuln Asp Prt/Insulin Aspart 100 Unit/Ml 10 Ml Vial) 10 unit SQ AC-SUPPER [facility] Last Admin: 10/26/20 18:46 Dose: 10 unit Documented by: Insulin Aspart (Insulin Aspart (Novolog) 100 Unit/Ml Vial) 0 unit SQ AC-TID [facility]; Protocol Last Admin: 10/26/20 18:47 Dose: 5 unit Documented by: Isosorbide Mononitrate (Isosorbide Mononitrate Er 30 Mg Tab.Er.24h) 30 mg PO DAILY [facility] Last Admin: 10/26/20 07:51 Dose: 30 mg Documented by: Lisinopril (Lisinopril 10 Mg Tab) 10 mg PO DAILY [facility] Last Admin: 10/26/20 07:52 Dose: 10 mg Documented by: Mirtazapine (Mirtazapine 15 Mg Tab) 30 mg PO HS [facility] Last Admin: 10/25/20 22:23 Dose: 30 mg Documented by: Naloxone HCl (Naloxone 0.4 Mg/Ml 1 Ml Vial) 0.2 mg IV Q2M PRN PRN Reason: Opioid Reversal Nitroglycerin (Nitroglycerin Sl Tabs 0.4 Mg Tab) 0.4 mg SUBLINGUAL Q5M PRN PRN Reason: Chest Pain Pravastatin Sodium (Pravastatin Sodium 20 Mg Tab) 10 mg PO [facility] Last Admin: 10/25/20 22:23 Dose: 10 mg Documented by: Zinc Sulfate (Zinc Sulfate 220 Mg Cap) 220 mg PO DAILY [facility] Last Admin: 10/26/20 07:52 Dose: 220 mg Documented by: On examination: VITAL SIGNS: 97.4, 69, 18, 167/52, 94% room air GENERAL APPEARANCE: Laying in bed, comfortable. HEENT: Normal external appearance of nose and ear. Oral cavity normal EYES: Pupils equal. Conjunctiva normal. NECK: JVD not raised. Mass not palpable. RESPIRATORY: Respiratory effort normal. Lungs clear to auscultation. CARDIOVASCULAR: First and second sounds normal. No edema. ABDOMEN: Soft. Liver and spleen not palpable. No tenderness. No mass palpable. PSYCHIATRY: Answering simple questions INVESTIGATIONS, reviewed in the clinical context: White count 7 hemoglobin 11.9 platelets 158 potassium 4.3 creatinine 1.0 [id number], 21, 312 Assessment: -Diabetes mellitus type 2, uncontrolled with hypo-and hyperglycemia -COPD, and an ex-smoker -Hyperlipidemia -Essential hypertension, labile likely from autonomic dysfunction. From a lying diabetes -Peripheral arterial disease -Bilateral below-knee amputation, bilateral prosthesis -Coronary artery disease with history of stent and coronary bypass and --moderate cognitive impairment Plan: Adjust patient's 70/30, based on patient's oral intake. Plan is to keep his sugar a bit on the higher side. Follow other medications to continue
[2020-10-26 23:25] LABS: Glucose,Whole Blood 246 mg/dL (75-99)
[2020-10-26] MEDS: PRAVASTATIN SODIUM 20 MG TAB PO SCH (23:26)
[2020-10-26] MEDS: MIRTAZAPINE 15 MG TAB PO SCH (23:27)
[2020-10-27 03:33] LABS: Glucose,Whole Blood 181 mg/dL (75-99)
[2020-10-27 07:28] LABS: Glucose,Whole Blood 164 mg/dL (75-99)
[2020-10-27] MEDS: INSULN ASP PRT/INSULIN ASPART 100 UNIT/ML 10 ML VIAL SQ SCH (09:00)
[2020-10-27] MEDS: INSULIN ASPART (NovoLOG) 100 UNIT/ML VIAL SQ SCH ×2 (09:01→12:25)
[2020-10-27] MEDS: lisinopriL 10 MG TAB PO SCH (09:06)
[2020-10-27] MEDS: amLODIPine 5 MG TAB PO SCH (09:06)
[2020-10-27] MEDS: HEPARIN SODIUM,PORCINE 5,000 UNIT/ML 1 ML VIAL SQ SCH (09:06)
[2020-10-27] MEDS: ZINC SULFATE 220 MG CAP PO SCH (09:06)
[2020-10-27] MEDS: carvediloL 12.5 MG TAB PO SCH (09:06)
[2020-10-27] MEDS: ASCORBIC ACID 500 MG TAB PO SCH (09:07)
[2020-10-27] MEDS: CHOLECALCIFEROL 25 MCG (1000 IU) TABLET PO SCH (09:07)
[2020-10-27] MEDS: DONEPEZIL 5 MG TAB PO SCH (09:07)
[2020-10-27] MEDS: BACLOFEN 10 MG TAB PO SCH (09:07)
[2020-10-27] MEDS: FERROUS SULFATE 325 MG TAB PO SCH (09:07)
[2020-10-27] MEDS: ISOSORBIDE MONONITRATE ER 30 MG TAB.ER.24H PO SCH (09:07)
[2020-10-27 11:27] LABS: Glucose,Whole Blood 218 mg/dL (75-99)
[2020-10-27 13:04] VITALS: BP 140/70; PULSE 77; RESP 16; TEMP 97.4
[2020-10-27 15:15] LABS: Glucose,Whole Blood 105 mg/dL (75-99)
[2020-10-27] MEDS ORDERED: INSULN ASP PRT/INSULIN ASPART 100 UNIT/ML 10 ML VIAL SQ SCH (17:30)
--- NOTE | 2020-10-27 20:50 | P.DS ---
Providers Date of admission: 10/25/20 01:40 Expected date of discharge: 10/27/20 Attending physician: Francois Stinson Primary care physician: Jeremy Horner MD Hospital Course: Presenting complaint: Hypoglycemia Interval history: Per Dr. 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 He presented to [facility] with the chief complaint hypoglycemia. Per documentation the patient was having episodes of increased confusion and his took his blood sugar and found it to be in the 30's so she called EMS for transport to the hospital. Since arrival to the hospital, blood glucose has been stable, hemoglobin A1c resulted at 7.8. Pt however has been anxious and agitated with significant hypertension blood pressure 217/117 and repeat pressure 200/85. He is alert and oriented to person, place, and time and expresses having significant anxiety regarding being in the hospital and not being at home with his . Pt does not recall events leading up to hospitalization and is very agitated about being here stating he is worried that he or is is going to while he is in the hospital and they will never see each other again. He is a poor historian when it comes to his past medical history and current medication regimen stating "my takes care of all of that." With the exception of anxiety, patient denies having any other complaints including headache, lightheadedness, dizziness, chest pain, palpitations, shortness of breath, cough or congestion, abdominal pain, nausea, or vomiting. Called and spoke with pt's , Trini regarding patients home medications and she confirmed his daily medications and stated that her husbandand was sick last month and was placed on steroids and since he had been having some issues with elevated blood glucose levels and was seen by his PCP Dr. Horner last week whom started him on a sliding scale in addition to his Humulin 70/30 and increased his 70/30 to 25 Units twice daily and this is when he started having episodes of low blood sugar so when her was acting right last night she checked his sugar and found it to be very low. She expressed concerns that pt is getting too much insulin. " Today-eating well. Sugars well controlled. Discussed with the nurse. To be coming to the the patient's insulin to be given after his meal depending how much he eats explain in detail. On examination: VITAL SIGNS: 97.4, 77, 16, 140/70, 93% room air GENERAL APPEARANCE: Laying in bed, comfortable. HEENT: Normal external appearance of nose and ear. Oral cavity normal EYES: Pupils equal. Conjunctiva normal. NECK: JVD not raised. Mass not palpable. RESPIRATORY: Respiratory effort normal. Lungs clear to auscultation. CARDIOVASCULAR: First and second sounds normal. No edema. ABDOMEN: Soft. Liver and spleen not palpable. No tenderness. No mass palpable. EXTREMITIES: Bilateral below-knee amputation. PSYCHIATRY: Answering simple questions INVESTIGATIONS, reviewed in the clinical context: October 27: Accu-Cheks 164, 218, 105 White count 7 hemoglobin 11.9 platelets 158 potassium 4.3 creatinine 1.0 [id number], 21, 312 Assessment: -Diabetes mellitus type 2, uncontrolled with hypo-and hyperglycemia -COPD, and an ex-smoker -Hyperlipidemia -Essential hypertension, labile likely from autonomic dysfunction. From a lying diabetes -Peripheral arterial disease -Bilateral below-knee amputation, bilateral prosthesis -Coronary artery disease with history of stent and coronary bypass and --moderate cognitive impairment Disposition: Home Patient Condition at Discharge: Stable Plan - Discharge Summary Discharge Rx Participant: Yes New Discharge Prescriptions: New Insulin NPH/Reg Insulin 70/30 [humuLIN 70/30 VIAL] 20 unit SQ BID 30 Days #1 vial Continue Isosorbide Mononitrate [Isosorbide Mononitrate ER] 30 mg PO DAILY Pravastatin Sodium [Pravachol] 10 mg PO HS HYDROcodone/APAP 7.5-325MG [[place] 7.5-325] 1 tab PO QID PRN PRN Reason: Pain ALPRAZolam [Xanax] 1 mg PO Q12H PRN PRN Reason: Anxiety Mirtazapine [Remeron] 30 mg PO HS Lisinopril [Prinivil] 10 mg PO DAILY Ferrous Sulfate [Iron (65 MG Elemental)] 325 mg PO DAILY Zinc 50 mg PO DAILY Carvedilol [Coreg] 12.5 mg PO BID Donepezil HCl [Aricept] 5 mg PO DAILY Cholecalciferol [Vitamin D3 (25 Mcg = 1000 Iu)] 25 mcg PO DAILY Baclofen [Lioresal] 10 mg PO TID Ascorbic Acid [Vitamin C] 500 mg PO DAILY Nitroglycerin Sl Tabs [Nitrostat] 0.4 mg SUBLINGUAL Q5M PRN PRN Reason: Chest Pain amLODIPine [Norvasc] 5 mg PO BID Discontinued INSULIN LISPRO (HumaLOG) [humaLOG] See Protocol SQ ACHS Pioglitazone [Actos] 15 mg PO DAILY Discharge Medication List Isosorbide Mononitrate [Isosorbide Mononitrate ER] 30 mg PO DAILY 01/25/16 [History] Pravastatin Sodium [Pravachol] 10 mg PO HS 03/18/19 [History] HYDROcodone/APAP 7.5-325MG [[place] 7.5-325] 1 tab PO QID PRN 08/10/20 [History] ALPRAZolam [Xanax] 1 mg PO Q12H PRN 10/25/20 [History] Ascorbic Acid [Vitamin C] 500 mg PO DAILY 10/25/20 [History] Baclofen [Lioresal] 10 mg PO TID 10/25/20 [History] Carvedilol [Coreg] 12.5 mg PO BID 10/25/20 [History] Cholecalciferol [Vitamin D3 (25 Mcg = 1000 Iu)] 25 mcg PO DAILY 10/25/20 [History] Donepezil HCl [Aricept] 5 mg PO DAILY 10/25/20 [History] Ferrous Sulfate [Iron (65 MG Elemental)] 325 mg PO DAILY 10/25/20 [History] Insulin NPH/Reg Insulin 70/30 [humuLIN 70/30 VIAL] 20 unit SQ BID 30 Days #1 vial 10/25/20 [Rx] Lisinopril [Prinivil] 10 mg PO DAILY 10/25/20 [History] Mirtazapine [Remeron] 30 mg PO HS 10/25/20 [History] Nitroglycerin Sl Tabs [Nitrostat] 0.4 mg SUBLINGUAL Q5M PRN 10/25/20 [History] Zinc 50 mg PO DAILY 10/25/20 [History] amLODIPine [Norvasc] 5 mg PO BID 10/25/20 [History] Follow up Appointment(s)/Referral(s): Jeremy Horner MD [Primary Care Provider] - 1-2 days Activity/Diet/Wound Care/Special Instructions: Activity: As tolerated Diet: Heart healthy and carb consistent diet Special Instructions: Decrease dose of Insulin-Humulin 70/30 down to 20 Units each morning and 10 Units at night. Hgb A1c 7.8, will discontinue Humulog sliding scale at this time. Follow up in 1-2 days with PCP, Dr. Horner. Watch for signs and symptoms of hypoglycemia including shakiness, lightheadedness, fatigue, anxiousness or irritability, hunger, sweating, or feeling cool and clammy. Monitor blood glucose levels before each meal and at bedtime. Discharge Disposition: HOME SELF-CARE
== END 2020-10-27 15:21 | disposition home or self-care (01) ==
LOC: EC 22:47 → 1SOBS 10-25 01:40 → 6NMEDSUR 10-25 18:21
PROVIDERS: ADMIT Hospitalist; ATTEND Hospitalist
DX: E11.649 Type 2 diabetes mellitus with hypoglycemia without coma (principal); E11.65 Type 2 diabetes mellitus with hyperglycemia; I16.0 Hypertensive urgency; I25.10 Atherosclerotic heart disease of native coronary artery without angina pectoris; J44.9 Chronic obstructive pulmonary disease, unspecified; E78.5 Hyperlipidemia, unspecified; R41.3 Other amnesia; Z87.01 Personal history of pneumonia (recurrent); H54.7 Unspecified visual loss; E11.51 Type 2 diabetes mellitus with diabetic peripheral angiopathy without gangrene; F03.90 Unspecified dementia, unspecified severity, without behavioral disturbance, psychotic disturbance, mood disturbance, and anxiety; Z87.891 Personal history of nicotine dependence; I10 Essential (primary) hypertension; Z91.81 History of falling; I25.2 Old myocardial infarction; J96.01 Acute respiratory failure with hypoxia; Z89.512 Acquired absence of left leg below knee; Z89.511 Acquired absence of right leg below knee; F41.9 Anxiety disorder, unspecified; Z95.1 Presence of aortocoronary bypass graft; Z95.5 Presence of coronary angioplasty implant and graft; Z90.89 Acquired absence of other organs; Z95.820 Peripheral vascular angioplasty status with implants and grafts; Z98.42 Cataract extraction status, left eye; Z98.41 Cataract extraction status, right eye; Z98.890 Other specified postprocedural states; Z83.3 Family history of diabetes mellitus; Z79.82 Long term (current) use of aspirin; Z79.4 Long term (current) use of insulin; Z79.899 Other long term (current) drug therapy; Z88.0 Allergy status to penicillin; Z88.8 Allergy status to other drugs, medicaments and biological substances
CPT/HCPCS: 96372 ×2; 96374; 99285; 36415 ×2; 93005; 80053; 80048; 83735; 84100; 85025; 85027; 83036; G0378 ×4; J0360; J1644 ×2

== ENCOUNTER 2021-10-31 16:53 | Inpatient (IN) | payer MEDICARE ==
[2021-10-31] MEDS ORDERED: SODIUM CHLORIDE 0.9% 500 ML 500 ML IV ONE (17:20)
[2021-10-31 17:21] LABS: Glucose,Whole Blood 111 mg/dL (75-99)
[2021-10-31 17:45] LABS: Basophils % (A) 0 %; Eosinophils # (A) 0.2 k/uL (0-0.7); Eosinophils % (A) 2 %; HCT 39.7 % (39.0-53.0); HGB 12.1 gm/dL (13.0-17.5); Hypochromasia Slight; Lymphocytes # (A) 1.8 k/uL (1.0-4.8); Lymphocytes % (A) 16 %; MCH 28.5 pg (25.0-35.0); MCHC 30.5 g/dL (31.0-37.0); MCV 93.3 fL (80.0-100.0); Monocytes # (A) 0.8 k/uL (0-1.0); Monocytes % (A) 7 %; Neutrophils # (A) 7.9 k/uL (1.3-7.7); Neutrophils % (A) 72 %; Platelet Count 281 k/uL (150-450); RBC 4.25 m/uL (4.30-5.90)
[2021-10-31 17:50] LABS: Albumin 3.6 g/dL (3.5-5.0); Calcium 9.4 mg/dL (8.4-10.2); Potassium 4.8 mmol/L (3.5-5.1); Total Bilirubin 0.6 mg/dL (0.2-1.3); Total Protein 6.1 g/dL (6.3-8.2)
[2021-10-31 17:56] LABS: INR 0.9 (<1.2); Prothrombin Time 9.9 sec (9.0-12.0)
[2021-10-31 17:58] LABS: Partial Thromboplastin Time 21.5 sec (22.0-30.0)
--- NOTE | 2021-10-31 18:15 | XR ---
EXAMINATION TYPE: XR chest 2V DATE OF EXAM: 10/31/2021 5:48 PM COMPARISON:Chest radiographs from 03/26/2020 TECHNIQUE: Frontal and lateral views of the chest. CLINICAL INDICATION:Male, 80 years old with history of altered mental status; FINDINGS: Lungs/Pleura: Bibasilar atelectasis. No evidence for pneumothorax pleural effusion or focal consolida tion. Pulmonary vascularity: Unremarkable. Heart/mediastinum: Cardiomediastinal silhouette is unremarkable. Atherosclerotic calcifications are seen in the aorta. Musculoskeletal:No acute osseous pathology. Midline sternotomy wires are noted and stable. IMPRESSION: Basilar atelectasis without acute cardiopulmonary disease/process. No significant change from prior.
--- NOTE | 2021-10-31 18:20 | CT ---
EXAMINATION TYPE: CT brain wo con CT DLP: 1162.4 mGycm, Automated exposure control for dose reduction was used. DATE OF EXAM: 10/31/2021 5:47 PM COMPARISON: Prior CT Brain from 08/10/2020. CLINICAL INDICATION:Male, 80 years old with history of Altered mental status. TECHNIQUE: Brain: Multiple axial CT images of the brain were obtained without IV contrast. FINDINGS: Brain: Extra-axial spaces: No abnormal extra-axial fluid collections. Ventricular system: Dilatation in proportion to cerebral atrophy. Cerebral parenchyma: Cerebral atrophy. Hypodensity within the right sylvia is unchanged from prior and likely represents remote lacunar injury. No acute intraparenchymal hemorrhage or mass effect. The gr ay-white junction is well differentiated. Scattered hypoattenuating areas are seen within the white m atter. Cerebellum: Cerebellar atrophy Mass effect: No evidence of midline shift. Intracranial vasculature: Atherosclerotic calcifications of the intracranial vessels. Soft tissues: Normal. Calvarium/osseous structures: No depressed skull fracture. Paranasal sinuses and mastoid air cells: Clear. Visualized orbits: Bilateral aphakia IMPRESSION: 1. No acute intracranial process. 2. 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
[2021-10-31 19:18] LABS: Appearance,Urine Clear (Clear); Bacteria,Urine Rare /hpf; Bilirubin,Urine Negative (Negative); Blood,Urine Moderate (Negative); Color,Urine Light Yellow; Glucose,Urine (UA) Negative (Negative); Ketones,Urine Negative (Negative); Leukocyte Esterase,Urine Negative (Negative); Nitrite,Urine Negative (Negative); PH, Urine 5.5 (5.0-8.0); Protein,Urine Negative (Negative); RBC,Urine 1 /hpf (0-5); Specific Gravity,Urine 1.005 (1.001-1.035); Squamous Epithelial Cell,Urine <1 /hpf (0-4); Urobilinogen,Urine <2.0 mg/dL (<2.0); WBC,Urine 2 /hpf (0-5)
--- NOTE | 2021-10-31 19:33 | ED ---
General Adult HPI - General Chief complaint: Altered Mental Status Stated complaint: AMS Time Seen by Provider: 10/31/21 17:02 Source: EMS, old records reviewed Mode of arrival: EMS Limitations: altered mental status - History of Present Illness Initial comments: 80 year-old male patient presents to ED today for evaluation of altered mental status. Patient is currently residing at [facility] for rehab, has been there for 3 months. is ill and unable to care for him at home. Patient exhibited confusion today. He is not making sense when he talks and is not oriented. Daughter is present and states this is very unusual for him. She was with him yesterday for quite a while and he was acting normally. She states he has also developed a tremor in his left shoulder and arm which is unusual for him. She denies starting or stopping any medications. Denies any recent fall or head injury. Patient is a very poor historian at the moment and contributes nothing to history. He does say he is not having any pain. He was sent to [facility] initially treated for hypoglycemia and sent back to [facility]. He was still confused so they sent him here. - Related Data Home Medications Medication Instructions Recorded Confirmed Isosorbide Mononitrate [Isosorbide 30 mg PO DAILY@0800 01/25/16 10/31/21 Mononitrate ER] Pravastatin Sodium [Pravachol] 10 mg PO HS@199903/18/19 10/31/21 HYDROcodone/APAP 7.5-325MG [[place] 1 tab PO BID@08,199908/10/20 10/31/21 7.5-325] ALPRAZolam [Xanax] 1 mg PO HS@1999 PRN 10/25/20 10/31/21 Donepezil HCl [Aricept] 5 mg PO HS@199910/25/20 10/31/21 Lisinopril [Prinivil] 10 mg PO DAILY@0800 10/25/20 10/31/21 Aspirin EC [Ecotrin Low Dose] 81 mg PO DAILY@0800 10/31/21 10/31/21 Insulin NPH/Reg Insulin 70/30 22 unit SQ BID@0800,199910/31/21 10/31/21 [humuLIN 70/30 VIAL] Lidocaine 5% Patch [Lidoderm] 1 patch TOPICAL HS@199910/31/21 10/31/21 Multivitamins, Thera [Multivitamin 1 tab PO DAILY@0800 10/31/21 10/31/21 (formulary)] buPROPion HCL [Wellbutrin SR] 100 mg PO BID@0800,199910/31/21 10/31/21 carvediloL [Coreg] 6.25 mg PO BID@0800,199910/31/21 10/31/21 Allergies Allergy/AdvReac Type Severity Reaction Status Date / Time Penicillins Allergy Unknown Verified 10/31/21 18:21 Childhood pregabalin [From Lyrica] Allergy Rapid Verified 10/31/21 18:21 Heart Rate Review of Systems ROS Statement: Those systems with pertinent positive or pertinent negative responses have been documented in the HPI. ROS Other: All systems not noted in ROS Statement are negative. Past Medical History Past Medical History: Coronary Artery Disease (CAD), Chest Pain / Angina, COPD, Diabetes Mellitus, Hyperlipidemia, Hypertension, Memory Impairment, Pneumonia, Vascular Disorder Additional Past Medical History / Comment(s): IDDM type II, pt and spouse deny pt ever having had a [place], PAD, bilateral BKAs, acute hypoxic respiratory failure/vented in past, bilateral bleeds behind eyes/poor vision, falls. Last Myocardial Infarction Date:: 2010 History of Any Multi-Drug Resistant Organisms: None Reported Past Surgical History: Coronary Bypass/CABG, Heart Catheterization With Stent, Orthopedic Surgery, Tonsillectomy Additional Past Surgical History / Comment(s): Several cardiac caths, PCIs with stents, 1999 CABG with 2 vessels, arch studies/run offs, aortagrams, peripheral stents, L fem-fem bypass, L fem-pop bypass, bilateral BKA, bilateral caratid endartectomies, bilateral cataract removals, laser surgery bilaterally d/t bleeds behind eyes. Past Anesthesia/Blood Transfusion Reactions: No Reported Reaction Additional Past Anesthesia/Blood Transfusion Reaction / Comment(s): elijah stuart Date of Last Stent Placement:: 2010 Past Psychological History: Anxiety Smoking Status: Never smoker Past Alcohol Use History: None Reported Past Drug Use History: None Reported - Past Family History Father Family Medical History: Diabetes Mellitus Additional Family Medical History / Comment(s): heart problems Mother Family Medical History: Diabetes Mellitus Additional Family Medical History / Comment(s): heart problems General Exam Limitations: altered mental status General appearance: alert, in no apparent distress, other (This is a well- developed, well-nourished adult male in no acute distress.) Eye exam: Present: normal appearance, PERRL, EOMI. Absent: scleral icterus, conjunctival injection, nystagmus, periorbital swelling ENT exam: Present: normal exam, normal oropharynx, mucous membranes moist Respiratory exam: Present: normal lung sounds bilaterally. Absent: respiratory distress, wheezes, rales, rhonchi, stridor Cardiovascular Exam: Present: regular rate, normal rhythm, normal heart sounds. Absent: systolic murmur, diastolic murmur, rubs, gallop, clicks GI/Abdominal exam: Present: soft, normal bowel sounds. Absent: distended, tenderness, guarding, rebound, rigid Neurological exam: Present: alert, CN II-XII intact, other (Babbling about random topics. Conversation is not purposeful. Strength in all 4 extremities is 5/5.). Absent: oriented X3 (Oriented x1. ) Psychiatric exam: Present: normal affect, normal mood Skin exam: Present: warm, dry, intact, normal color. Absent: rash Course Vital Signs 10/31/21 10/31/21 10/31/21 16:59 17:29 18:57 Temperature 98.0 F Pulse Rate 53 L 52 L 55 L Pulse Rate [ Pulse Oximetery ] Respiratory 18 16 18 Rate Blood Pressure 141/50 147/91 Blood Pressure [Left Arm] O2 Sat by Pulse 97 95 97 Oximetry 10/31/21 10/31/21 21:09 22:00 Temperature 97.7 F Pulse Rate Pulse Rate [ 60 64 Pulse Oximetery ] Respiratory 18 Rate Blood Pressure Blood Pressure 90/63 [Left Arm] O2 Sat by Pulse 96 Oximetry EKG Findings - EKG Comments: EKG Findings:: EKG obtained at 1717 shows sinus bradycardia with sinus arrhythmia. Ventricular rate is 55, MD interval 162, QRS duration 92, QT 420, QTC 401. No evidence of ST elevation or depression. Procedures - [place] Protocol (Time Out) Nurse: Maira Cavazos Medical Decision Making - Medical Decision Making 80-year-old male patient presented for evaluation of altered mental status and left upper extremity tremor. Physical examination was unremarkable except for evident resting tremor no left arm as well as confusion. Patient is oriented 1 only. He is constantly talking in the room about random topics. CT brain was negative. Labs reviewed and did reveal acute kidney injury mildly elevated troponin at 0.04. Urinalysis shows no evidence for infection. Blood sugar here is normal. He will be admitted to the hospital for further evaluation, monitoring, and evaluation by neurology. Dr. Emmanuel is accepting. My attending is Dr. Santamaria. - Lab Data Result diagrams: 10/31/21 17:20 10/31/21 17:20 Lab Results 10/31/21 10/31/21 10/31/21 Range/Units 17:11 17:20 17:20 WBC 11.0 H (3.8-10.6) k/uL RBC 4.25 L (4.30-5.90) m/uL Hgb 12.1 L (13.0-17.5) gm/dL Hct 39.7 (39.0-53.0) % MCV 93.3 (80.0-100.0) fL MCH 28.5 (25.0-35.0) pg MCHC 30.5 L (31.0-37.0) g/dL RDW 15.0 (11.5-15.5) % Plt Count 281 (150-450) k/uL MPV 8.0 Neutrophils % 72 % Lymphocytes % 16 % Monocytes % 7 % Eosinophils % 2 % Basophils % 0 % Neutrophils # 7.9 H (1.3-7.7) k/uL Lymphocytes # 1.8 (1.0-4.8) k/uL Monocytes # 0.8 (0-1.0) k/uL Eosinophils # 0.2 (0-0.7) k/uL Basophils # 0.0 (0-0.2) k/uL Hypochromasia Slight PT 9.9 (9.0-12.0) sec INR 0.9 (<1.2) APTT 21.5 L (22.0-30.0) sec Sodium (137-145) mmol/L Potassium (3.5-5.1) mmol/L Chloride (98-107) mmol/L Carbon Dioxide (22-30) mmol/L Anion Gap mmol/L BUN (9-20) mg/dL Creatinine (0.66-1.25) mg/dL Est GFR (CKD-EPI)AfAm (>60 ml/min/1.73 sqM) Est GFR (CKD-EPI)NonAf (>60 ml/min/1.73 sqM) Glucose (74-99) mg/dL POC Glucose (mg/dL) 111 H (75-99) mg/dL POC Glu Spotlight Operator ID Maira Cavazos Calcium (8.4-10.2) mg/dL Total Bilirubin (0.2-1.3) mg/dL AST (17-59) U/L ALT (4-49) U/L Alkaline Phosphatase (38-126) U/L Troponin I (0.000-0.034) ng/mL Total Protein (6.3-8.2) g/dL Albumin (3.5-5.0) g/dL Urine Color Urine Appearance (Clear) Urine pH (5.0-8.0) Ur Specific [place] (1.001-1.035) Urine Protein (Negative) Urine Glucose (UA) (Negative) Urine Ketones (Negative) Urine Blood (Negative) Urine Nitrite (Negative) Urine Bilirubin (Negative) Urine Urobilinogen (<2.0) mg/dL Ur Leukocyte Esterase (Negative) Urine RBC (0-5) /hpf Urine WBC (0-5) /hpf Ur Squamous Epith Cells (0-4) /hpf Urine Bacteria (None) /hpf Coronavirus (PCR) (Not Detectd) 10/31/21 10/31/21 10/31/21 Range/Units 17:20 17:20 17:21 WBC (3.8-10.6) k/uL RBC (4.30-5.90) m/uL Hgb (13.0-17.5) gm/dL Hct (39.0-53.0) % MCV (80.0-100.0) fL MCH (25.0-35.0) pg MCHC (31.0-37.0) g/dL RDW (11.5-15.5) % Plt Count (150-450) k/uL MPV Neutrophils % % Lymphocytes % % Monocytes % % Eosinophils % % Basophils % % Neutrophils # (1.3-7.7) k/uL Lymphocytes # (1.0-4.8) k/uL Monocytes # (0-1.0) k/uL Eosinophils # (0-0.7) k/uL Basophils # (0-0.2) k/uL Hypochromasia PT (9.0-12.0) sec INR (<1.2) APTT (22.0-30.0) sec Sodium 140 (137-145) mmol/L Potassium 4.8 (3.5-5.1) mmol/L Chloride 106 (98-107) mmol/L Carbon Dioxide 30 (22-30) mmol/L Anion Gap 4 mmol/L BUN 28 H (9-20) mg/dL Creatinine 1.34 H (0.66-1.25) mg/dL Est GFR (CKD-EPI)AfAm 58 (>60 ml/min/1.73 sqM) Est GFR (CKD-EPI)NonAf 50 (>60 ml/min/1.73 sqM) Glucose 119 H (74-99) mg/dL POC Glucose (mg/dL) (75-99) mg/dL POC Glu Spotlight Operator ID Calcium 9.4 (8.4-10.2) mg/dL Total Bilirubin 0.6 (0.2-1.3) mg/dL AST 46 (17-59) U/L ALT 18 (4-49) U/L Alkaline Phosphatase 75 (38-126) U/L Troponin I 0.041 H* (0.000-0.034) ng/mL Total Protein 6.1 L (6.3-8.2) g/dL Albumin 3.6 (3.5-5.0) g/dL Urine Color Urine Appearance (Clear) Urine pH (5.0-8.0) Ur Specific [place] (1.001-1.035) Urine Protein (Negative) Urine Glucose (UA) (Negative) Urine Ketones (Negative) Urine Blood (Negative) Urine Nitrite (Negative) Urine Bilirubin (Negative) Urine Urobilinogen (<2.0) mg/dL Ur Leukocyte Esterase (Negative) Urine RBC (0-5) /hpf Urine WBC (0-5) /hpf Ur Squamous Epith Cells (0-4) /hpf Urine Bacteria (None) /hpf Coronavirus (PCR) Not Detected (Not Detectd) 10/31/21 Range/Units 17:32 WBC (3.8-10.6) k/uL RBC (4.30-5.90) m/uL Hgb (13.0-17.5) gm/dL Hct (39.0-53.0) % MCV (80.0-100.0) fL MCH (25.0-35.0) pg MCHC (31.0-37.0) g/dL RDW (11.5-15.5) % Plt Count (150-450) k/uL MPV Neutrophils % % Lymphocytes % % Monocytes % % Eosinophils % % Basophils % % Neutrophils # (1.3-7.7) k/uL Lymphocytes # (1.0-4.8) k/uL Monocytes # (0-1.0) k/uL Eosinophils # (0-0.7) k/uL Basophils # (0-0.2) k/uL Hypochromasia PT (9.0-12.0) sec INR (<1.2) APTT (22.0-30.0) sec Sodium (137-145) mmol/L Potassium (3.5-5.1) mmol/L Chloride (98-107) mmol/L Carbon Dioxide (22-30) mmol/L Anion Gap mmol/L BUN (9-20) mg/dL Creatinine (0.66-1.25) mg/dL Est GFR (CKD-EPI)AfAm (>60 ml/min/1.73 sqM) Est GFR (CKD-EPI)NonAf (>60 ml/min/1.73 sqM) Glucose (74-99) mg/dL POC Glucose (mg/dL) (75-99) mg/dL POC Glu Spotlight Operator ID Calcium (8.4-10.2) mg/dL Total Bilirubin (0.2-1.3) mg/dL AST (17-59) U/L ALT (4-49) U/L Alkaline Phosphatase (38-126) U/L Troponin I (0.000-0.034) ng/mL Total Protein (6.3-8.2) g/dL Albumin (3.5-5.0) g/dL Urine Color Light Yellow Urine Appearance Clear (Clear) Urine pH 5.5 (5.0-8.0) Ur Specific [place] 1.005 (1.001-1.035) Urine Protein Negative (Negative) Urine Glucose (UA) Negative (Negative) Urine Ketones Negative (Negative) Urine Blood Moderate H (Negative) Urine Nitrite Negative (Negative) Urine Bilirubin Negative (Negative) Urine Urobilinogen <2.0 (<2.0) mg/dL Ur Leukocyte Esterase Negative (Negative) Urine RBC 1 (0-5) /hpf Urine WBC 2 (0-5) /hpf Ur Squamous Epith Cells <1 (0-4) /hpf Urine Bacteria Rare H (None) /hpf Coronavirus (PCR) (Not Detectd) - Radiology Data Radiology results: report reviewed, image reviewed CT brain without contrast was obtained. Report is reviewed in its entirety. Impression by Dr. Park shows no acute intracranial process. Remote lacunar injury of the right long with nonspecific white matter changes likely secondary to chronic microangiopathy. Two-view x-ray of the chest is obtained. Report is reviewed in its entirety. Impression by Dr. Park shows basilar atelectasis without acute cardiopulmonary disease or/process. No significant change from prior. Disposition Clinical Impression: Altered mental status, Acute kidney injury, Elevated troponin, Tremor Disposition: ADMITTED IP TO THIS [facility] Condition: Serious Decision to Admit Reason: Admit from EC Decision Date: 10/31/21 Decision Time: 20:36
[2021-10-31] MEDS ORDERED: NALOXONE 0.4 MG/ML 1 ML VIAL IV PRN (20:37)
[2021-10-31] MEDS: SODIUM CHLORIDE 0.9% 1,000 ML IV SCH (21:13)
--- NOTE | 2021-10-31 21:24 | P.HPIM ---
History of Present Illness H&P Date: 10/31/21 Chief Complaint: confusion 80 year old male with CAD , DM, Hypertension Patient is a resident of [facility], due to progressive weakness after bilateral lower extremity BKA amputation and unavailability of caregiver at home. Patient has been a resident there for the past 3 months Yesterday he was having an episode of altered mental status and was taken to [facility] where he was found to have hypoglycemia sugar was replaced and he was sent back to medical [place]. However today he was having another episode of altered mental status with confusion and patient just continuously babbling about random things that doesn't make sense for which family was contacted and patient was brought into or facility for evaluation. No report of fevers or chills no report of chest pain or shortness of breath no coughing no nausea vomiting or changes in bowel habits no changes in his medications. Patient unable to provide any meaningful history history obtained by talking to the daughter is at bedside. Workup in the ED CT scan of the brain no acute pathology, blood work showed acute kidney injury and slightly elevated troponin is 0.042 Urinalysis was negative chest x-ray no acute pathology Patient admitted for monitoring and neurology evaluation Review of Systems ROS unobtainable: due to mental status Past Medical History Past Medical History: Coronary Artery Disease (CAD), Chest Pain / Angina, COPD, Diabetes Mellitus, Hyperlipidemia, Hypertension, Memory Impairment, Pneumonia, Vascular Disorder Additional Past Medical History / Comment(s): IDDM type II, pt and spouse deny pt ever having had a [place], PAD, bilateral BKAs, acute hypoxic respiratory failure/vented in past, bilateral bleeds behind eyes/poor vision, falls. Last Myocardial Infarction Date:: 2010 History of Any Multi-Drug Resistant Organisms: None Reported Past Surgical History: Coronary Bypass/CABG, Heart Catheterization With Stent, Orthopedic Surgery, Tonsillectomy Additional Past Surgical History / Comment(s): Several cardiac caths, PCIs with stents, 2000 CABG with 2 vessels, arch studies/run offs, aortagrams, peripheral stents, L fem-fem bypass, L fem-pop bypass, bilateral BKA, bilateral caratid endartectomies, bilateral cataract removals, laser surgery bilaterally d/t bleeds behind eyes. Past Anesthesia/Blood Transfusion Reactions: No Reported Reaction Additional Past Anesthesia/Blood Transfusion Reaction / Comment(s): clausterphobia Date of Last Stent Placement:: 2010 Past Psychological History: Anxiety Smoking Status: Never smoker Past Alcohol Use History: None Reported Past Drug Use History: None Reported - Past Family History Father Family Medical History: Diabetes Mellitus Additional Family Medical History / Comment(s): heart problems Mother Family Medical History: Diabetes Mellitus Additional Family Medical History / Comment(s): heart problems Medications and Allergies Home Medications Medication Instructions Recorded Confirmed Type Isosorbide Mononitrate [Isosorbide 30 mg PO DAILY@0800 01/25/16 10/31/21 History Mononitrate ER] Pravastatin Sodium [Pravachol] 10 mg PO HS@199903/18/19 10/31/21 History HYDROcodone/APAP 7.5-325MG [[place] 1 tab PO BID@08,199908/10/20 10/31/21 History 7.5-325] ALPRAZolam [Xanax] 1 mg PO HS@1999 PRN 10/25/20 10/31/21 History Donepezil HCl [Aricept] 5 mg PO HS@199910/25/20 10/31/21 History Lisinopril [Prinivil] 10 mg PO DAILY@0800 10/25/20 10/31/21 History Aspirin EC [Ecotrin Low Dose] 81 mg PO DAILY@0800 10/31/21 10/31/21 History Insulin NPH/Reg Insulin 70/30 22 unit SQ BID@0800,199910/31/21 10/31/21 History [humuLIN 70/30 VIAL] Lidocaine 5% Patch [Lidoderm] 1 patch TOPICAL HS@199910/31/21 10/31/21 History Multivitamins, Thera [Multivitamin 1 tab PO DAILY@0800 10/31/21 10/31/21 History (formulary)] buPROPion HCL [Wellbutrin SR] 100 mg PO BID@0800,199910/31/21 10/31/21 History carvediloL [Coreg] 6.25 mg PO BID@0800,199910/31/21 10/31/21 History Allergies Allergy/AdvReac Type Severity Reaction Status Date / Time Penicillins Allergy Unknown Verified 10/31/21 18:21 Childhood pregabalin [From Lyrica] Allergy Rapid Verified 10/31/21 18:21 Heart Rate Physical Exam Vitals: Vital Signs Temp Pulse Resp BP Pulse Ox 10/31/21 18:57 55 L 18 97 10/31/21 17:29 52 L 16 147/91 95 10/31/21 16:59 98.0 F 53 L 18 141/50 97 Intake and Output 10/31/21 10/31/21 10/31/21 06:59 14:59 22:59 Other: Weight 81.647 kg Constitutional: No acute distress, conversant, pleasant, follows commands cooperative Eyes: Anicteric sclerae, moist conjunctiva, Pupils equal round reactive to light ENMT: NC/AT Oropharynx clear, no erythema, or exudates Neck: Supple, no masses, or JVD No carotid bruits No thyromegaly Lungs: Clear to auscultation Clear to percussion Normal respiratory effort, no accessory muscle use Cardiovascular: Heart regular in rate and rhythm, No murmurs, gallops, or rubs No peripheral edema Abdominal: Soft Nontender, no guarding, rebound or rigidity Abdomen moving with respiration Normoactive bowel sounds No hepatomegaly, No splenomegaly No palpable mass No abdominal wall hernia noted Skin: Normal temperature, tone, texture, turgor No induration No subcutaneous nodules No rash, lesions No ulcers Extremities: Bilateral BKA No digital cyanosis No clubbing Radial pulses intact and symmetrical Psychiatric: Alert and oriented to person only Neuro Muscles Strength 4/5 bilateral upper extremities, 3/5 in bilateral lower extremities Sensation to light touch grossly present throughout Cranial nerves II-XII grossly intact Lymphatics: no palpable cervical or supraclavicular , or inguinal lymph nodes Results CBC & Chem 7: 10/31/21 17:20 10/31/21 17:20 Labs: Abnormal Lab Results - Last 24 Hours (Table) 10/31/21 10/31/21 10/31/21 Range/Units 17:11 17:20 17:20 WBC 11.0 H (3.8-10.6) k/uL RBC 4.25 L (4.30-5.90) m/uL Hgb 12.1 L (13.0-17.5) gm/dL MCHC 30.5 L (31.0-37.0) g/dL Neutrophils # 7.9 H (1.3-7.7) k/uL APTT 21.5 L (22.0-30.0) sec BUN (9-20) mg/dL Creatinine (0.66-1.25) mg/dL Glucose (74-99) mg/dL POC Glucose (mg/dL) 111 H (75-99) mg/dL Troponin I (0.000-0.034) ng/mL Total Protein (6.3-8.2) g/dL Urine Blood (Negative) Urine Bacteria (None) /hpf 10/31/21 10/31/21 10/31/21 Range/Units 17:20 17:20 17:32 WBC (3.8-10.6) k/uL RBC (4.30-5.90) m/uL Hgb (13.0-17.5) gm/dL MCHC (31.0-37.0) g/dL Neutrophils # (1.3-7.7) k/uL APTT (22.0-30.0) sec BUN 28 H (9-20) mg/dL Creatinine 1.34 H (0.66-1.25) mg/dL Glucose 119 H (74-99) mg/dL POC Glucose (mg/dL) (75-99) mg/dL Troponin I 0.041 H* (0.000-0.034) ng/mL Total Protein 6.1 L (6.3-8.2) g/dL Urine Blood Moderate H (Negative) Urine Bacteria Rare H (None) /hpf Assessment and Plan Assessment: Altered mental status with confusion Rule out vascular dementia versus underlying infectious process Slightly elevated troponin no reports of chest pain, EKG no acute changes compared to prior patient has persistent old lateral leads T wave inversion Neurochecks Neurology consult, consider MRI of the brain if no improvement mental status Trend troponins Supportive care IV fluid hydration Monitor vital signs Fall precautions Cardiac telemetry Continue cardiac meds Slightly elevated white count No fevers No identifiable focus of infection, chest x-ray no acute pathology, UA unremarkable, Covid negative Follow-up cultures Chronic conditions Diabetes mellitus, insulin sliding scale Hypertension resume blood pressure meds History of CAD status post CABG, carotid endarterectomy, continue cardiac meds Patient is full code DVT prophylaxis heparin subcu 3 times a day Anticipated length of stay less than 2 midnights
[2021-10-31 22:18] LABS: Glucose,Whole Blood 118 mg/dL (75-99)
[2021-10-31] MEDS: INSULIN ASPART (NovoLOG) 100 UNIT/ML VIAL SQ SCH (23:10)
[2021-10-31] MEDS: PRAVASTATIN SODIUM 20 MG TAB PO SCH (23:14)
[2021-10-31] MEDS: carvediloL 6.25 MG TAB PO SCH (23:14)
[2021-10-31] MEDS: HEPARIN SODIUM,PORCINE/PF 5,000 UNIT/0.5 ML SYRINGE SQ SCH (23:14)
[2021-10-31] MEDS: DONEPEZIL 5 MG TAB PO SCH (23:14)
[2021-10-31] MEDS: buPROPion SR 100 MG TABLET.ER PO SCH (23:14)
[2021-11-01 06:08] LABS: Glucose,Whole Blood 149 mg/dL (75-99)
[2021-11-01] MEDS: INSULIN ASPART (NovoLOG) 100 UNIT/ML VIAL SQ SCH ×4 (06:26→20:55)
[2021-11-01] MEDS: HYDROcodone/APAP 7.5-325MG 1 EACH TAB PO PRN (06:41)
[2021-11-01] MEDS ORDERED: lisinopriL 10 MG TAB PO SCH (08:00)
[2021-11-01] MEDS: ASPIRIN 81 MG PO SCH (09:02)
[2021-11-01] MEDS: ISOSORBIDE MONONITRATE ER 30 MG TAB.ER.24H PO SCH (09:02)
[2021-11-01] MEDS: HEPARIN SODIUM,PORCINE/PF 5,000 UNIT/0.5 ML SYRINGE SQ SCH ×3 (09:02→23:08)
[2021-11-01] MEDS: buPROPion SR 100 MG TABLET.ER PO SCH ×2 (09:02→20:55)
[2021-11-01] MEDS: carvediloL 6.25 MG TAB PO SCH ×2 (09:03→20:55)
--- NOTE | 2021-11-01 12:19 | P.PN ---
Subjective Progress Note Date: 11/01/21 Principal diagnosis: Altered mental status with confusion We'll admit the patient and will check MRI of the brain Rule out vascular dementia versus underlying infectious process Slightly elevated troponin no reports of chest pain, EKG no acute changes compared to prior patient has persistent old lateral leads T wave inversion Neurochecks Neurology consult, consider MRI of the brain if no improvement mental status Trend troponins Supportive care IV fluid hydration Monitor vital signs Fall precautions Cardiac telemetry Continue cardiac meds Slightly elevated white count No fevers No identifiable focus of infection, chest x-ray no acute pathology, UA unremarkable, Covid negative Follow-up cultures Chronic conditions Diabetes mellitus, insulin sliding scale Hypertension resume blood pressure meds History of CAD status post CABG, carotid endarterectomy, continue cardiac meds Patient is full code DVT prophylaxis heparin subcu 3 times a day Anticipated length of stay less than 2 midnights Patient continues to be confused continued to be weak Constitutional: No acute distress, conversant, pleasant confused Eyes: Anicteric sclerae, moist conjunctiva, no lid-lag PERRLA ENMT: NC/AT Oropharynx clear, no erythema, exudates Neck: Supple, FROM, no masses, or JVD No carotid bruits No thyromegaly Lungs: Clear to auscultation Clear to percussion Normal respiratory effort, no accessory muscle use Cardiovascular: Heart regular in rate and rhythm, No murmurs, gallops, or rubs No peripheral edema Abdominal: Soft Nontender, no guarding, rebound or rigidity Abdomen moving with respiration Normoactive bowel sounds No hepatomegaly, No splenomegaly No palpable mass No abdominal wall hernia noted Skin: Normal temperature, tone, texture, turgor No induration No subcutaneous nodules No rash, lesions No ulcers Extremities: No digital cyanosis No clubbing Pedal pulses intact and symmetrical Radial pulses intact and symmetrical Normal gait and station No calf tenderness Psychiatric:Alert and oriented to person, place and time Appropriate affect Intact judgement Neuro: Muscles Strength 5/5 in all 4 extremities Sensation to light touch grossly present throughout Cranial nerves II-XII grossly intact No focal sensory deficits Objective - Vital Signs Vital signs: Vital Signs Temp 98.0 F 11/01/21 08:10 Pulse 67 11/01/21 08:10 Resp 19 11/01/21 08:10 BP 195/72 11/01/21 08:10 Pulse Ox 95 11/01/21 08:10 Intake & Output 10/31/21 11/01/21 11/01/21 18:59 06:59 18:59 Intake Total 480 Balance 480 Weight 81.647 kg 81.647 kg Intake: Oral 480 Other: Voiding Method Diaper Diaper # Voids 2 # Bowel Movements 1 - Labs CBC & Chem 7: 10/31/21 17:20 10/31/21 17:20 Labs: Abnormal Lab Results - Last 24 Hours (Table) 10/31/21 10/31/21 10/31/21 Range/Units 17:11 17:20 17:20 WBC 11.0 H (3.8-10.6) k/uL RBC 4.25 L (4.30-5.90) m/uL Hgb 12.1 L (13.0-17.5) gm/dL MCHC 30.5 L (31.0-37.0) g/dL Neutrophils # 7.9 H (1.3-7.7) k/uL APTT 21.5 L (22.0-30.0) sec BUN (9-20) mg/dL Creatinine (0.66-1.25) mg/dL Glucose (74-99) mg/dL POC Glucose (mg/dL) 111 H (75-99) mg/dL Troponin I (0.000-0.034) ng/mL Total Protein (6.3-8.2) g/dL Urine Blood (Negative) Urine Bacteria (None) /hpf 10/31/21 10/31/21 10/31/21 Range/Units 17:20 17:20 17:32 WBC (3.8-10.6) k/uL RBC (4.30-5.90) m/uL Hgb (13.0-17.5) gm/dL MCHC (31.0-37.0) g/dL Neutrophils # (1.3-7.7) k/uL APTT (22.0-30.0) sec BUN 28 H (9-20) mg/dL Creatinine 1.34 H (0.66-1.25) mg/dL Glucose 119 H (74-99) mg/dL POC Glucose (mg/dL) (75-99) mg/dL Troponin I 0.041 H* (0.000-0.034) ng/mL Total Protein 6.1 L (6.3-8.2) g/dL Urine Blood Moderate H (Negative) Urine Bacteria Rare H (None) /hpf 10/31/21 10/31/21 10/31/21 Range/Units 20:56 22:17 23:57 WBC (3.8-10.6) k/uL RBC (4.30-5.90) m/uL Hgb (13.0-17.5) gm/dL MCHC (31.0-37.0) g/dL Neutrophils # (1.3-7.7) k/uL APTT (22.0-30.0) sec BUN (9-20) mg/dL Creatinine (0.66-1.25) mg/dL Glucose (74-99) mg/dL POC Glucose (mg/dL) 118 H (75-99) mg/dL Troponin I 0.041 H* 0.043 H* (0.000-0.034) ng/mL Total Protein (6.3-8.2) g/dL Urine Blood (Negative) Urine Bacteria (None) /hpf 11/01/21 Range/Units 06:07 WBC (3.8-10.6) k/uL RBC (4.30-5.90) m/uL Hgb (13.0-17.5) gm/dL MCHC (31.0-37.0) g/dL Neutrophils # (1.3-7.7) k/uL APTT (22.0-30.0) sec BUN (9-20) mg/dL Creatinine (0.66-1.25) mg/dL Glucose (74-99) mg/dL POC Glucose (mg/dL) 149 H (75-99) mg/dL Troponin I (0.000-0.034) ng/mL Total Protein (6.3-8.2) g/dL Urine Blood (Negative) Urine Bacteria (None) /hpf
[2021-11-01 12:25] LABS: Glucose,Whole Blood 237 mg/dL (75-99)
[2021-11-01] MEDS: SODIUM CHLORIDE 0.9% 1,000 ML IV SCH ×2 (12:53→20:55)
[2021-11-01 16:54] LABS: Glucose,Whole Blood 226 mg/dL (75-99)
--- NOTE | 2021-11-01 17:27 | P.CNNES ---
History of Present Illness Consult date: 11/01/21 Requesting physician: Sobia Ceballos Reason for Consult: Left arm tremor; altered mental status History of Present Illness: Patient is a 80-year-old male came to the hospital by ambulance yesterday at 4:53 PM. Patient lives at [facility]. As per EMS flow sheet, when they arrived, found an 80-year-old male laying in the bed. Patient was unresponsive to verbal or tactile stimuli. Patient began responding after EMS opened his eyelids to assess pupils. Patient began answering questions however was confused. Patient answers often did not related to questions. Staff had reported that patient had an altered mental status since the morning at 7 AM. He was not acting right. Patient was sent to [facility] and was found to be hypoglycemic with blood sugar 54 this morning. Patient's blood glucose was brought up and patient was able to eat while at the [facility] and patient was sent back to the [facility]. Because of persistent abnormal mental status, the staff wanted patient to be transferred to [facility]. Patient at normal is alert and oriented 4. Normally he is able to get up and shaves and engage in his own care. Patient was noted to have some uncontrolled jerking movement that were not normal. Patient's blood glucose at the scene was 154 this time. Patient was found to be bradycardic and hypotensive. IV access was unsuccessful. In route to the hospital patient's mental status improved. Patient was answering questions however he remained confused. Patient denied any nausea chest pain or difficulty breathing. P atient complaining of feeling weak and tiredness. Patient's blood pressure was 83/53, pulse rate 55 respiration 18 saturation 97%. Repeat blood pressure 96/53, then 89/51 and then went down to 63/37. On arrival to the ER, blood pressure was finally 141/50 and pulse rate of 53. CT head showed no acute intracranial process. Remote lacunar injury of the right sylvia along with nonspecific white matter changes likely secondary to chronic microangiopathy. EKG shows sinus bradycardia with marked sinus arrhythmia. Septal infarct, age indeterminate. ST and T-wave abnormality, consider inferior lateral ischemia. Chest x-ray showed basilar atelectasis without acute cardiopulmonary disease/process. No significant change from prior. Patient's daughter Faith was present in the room when I saw the patient today. Patient's other daughter Tanner was also on the phone. It appears that patient was having significant jerking, appears like myoclonic jerks, uncomfortable shakes, occurring about 30 seconds at a time for hours. Patient's daughter states that when he would try to talk, whole head and shoulders starts jerking candidate for good 2 hours on and off. Patient's daughter believes that it started at around 3 PM and continued until she left to her home at 10:30 PM. However this morning, all these shakes and tremors have resolved. Patient's daughter also mentioned that he has been very confused when she came to see him in the ER yesterday, he was hyperverbal, was talking continuously for the whole time that she was with him in his hospital room last night until 10:30 PM. He would not make sense, very confused, and in between he would have those "convulsions" really bad. However as the night progressed, we did became less and less until has gone this morning. He is still delusional, as patient is stating that his son by committing suicide, shot himself. He used to do drugs and alcohol. Patient's daughter Faith mentions that her brother of [place], did not commit suicide. He was hallucinating last night, seeing someone up on the ceiling. Patient's daughter also mentions that about 3 months ago he fell, broke his back and then went to rehab. Patient has been seen by myself on 03/19/2019. Patient has suffered from a fall due to rolling over from bed, hitting head on the dresser. Patient has acute delirium at that time. There was some concern about underlying dementia, therefore Aricept was started. Patient has history of bilateral below-knee amputation, hypertension and dyslipidemia. Patient had an EEG performed at that time, which was intermittent background slowing, suggestive of encephalopathy. Carotid Doppler at that time showed moderate atherosclerotic changes without hemodynamically significant stenosis. Ammonia was normal B12 416, folate 13.4, vitamin B1 was normal. Hemoglobin A1c 8.4 on 03/18/2019. Patient has history of smoking 1 pack per day for 40 years, quit 15-20 years ago. Patient has history of diabetes since early 50s. He had undergone bilateral below-knee amputation one year apart at age 70 and 71. He has 8 stents in the body. Review of Systems As mentioned in detail in HPI. Patient denies any problem with the vision, hoarseness, sore throat, dysphagia. Denies any chest pain, abdominal pain, nausea vomiting diarrhea. Denies any double vision. No fever or chills. No rash. Neurological as above. Past Medical History Past Medical History: Coronary Artery Disease (CAD), Chest Pain / Angina, COPD, Diabetes Mellitus, Hyperlipidemia, Hypertension, Memory Impairment, Pneumonia, Vascular Disorder Additional Past Medical History / Comment(s): IDDM type II, pt and spouse deny pt ever having had a [place], PAD, bilateral BKAs, acute hypoxic respiratory failure/vented in past, bilateral bleeds behind eyes/poor vision, falls. Last Myocardial Infarction Date:: 2010 History of Any Multi-Drug Resistant Organisms: None Reported Past Surgical History: Coronary Bypass/CABG, Heart Catheterization With Stent, Orthopedic Surgery, Tonsillectomy Additional Past Surgical History / Comment(s): Several cardiac caths, PCIs with stents, 1999 CABG with 2 vessels, arch studies/run offs, aortagrams, peripheral stents, L fem-fem bypass, L fem-pop bypass, bilateral BKA, bilateral caratid endartectomies, bilateral cataract removals, laser surgery bilaterally d/t bleeds behind eyes. Past Anesthesia/Blood Transfusion Reactions: No Reported Reaction Additional Past Anesthesia/Blood Transfusion Reaction / Comment(s): clausterphobia Date of Last Stent Placement:: 2010 Past Psychological History: Anxiety Smoking Status: Never smoker Past Alcohol Use History: None Reported Past Drug Use History: None Reported - Past Family History Father Family Medical History: Diabetes Mellitus Additional Family Medical History / Comment(s): heart problems Mother Family Medical History: Diabetes Mellitus Additional Family Medical History / Comment(s): heart problems Medications and Allergies Home Medications Medication Instructions Recorded Confirmed Type Isosorbide Mononitrate [Isosorbide 30 mg PO DAILY@79901/25/16 10/31/21 History Mononitrate ER] Pravastatin Sodium [Pravachol] 10 mg PO HS@199903/18/19 10/31/21 History HYDROcodone/APAP 7.5-325MG [Jenera 1 tab PO BID@08,199908/10/20 10/31/21 History 7.5-325] ALPRAZolam [Xanax] 1 mg PO HS@1999 PRN 10/25/20 10/31/21 History Donepezil HCl [Aricept] 5 mg PO HS@199910/25/20 10/31/21 History Lisinopril [Prinivil] 10 mg PO DAILY@0800 10/25/20 10/31/21 History Aspirin EC [Ecotrin Low Dose] 81 mg PO DAILY@0800 10/31/21 10/31/21 History Insulin NPH/Reg Insulin 70/30 22 unit SQ BID@0800,199910/31/21 10/31/21 History [humuLIN 70/30 VIAL] Lidocaine 5% Patch [Lidoderm] 1 patch TOPICAL HS@199910/31/21 10/31/21 History Multivitamins, Thera [Multivitamin 1 tab PO DAILY@0800 10/31/21 10/31/21 History (formulary)] buPROPion HCL [Wellbutrin SR] 100 mg PO BID@0800,199910/31/21 10/31/21 History carvediloL [Coreg] 6.25 mg PO BID@0800,199910/31/21 10/31/21 History Allergies Allergy/AdvReac Type Severity Reaction Status Date / Time Penicillins Allergy Unknown Verified 10/31/21 18:21 Childhood pregabalin [From Lyrica] Allergy Rapid Verified 10/31/21 18:21 Heart Rate Physical Examination - Vital Signs Vital Signs: Vital Signs Temp Pulse Pulse Resp BP BP Pulse Ox 11/01/21 03:00 98.3 F 63 18 174/81 95 11/01/21 01:45 64 11/01/21 00:00 64 18 158/63 95 10/31/21 22:00 64 10/31/21 21:09 97.7 F 60 18 90/63 96 10/31/21 18:57 55 L 18 97 10/31/21 17:29 52 L 16 147/91 95 10/31/21 16:59 98.0 F 53 L 18 141/50 97 Intake and Output 10/31/21 11/01/21 11/01/21 22:59 06:59 14:59 Intake Total 480 Balance 480 Intake: Oral 480 Other: Voiding Method Diaper Diaper # Voids 2 # Bowel Movements 1 Weight 81.647 kg Patient is an elderly male, in no acute distress. Patient is alert awake. He states it is October and the year is 2001. He knows it is in [facility] in the hospital. When I asked name of the president, patient states "Ar", however when I gave him some choices, he was able to pick Mr. Choe. Speech and language functions are normal. Patient can name and repeat very well. No aphasia or dysarthria. Attention, concentration and fund of knowledge is limited. Patient is slightly delusional, stating that his son of suicide, although he from [place]. On cranial examination, pupils are equal, round and reacting to light, he appears slightly photophobic. His visual wilson are full on confrontation, extraocular muscles are intact with no nystagmus. Face is symmetric, tongue protrudes to the midline. Palatal elevation and sensation normal, hearing is slightly decreased and shoulder shrug normal, facial sensation normal. Shoulder shrug normal. On muscle strength testing, there is no pronator drift and the strength is normal in arms distally and proximally. Patient has bilateral below-knee amputation. Hip flexion was 4+ bilaterally. Deep tendon reflexes are hypoactive. Plantars cannot be checked. Sensory to touch is equal with no neglect. Cerebellar function showed no ataxia for [id number] testing. No dysdiadochokinesia. Tone and bulk of muscles normal. Gait not checked. On general examination, there is no carotid bruit. Patient has mild murmur. S1-S2 audible. Abdomen is soft nontender. Bowel sounds present, no organomegaly. Chest is clear. Patient has bilateral below-knee amputation. Results - Laboratory Findings CBC and BMP: 10/31/21 17:20 10/31/21 17:20 Abnormal Lab Findings: Abnormal Labs 10/31/21 10/31/21 10/31/21 17:11 17:20 17:20 WBC 11.0 H RBC 4.25 L Hgb 12.1 L MCHC 30.5 L Neutrophils # 7.9 H APTT 21.5 L BUN Creatinine Glucose POC Glucose (mg/dL) 111 H Troponin I Total Protein Urine Blood Urine Bacteria 10/31/21 10/31/21 10/31/21 17:20 17:20 17:32 WBC RBC Hgb MCHC Neutrophils # APTT BUN 28 H Creatinine 1.34 H Glucose 119 H POC Glucose (mg/dL) Troponin I 0.041 H* Total Protein 6.1 L Urine Blood Moderate H Urine Bacteria Rare H 10/31/21 10/31/21 10/31/21 20:56 22:17 23:57 WBC RBC Hgb MCHC Neutrophils # APTT BUN Creatinine Glucose POC Glucose (mg/dL) 118 H Troponin I 0.041 H* 0.043 H* Total Protein Urine Blood Urine Bacteria 11/01/21 06:07 WBC RBC Hgb MCHC Neutrophils # APTT BUN Creatinine Glucose POC Glucose (mg/dL) 149 H Troponin I Total Protein Urine Blood Urine Bacteria Assessment and Plan Assessment: * Altered mental status, probably due to metabolic encephalopathy. Patient had an earlier episode of hypoglycemia with blood sugar 54, for which he was evaluated at [facility], observed and discharged back to the senior living same day. Patient has persistent altered mental status and subsequently developed myoclonic jerking therefore brought to [facility]. Patient was significantly hypotensive at the scene and also has UTI, likely the cause of metabolic encephalopathy. Patient has multiple vascular risk factors, therefore TIA also the differential. * Chronic low back pain. History of L1 compression fracture. * Diabetes, not well controlled * History of bilateral below-knee amputation. * Hypertension * Dyslipidemia Plan: * Patient will undergo stroke TIA workup. * MRI of the brain rule out CVA. * Prevention of further episodes of hypoglycemia, treatment of hypotension and ?UTI as per IM. * Hemoglobin A1c, fasting lipid panel. * Carotid Doppler, 2-D echo * Continue aspirin 81 mg daily and Pravachol for now. * Discussed with patient's family in detail. * Thank you for the consult.
[2021-11-01 20:23] LABS: Glucose,Whole Blood 232 mg/dL (75-99)
[2021-11-01] MEDS: DONEPEZIL 5 MG TAB PO SCH (20:55)
[2021-11-01] MEDS: PRAVASTATIN SODIUM 20 MG TAB PO SCH (20:55)
[2021-11-01] MEDS: LIDOCAINE 5% PATCH TOPICAL SCH (21:05)
[2021-11-02] MEDS ORDERED: cloNIDine HCL 0.2 MG TAB PO STA (00:05)
--- NOTE | 2021-11-02 02:39 | US ---
EXAMINATION TYPE: US carotid duplex BILAT DATE OF EXAM: 11/02/2021 COMPARISON: US, CT CLINICAL HISTORY: TIA. TIA per order. Previous smoker. Diabetes and previous bilateral endarterectomy per last report. EXAM MEASUREMENTS: RIGHT: Peak Systolic Velocity (PSV) cm/sec ----- Right CCA: 86.6 ----- Right ICA: 88.1 ----- Right ECA: 88.6 ICA/CCA ratio: 1.0 RIGHT: End Diastole cm/sec ----- Right CCA: 0.0 ----- Right ICA: 0.0 ----- Right ECA: 0.0 LEFT: Peak Systolic Velocity (PSV) cm/sec ----- Left CCA: 112.4 ----- Left ICA: 119.5 ----- Left ECA: 105.2 ICA/CCA ratio: 1.1 LEFT: End Diastole cm/sec ----- Left CCA: 7.4 ----- Left ICA: 15.9 ----- Left ECA: 0.0 VERTEBRALS (direction of flow): Right Vertebral: Unable to visualize. Left Vertebral: Antegrade Rhythm: Arrhythmia Plaque seen right and left CCA and right and left bulb. Difficult to show left ECA color flow beyond prox segment. Exam is limited due to patient's limited neck mobility and heavy breathing. End diastolic velocities appear to be 0.0 cm/s for right CCA, bulb, prox-mid ICA, ECA, and left bulb, ECA, and vertebral arteries. IMPRESSION: We could not demonstrate flow in the right vertebral artery. This could be occluded. Exam was technically limited. There is decreased diastolic flow within the right and left internal ca rotid arteries and common carotid arteries that is suggestive of hemodynamic stenosis. More than 70%. Criteria for Assigning % of Stenosis / Diameter reduction (Estimation based on the indirect measurements of the internal carotid artery velocities (ICA PSV). 1. Normal (no stenosis)=ICA PSV < 125 cm/s: ratio < 2.0: ICA EDV<40 cm/s. 2. Less than 50% stenosis=ICA PSV < 125 cm/s: ratio < 2.0: ICA EDV<40 cm/s. 3. 50 to 69% stenosis=ICA PSV of 125 to 230 cm/s: ration 2.0 ? 4.0: ICA EDV 40-100 cm/s. 4. Greater than 70% stenosis to near occlusion= ICA PSV > 230 cm/s: ratio > 4.0: ICA EDV > 100 cm/s. 5. Near occlusion= ICA PSV velocities may be low or undetectable: variable ratio and ICA EDV. 6. Total occlusion=unable to detect flow.
[2021-11-02] MEDS: HYDROcodone/APAP 7.5-325MG 1 EACH TAB PO PRN (04:17)
[2021-11-02 05:47] LABS: Glucose,Whole Blood 220 mg/dL (75-99)
[2021-11-02] MEDS: INSULIN ASPART (NovoLOG) 100 UNIT/ML VIAL SQ SCH ×4 (06:12→21:42)
[2021-11-02 06:55] LABS: Basophils % (A) 0 %; Eosinophils # (A) 0.2 k/uL (0-0.7); Eosinophils % (A) 2 %; HCT 36.8 % (39.0-53.0); HGB 11.3 gm/dL (13.0-17.5); Hypochromasia Slight; Lymphocytes # (A) 1.7 k/uL (1.0-4.8); Lymphocytes % (A) 20 %; MCH 28.6 pg (25.0-35.0); MCHC 30.8 g/dL (31.0-37.0); MCV 92.7 fL (80.0-100.0); Mean Platelet Volume 8.4; Monocytes # (A) 0.5 k/uL (0-1.0); Monocytes % (A) 6 %; Neutrophils # (A) 5.9 k/uL (1.3-7.7); Neutrophils % (A) 69 %; Platelet Count 261 k/uL (150-450); RBC 3.97 m/uL (4.30-5.90); RDW 14.8 % (11.5-15.5); WBC 8.6 k/uL (3.8-10.6)
[2021-11-02 07:06] LABS: ALT 17 U/L (4-49); AST 39 U/L (17-59); African American GFR (CKD) >90 (>60 ml/min/1.73 sqM); Albumin 3.1 g/dL (3.5-5.0); Alkaline Phosphatase 71 U/L (38-126); Anion Gap 4 mmol/L; Blood Urea Nitrogen 19 mg/dL (9-20); Carbon Dioxide 27 mmol/L (22-30); Chloride 105 mmol/L (98-107); Glucose 222 mg/dL (74-99); Non-African American GFR(CKD) 82 (>60 ml/min/1.73 sqM); Potassium 4.5 mmol/L (3.5-5.1); Sodium 136 mmol/L (137-145); Total Bilirubin 0.5 mg/dL (0.2-1.3); Total Protein 5.5 g/dL (6.3-8.2)
--- NOTE | 2021-11-02 08:49 | P.PN ---
Subjective Progress Note Date: 11/02/21 Patient isn't hallucinating today Altered mental status with confusion We'll admit the patient and will check MRI of the brain Rule out vascular dementia versus underlying infectious process Slightly elevated troponin no reports of chest pain, EKG no acute changes compared to prior patient has persistent old lateral leads T wave inversion Patient continued to be confused and more hallucinating today Neurochecks Neurology consult, Trend troponins Supportive care IV fluid hydration Monitor vital signs Fall precautions Cardiac telemetry Continue cardiac meds Slightly elevated white count No fevers No identifiable focus of infection, chest x-ray no acute pathology, UA unremarkable, Covid negative Follow-up cultures Chronic conditions Diabetes mellitus, insulin sliding scale Hypertension resume blood pressure meds History of CAD status post CABG, carotid endarterectomy, continue cardiac meds Patient is full code DVT prophylaxis heparin subcu 3 times a day Anticipated length of stay less than 2 midnights Patient continues to be confused continued to be weak Constitutional: No acute distress, conversant, pleasant confused Eyes: Anicteric sclerae, moist conjunctiva, no lid-lag PERRLA ENMT: NC/AT Oropharynx clear, no erythema, exudates Neck: Supple, FROM, no masses, or JVD No carotid bruits No thyromegaly Lungs: Clear to auscultation Clear to percussion Normal respiratory effort, no accessory muscle use Cardiovascular: Heart regular in rate and rhythm, No murmurs, gallops, or rubs No peripheral edema Abdominal: Soft Nontender, no guarding, rebound or rigidity Abdomen moving with respiration Normoactive bowel sounds No hepatomegaly, No splenomegaly No palpable mass No abdominal wall hernia noted Skin: Normal temperature, tone, texture, turgor No induration No subcutaneous nodules No rash, lesions No ulcers Extremities: No digital cyanosis No clubbing Pedal pulses intact and symmetrical Radial pulses intact and symmetrical Normal gait and station No calf tenderness Psychiatric:Alert and oriented to person, place and time Appropriate affect Intact judgement Neuro: Muscles Strength 5/5 in all 4 extremities Sensation to light touch grossly present throughout Cranial nerves II-XII grossly intact No focal sensory deficits Objective - Vital Signs Vital signs: Vital Signs Temp 98.0 F 11/02/21 08:05 Pulse 59 L 11/02/21 08:05 Resp 18 11/02/21 08:05 BP 196/72 11/02/21 08:05 Pulse Ox 96 11/02/21 08:42 Intake & Output 11/01/21 11/02/21 11/02/21 18:59 06:59 18:59 Intake Total 598 Output Total 400 Balance 598 -400 Intake: Oral 598 Output: Urine 400 Other: Voiding Method Diaper Diaper # Voids 3 1 - Labs CBC & Chem 7: 11/02/21 06:09 11/02/21 06:09 Labs: Abnormal Lab Results - Last 24 Hours (Table) 10/31/21 11/01/21 11/01/21 Range/Units 17:20 12:09 16:53 RBC (4.30-5.90) m/uL Hgb (13.0-17.5) gm/dL Hct (39.0-53.0) % MCHC (31.0-37.0) g/dL Sodium (137-145) mmol/L Glucose (74-99) mg/dL POC Glucose (mg/dL) 237 H 226 H (75-99) mg/dL Hemoglobin A1c 9.6 H (0.0-6.0) % Total Protein (6.3-8.2) g/dL Albumin (3.5-5.0) g/dL 11/01/21 11/02/21 11/02/21 Range/Units 20:21 05:44 06:09 RBC 3.97 L (4.30-5.90) m/uL Hgb 11.3 L (13.0-17.5) gm/dL Hct 36.8 L (39.0-53.0) % MCHC 30.8 L (31.0-37.0) g/dL Sodium (137-145) mmol/L Glucose (74-99) mg/dL POC Glucose (mg/dL) 232 H 220 H (75-99) mg/dL Hemoglobin A1c (0.0-6.0) % Total Protein (6.3-8.2) g/dL Albumin (3.5-5.0) g/dL 11/02/21 Range/Units 06:09 RBC (4.30-5.90) m/uL Hgb (13.0-17.5) gm/dL Hct (39.0-53.0) % MCHC (31.0-37.0) g/dL Sodium 136 L (137-145) mmol/L Glucose 222 H (74-99) mg/dL POC Glucose (mg/dL) (75-99) mg/dL Hemoglobin A1c (0.0-6.0) % Total Protein 5.5 L (6.3-8.2) g/dL Albumin 3.1 L (3.5-5.0) g/dL Microbiology - Last 24 Hours (Table) 10/31/21 21:37 Blood Culture - Preliminary Blood No Growth after 24 hours
[2021-11-02] MEDS: ISOSORBIDE MONONITRATE ER 30 MG TAB.ER.24H PO SCH (09:42)
[2021-11-02] MEDS: ASPIRIN 81 MG PO SCH (09:42)
[2021-11-02] MEDS: HEPARIN SODIUM,PORCINE/PF 5,000 UNIT/0.5 ML SYRINGE SQ SCH ×3 (09:42→23:36)
[2021-11-02] MEDS: CLOPIDOGREL 75 MG TAB PO SCH (09:42)
[2021-11-02] MEDS: carvediloL 6.25 MG TAB PO SCH ×2 (10:43→21:43)
[2021-11-02] MEDS ORDERED: LORazepam 2 MG/ML INJ IV STA (11:05)
[2021-11-02 11:12] LABS: Chol/HDL Ratio 2.98 Ratio; LDL Cholesterol,Calculated 72.3 mg/dL (0.0-131.0)
[2021-11-02 11:38] LABS: Glucose,Whole Blood 214 mg/dL (75-99)
[2021-11-02] MEDS: NIFEdipine XL 30 MG TAB.ER.24 PO SCH (11:53)
[2021-11-02] MEDS: buPROPion SR 100 MG TABLET.ER PO SCH ×2 (11:54→22:19)
--- NOTE | 2021-11-02 14:35 | ECHOF ---
Referral Reason:TIA MEASUREMENTS -------- HEIGHT: 165.1 cm WEIGHT: 81.6 kg BP: 166/57 IVSd: 1.5 cm (0.6 - 1.1) LVIDd: 4.9 cm (3.9 - 5.3) LVPWd: 1.5 cm (0.6 - 1.1) EDV(Teich): 112 ml IVSs: 2.0 cm LVIDs: 3.0 cm LVPWs: 1.7 cm %IVS Thck: 34 % ESV(Teich): 36 ml EF(Teich): 68 % %FS: 38 % SV(Teich): 76 ml LA Diam: 3.4 cm (2.7 - 3.8) RVIDd: 2.3 cm (< 3.3) LALs A4C: 6.4 cm LAAs A4C: 23.1 cm LAESV A-L A4C: 71 ml LAESV MOD A4C: 69 ml LALs A2C: 5.0 cm LAAs A2C: 17.1 cm LAESV A-L A2C: 50 ml LAESV MOD A2C: 47 ml LAESV(A-L): 68 ml LAESV Index (A-L): 35.80 ml/m Ao Diam: 3.1 cm (2.0 - 3.7) AV Cusp: 1.5 cm (1.5 - 2.6) EPSS: 1.5 cm MV E Arash: 1.17 m/s MV DecT: 246 ms MV Dec Crook: 4.8 m/s MV A Arash: 1.02 m/s MV E/A Ratio: 1.15 MV PHT: 71 ms AV Vmax: 1.42 m/s AV maxP.10 mmHg TR Vmax: 2.65 m/s TR maxP.11 mmHg RAP: 5.00 mmHg RVSP: 33.11 mmHg MV EF SLOPE: 35.98 mm/s (70 - 150) MV EXCURSION: 18.39 mm (> 18.000) FINDINGS -------- This was a technically adequate study. The left ventricular size is normal. There is moderate concentric left ventricular hypertrophy. O verall left ventricular systolic function is normal with, an EF between 55 - 60 %. The right ventricle is normal in size. LA is moderately dilated 34-39 ml/m2 The right atrium is normal in size. Interatrial and interventricular septum intact. There is mild aortic valve sclerosis. There is trace to mild mitral regurgitation. Mild tricuspid regurgitation present. Right ventricular systolic pressure is normal at < 35 mmHg. The pulmonic valve is normal. The aortic root size is normal. Normal inferior vena cava with normal inspiratory collapse consistent with estimated right atrial pre ssure of 5 mmHg. There is no pericardial effusion. CONCLUSIONS -------- 1. The left ventricular size is normal. 2. There is moderate concentric left ventricular hypertrophy. 3. Overall left ventricular systolic function is normal with, an EF between 55 - 60 %. 4. LA is moderately dilated 34-39 ml/m2 5. There is mild aortic valve sclerosis. 6. There is trace to mild mitral regurgitation. 7. Mild tricuspid regurgitation present. 8. There is no pericardial effusion. DERRICKMAN HELPER: Kiki Kang RDCS
--- NOTE | 2021-11-02 14:51 | P.GSCN ---
History of Present Illness Consult date: 11/02/21 Reason for Consult: Carotid stenosis Requesting physician: Shahla Knight History of present illness: This is a 80-year-old male who came into the emergency department with altered mental status changes 2 days ago. Patient resides at [facility] for rehab and has been there for the past 3 months. He has multiple comorbidities including coronary artery disease status post CABG, chest pain, COPD, diabetes mellitus, hyperlipidemia, hypertension, memory impairment, and vascular disorder status post bilateral [id number] amputation. Asked why the patient had a bilateral amputations of the lower extremities he states he is unsure was about 8 years ago though. He is unsure why he was brought to the hospital. He is alert and oriented 3. He had a CT of the brain that showed no acute intracranial process. Remote lacunar injury of the right sylvia along with nonspecific white matter changes likely secondary to chronic microangiopathy. Patient is denying any chest pain, shortness of breath, abdominal pain, nausea or vomiting. He denies any focal deficits such as weakness in the extremities, difficulty with speech, difficulty with swallowing, visual changes, or facial asymmetry. Neurology was consulted and saw patient. He they ordered a carotid duplex that reported hemodynamic stenosis more than 70% of the right and left internal carotid arteries, therefore vascular surgery was consulted. Review of Systems 14 point review of systems was completed all pertinent positives and negatives as stated in HPI. Past Medical History Past Medical History: Coronary Artery Disease (CAD), Chest Pain / Angina, COPD, Diabetes Mellitus, Hyperlipidemia, Hypertension, Memory Impairment, Pneumonia, Vascular Disorder Additional Past Medical History / Comment(s): IDDM type II, pt and spouse deny pt ever having had a OH, PAD, bilateral BKAs, acute hypoxic respiratory failure/vented in past, bilateral bleeds behind eyes/poor vision, falls. Last Myocardial Infarction Date:: 2010 History of Any Multi-Drug Resistant Organisms: None Reported Past Surgical History: Coronary Bypass/CABG, Heart Catheterization With Stent, Orthopedic Surgery, Tonsillectomy Additional Past Surgical History / Comment(s): Several cardiac caths, PCIs with stents, 2000 CABG with 2 vessels, arch studies/run offs, aortagrams, peripheral stents, L fem-fem bypass, L fem-pop bypass, bilateral BKA, bilateral caratid endartectomies, bilateral cataract removals, laser surgery bilaterally d/t bleeds behind eyes. Past Anesthesia/Blood Transfusion Reactions: No Reported Reaction Additional Past Anesthesia/Blood Transfusion Reaction / Comm: clausterphobia Date of Last Stent Placement:: 2010 Past Psychological History: Anxiety Smoking Status: Never smoker Past Alcohol Use History: None Reported Past Drug Use History: None Reported - Past Family History Father Family Medical History: Diabetes Mellitus Additional Family Medical History / Comment(s): heart problems Mother Family Medical History: Diabetes Mellitus Additional Family Medical History / Comment(s): heart problems Medications and Allergies Home Medications Medication Instructions Recorded Confirmed Type Isosorbide Mononitrate [Isosorbide 30 mg PO DAILY@0800 01/25/16 10/31/21 History Mononitrate ER] Pravastatin Sodium [Pravachol] 10 mg PO HS@199903/18/19 10/31/21 History HYDROcodone/APAP 7.5-325MG [Magee 1 tab PO BID@08,199908/10/20 10/31/21 History 7.5-325] ALPRAZolam [Xanax] 1 mg PO HS@1999 PRN 10/25/20 10/31/21 History Donepezil HCl [Aricept] 5 mg PO HS@199910/25/20 10/31/21 History Lisinopril [Prinivil] 10 mg PO DAILY@0800 10/25/20 10/31/21 History Aspirin EC [Ecotrin Low Dose] 81 mg PO DAILY@0800 10/31/21 10/31/21 History Insulin NPH/Reg Insulin 70/30 22 unit SQ BID@08,199910/31/21 10/31/21 History [humuLIN 70/30 VIAL] Lidocaine 5% Patch [Lidoderm] 1 patch TOPICAL HS@199910/31/21 10/31/21 History Multivitamins, Thera [Multivitamin 1 tab PO DAILY@0810/31/21 10/31/21 History (formulary)] buPROPion HCL [Wellbutrin SR] 100 mg PO BID@0800,199910/31/21 10/31/21 History carvediloL [Coreg] 6.25 mg PO BID@08,199910/31/21 10/31/21 History Allergies Allergy/AdvReac Type Severity Reaction Status Date / Time Penicillins Allergy Unknown Verified 10/31/21 18:21 Childhood pregabalin [From Lyrica] Allergy Rapid Verified 10/31/21 18:21 Heart Rate Surgical - Exam Vital Signs Temp Pulse Resp BP Pulse Ox 98.0 F 53 L 18 141/50 97 10/31/21 16:59 10/31/21 16:59 10/31/21 16:59 10/31/21 16:59 10/31/21 16:59 General appearance: The patient is alert, oriented, appears in no acute distress. HET: Head is normocephalic and atraumatic. Pupils are equal and reactive. Neck: Supple without lymphadenopathy. Trachea midline. No audible carotid bruit. Heart: S1 S2. Regular rate and rhythm. Lungs: Clear to auscultation bilaterally. Abdomen: Soft, nontender, nondistended. Extremities: Bilateral lower extremity [id number]-cit-ztry amputation with prosthetics. Neurological: No focal deficits. Strength and sensation are grossly intact. Al ert and oriented 3. Results - Labs 11/02/21 06:09 11/02/21 06:09 Abnormal Lab Results - Last 24 Hours (Table) 10/31/21 11/01/21 11/01/21 Range/Units 17:20 12:09 16:53 RBC (4.30-5.90) m/uL Hgb (13.0-17.5) gm/dL Hct (39.0-53.0) % MCHC (31.0-37.0) g/dL Sodium (137-145) mmol/L Glucose (74-99) mg/dL POC Glucose (mg/dL) 237 H 226 H (75-99) mg/dL Hemoglobin A1c 9.6 H (0.0-6.0) % Total Protein (6.3-8.2) g/dL Albumin (3.5-5.0) g/dL 11/01/21 11/02/21 11/02/21 Range/Units 20:21 05:44 06:09 RBC 3.97 L (4.30-5.90) m/uL Hgb 11.3 L (13.0-17.5) gm/dL Hct 36.8 L (39.0-53.0) % MCHC 30.8 L (31.0-37.0) g/dL Sodium (137-145) mmol/L Glucose (74-99) mg/dL POC Glucose (mg/dL) 232 H 220 H (75-99) mg/dL Hemoglobin A1c (0.0-6.0) % Total Protein (6.3-8.2) g/dL Albumin (3.5-5.0) g/dL 11/02/21 Range/Units 06:09 RBC (4.30-5.90) m/uL Hgb (13.0-17.5) gm/dL Hct (39.0-53.0) % MCHC (31.0-37.0) g/dL Sodium 136 L (137-145) mmol/L Glucose 222 H (74-99) mg/dL POC Glucose (mg/dL) (75-99) mg/dL Hemoglobin A1c (0.0-6.0) % Total Protein 5.5 L (6.3-8.2) g/dL Albumin 3.1 L (3.5-5.0) g/dL Microbiology - Last 24 Hours (Table) 10/31/21 21:37 Blood Culture - Preliminary Blood No Growth after 24 hours Diabetes panel 10/31/21 11/02/21 Range/Units 17:20 06:09 Sodium 136 L (137-145) mmol/L Potassium 4.5 (3.5-5.1) mmol/L Chloride 105 (98-107) mmol/L Carbon Dioxide 27 (22-30) mmol/L BUN 19 (9-20) mg/dL Creatinine 0.87 (0.66-1.25) mg/dL Glucose 222 H (74-99) mg/dL Hemoglobin A1c 9.6 H (0.0-6.0) % Calcium 9.0 (8.4-10.2) mg/dL AST 39 (17-59) U/L ALT 17 (4-49) U/L Alkaline Phosphatase 71 (38-126) U/L Total Protein 5.5 L (6.3-8.2) g/dL Albumin 3.1 L (3.5-5.0) g/dL Calcium panel 11/02/21 Range/Units 06:09 Calcium 9.0 (8.4-10.2) mg/dL Albumin 3.1 L (3.5-5.0) g/dL Pituitary panel 11/02/21 Range/Units 06:09 Sodium 136 L (137-145) mmol/L Potassium 4.5 (3.5-5.1) mmol/L Chloride 105 (98-107) mmol/L Carbon Dioxide 27 (22-30) mmol/L BUN 19 (9-20) mg/dL Creatinine 0.87 (0.66-1.25) mg/dL Glucose 222 H (74-99) mg/dL Calcium 9.0 (8.4-10.2) mg/dL Adrenal panel 11/02/21 Range/Units 06:09 Sodium 136 L (137-145) mmol/L Potassium 4.5 (3.5-5.1) mmol/L Chloride 105 (98-107) mmol/L Carbon Dioxide 27 (22-30) mmol/L BUN 19 (9-20) mg/dL Creatinine 0.87 (0.66-1.25) mg/dL Glucose 222 H (74-99) mg/dL Calcium 9.0 (8.4-10.2) mg/dL Total Bilirubin 0.5 (0.2-1.3) mg/dL AST 39 (17-59) U/L ALT 17 (4-49) U/L Alkaline Phosphatase 71 (38-126) U/L Total Protein 5.5 L (6.3-8.2) g/dL Albumin 3.1 L (3.5-5.0) g/dL - Imaging Comments: CT of the brain that showed no acute intracranial process. Remote lacunar injury of the right sylvia along with nonspecific white matter changes likely secondary to chronic microangiopathy. Carotid duplex: Right ICA PSV 88.1, ICA/CCA ratio 1.0. Left ICA PSV 119, ICA/CCA ratio 1.1. These readings are suggestive of less than 50% bilateral ICA stenosis. Assessment and Plan Assessment: 1. Altered mental status changes 2. No significant ICA stenosis per carotid duplex readings 3. History of peripheral arterial disease status post bilateral [id number] amputations 4. History of coronary artery disease status post CABG 5. Diabetes mellitus 6. Hypertension and hyperlipidemia Plan: The carotid duplex was reviewed with measurements suggesting less than 50% stenosis in bilateral internal carotid arteries. The carotid measurements are inconsistent with the impression. There is no indication for any vascular surgical intervention. Recommend low- dose aspirin and statin. Thank you for this consultation and allowing us take part in the plan of care of your patient during his hospital stay. The impression and plan of care has been dictated as directed. Dr. Nur I performed a history and examination of this patient, discussed the same with the dictator. I agree with the dictator's note ,documented as a scribe. Any additional findings or plans will be noted.
--- NOTE | 2021-11-02 15:58 | MR ---
MR brain without contrast HISTORY: TIA, mental status, carotid stenosis Multiplanar multisequence imaging through the brain, correlation to CT brain 10/31/2021 No intravenous contrast was utilized, intravenous access was lost. Patient was not cooperative with t he exam. Cortical atrophy is again noted. Ventriculomegaly is present in accordance with the degree of cortica l atrophy. Hyperintensity and inversion recovery T2-weighted sequences noted sylvia which likely reflec ts some encephalomalacia centrally, periventricular, the pericallosal and subcortical white matter sh ow confluent and scattered areas of abnormal signal. There is no evident hemorrhage or hydrocephalus. There is a focal area of low signal on T2 and inversion recovery sequences present within the right t emporal lobe or possibly within the fissure, coronal image #17 of the T2 data set, axial image #13 se servando 401 and 501 measuring approximately 5 mm in size which is indeterminate. The cerebellopontine angles, corpus callosum, pituitary, cervical medullary junction are within roddy l limits. Mucosal disease is present within the frontal sinus, ethmoid air cells. There is no restric nelson diffusion. IMPRESSION: Chronic small vessel ischemic changes, age related atrophy. Mild sinus disease. Indetermi luh signal could possibly be related to a 5 mm aneurysm in the region of the right temporal lobe, co ntrast-enhanced study or MRA of the [place] may be of benefit.
--- NOTE | 2021-11-02 16:06 | MR ---
MR angiogram of the neck without contrast HISTORY: Carotid stenosis Correlation to carotid Doppler duplex 11/01/2021 [id number] imaging obtained through the neck. Three-dimensional postprocessing was performed on a [employer] workstation and reviewed. No contrast-enhanced exam was performed, intravenous access was lost prior to administration. There is extensive artifact. Vertebral arteries are patent. Common carotid, internal and external car otid arteries are patent. Left vertebral artery is dominant. No hemodynamic significant stenosis of the proximal internal carotid arteries is suspected based on t he carotid Doppler duplex and limited images from MRA. Vertebral arteries are patent. NASCET criteria utilized. IMPRESSION: No hemodynamic significant stenosis of the proximal internal carotid arteries is suspecte d within the limitations of the exam.
[2021-11-02 16:47] LABS: Glucose,Whole Blood 285 mg/dL (75-99)
[2021-11-02 20:31] LABS: Glucose,Whole Blood 260 mg/dL (75-99)
[2021-11-02] MEDS: LIDOCAINE 5% PATCH TOPICAL SCH (21:43)
[2021-11-02] MEDS: PRAVASTATIN SODIUM 20 MG TAB PO SCH (21:44)
[2021-11-02] MEDS: SODIUM CHLORIDE 0.9% 1,000 ML IV SCH (21:50)
[2021-11-02] MEDS: DONEPEZIL 5 MG TAB PO SCH (22:19)
--- NOTE | 2021-11-02 22:59 | P.PN ---
Subjective Progress Note Date: 11/02/21 Patient just returned back from MRI. Per nurse report, patient has been more hallucinating, more confused. Patient appears alert and awake. Offers no complaints. Denies any headache or dizziness. No new focal symptoms. Telemetry monitoring showing sinus rhythm. Objective - Vital Signs Vital signs: Vital Signs Temp 98.0 F 11/02/21 20:00 Pulse 75 11/02/21 20:00 Resp 18 11/02/21 20:00 BP 140/58 11/02/21 20:00 Pulse Ox 99 11/02/21 20:59 Intake & Output 11/02/21 11/02/21 11/03/21 06:59 18:59 06:59 Intake Total 180 Output Total 400 300 Balance -400 -120 Intake: Oral 180 Output: Urine 400 300 Other: Voiding Method Diaper Diaper Diaper # Voids 1 1 - Exam Patient is alert and awake. Speech and language functions are normal. Pupils are round and reacting. Detail examination deferred. - Labs CBC & Chem 7: 11/02/21 06:09 11/02/21 06:09 Labs: Abnormal Lab Results - Last 24 Hours (Table) 10/31/21 11/02/21 11/02/21 Range/Units 17:20 05:44 06:09 RBC 3.97 L (4.30-5.90) m/uL Hgb 11.3 L (13.0-17.5) gm/dL Hct 36.8 L (39.0-53.0) % MCHC 30.8 L (31.0-37.0) g/dL Sodium (137-145) mmol/L Glucose (74-99) mg/dL POC Glucose (mg/dL) 220 H (75-99) mg/dL Hemoglobin A1c 9.6 H (0.0-6.0) % Total Protein (6.3-8.2) g/dL Albumin (3.5-5.0) g/dL Triglycerides (0.00-149.00) mg/dL 11/02/21 11/02/21 11/02/21 Range/Units 06:09 11:37 16:46 RBC (4.30-5.90) m/uL Hgb (13.0-17.5) gm/dL Hct (39.0-53.0) % MCHC (31.0-37.0) g/dL Sodium 136 L (137-145) mmol/L Glucose 222 H (74-99) mg/dL POC Glucose (mg/dL) 214 H 285 H (75-99) mg/dL Hemoglobin A1c (0.0-6.0) % Total Protein 5.5 L (6.3-8.2) g/dL Albumin 3.1 L (3.5-5.0) g/dL Triglycerides 173.00 H (0.00-149.00) mg/dL 11/02/21 Range/Units 20:29 RBC (4.30-5.90) m/uL Hgb (13.0-17.5) gm/dL Hct (39.0-53.0) % MCHC (31.0-37.0) g/dL Sodium (137-145) mmol/L Glucose (74-99) mg/dL POC Glucose (mg/dL) 260 H (75-99) mg/dL Hemoglobin A1c (0.0-6.0) % Total Protein (6.3-8.2) g/dL Albumin (3.5-5.0) g/dL Triglycerides (0.00-149.00) mg/dL Microbiology - Last 24 Hours (Table) 10/31/21 21:37 Blood Culture - Preliminary Blood No Growth after 24 hours Assessment and Plan Assessment: * Altered mental status, probably due to metabolic encephalopathy. Patient had an earlier episode of hypoglycemia with blood sugar 54, for which he was evaluated at [facility], observed [facility]. Patient has persistent altered mental status and subsequently developed myoclonic jerking therefore brought to [facility]. Patient was significantly hypotensive at the scene and also has UTI, likely the cause of metabolic encephalopathy. Patient has multiple vascular risk factors, therefore TIA also the differential. * Chronic low back pain. History of L1 compression fracture. * Diabetes, not well controlled * History of bilateral below-knee amputation. * Hypertension * Dyslipidemia Plan: * I was called last night about carotid Doppler results, which revealed could not demonstrate flow in the right vertebral artery. There is decreased diastolic flow within the right and left internal carotid arteries and common carotid arteries that is suggestive of hemodynamic significant stenosis more than 70%. Vascular surgical consultation was initiated. Dr. Nur saw the patient. Their overall impression was no significant ICA stenosis per carotid ultrasound. I did recommend MRA of the neck. * MRI of the brain revealed chronic small vessel ischemic changes, age-related atrophy. Mild sinus disease. Indeterminate signal could possibly be related to a 5 mm aneurysm in the region of right temporal lobe, contrast enhanced study or MRA of the [place] may be benefit. * MRA of the carotid shows no hemodynamic significant stenosis of the proximal internal carotid arteries. * Prevention of further episodes of hypoglycemia, treatment of hypotension and ?UTI as per IM. * Hemoglobin A1c 9.6 indicating poorly controlled diabetes. Recommend optimize control of diabetes to target A1c < 7.0, but avoid any episodes of hypoglycem ia. * Fasting lipid panel with cholesterol 161, LDL 72, HDL 54 and triglycerides 173. Continue pravastatin 10 mg at bedtime. * 2-D echo revealed normal left-ventricular size. Moderate concentric LVH. EF is between 55-60%. Left atrium is moderately dilated. Mild aortic valve sclerosis. * As there is no significant vascular stenosis involving the carotids, we will continue aspirin and Plavix for 21 days and then stop Plavix and continue aspirin daily. * Discussed with patient's family in detail. * Thank you for the consult.
[2021-11-02] MEDS ORDERED: hydrALAZINE HCL 25 MG TAB PO STA (23:57)
[2021-11-03] MEDS: SODIUM CHLORIDE 0.9% 1,000 ML IV SCH ×2 (00:26→11:05)
[2021-11-03] MEDS ORDERED: hydrALAZINE HCL 50 MG TAB PO STA (04:33)
[2021-11-03 05:53] LABS: Glucose,Whole Blood 183 mg/dL (75-99)
[2021-11-03] MEDS: HYDROcodone/APAP 7.5-325MG 1 EACH TAB PO PRN (06:28)
[2021-11-03] MEDS: INSULIN ASPART (NovoLOG) 100 UNIT/ML VIAL SQ SCH ×4 (06:29→21:25)
[2021-11-03 06:51] LABS: Basophils % (A) 0 %; Eosinophils # (A) 0.2 k/uL (0-0.7); Eosinophils % (A) 2 %; HCT 40.1 % (39.0-53.0); HGB 12.4 gm/dL (13.0-17.5); Hypochromasia Slight; Lymphocytes # (A) 1.3 k/uL (1.0-4.8); Lymphocytes % (A) 15 %; MCH 28.5 pg (25.0-35.0); MCHC 30.9 g/dL (31.0-37.0); MCV 92.1 fL (80.0-100.0); Mean Platelet Volume 8.3; Monocytes # (A) 0.6 k/uL (0-1.0); Monocytes % (A) 6 %; Neutrophils # (A) 6.7 k/uL (1.3-7.7); Neutrophils % (A) 74 %; Platelet Count 269 k/uL (150-450); RBC 4.36 m/uL (4.30-5.90)
[2021-11-03 07:09] LABS: ALT 17 U/L (4-49); AST 33 U/L (17-59); African American GFR (CKD) >90 (>60 ml/min/1.73 sqM); Albumin 3.5 g/dL (3.5-5.0); Alkaline Phosphatase 80 U/L (38-126); Anion Gap 5 mmol/L; Blood Urea Nitrogen 13 mg/dL (9-20); Calcium 9.4 mg/dL (8.4-10.2); Carbon Dioxide 26 mmol/L (22-30); Chloride 105 mmol/L (98-107); Glucose 202 mg/dL (74-99); Non-African American GFR(CKD) 88 (>60 ml/min/1.73 sqM); Potassium 4.2 mmol/L (3.5-5.1); Sodium 136 mmol/L (137-145); Total Bilirubin 0.6 mg/dL (0.2-1.3)
[2021-11-03] MEDS: CLOPIDOGREL 75 MG TAB PO SCH (08:22)
[2021-11-03] MEDS: HEPARIN SODIUM,PORCINE/PF 5,000 UNIT/0.5 ML SYRINGE SQ SCH ×3 (08:22→23:02)
[2021-11-03] MEDS: carvediloL 6.25 MG TAB PO SCH ×2 (08:23→21:25)
[2021-11-03] MEDS: NIFEdipine XL 30 MG TAB.ER.24 PO SCH (08:23)
[2021-11-03] MEDS: ASPIRIN 81 MG PO SCH (08:23)
[2021-11-03] MEDS: ISOSORBIDE MONONITRATE ER 30 MG TAB.ER.24H PO SCH (08:23)
[2021-11-03] MEDS: buPROPion SR 100 MG TABLET.ER PO SCH ×3 (08:24→22:47)
--- NOTE | 2021-11-03 08:57 | P.PN ---
Subjective Progress Note Date: 11/03/21 Principal diagnosis: Patient is still confused and weak Altered mental status with confusion We'll admit the patient and will check MRI of the brain Rule out vascular dementia versus underlying infectious process Slightly elevated troponin no reports of chest pain, EKG no acute changes compared to prior patient has persistent old lateral leads T wave inversion Patient continued to be confused and more hallucinating today Neurochecks Neurology consult, Trend troponins Supportive care IV fluid hydration Monitor vital signs Fall precautions Cardiac telemetry Continue cardiac meds Slightly elevated white count No fevers No identifiable focus of infection, chest x-ray no acute pathology, UA unremarkable, Covid negative Follow-up cultures Chronic conditions Diabetes mellitus, insulin sliding scale Hypertension resume blood pressure meds History of CAD status post CABG, carotid endarterectomy, continue cardiac meds Patient is full code DVT prophylaxis heparin subcu 3 times a day Anticipated length of stay less than 2 midnights Patient continues to be confused continued to be weak Constitutional: No acute distress, conversant, pleasant confused Eyes: Anicteric sclerae, moist conjunctiva, no lid-lag PERRLA ENMT: NC/AT Oropharynx clear, no erythema, exudates Neck: Supple, FROM, no masses, or JVD No carotid bruits No thyromegaly Lungs: Clear to auscultation Clear to percussion Normal respiratory effort, no accessory muscle use Cardiovascular: Heart regular in rate and rhythm, No murmurs, gallops, or rubs No peripheral edema Abdominal: Soft Nontender, no guarding, rebound or rigidity Abdomen moving with respiration Normoactive bowel sounds No hepatomegaly, No splenomegaly No palpable mass No abdominal wall hernia noted Skin: Normal temperature, tone, texture, turgor No induration No subcutaneous nodules No rash, lesions No ulcers Extremities: No digital cyanosis No clubbing Pedal pulses intact and symmetrical Radial pulses intact and symmetrical Normal gait and station No calf tenderness Psychiatric:Alert and oriented to person, place and time Appropriate affect Intact judgement Neuro: Muscles Strength 5/5 in all 4 extremities Sensation to light touch grossly present throughout Cranial nerves II-XII grossly intact No focal sensory deficits Still confused and weak we will check chest x-ray to rule out pneumonia Objective - Vital Signs Vital signs: Vital Signs Temp 98 F 11/03/21 08:00 Pulse 87 11/03/21 08:00 Resp 18 11/03/21 08:00 BP 203/81 11/03/21 08:00 Pulse Ox 98 11/03/21 08:00 Intake & Output 11/02/21 11/03/21 11/03/21 18:59 06:59 18:59 Intake Total 180 120 Output Total 300 Balance -120 120 Intake: Oral 180 120 Output: Urine 300 Other: Voiding Method Diaper Diaper # Voids 1 1 - Labs CBC & Chem 7: 11/03/21 05:56 11/03/21 05:56 Labs: Abnormal Lab Results - Last 24 Hours (Table) 11/02/21 11/02/21 11/02/21 Range/Units 06:09 11:37 16:46 Hgb (13.0-17.5) gm/dL MCHC (31.0-37.0) g/dL Sodium (137-145) mmol/L Glucose (74-99) mg/dL POC Glucose (mg/dL) 214 H 285 H (75-99) mg/dL Total Protein (6.3-8.2) g/dL Triglycerides 173.00 H (0.00-149.00) mg/dL 11/02/21 11/03/21 11/03/21 Range/Units 20:29 05:52 05:56 Hgb 12.4 L (13.0-17.5) gm/dL MCHC 30.9 L (31.0-37.0) g/dL Sodium (137-145) mmol/L Glucose (74-99) mg/dL POC Glucose (mg/dL) 260 H 183 H (75-99) mg/dL Total Protein (6.3-8.2) g/dL Triglycerides (0.00-149.00) mg/dL 11/03/21 Range/Units 05:56 Hgb (13.0-17.5) gm/dL MCHC (31.0-37.0) g/dL Sodium 136 L (137-145) mmol/L Glucose 202 H (74-99) mg/dL POC Glucose (mg/dL) (75-99) mg/dL Total Protein 6.0 L (6.3-8.2) g/dL Triglycerides (0.00-149.00) mg/dL Microbiology - Last 24 Hours (Table) 10/31/21 21:37 Blood Culture - Preliminary Blood No Growth after 48 hours
[2021-11-03] MEDS ORDERED: NIFEdipine XL 30 MG TAB.ER.24 PO ONE (11:15)
--- NOTE | 2021-11-03 11:38 | XR ---
EXAMINATION TYPE: XR chest 1V DATE OF EXAM: 11/03/2021 COMPARISON: Chest x-ray 10/31/2021 HISTORY: Altered mental status, abnormal chest x-ray TECHNIQUE: Single frontal view of the chest is obtained. FINDINGS: Patient is post median sternotomy. There are overlying artifacts. Cardiac mediastinal silh ouette is stable. Surgical clips present over the left neck. There is no evident airspace disease, pn eumothorax, or pleural effusion. Aorta is dense. Coronary artery stent is suspected. There are likely coronary artery calcifications. Embolization coils present in left upper quadrant. IMPRESSION: No acute process.
[2021-11-03 11:40] LABS: Glucose,Whole Blood 244 mg/dL (75-99)
--- NOTE | 2021-11-03 13:22 | P.PN ---
Subjective Progress Note Date: 11/03/21 Patient is seen and examined as a follow-up. Patient continues with altered mental status changes. Today he is confused and does not believe he is at [facility]. He is adamant that he has family coming and that he has been walking 3 miles. No other focal deficits reported. Initially vascular surgery was consulted for carotid stenosis however there was discordant findings from the measurements and impression reported by radiologist. The patient underwent an MRA of the neck ordered by neurology that shows no hemodynamic significant stenosis of the proximal internal carotid arteries. He also underwent a MRI of the brain that shows chronic small vessel ischemic changes, age-related atrophy. Mild sinus disease. Indeterminate signal could possibly be related to a 5 mm aneurysm in the region of the right temporal lobe. Objective - Vital Signs Vital signs: Vital Signs Temp 98 F 11/03/21 08:00 Pulse 87 11/03/21 08:00 Resp 18 11/03/21 08:00 BP 203/81 11/03/21 08:00 Pulse Ox 98 11/03/21 08:00 Intake & Output 11/02/21 11/03/21 11/03/21 18:59 06:59 18:59 Intake Total 180 120 Output Total 300 Balance -120 120 Intake: Oral 180 120 Output: Urine 300 Other: Voiding Method Diaper Diaper Diaper # Voids 1 1 - Exam General appearance: The patient is alert, oriented to self, appears in no acute distress. HET: Head is normocephalic and atraumatic. Pupils are equal and reactive. Neck: Supple without lymphadenopathy. Trachea midline. No audible carotid bruit. Abdomen: Soft, nontender, nondistended. Extremities: Normal skin color and turgor. Bilateral lower extremity flow the knee amputations well-healed. Neurological: Patient is alert and oriented to self only. He is confused and does not believe he is at the hospital. No other focal deficits noted. - Labs CBC & Chem 7: 11/03/21 05:56 11/03/21 05:56 Labs: Abnormal Lab Results - Last 24 Hours (Table) 11/02/21 11/02/21 11/02/21 Range/Units 06:09 11:37 16:46 Hgb (13.0-17.5) gm/dL MCHC (31.0-37.0) g/dL Sodium (137-145) mmol/L Glucose (74-99) mg/dL POC Glucose (mg/dL) 214 H 285 H (75-99) mg/dL Total Protein (6.3-8.2) g/dL Triglycerides 173.00 H (0.00-149.00) mg/dL 11/02/21 11/03/21 11/03/21 Range/Units 20:29 05:52 05:56 Hgb 12.4 L (13.0-17.5) gm/dL MCHC 30.9 L (31.0-37.0) g/dL Sodium (137-145) mmol/L Glucose (74-99) mg/dL POC Glucose (mg/dL) 260 H 183 H (75-99) mg/dL Total Protein (6.3-8.2) g/dL Triglycerides (0.00-149.00) mg/dL 11/03/21 Range/Units 05:56 Hgb (13.0-17.5) gm/dL MCHC (31.0-37.0) g/dL Sodium 136 L (137-145) mmol/L Glucose 202 H (74-99) mg/dL POC Glucose (mg/dL) (75-99) mg/dL Total Protein 6.0 L (6.3-8.2) g/dL Triglycerides (0.00-149.00) mg/dL Microbiology - Last 24 Hours (Table) 10/31/21 21:37 Blood Culture - Preliminary Blood No Growth after 48 hours Assessment and Plan Assessment: 1. Altered mental status changes 2. No significant ICA stenosis per carotid duplex readings, well as MRA of the neck 3. History of peripheral arterial disease status post bilateral [id number] amputations 4. History of coronary artery disease status post CABG 5. Diabetes mellitus 6. Hypertension and hyperlipidemia Plan: The carotid duplex was reviewed with measurements suggesting less than 50% stenosis in bilateral internal carotid arteries. The carotid measurements are inconsistent with the impression. MRA of the neck consistent with carotid duplex measurements with no significant ICA stenosis bilaterally. There is no indication for any vascular surgical intervention. Recommend low- dose aspirin and statin. Thank you for this consultation. We will sign off at this time. The impression and plan of care has been dictated as directed. Dr. Nur I performed a history and examination of this patient, discussed the same with the dictator. I agree with the dictator's note ,documented as a scribe. Any additional findings or plans will be noted.
[2021-11-03 16:29] LABS: Glucose,Whole Blood 215 mg/dL (75-99)
[2021-11-03 20:59] LABS: Glucose,Whole Blood 225 mg/dL (75-99)
[2021-11-03] MEDS: PRAVASTATIN SODIUM 20 MG TAB PO SCH (21:25)
[2021-11-03] MEDS: DONEPEZIL 5 MG TAB PO SCH (21:25)
[2021-11-03] MEDS: LIDOCAINE 5% PATCH TOPICAL SCH (21:25)
[2021-11-03] MEDS: ALPRAZolam 1 MG TAB PO PRN (22:47)
[2021-11-04] MEDS: SODIUM CHLORIDE 0.9% 1,000 ML IV SCH ×2 (03:35→20:48)
[2021-11-04] MEDS: INSULIN ASPART (NovoLOG) 100 UNIT/ML VIAL SQ SCH ×4 (06:17→20:55)
[2021-11-04 06:26] LABS: Glucose,Whole Blood 215 mg/dL (75-99)
[2021-11-04 07:17] LABS: Basophils % (A) 0 %; Eosinophils # (A) 0.2 k/uL (0-0.7); Eosinophils % (A) 2 %; HCT 34.3 % (39.0-53.0); HGB 10.9 gm/dL (13.0-17.5); Lymphocytes # (A) 1.9 k/uL (1.0-4.8); Lymphocytes % (A) 23 %; MCH 29.1 pg (25.0-35.0); MCHC 31.8 g/dL (31.0-37.0); MCV 91.6 fL (80.0-100.0); Mean Platelet Volume 8.4; Monocytes # (A) 0.7 k/uL (0-1.0); Monocytes % (A) 8 %; Neutrophils % (A) 63 %; Platelet Count 253 k/uL (150-450); RBC 3.75 m/uL (4.30-5.90)
[2021-11-04 07:38] LABS: Albumin 3.1 g/dL (3.5-5.0); Calcium 9.1 mg/dL (8.4-10.2); Potassium 3.9 mmol/L (3.5-5.1); Total Bilirubin 0.5 mg/dL (0.2-1.3); Total Protein 5.5 g/dL (6.3-8.2)
[2021-11-04] MEDS: CLOPIDOGREL 75 MG TAB PO SCH (09:30)
[2021-11-04] MEDS: ASPIRIN 81 MG PO SCH (09:30)
[2021-11-04] MEDS: carvediloL 6.25 MG TAB PO SCH ×2 (09:30→20:54)
[2021-11-04] MEDS: HEPARIN SODIUM,PORCINE/PF 5,000 UNIT/0.5 ML SYRINGE SQ SCH ×3 (09:30→23:12)
[2021-11-04] MEDS: ISOSORBIDE MONONITRATE ER 30 MG TAB.ER.24H PO SCH (09:30)
[2021-11-04] MEDS: buPROPion SR 100 MG TABLET.ER PO SCH ×2 (09:31→20:55)
--- NOTE | 2021-11-04 09:34 | P.PN ---
Subjective Progress Note Date: 11/03/21 Patient was seen for a follow-up. Patient is very alert and awake, watching TV. Per nurse he has been confused off and on, asking her to take a picture of bathroom to send to his . He is trying to pull IV lines, although not trying to jump out of bed. When I saw the patient, he appeared fairly calm, interactive, does not appear any agitated. Objective - Vital Signs Vital signs: Vital Signs Temp 98.2 F 11/03/21 15:34 Pulse 66 11/03/21 15:34 Resp 16 11/03/21 15:34 BP 149/59 11/03/21 15:34 Pulse Ox 98 11/03/21 15:34 Intake & Output 11/03/21 11/03/21 11/04/21 06:59 18:59 06:59 Intake Total 340 Balance 340 Intake: Oral 340 Other: Voiding Method Diaper Diaper # Voids 1 1 # Bowel Movements 0 - Exam Patient is alert and awake. Patient states it is October and the areas 2021 and that is in [place]. He believes that he is in "where they give out medications and straighten out the people, workout". I asked if it is a hospital, he declined. When I gave choices, he states it was a rehab center. Speech and language functions are normal. Patient can name and repeat very well. Pupils are round and reacting. Muscle strength is normal in the upper limbs. Patient has bilateral below-knee amputation. - Labs CBC & Chem 7: 11/04/21 06:34 11/04/21 06:34 Labs: Abnormal Lab Results - Last 24 Hours (Table) 11/02/21 11/03/21 11/03/21 Range/Units 20:29 05:52 05:56 Hgb 12.4 L (13.0-17.5) gm/dL MCHC 30.9 L (31.0-37.0) g/dL Sodium (137-145) mmol/L Glucose (74-99) mg/dL POC Glucose (mg/dL) 260 H 183 H (75-99) mg/dL Total Protein (6.3-8.2) g/dL 11/03/21 11/03/21 11/03/21 Range/Units 05:56 11:37 16:27 Hgb (13.0-17.5) gm/dL MCHC (31.0-37.0) g/dL Sodium 136 L (137-145) mmol/L Glucose 202 H (74-99) mg/dL POC Glucose (mg/dL) 244 H 215 H (75-99) mg/dL Total Protein 6.0 L (6.3-8.2) g/dL Microbiology - Last 24 Hours (Table) 10/31/21 21:37 Blood Culture - Preliminary Blood No Growth after 48 hours Assessment and Plan Assessment: * Altered mental status, probably due to metabolic encephalopathy. Patient had an earlier episode of hypoglycemia with blood sugar 54, for which he was evaluated at [facility], observed and discharged back to the alf same day. Patient has persistent altered mental status and subsequently developed myoclonic jerking therefore brought to [facility]. Patient was significantly hypotensive at the scene and also has UTI, likely the cause of metabolic encephalopathy. Patient has multiple vascular risk factors, therefore TIA also the differential. * Chronic low back pain. History of L1 compression fracture. * Diabetes, not well controlled * History of bilateral below-knee amputation. * Hypertension * Dyslipidemia Plan: * I was called last night about carotid Doppler results, which revealed could not demonstrate flow in the right vertebral artery. There is decreased diastolic flow within the right and left internal carotid arteries and common carotid arteries that is suggestive of hemodynamic significant stenosis more than 70%. I recommended to add MRA of the neck as well. Vascular surgical consultation was initiated. Dr. Nur saw the patient. Their overall impression was no significant ICA stenosis per carotid ultrasound. * MRI of the brain revealed chronic small vessel ischemic changes, age-related atrophy. Mild sinus disease. Indeterminate signal could possibly be related to a 5 mm aneurysm in the region of right temporal lobe, contrast enhanced study or MRA of the [place] may be benefit. * MRA of the carotid shows no hemodynamic significant stenosis of the proximal internal carotid arteries. * Prevention of further episodes of hypoglycemia, treatment of hypotension and ?UTI as per IM. * Hemoglobin A1c 9.6 indicating poorly controlled diabetes. Recommend optimize control of diabetes to target A1c < 7.0, but avoid any episodes of hypoglycemia. * Fasting lipid panel with cholesterol 161, LDL 72, HDL 54 and triglycerides 173. Continue pravastatin 10 mg at bedtime. * 2-D echo revealed normal left-ventricular size. Moderate concentric LVH. EF is between 55-60%. Left atrium is moderately dilated. Mild aortic valve sclerosis. * As there is no significant vascular stenosis involving the carotids, we will continue aspirin and Plavix for 21 days and then stop Plavix and continue aspirin daily. * Await MRA of the brain. If the MRA of the brain is negative, then clear for discharge.
--- NOTE | 2021-11-04 11:11 | P.PN ---
Subjective Progress Note Date: 11/04/21 Principal diagnosis: Altered mental status with confusion We'll admit the patient and will check MRI of the brain Rule out vascular dementia versus underlying infectious process Slightly elevated troponin no reports of chest pain, EKG no acute changes compared to prior patient has persistent old lateral leads T wave inversion Patient continued to be confused and more hallucinating today Neurochecks Neurology consult, Trend troponins Supportive care IV fluid hydration Monitor vital signs Fall precautions Cardiac telemetry Continue cardiac meds Slightly elevated white count No fevers No identifiable focus of infection, chest x-ray no acute pathology, UA unremarkable, Covid negative Follow-up cultures Chronic conditions Diabetes mellitus, insulin sliding scale Hypertension resume blood pressure meds History of CAD status post CABG, carotid endarterectomy, continue cardiac meds Patient is full code DVT prophylaxis heparin subcu 3 times a day Anticipated length of stay less than 2 midnights Patient continues to be confused continued to be weak Constitutional: No acute distress, conversant, pleasant confused Eyes: Anicteric sclerae, moist conjunctiva, no lid-lag PERRLA ENMT: NC/AT Oropharynx clear, no erythema, exudates Neck: Supple, FROM, no masses, or JVD No carotid bruits No thyromegaly Lungs: Clear to auscultation Clear to percussion Normal respiratory effort, no accessory muscle use Cardiovascular: Heart regular in rate and rhythm, No murmurs, gallops, or rubs No peripheral edema Abdominal: Soft Nontender, no guarding, rebound or rigidity Abdomen moving with respiration Normoactive bowel sounds No hepatomegaly, No splenomegaly No palpable mass No abdominal wall hernia noted Skin: Normal temperature, tone, texture, turgor No induration No subcutaneous nodules No rash, lesions No ulcers Extremities: No digital cyanosis No clubbing Pedal pulses intact and symmetrical Radial pulses intact and symmetrical Normal gait and station No calf tenderness Psychiatric:Alert and oriented to person, place and time Appropriate affect Intact judgement Neuro: Muscles Strength 5/5 in all 4 extremities Sensation to light touch grossly present throughout Cranial nerves II-XII grossly intact No focal sensory deficits Patient is still confused but overall stable Hopefully discharge to rehab in a day or 2 Objective - Vital Signs Vital signs: Vital Signs Temp 98 F 11/04/21 08:00 Pulse 58 L 11/04/21 08:00 Resp 18 11/04/21 08:00 BP 145/50 11/04/21 08:00 Pulse Ox 97 11/04/21 08:00 Intake & Output 11/03/21 11/04/21 11/04/21 18:59 06:59 18:59 Intake Total 340 240 240 Balance 340 240 240 Intake: Oral 340 240 240 Other: Voiding Method Diaper Diaper # Voids 1 2 # Bowel Movements 0 - Labs CBC & Chem 7: 11/04/21 06:34 11/04/21 06:34 Labs: Abnormal Lab Results - Last 24 Hours (Table) 11/03/21 11/03/21 11/03/21 Range/Units 11:37 16:27 20:50 RBC (4.30-5.90) m/uL Hgb (13.0-17.5) gm/dL Hct (39.0-53.0) % Sodium (137-145) mmol/L Glucose (74-99) mg/dL POC Glucose (mg/dL) 244 H 215 H 225 H (75-99) mg/dL Total Protein (6.3-8.2) g/dL Albumin (3.5-5.0) g/dL 11/04/21 11/04/21 11/04/21 Range/Units 06:15 06:34 06:34 RBC 3.75 L (4.30-5.90) m/uL Hgb 10.9 L (13.0-17.5) gm/dL Hct 34.3 L (39.0-53.0) % Sodium 136 L (137-145) mmol/L Glucose 205 H (74-99) mg/dL POC Glucose (mg/dL) 215 H (75-99) mg/dL Total Protein 5.5 L (6.3-8.2) g/dL Albumin 3.1 L (3.5-5.0) g/dL Microbiology - Last 24 Hours (Table) 10/31/21 21:37 Blood Culture - Preliminary Blood No Growth after 72 hours
[2021-11-04 12:33] VITALS: BMI 29.9
[2021-11-04 13:10] LABS: Glucose,Whole Blood 196 mg/dL (75-99)
--- NOTE | 2021-11-04 16:02 | P.PN ---
Subjective Progress Note Date: 11/04/21 This is a Tele-neurology followup performed today on 11/04/2021. Patient was seen for a follow-up. Patient is very alert and awake, watching TV. Per nurse patient is confused, hallucinating, reaching out, talking in the room to himself. Patient denies any headache, any dizziness. Objective - Vital Signs Vital signs: Vital Signs Temp 98 F 11/04/21 08:00 Pulse 58 L 11/04/21 08:00 Resp 18 11/04/21 08:00 BP 145/50 11/04/21 08:00 Pulse Ox 97 11/04/21 08:00 Intake & Output 11/03/21 11/04/21 11/04/21 18:59 06:59 18:59 Intake Total 340 240 240 Balance 340 240 240 Intake: Oral 340 240 240 Other: Voiding Method Diaper Diaper # Voids 1 2 # Bowel Movements 0 - Exam Patient is alert and awake. Patient could not tell what month is it, although states the year is 2003. He says that he is in his daughter's home. He knows he is in [facility]. Speech and language functions are normal. Patient can name and repeat very well. Pupils are round and reacting. Muscle strength is normal in the upper limbs. Patient has bilateral below-knee amputation. - Labs CBC & Chem 7: 11/04/21 06:34 11/04/21 06:34 Labs: Abnormal Lab Results - Last 24 Hours (Table) 11/03/21 11/03/21 11/03/21 Range/Units 11:37 16:27 20:50 RBC (4.30-5.90) m/uL Hgb (13.0-17.5) gm/dL Hct (39.0-53.0) % Sodium (137-145) mmol/L Glucose (74-99) mg/dL POC Glucose (mg/dL) 244 H 215 H 225 H (75-99) mg/dL Total Protein (6.3-8.2) g/dL Albumin (3.5-5.0) g/dL 11/04/21 11/04/21 11/04/21 Range/Units 06:15 06:34 06:34 RBC 3.75 L (4.30-5.90) m/uL Hgb 10.9 L (13.0-17.5) gm/dL Hct 34.3 L (39.0-53.0) % Sodium 136 L (137-145) mmol/L Glucose 205 H (74-99) mg/dL POC Glucose (mg/dL) 215 H (75-99) mg/dL Total Protein 5.5 L (6.3-8.2) g/dL Albumin 3.1 L (3.5-5.0) g/dL Microbiology - Last 24 Hours (Table) 10/31/21 21:37 Blood Culture - Preliminary Blood No Growth after 72 hours Assessment and Plan Assessment: * Altered mental status, probably due to metabolic encephalopathy. Patient had an earlier episode of hypoglycemia with blood sugar 54, for which he was evaluated at [facility], observed and discharged back to the senior care same day. Patient has persistent altered mental status and subsequently developed myoclonic jerking therefore brought to [facility]. Patient was significantly hypotensive at the scene and also has UTI, likely the cause of metabolic encephalopathy. Patient has multiple vascular risk factors, therefore TIA also the differential. * Rule out cerebral aneurysm. * Chronic low back pain. History of L1 compression fracture. * Diabetes, not well controlled * History of bilateral below-knee amputation. * Hypertension * Dyslipidemia Plan: * Patient continues to be confused, slightly delirious. He does have dementia. We will increase Aricept from 5 mg to 10 mg daily. May consider adding Namenda in the future. * Vascular surgical input appreciated. Dr. Nur saw the patient. Their overall impression was no significant ICA stenosis per carotid ultrasound. No indication for vascular surgery intervention. * MRI of the brain revealed chronic small vessel ischemic changes, age-related atrophy. Mild sinus disease. Indeterminate signal could possibly be related to a 5 mm aneurysm in the region of right temporal lobe, contrast enhanced study or MRA of the [place] may be benefit. * MRA of the carotid shows no hemodynamic significant stenosis of the proximal internal carotid arteries. * Prevention of further episodes of hypoglycemia, treatment of hypotension and ?UTI as per IM. * Hemoglobin A1c 9.6 indicating poorly controlled diabetes. Recommend optimize control of diabetes to target A1c < 7.0, but avoid any episodes of hypoglycemia. * Fasting lipid panel with cholesterol 161, LDL 72, HDL 54 and triglycerides 173. Continue pravastatin 10 mg at bedtime. * 2-D echo revealed normal left-ventricular size. Moderate concentric LVH. EF is between 55-60%. Left atrium is moderately dilated. Mild aortic valve sclerosis. * As there is no significant vascular stenosis involving the carotids, we will continue aspirin and Plavix for 21 days and then stop Plavix and continue aspirin daily. * Await MRA of the brain. If the MRA of the brain is negative, then clear for discharge. MRA of the brain can be done as an outpatient as well.
[2021-11-04 16:10] LABS: Glucose,Whole Blood 281 mg/dL (75-99)
[2021-11-04 20:12] LABS: Glucose,Whole Blood 267 mg/dL (75-99)
[2021-11-04] MEDS: ALPRAZolam 1 MG TAB PO PRN (20:54)
[2021-11-04] MEDS: LIDOCAINE 5% PATCH TOPICAL SCH (20:55)
[2021-11-04] MEDS: PRAVASTATIN SODIUM 20 MG TAB PO SCH (20:55)
[2021-11-04] MEDS: DONEPEZIL 10 MG TAB PO SCH (20:55)
[2021-11-05] MEDS: HYDROcodone/APAP 7.5-325MG 1 EACH TAB PO PRN ×2 (04:01→21:13)
[2021-11-05 05:58] LABS: Glucose,Whole Blood 193 mg/dL (75-99)
[2021-11-05] MEDS: SODIUM CHLORIDE 0.9% 1,000 ML IV SCH ×2 (06:09→21:14)
[2021-11-05] MEDS: INSULIN ASPART (NovoLOG) 100 UNIT/ML VIAL SQ SCH ×4 (06:33→21:14)
[2021-11-05] MEDS: buPROPion SR 100 MG TABLET.ER PO SCH ×2 (08:32→21:21)
[2021-11-05] MEDS: ISOSORBIDE MONONITRATE ER 30 MG TAB.ER.24H PO SCH (08:32)
[2021-11-05] MEDS: CLOPIDOGREL 75 MG TAB PO SCH (08:32)
[2021-11-05] MEDS: ASPIRIN 81 MG PO SCH (08:32)
[2021-11-05] MEDS: carvediloL 6.25 MG TAB PO SCH ×2 (08:32→21:13)
[2021-11-05] MEDS: HEPARIN SODIUM,PORCINE/PF 5,000 UNIT/0.5 ML SYRINGE SQ SCH ×3 (08:32→23:08)
[2021-11-05 09:06] LABS: Basophils % (A) 0 %; Eosinophils # (A) 0.2 k/uL (0-0.7); Eosinophils % (A) 3 %; HCT 34.9 % (39.0-53.0); HGB 11.3 gm/dL (13.0-17.5); Hypochromasia Slight; Lymphocytes # (A) 2.1 k/uL (1.0-4.8); Lymphocytes % (A) 27 %; MCHC 32.4 g/dL (31.0-37.0); MCV 92.8 fL (80.0-100.0); Mean Platelet Volume 8.6; Monocytes # (A) 0.5 k/uL (0-1.0); Monocytes % (A) 7 %; Neutrophils # (A) 4.8 k/uL (1.3-7.7); Neutrophils % (A) 61 %; Platelet Count 242 k/uL (150-450); RBC 3.76 m/uL (4.30-5.90); WBC 7.8 k/uL (3.8-10.6)
[2021-11-05 09:17] LABS: Albumin 3.1 g/dL (3.5-5.0); Calcium 9.3 mg/dL (8.4-10.2); Potassium 3.9 mmol/L (3.5-5.1); Total Bilirubin 0.4 mg/dL (0.2-1.3); Total Protein 5.5 g/dL (6.3-8.2)
[2021-11-05 11:25] LABS: Glucose,Whole Blood 211 mg/dL (75-99)
--- NOTE | 2021-11-05 11:37 | P.PN ---
Subjective Progress Note Date: 11/05/21 Principal diagnosis: Patient is still confused but overall more alert and oriented to day Altered mental status with confusion Rule out vascular dementia versus underlying infectious process Slightly elevated troponin no reports of chest pain, EKG no acute changes compared to prior patient has persistent old lateral leads T wave inversion Patient continued to be confused and more hallucinating today Neurochecks Neurology consult, Trend troponins Supportive care IV fluid hydration Monitor vital signs Fall precautions Cardiac telemetry Continue cardiac meds Slightly elevated white count No fevers No identifiable focus of infection, chest x-ray no acute pathology, UA unre markable, Covid negative Follow-up cultures Chronic conditions Diabetes mellitus, insulin sliding scale Hypertension resume blood pressure meds History of CAD status post CABG, carotid endarterectomy, continue cardiac meds Patient is full code DVT prophylaxis heparin subcu 3 times a day Anticipated length of stay less than 2 midnights Patient continues to be confused continued to be weak Constitutional: No acute distress, conversant, pleasant confused Eyes: Anicteric sclerae, moist conjunctiva, no lid-lag PERRLA ENMT: NC/AT Oropharynx clear, no erythema, exudates Neck: Supple, FROM, no masses, or JVD No carotid bruits No thyromegaly Lungs: Clear to auscultation Clear to percussion Normal respiratory effort, no accessory muscle use Cardiovascular: Heart regular in rate and rhythm, No murmurs, gallops, or rubs No peripheral edema Abdominal: Soft Nontender, no guarding, rebound or rigidity Abdomen moving with respiration Normoactive bowel sounds No hepatomegaly, No splenomegaly No pal pable mass No abdominal wall hernia noted Skin: Normal temperature, tone, texture, turgor No induration No subcutaneous nodules No rash, lesions No ulcers Extremities: No digital cyanosis No clubbing Pedal pulses intact and symmetrical Radial pulses intact and symmetrical Normal gait and station No calf tenderness Psychiatric:Alert and oriented to person, place and time Appropriate affect Intact judgement Neuro: Muscles Strength 5/5 in all 4 extremities Sensation to light touch grossly present throughout Cranial nerves II-XII grossly intact No focal sensory deficits Patient is still confused but overall stable Hopefully discharge to rehab in a day or 2 Other mental status exact etiology not clear no evidence of any infectious or CVA process overall improving hopefully discharge to rehab in a day or 2 Objective - Vital Signs Vital signs: Vital Signs Temp 98.2 F 11/05/21 08:00 Pulse 68 11/05/21 08:00 Resp 16 11/05/21 08:00 BP 167/80 11/05/21 08:00 Pulse Ox 95 11/05/21 08:00 Intake & Output 11/04/21 11/05/21 11/05/21 18:59 06:59 18:59 Intake Total 598 240 50 Balance 598 240 50 Weight 81.647 kg Intake: Oral 598 240 50 Other: Voiding Method Diaper Incontinent # Voids 1 1 2 # Bowel Movements 1 - Labs CBC & Chem 7: 11/05/21 08:33 11/05/21 08:33 Labs: Abnormal Lab Results - Last 24 Hours (Table) 11/04/21 11/04/21 11/04/21 Range/Units 13:02 16:08 19:58 RBC (4.30-5.90) m/uL Hgb (13.0-17.5) gm/dL Hct (39.0-53.0) % Sodium (137-145) mmol/L BUN (9-20) mg/dL Glucose (74-99) mg/dL POC Glucose (mg/dL) 196 H 281 H 267 H (75-99) mg/dL Total Protein (6.3-8.2) g/dL Albumin (3.5-5.0) g/dL 11/05/21 11/05/21 11/05/21 Range/Units 05:49 08:33 08:33 RBC 3.76 L (4.30-5.90) m/uL Hgb 11.3 L (13.0-17.5) gm/dL Hct 34.9 L (39.0-53.0) % Sodium 136 L (137-145) mmol/L BUN 26 H (9-20) mg/dL Glucose 219 H (74-99) mg/dL POC Glucose (mg/dL) 193 H (75-99) mg/dL Total Protein 5.5 L (6.3-8.2) g/dL Albumin 3.1 L (3.5-5.0) g/dL 11/05/21 Range/Units 11:24 RBC (4.30-5.90) m/uL Hgb (13.0-17.5) gm/dL Hct (39.0-53.0) % Sodium (137-145) mmol/L BUN (9-20) mg/dL Glucose (74-99) mg/dL POC Glucose (mg/dL) 211 H (75-99) mg/dL Total Protein (6.3-8.2) g/dL Albumin (3.5-5.0) g/dL Microbiology - Last 24 Hours (Table) 10/31/21 21:37 Blood Culture - Preliminary Blood No Growth after 96 hours
[2021-11-05] MEDS: ALPRAZolam 1 MG TAB PO PRN (12:33)
--- NOTE | 2021-11-05 14:08 | MR ---
EXAMINATION TYPE: MR angio head wo con DATE OF EXAM: 11/05/2021 COMPARISON: MRI brain 11/02/2021 HISTORY: Possible cerebral aneurysm TECHNIQUE: Time of flight images focusing on the [place] were performed without contrast. FINDINGS: Mild asymmetric narrowing of the right cavernous ICA. The left distal ICA and the distal ve rtebral arteries are unremarkable. The anterior, middle and posterior cerebral arteries are patent. B asilar artery and its proximal branches are patent. No aneurysm in the right temporal lobe or anywhere else in the [place] arteries. IMPRESSION: 1. Mild asymmetric narrowing of the right common ICA otherwise unremarkable MRA of the brain. No an eurysm in the right temporal lobe or anywhere else in the [place] arteries.
[2021-11-05 16:36] LABS: Glucose,Whole Blood 274 mg/dL (75-99)
[2021-11-05 20:51] LABS: Glucose,Whole Blood 255 mg/dL (75-99)
[2021-11-05] MEDS: PRAVASTATIN SODIUM 20 MG TAB PO SCH (21:13)
[2021-11-05] MEDS: LIDOCAINE 5% PATCH TOPICAL SCH (21:13)
[2021-11-05] MEDS: DONEPEZIL 10 MG TAB PO SCH (21:13)
--- NOTE | 2021-11-05 22:42 | P.PN ---
Subjective Progress Note Date: 11/05/21 This is a Tele-neurology followup performed today on 11/05/2021. Patient was seen for a follow-up. Patient is very alert and awake, much more oriented. He thinks it is November and the year is 2001. Patient's agitation has improved as per nurse report. Patient denies any side effects of higher dose of Aricept. Patient denies any headache, any dizziness. Objective - Vital Signs Vital signs: Vital Signs Temp 98.5 F 11/05/21 16:00 Pulse 68 11/05/21 16:00 Resp 16 11/05/21 16:00 BP 157/66 11/05/21 16:00 Pulse Ox 96 11/05/21 16:00 Intake & Output 11/05/21 11/05/21 11/06/21 06:59 18:59 06:59 Intake Total 240 168 Balance 240 168 Intake: Oral 240 168 Other: Voiding Method Diaper Incontinent # Voids 1 2 - Exam Patient is alert and awake. Patient states is November and the year is 2001. Speech and language functions are normal. Patient can name and repeat very well. Pupils are round and reacting. Muscle strength is normal in the upper limbs. Patient has bilateral below-knee amputation. - Labs CBC & Chem 7: 11/05/21 08:33 11/05/21 08:33 Labs: Abnormal Lab Results - Last 24 Hours (Table) 11/05/21 11/05/21 11/05/21 Range/Units 05:49 08:33 08:33 RBC 3.76 L (4.30-5.90) m/uL Hgb 11.3 L (13.0-17.5) gm/dL Hct 34.9 L (39.0-53.0) % Sodium 136 L (137-145) mmol/L BUN 26 H (9-20) mg/dL Glucose 219 H (74-99) mg/dL POC Glucose (mg/dL) 193 H (75-99) mg/dL Total Protein 5.5 L (6.3-8.2) g/dL Albumin 3.1 L (3.5-5.0) g/dL 11/05/21 11/05/21 11/05/21 Range/Units 11:24 16:35 20:13 RBC (4.30-5.90) m/uL Hgb (13.0-17.5) gm/dL Hct (39.0-53.0) % Sodium (137-145) mmol/L BUN (9-20) mg/dL Glucose (74-99) mg/dL POC Glucose (mg/dL) 211 H 274 H 255 H (75-99) mg/dL Total Protein (6.3-8.2) g/dL Albumin (3.5-5.0) g/dL Microbiology - Last 24 Hours (Table) 10/31/21 21:37 Blood Culture - Preliminary Blood No Growth after 96 hours Assessment and Plan Assessment: * Altered mental status, probably due to metabolic encephalopathy. Patient had an earlier episode of hypoglycemia with blood sugar 54, for which he was evaluated at [facility], observed and discharged back to the residential same day. Patient has persistent altered mental status and subsequently developed myoclonic jerking therefore brought to [facility]. Patient was significantly hypotensive at the scene and also has UTI, likely the cause of metabolic encephalopathy. No evidence of stroke on MRI of the brain, although TIA still in the differential, though less likely. * No evidence of cerebral aneurysm on the brain MRA. * Chronic low back pain. History of L1 compression fracture. * Diabetes, not well controlled * History of bilateral below-knee amputation. * Hypertension * Dyslipidemia Plan: * Patient continues to be confused, slightly delirious. He does have dementia. We will increase Aricept from 5 mg to 10 mg daily. May consider adding Namenda in the future. * Vascular surgical input appreciated. Dr. Nur saw the patient. Their overall impression was no significant ICA stenosis per carotid ultrasound. No indication for vascular surgery intervention. * MRI of the brain revealed chronic small vessel ischemic changes, age-related atrophy. Mild sinus disease. Indeterminate signal could possibly be related to a 5 mm aneurysm in the region of right temporal lobe, contrast enhanced study or MRA of the [place] may be benefit. * MRA of the brain showed mild asymmetric narrowing of the right common ICA otherwise unremarkable MRA of the brain. No aneurysm in the right temporal lobe or anywhere else in the [place]. * MRA of the carotid shows no hemodynamic significant stenosis of the proximal internal carotid arteries. * Prevention of further episodes of hypoglycemia, treatment of hypotension and ?UTI as per IM. * Hemoglobin A1c 9.6 indicating poorly controlled diabetes. Recommend optimize control of diabetes to target A1c < 7.0, but avoid any episodes of hypoglycemia. * Fasting lipid panel with cholesterol 161, LDL 72, HDL 54 and triglycerides 173. Continue pravastatin 10 mg at bedtime. * 2-D echo revealed normal left-ventricular size. Moderate concentric LVH. EF is between 55-60%. Left atrium is moderately dilated. Mild aortic valve sclerosis. * As there is no significant vascular stenosis involving the carotids, we will continue dual antiplatelet medication aspirin 81 mg and Plavix 75 mg for 21 days and then stop Plavix and continue aspirin 162 mg daily. * Neurologically clear for discharge. We will sign off. Please call neurology if any concerns.
[2021-11-06] MEDS: INSULIN ASPART (NovoLOG) 100 UNIT/ML VIAL SQ SCH ×4 (06:24→20:28)
[2021-11-06 06:28] LABS: Glucose,Whole Blood 178 mg/dL (75-99)
[2021-11-06] MEDS: ASPIRIN 81 MG PO SCH (09:26)
[2021-11-06] MEDS: HEPARIN SODIUM,PORCINE/PF 5,000 UNIT/0.5 ML SYRINGE SQ SCH ×2 (09:27→17:27)
[2021-11-06] MEDS: buPROPion SR 100 MG TABLET.ER PO SCH ×2 (09:27→20:26)
[2021-11-06] MEDS: carvediloL 6.25 MG TAB PO SCH ×2 (09:27→20:26)
[2021-11-06] MEDS: ISOSORBIDE MONONITRATE ER 30 MG TAB.ER.24H PO SCH (09:27)
[2021-11-06] MEDS: CLOPIDOGREL 75 MG TAB PO SCH (09:27)
[2021-11-06] MEDS: SODIUM CHLORIDE 0.9% 1,000 ML IV SCH ×2 (09:28→23:26)
[2021-11-06 11:57] LABS: Glucose,Whole Blood 269 mg/dL (75-99)
--- NOTE | 2021-11-06 16:33 | P.PN ---
Subjective Progress Note Date: 11/06/21 Hospital course: Patient is a 80-year-old male with a past medical history CAD, diabetes mellitus, hypertension, COPD, and bilateral BKA who resides at [facility] and presented to the emergency department on 10/31/21 with a chief complaint of alteration in mental status/confusion. He was seen and fully evaluated in the emergency department resulting in diagnosis of alteration in mental status with confusion concerns of vascular dementia versus underlying infectious process, acute kidney injury, and elevated troponin. Neurology and vascular surgery were consulted. He underwent a CT of his head which was negative for acute intercranial process revealing remote lacunar injury of the right sylvia along with nonspecific white matter changes likely secondary to chronic microangiopathy. Carotid Dopplers revealed decreased diastolic flow within the right and left internal carotid arteries and common carotid arteries that is suggestive of hemodynamic stenosis more than 70% and could not demonstrate the flow in the right vertebral artery. Echocardiogram revealing a normal EF between 55 and 60%. EKG revealed sinus bradycardia with T-wave invers ion in inferiolateral leads. MRI revealed chronic small vessel ischemic changes, mild sinus disease, and indeterminate signal possibly related to a 5 mm aneurysm in the region of the right temporal lobe. MRA neck showing no hemodynamic significant stenosis of the proximal internal carotid arteries. Chest x-ray negative for acute cardiopulmonary process. Head MRA showing mild asymmetric narrowing of the right common ICA otherwise unremarkable MRA of the brain with no aneurysm in the right temporal lobe or anywhere else in the [place] arteries. Patient underwent evaluation by vascular surgery recommending no indication for any vascular surgical interventions at this time recommending continued low dose aspirin and statin. Neurology also clearing patient for discharge recommending continued to oral antiplatelet therapy with aspirin and Plavix for 21 days. Patient is medically stable at this time, case management working on possible arrangements for [facility] per patient and family request, if unable to get insurance on [facility]. Physical exam: Patient seen and fully evaluated at the bedside this morning. He is resting comfortably and denied having any complaints or concerns. Patient updated on plan for arrangement for discharge and denied having any questions at this time. Vital signs reviewed, patient hypertensive did not receive morning medications yet. We will continue to monitor. Vital signs reviewed and stable. General: Nontoxic, no distress and appears stated age. Derm: Skin warm and dry, normal coloration for ethnicity. Head: Atraumatic, normocephalic and symmetric. Eyes: EOMs intact, no lid lag, and anicteric sclera Mouth: no lip lesions, mucus membranes moist Cardiovascular: regular rate and rhythm with normal S1S2, no murmur, positive posterior tibial pulses bilaterally, and cap refill < 2 seconds. Lungs: Respirations even, regular, and unlabored on room air. Lungs CTA bilaterally, no rhonchi, no rales, no wheezing, and no accessory muscle usage. Abdominal: soft, nontender to palpation, no guarding, no appreciable organomegaly Ext: ROM intact. No gross muscle atrophy, no edema, no contractures Neuro: Speech clear, face symmetrical and CN II-XII grossly intact with no noted focal neuro deficits Psych: Alert and oriented to person, place, time, and situation. Appropriate and pleasant affect. Assessment and Plan of Care: Metabolic encephalopathy likely multi-factorial secondary to hypoglycemia, dementia, and UTI Poorly controlled diabetes mellitus Poorly controlled hypertension Hyperlipidemia BRIGHT, resolved History of bilateral BKA. -Neurology following, patient cleared for discharge at this time -Vascular surgery following, recommending no indication for any vascular surgical interventions at this time recommending continued low dose aspirin and statin. -Neuro checks -Fall precautions -Telemetry monitoring -Neurology increased Aricept from 5 mg to 10 mg daily -Patient to continue dual antiplatelet therapy with aspirin and Plavix for 21 days CODE STATUS: DO NOT RESUSCITATE/DO NOT INTUBATE DVT prophylaxis: Heparin Discussed with: Patient and RN Anticipated discharge date: Tomorrow, pending insurance off Anticipated discharge place: [facility] A total of 35 minutes was spent on the care of this complex patient more than 50% of the time was spent in counseling and care coordination. Objective - Vital Signs Vital signs: Vital Signs Temp 98 F 11/06/21 03:52 Pulse 63 11/06/21 03:52 Resp 16 11/06/21 03:52 BP 148/55 11/06/21 03:52 Pulse Ox 95 11/06/21 03:52 Intake & Output 11/05/21 11/06/21 11/06/21 18:59 06:59 18:59 Intake Total 168 540 Output Total 200 Balance 168 340 Intake: Oral 168 540 Output: Urine 200 Other: Voiding Method Incontinent Diaper Incontinent # Voids 2 4 - Labs CBC & Chem 7: 11/05/21 08:33 11/05/21 08:33 Labs: Abnormal Lab Results - Last 24 Hours (Table) 11/05/21 11/05/21 11/05/21 Range/Units 08:33 08:33 11:24 RBC 3.76 L (4.30-5.90) m/uL Hgb 11.3 L (13.0-17.5) gm/dL Hct 34.9 L (39.0-53.0) % Sodium 136 L (137-145) mmol/L BUN 26 H (9-20) mg/dL Glucose 219 H (74-99) mg/dL POC Glucose (mg/dL) 211 H (75-99) mg/dL Total Protein 5.5 L (6.3-8.2) g/dL Albumin 3.1 L (3.5-5.0) g/dL 11/05/21 11/05/21 11/06/21 Range/Units 16:35 20:13 05:59 RBC (4.30-5.90) m/uL Hgb (13.0-17.5) gm/dL Hct (39.0-53.0) % Sodium (137-145) mmol/L BUN (9-20) mg/dL Glucose (74-99) mg/dL POC Glucose (mg/dL) 274 H 255 H 178 H (75-99) mg/dL Total Protein (6.3-8.2) g/dL Albumin (3.5-5.0) g/dL Microbiology - Last 24 Hours (Table) 10/31/21 21:37 Blood Culture - Preliminary Blood No Growth after 120 hours
[2021-11-06 17:03] LABS: Glucose,Whole Blood 334 mg/dL (75-99)
[2021-11-06 20:03] LABS: Glucose,Whole Blood 301 mg/dL (75-99)
[2021-11-06] MEDS: LIDOCAINE 5% PATCH TOPICAL SCH (20:26)
[2021-11-06] MEDS: DONEPEZIL 10 MG TAB PO SCH (20:26)
[2021-11-06] MEDS: PRAVASTATIN SODIUM 20 MG TAB PO SCH (20:26)
[2021-11-06] MEDS: HYDROcodone/APAP 7.5-325MG 1 EACH TAB PO PRN (20:27)
[2021-11-06] MEDS: INSULN ASP PRT/INSULIN ASPART 100 UNIT/ML 10 ML VIAL SQ SCH (20:28)
[2021-11-07] MEDS: HEPARIN SODIUM,PORCINE/PF 5,000 UNIT/0.5 ML SYRINGE SQ SCH ×3 (00:54→17:28)
[2021-11-07] MEDS: ALPRAZolam 1 MG TAB PO PRN (00:54)
[2021-11-07 06:05] LABS: Glucose,Whole Blood 101 mg/dL (75-99)
[2021-11-07] MEDS: INSULIN ASPART (NovoLOG) 100 UNIT/ML VIAL SQ SCH ×3 (06:18→17:28)
[2021-11-07 07:42] VITALS: RESP 17
--- NOTE | 2021-11-07 07:55 | P.DS ---
<Manuelito Darby - Last Filed: 11/07/21 11:20> Providers Expected date of discharge: 11/07/21 Hospital Course: Discharge Diagnosis: Metabolic encephalopathy likely multi-factorial secondary to hypoglycemia and dementia Poorly controlled diabetes mellitus patient to continue long-acting and sliding scale insulin Poorly controlled hypertension, patient started on Procardia in addition to Imdur and carvedilol. Hyperlipidemia BRIGHT, resolved History of bilateral BKA. Hospital Course: Patient is a 80-year-old male with a past medical history CAD, diabetes mellitus, hypertension, COPD, and bilateral BKA who resides at [facility] and presented to the emergency department on 10/31/21 with a chief complaint of alteration in mental status/confusion. He was seen and fully evaluated in the emergency department resulting in diagnosis of alteration in mental status with confusion concerns of vascular dementia versus underlying infectious process, acute kidney injury, and elevated troponin. Neurology and vascular surgery were consulted. He underwent a CT of his head which was negative for acute intercranial process revealing remote lacunar injury of the right sylvia along with nonspecific white matter changes likely secondary to chronic microangiopathy. Carotid Dopplers revealed decreased diastolic flow within the right and left internal carotid arteries and common carotid arteries that is suggestive of hemodynamic stenosis more than 70% and could not demonstrate the flow in the right vertebral artery. Echocardiogram revealing a normal EF between 55 and 60%. EKG revealed sinus bradycardia with T-wave inversion in inferiolateral leads. MRI revealed chronic small vessel ischemic changes, mild sinus disease, and indeterminate signal possibly related to a 5 mm aneurysm in the region of the right temporal lobe. MRA neck showing no hemodynamic significant stenosis of the proximal internal carotid arteries. Chest x-ray negative for acute cardiopulmonary process. Head MRA showing mild asymmetric narrowing of the right common ICA otherwise unremarkable MRA of the brain with no aneurysm in the right temporal lobe or anywhere else in the [place] arteries. Patient underwent evaluation by vascular surgery recommending no indication for any vascular surgical interventions at this time recommending continued low dose aspirin and statin. Neurology also clearing patient for discharge recommending continued dual antiplatelet therapy with aspirin and Plavix for 21 days. Patient is medically stable at this time, and stable for discharge to SNF for continued rehab. Physical exam: Patient seen and fully evaluated at the bedside this morning. He appeared well and was sitting up in bed. He denied having any complaints at this time including headache, lightheadedness, dizziness, chest pain, palpitations, or shortness of breath. Patient was requesting assistance to get up and into shower and states he would like to shave before transfer to [facility]. Patient is medically stable at this time showing no signs of acute distress. Vital signs reviewed and stable. General: Nontoxic, no distress and appears stated age. Derm: Skin warm and dry, normal coloration for ethnicity. Head: Atraumatic, normocephalic and symmetric. Eyes: EOMs intact, no lid lag, and anicteric sclera Mouth: no lip lesions, mucus membranes moist Cardiovascular: regular rate and rhythm with normal S1S2, no murmur, positive posterior tibial pulses bilaterally, and cap refill < 2 seconds. Lungs: Respirations even, regular, and unlabored on room air. Lungs CTA bilaterally, no rhonchi, no rales, no wheezing, and no accessory muscle usage. Abdominal: soft, nontender to palpation, no guarding, no appreciable organomegaly Ext: ROM intact. No gross muscle atrophy, no edema, no contractures Neuro: Speech clear, face symmetrical and CN II-XII grossly intact with no noted focal neuro deficits Psych: Alert and oriented to person, place, time, and situation. Appropriate and pleasant affect. A total of 45 minutes of time were spent preparing this complex discharge summary. Assessment: agreee with note and plan Patient Condition at Discharge: Stable Plan - Discharge Summary Discharge Rx Participant: No New Discharge Prescriptions: New Donepezil [Aricept] 10 mg PO HS 30 Days #0 tab Clopidogrel [Plavix] 75 mg PO DAILY 16 Days #16 tab NIFEdipine XL [Procardia XL] 60 mg PO DAILY tablet INSULIN ASPART (NovoLOG) [NovoLOG (formulary)] 0 unit SQ ACHS ml Continue Isosorbide Mononitrate [Isosorbide Mononitrate ER] 30 mg PO DAILY@0800 Pravastatin Sodium [Pravachol] 10 mg PO HS@1999 carvediloL [Coreg] 6.25 mg PO BID@799,1999 HYDROcodone/APAP 7.5-325MG [Beverly 7.5-325] 1 tab PO BID@799,1999 6 Days #6 tab buPROPion HCL [Wellbutrin SR] 100 mg PO BID@799,1999 Insulin NPH/Reg Insulin 70/30 [humuLIN 70/30 VIAL] 22 unit SQ BID@0800,1999 Multivitamins, Thera [Multivitamin (formulary)] 1 tab PO DAILY@799 Lidocaine 5% Patch [Lidoderm 5% Patch] 1 patch TOPICAL HS@1999 Aspirin EC [Ecotrin Low Dose] 81 mg PO DAILY@0800 ALPRAZolam [Xanax] 1 mg PO HS@1999 PRN 4 Days #4 tab PRN Reason: Anxiety Discontinued Lisinopril [Prinivil] 10 mg PO DAILY@08 Donepezil HCl [Aricept] 5 mg PO HS@1999 Discharge Medication List Isosorbide Mononitrate [Isosorbide Mononitrate ER] 30 mg PO DAILY@0800 01/25/16 [History] Pravastatin Sodium [Pravachol] 10 mg PO HS@199903/18/19 [History] Aspirin EC [Ecotrin Low Dose] 81 mg PO DAILY@0800 10/31/21 [History] Insulin NPH/Reg Insulin 70/30 [humuLIN 70/30 VIAL] 22 unit SQ BID@799,199910/31/21 [History] Lidocaine 5% Patch [Lidoderm 5% Patch] 1 patch TOPICAL HS@199910/31/21 [History] Multivitamins, Thera [Multivitamin (formulary)] 1 tab PO DAILY@0810/31/21 [History] buPROPion HCL [Wellbutrin SR] 100 mg PO BID@0800,199910/31/21 [History] carvediloL [Coreg] 6.25 mg PO BID@799,199910/31/21 [History] ALPRAZolam [Xanax] 1 mg PO HS@1999 PRN 4 Days #4 tab 11/07/21 [Rx] Clopidogrel [Plavix] 75 mg PO DAILY 16 Days #16 tab 11/07/21 [Rx] Donepezil [Aricept] 10 mg PO HS 30 Days #0 tab 11/07/21 [Rx] HYDROcodone/APAP 7.5-325MG [Beverly 7.5-325] 1 tab PO BID@799,1999 6 Days #6 tab 11/07/21 [Rx] INSULIN ASPART (NovoLOG) [NovoLOG (formulary)] 0 unit SQ ACHS ml 11/07/21 [Rx] NIFEdipine XL [Procardia XL] 60 mg PO DAILY tablet 11/07/21 [Rx] Follow up Appointment(s)/Referral(s): Toma Min MD [REFERRING] - 1 Week Gerard Yang MD [Primary Care Provider] - 1-2 days Activity/Diet/Wound Care/Special Instructions: Activity: As tolerated. Take breaks as needed. Diet: Heart healthy and carb consistent diet. Avoid salts, or foods with hidden salts such as canned or boxed foods and frozen dinners. Extra salt makes your heart work harder and traps the fluid in your body for longer. Special Instructions: Take all of your medications as directed and remember to keep all of your doctor's appointments and follow-up as needed. Thank you for allowing us to participate in your care, it was truly a pleasure having you for our patient!!! Patient to continue dual antiplatelet therapy with aspirin and Plavix for an additional 16 more days then only take aspirin 162 mg daily as recommended by neurology. Discharge Disposition: TRANSFER TO SNF/ECF <Willy Bennett - Last Filed: 11/08/21 09:30> Providers Date of admission: 11/02/21 12:22 Attending physician: Keven Emmanuel MD Consults: 10/31/21 20:40 Consult Physician Routine Consulting Provider: Shahla Knight Consult Reason/Comments: Left arm tremor; altered mental status Do you want consulting provider notified?: Yes Primary care physician: Gerard Yang MD
[2021-11-07 08:10] LABS: Hypochromasia Slight; MCH 29.3 pg (25.0-35.0); MCHC 31.6 g/dL (31.0-37.0); MCV 92.6 fL (80.0-100.0); Mean Platelet Volume 8.9; Platelet Count 240 k/uL (150-450); RBC 3.78 m/uL (4.30-5.90); WBC 9.2 k/uL (3.8-10.6)
[2021-11-07 08:30] LABS: ALT 15 U/L (4-49); AST 21 U/L (17-59); African American GFR (CKD) >90 (>60 ml/min/1.73 sqM); Albumin 3.3 g/dL (3.5-5.0); Alkaline Phosphatase 68 U/L (38-126); Anion Gap 1 mmol/L; Blood Urea Nitrogen 20 mg/dL (9-20); Calcium 9.3 mg/dL (8.4-10.2); Carbon Dioxide 31 mmol/L (22-30); Chloride 106 mmol/L (98-107); Glucose 138 mg/dL (74-99); Magnesium 2.1 mg/dL (1.6-2.3); Non-African American GFR(CKD) 81 (>60 ml/min/1.73 sqM); Potassium 3.8 mmol/L (3.5-5.1); Sodium 138 mmol/L (137-145); Total Bilirubin 0.5 mg/dL (0.2-1.3); Total Protein 5.7 g/dL (6.3-8.2)
[2021-11-07] MEDS: carvediloL 6.25 MG TAB PO SCH (09:51)
[2021-11-07] MEDS: ISOSORBIDE MONONITRATE ER 30 MG TAB.ER.24H PO SCH (09:51)
[2021-11-07] MEDS: INSULN ASP PRT/INSULIN ASPART 100 UNIT/ML 10 ML VIAL SQ SCH (09:51)
[2021-11-07] MEDS: CLOPIDOGREL 75 MG TAB PO SCH (09:51)
[2021-11-07] MEDS: ASPIRIN 81 MG PO SCH (09:51)
[2021-11-07] MEDS: buPROPion SR 100 MG TABLET.ER PO SCH (09:51)
[2021-11-07 09:59] LABS: Glucose,Whole Blood 299 mg/dL (75-99)
[2021-11-07 11:16] LABS: Glucose,Whole Blood 191 mg/dL (75-99)
[2021-11-07 11:33] VITALS: BP 160/80; PULSE 64; TEMP 96.5
[2021-11-07 16:16] LABS: Glucose,Whole Blood 103 mg/dL (75-99)
[2021-11-07] MEDS: SODIUM CHLORIDE 0.9% 1,000 ML IV SCH (17:28)
== END 2021-11-07 18:19 | DRG 71 ==
LOC: EC 16:53 → 3SCARD 19:41 → OBSVTOIN 11-02 12:22
PROVIDERS: ADMIT Internal Medicine; ATTEND Internal Medicine
DX: G93.41 Metabolic encephalopathy (principal); N39.0 Urinary tract infection, site not specified; N17.9 Acute kidney failure, unspecified; F01.50 Vascular dementia, unspecified severity, without behavioral disturbance, psychotic disturbance, mood disturbance, and anxiety; E11.51 Type 2 diabetes mellitus with diabetic peripheral angiopathy without gangrene; E11.649 Type 2 diabetes mellitus with hypoglycemia without coma; E11.65 Type 2 diabetes mellitus with hyperglycemia; E78.5 Hyperlipidemia, unspecified; R44.1 Visual hallucinations; F03.90 Unspecified dementia, unspecified severity, without behavioral disturbance, psychotic disturbance, mood disturbance, and anxiety; F41.9 Anxiety disorder, unspecified; Z66 Do not resuscitate; G89.29 Other chronic pain; Z20.822 Contact with and (suspected) exposure to COVID-19; I95.9 Hypotension, unspecified; M54.50 Low back pain, unspecified; I25.2 Old myocardial infarction; I25.10 Atherosclerotic heart disease of native coronary artery without angina pectoris; H54.7 Unspecified visual loss; I10 Essential (primary) hypertension; I65.29 Occlusion and stenosis of unspecified carotid artery; J44.9 Chronic obstructive pulmonary disease, unspecified; Z95.1 Presence of aortocoronary bypass graft; Z79.4 Long term (current) use of insulin; Z79.82 Long term (current) use of aspirin; Z89.512 Acquired absence of left leg below knee; Z89.511 Acquired absence of right leg below knee; Z87.891 Personal history of nicotine dependence; Z83.3 Family history of diabetes mellitus; Z82.49 Family history of ischemic heart disease and other diseases of the circulatory system; Z79.899 Other long term (current) drug therapy
CPT/HCPCS: 36415; 70450; 70544; 70547; 70551; 71045; 71046; 80053; 80061; 81001; 83036; 83605; 83735; 84484; 85025; 85027; 85610; 85730; 87040; 87635; 93005; 93306; 93880; 96360; 99285